=== PATIENT | female | born 2005 | race Caucasian/White ===

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

== ENCOUNTER 2023-01-19 17:34 | Emergency (ER) | payer OTHER, SELFPAY ==
[2023-01-19 17:35] VITALS: BP 118/78; PULSE 90; RESP 18; TEMP 36.4; O2SAT 97; BMI 21.7
== END 2023-01-19 19:33 | disposition left against medical advice (07) ==
LOC: ED 19:38
PROVIDERS: Emergency Provider Emergency Medicine; Visit Provider Emergency Medicine
DX: Z53.21 Procedure and treatment not carried out due to patient leaving prior to being seen by health care provider (principal)
CPT/HCPCS: 87880

== ENCOUNTER 2025-01-20 16:40 | Emergency (ER) | payer OTHER, SELFPAY ==
[2025-01-20 16:41] VITALS: BP 136/99; PULSE 81; RESP 16; TEMP 36.8; O2SAT 100; BMI 20.8
--- NOTE | 2025-01-20 17:37 | ED.RN ---
Name called to room pt, no answer, not in triage area or bathroom
--- OUTSIDE RECORDS SUMMARY | 2025-01-20 17:45 | XMS RPT_ITS | CCD ---
Author Organization [facility] Informat ion Partnership [facility] Care Team Providers Care Car Deliverer Name Role Phone Kat Santso MD Primary Care Provider [phone] Kat Santos MD Primary Care Provider Kat Santos MD Primary Care Provider Kat Santos MD Primary Care Provider [phone] [facility] Unavailable [facility] Primary Care Provider Unav ailable Marco Antonio Dunbar Attending Unavailable Ana Lusia, Kat Primary Care Unavailable Wilfred Lozada Attending Unavailable Ana Luisa, Kat Primary Care Unavailable ANA LUISA, KAT Primary Care Unavailable ANA LUISA, KAT Attending Unavailable ANA LUISA, KAT Primary Care Unavailable ANA LUISA, KAT Referring Unavailable ANA LUISA, KAT Primary Care Unavailable ANA LUISA, KAT Attending Unavailable ANA LUISA, KAT Primary Care Unavailable REFERRED, SELF Referring Unavailable ANA LUISA, KAT Attending Unavailable ANA LUISA, KAT Referring Unavailable ANA LUISA, KAT Primary Care Unavailable NAYAN MON Attending Unavailable ANA LUISA, KAT Primary Care Unavailable ANA LUISA, KAT Primary Care Unavailable ANA LUISA, KAT Primary Care Unavailable ANA LUISA, KAT Primary Care Unavailable PARAJULI, MAGALYS Attending Unavailable PARAJULI, MAGALYS Referring Unavailable ANA LUISA, KAT Primary Care Unavailable ANA LUISA, KAT Primary Care Unavailable REFERRED, SELF Referring Unavailable ANA LUISA, KAT Attending Unavailable ANA LUISA, KAT Primary Care Unavailable PARAJULI, MAGALYS Attending Unavailable REFERRED, SELF Referring Unavailable ANA LUISA, KAT Primary Care Unavailable PARAJULI, MAGALYS Attending Unavailable ANA LUISA, KAT Primary Care Unavailable ANA LUISA, KAT Primary Care Unavailable ANA LUISA, KAT Primary Care Unavailable ANA LUISA, KAT Primary Care Unavailable ANA LUISA, KAT Primary Care Unavailable ANA LUISA, KAT Primary Care Unavailable ANA LUISA, KAT Primary Care Unavailable REFERRED, SELF Referring Unavailable ANA LUISA, KAT Attending Unavailable [facility] Primary Care Unavailable JACQUELYN TREVINO Attending Unavailable DASHA, KERI Attending Unavailable [facility] Primary Care Unavailable DASHAKERI Attending Unavailable [facility] Primary Care Unavailable Chuck BORING MILL OPERATOR.Herminio PEREZ Primary Care Provider [phone] HERMINIO WOODS Attending Unavailable ANA LUISA, KAT A Primary Care UnavailSaulo Mckenzie MD Primary Care Provider Judy BORING MILL OPERATOR.RIG SUPERINTENDENT, Radha Unavailable Jessy BORING MILL OPERATOR.RIG SUPERINTENDENT, Radha Unavailable SAULO CAMARILLO Referring Unavailable ERIKA DIAZ Attending Unavailable SAVEZara, SAULO Primary Care Unavailable SAVEL, SAULO Attending Unavailable SAVEL, SAULO Primary Care Unavailable SAVEL, SAULO Primary Care Unavailable SAVEL, SAULO Referring Unavailable SAVEL, SAULO Attending Unavailable SAVEL, SAULO Primary Care Unavailable SAVEL, SAULO Attending Unavailable SAVEL, SAULO Primary Care Unavailable SAVEL, SAULO Primary Care Unavailable SAVEL, SAULO Attending Unavailable RABIA, SAULO Primary Care Unavailable Allergies Allergy Classification Reported Allergen(s) Allergy Type Date of Onset Reaction(s) Facility (4 sources) Lactose; Translations: [LACTOSE] Drug Allergy 11-06-2020 Diarrhea [facility] (4 sources) Eggs Or Egg-Derived Products; Translations: [EGGS OR EGG-DERIVED PRODUCTS] Propensity to adverse reactions 11-06-2020 Diarrhea [facility] Medications Current Medications Medication Drug Class(es) Dates Sig (Normalized) Sig (Original) amoxicillin 875 mg / clavulanate 125 mg oral tablet (1 source) Penicillin-class Antibacterial Start: 4 End: 4 take 1 tablet by mouth every twelve hours amoxicillin-clavulana te potassium (AUGMENTIN) 875-125 mg per tablet Indications: Neck mass Take 1 tablet by mouth every 12 hours for 10 days. 20 tablet 0 08/15/2023 08/25/2023 Active bifidobacterium infantis 4 mg oral capsule (1 source) Probiotic Produc t (ALIGN) 4 MG 1 Capsule by Feeding route daily 0 Active cetirizine hydrochloride 10 mg oral tablet (18 sources) Histamine-1 Receptor Antagonist take 1 tablet by mouth once daily cetirizine (ZYRTEC) 10 mg tablet Take 10 mg by mouth once daily. Active 24 hr dexmethylphenidate hydrochloride 10 mg extended release oral capsule (20 sources) Central Nervous System Stimulant Start: 3 End: 3 take 1 capsule by mouth once daily in the morning dexmethylphenidate HCl (FOCALIN XR) 10 MG ER capsule Take 1 Capsule (10 mg) by mouth every morning for 30 days 30 Capsule 0 10/19/2022 11/18/2022 Active Start: 08-17-2022 dexmethylpheni date XR (Focalin XR) 10 MG 24 hr capsule Start: 06-17-2021 take 1 capsule by mo [facility] once daily in the morning dexmethylphenidate HCl (FOCALIN XR) 10 MG ER capsule Take 1 Capsule (10 mg) by mouth every morning 90 Capsule 0 06/17/2021 Active End: 11-22-2023 dexmethylphenidate HCl (FOCA IRINA) 5 mg tablet Take 20 mg by mouth once daily. 11/22/2023 Discontinued take 1 tablet by aly twice daily dexmethylphenidate HCl (FOCALIN) 5 mg tablet Take 5 mg by mouth twice daily. 0 Active Comment on above: Take 5 mg by mouth t wice daily. diphenhydrAMINE hydrochloride 25 mg oral tablet (1 source) Histamine-1 Receptor Antagonist diphenhydrAMINE (BENADRYL) 25 MG TABS tablet Take by mouth every 6 hours as needed for Itching 0 Active drospirenone 3 mg / ethinyl estradiol 0.03 mg oral tablet (8 sources) Progestin, Estrogen Start: 05-24-2022 drospirenone-ethinyl estradiol (ERNIE) 3-0.03 MG per tablet TAKE 1 TABLET DAILY 84 Tablet 0 05/24/2022 Active Start: 06-22-2021 ERNIE 3-0.03 M G per tablet TAKE 1 TABLET DAILY 84 Tablet 3 06/22/2021 Active Start: 07-21-2020 End: 11-22-2023 take 1 tablet by mouth once Drospirenone-Ethinyl Estra diol 3- 0.03 mg per tablet Take 1 tablet by mouth. 07/21/2020 11/22/2023 Discontinued Start: 07-21-2020 take 1 tablet by mouth once Dr ospirenone-Ethinyl Estradiol 3- 0.03 mg per tablet Take 1 tablet by mouth. 0 07/21/2020 Active Comment on above: Take 1 tablet by aly th. escitalopram 20 mg oral tablet (16 sources) Serotonin Reuptake Inhibitor Start: take 1 tablet by mouth once daily escitalopram oxalate (LEXAPRO) 20 mg tablet Indications: ADITYA (generalized anxiety disorder) Take 1 tablet by mouth once daily. 90 tablet 1 11/26/2024 Active Start: 11-22-2023 End: 11-26-2024 take 1 tablet by mouth once daily escitalopram oxalate (LEXAPRO) 10 mg tablet Indications: ADITYA (generalized anxiety disorder) Take 1 tablet by mouth once daily. 90 tablet 3 06/07/2024 11/26/2024 Discontinued Ethinyl Estradiol / Levonorgestrel (1 source) Progestin, Estrogen, Progestin-containing Intrauterine Device Start: 07-01-2022 take 1 tablet by mouth once daily, then take 0.15 tablet by mouth once levonorgestrel-ethinyl estradiol (SEASONALE) 0.15-0.03 MG per tablet Take 1 Tablet by mouth daily 91 Tablet 1 07/01/2022 Active famotidine 10 mg oral tablet (1 source) Histamine-2 Receptor Antagonist famotidine (PEPCID) 10 MG tablet Take by mouth 0 Active hydrOXYzine pamoate 25 mg oral capsule (1 source) Antihistamine Start: 06-17-2021 take 2 capsules by mouth at bedtime as needed for anxiety hydrOXYzine (VISTARIL) 25 MG capsule Take 2 Capsules (50 mg) by mouth at bedtime as needed (anxiety) 120 Capsule 5 06/17/2021 Active lisdexamfetamine dimesylate 30 mg oral capsule (20 sources) Central Nervous System Stimulant Start: 08-28-2024 End: 12-06-2024 take 1 capsule by mouth once daily lisdexamfetamine (VYVANSE) 30 mg capsule Indications: ADHD (attention deficit hyperactivity disorder), combined type Take 1 capsule by mouth once daily for 30 days. Patient should start on November 06, 2024. 30 capsule 11/06/2024 12/06/2024 Active Start: 02-20-2024 End: 09-05-2024 take 1 capsule by mouth once daily lisdexamfetamine (VYVANSE) 40 mg capsule Indications: ADHD (attention deficit hyperactivity disorder), combined type Take 1 capsule by mouth once daily for 30 days. Patient should start on August 06, 2024. 30 capsule 08/06/2024 08/28/2024 Discontinued Start: 11-22-2023 End: 02-20-2024 lisdexamfetamine (VYVANSE) 3 0 mg capsule Indications: ADHD (attention deficit hyperactivity disorder), combined type Take 1 capsule by mouth once daily for 30 days. Patient should start on January 21, 2024. 30 capsule 01/21/2024 02/20/2024 Discontinued Start: 06-21-2023 End: 11-22-2023 lisdexamfetamine (VYVANSE) 2 0 mg capsule Take 20 mg by mouth. 06/21/2023 11/22/2023 Discontinued melatonin 10 mg sublingual t ablet (2 sources) Melatonin 10 MG TBCR Take by mouth 0 Active Melatonin [address] under the tongue 0 Active Completed/Discontinued Medications Medication Drug Class(es) Dates Sig (Normalized) Sig (Original) [id number] 0.3 ml EPINEPHrine 1 mg/ml auto-injector (6 sources) alpha-Adrenergic Agonist, beta-Adrenergic Agonist, Catecholamine Start: 08-17-2021 End: 11-22-2023 EPINEPHrine (EPIPEN) 0.3 mg/0.3 mL auto-injector Inject 0.3 mg intramuscularly. 08/17/2021 11/22/2023 Discontinued Start: 08-17-2021 EPINEPHrine (E PIPEN 2-FABIAN) 0.3 MG injection Inject 1 Auto-Injector (0.3 mg) into the muscle as needed for Anaphylaxis May repeat if needed in 15 min. Seek immediate medical attention. 2 Each 1 08/17/2021 Active ibuprofen 200 mg oral tablet (8 sources) Nonsteroidal Anti-inflammatory Drug End: 11-22-2023 take 1 tablet by mouth every six hours as needed ibuprofen (MOTRIN) 200 mg tablet Take 200 mg by mouth every 6 hours as needed. 11/22/2023 Discontinued IBUPROFEN PO Narinder e by mouth as needed 0 Active IBUPROFEN PO Narinder e by mouth 0 Active Comment on above: Take 200 mg by mouth every 6 hours as needed. levonorgestrel 0.881818 mg/hr intrauterine system (20 sources) Progestin, Progestin-containing Intrauterine Device Start: 10-06-2022 End: 10-06-2022 Levonorgestrel (Kyleena) 19.5 MG IUD 1 each Start: 10-06-2022 End: 10-06-2022 Levonorgestrel (Kyleena) 19. 5 MG IUD 1 each Start: 10-06-2022 End: 10-06-2022 Levonorgestrel (Kyleena) 19. 5 MG IUD 1 each Start: 10-06-2022 End: 10-06-2022 Levonorgestrel (Kyleena) 19. 5 MG IUD 1 each Start: 10-06-2022 End: 10-06-2022 Levonorgestrel (Kyleena) 19. 5 MG intrauterine device Indications: Encounter for IUD insertion 1 each by IntraUTERine route Once for 1 dose. 1 each 0 10/06/2022 10/06/2022 Discontinued (Therapy completed) Start: 09-28-2022 levonorgestrel (KYLEENA) 17.5 mcg/24 hrs (5 yrs) 19.5 mg IUD 09/28/2022 Active Start: 09-28-2022 Kyleena 19.5 M G intrauterine device minocycline 100 mg oral tablet (4 sources) Tetracycline-class Drug End: 09-07-2024 take 1 tablet by mouth once daily Minocycline HCl 100 mg tablet Take 100 mg by mouth once daily. 2 months for acne. Prescribed by Dermatology. 09/07/2024 Discontinued (Course of therapy completed) sertraline 50 mg oral tablet (6 sources) Serotonin Reuptake Inhibitor Start: 08-28-2020 End: 11-22-2023 sertraline (ZOLOFT) 50 mg tablet Take 75 mg by mouth. 08/28/2020 11/22/2023 Discontinued Comment on above: Take 75 mg by mouth. sodium fluoride 0.011 mg/mg toothpaste (4 sources) Start: 05-28-2023 End: 11-22-2023 Sodium Fluoride 1.1 % 05/28/2023 11/22/2023 Discontinued (Course of therapy completed) Problems Active Problems Problem Classification Problem Date Documented Da te Episodic/Chronic Abdominal pain (4 sources) Pain in pelvis; Translations: [Pelvic and perineal pain] Onset: 12-18-2024 02-24-2023 Episodic Acute and chronic tonsillitis (3 sources) Amygdalolith; Translations: [Other chronic diseases of tonsils and adenoids] Onset: 02-29-2024 11-22-2023 Chronic Administrative/social admission (1 source) First encounter by subject; Translations: [Persons encountering health services in other specified circumstances] 11-22-2023 Episodic Anxiety disorders (20 sources) Posttraumatic stress disorder; Translations: [Post-traumatic stress disorder, unspecified] Onset: 11-10-2020 11-10-2020 Chronic Attention-deficit, conduct, and disruptive behavior disorders (17 sources) Attention deficit hyperactivity disorder, combined type; Translations: [Attention-deficit hyperactivity disorder, combined type] Onset: 11-22-2023 11-22-2023 Chronic Attention-deficit, conduct, and disruptive behavior disorders (1 source) Attention-deficit hyperactivity disorder, combined type; Translations: [ADHD (attention deficit hyperactivity disorder), combined type] Onset: 11-22-2023 Chronic Coagulation and hemorrhagic disorders (1 source) Easy bruising; Translations: [Spontaneous ecchymoses] 02-20-2024 Episodic Contraceptive and procreative management (1 source) Intrauterine contraceptive device in situ; Translations: [Presence of (intrauterine) contraceptive device] 02-24-2023 Episodic Esophageal disorders (1 source) Gastro-esophageal reflux disease without esophagitis; Translations: [GERD without esophagitis] Onset: 12-18-2024 Chronic Gastrointestinal hemorrhage (1 source) Melena; Translations: [Tarry stools] Onset: 12-18-2024 Episodic Malaise and fatigue (2 sources) Fatigue; Translations: [Other fatigue] Onset: 08-15-2023 08-15-2023 Episodic Menstrual disorders (1 source) Menorrhagia; Translations: [Excessive and frequent menstruation with regular cycle] 07-02-2022 Chronic Miscellaneous mental health disorders (13 sources) Chronic insomnia; Translations: [Psychophysiologic insomnia] Onset: 11-22-2023 11-22-2023 Chronic Other gastrointestinal disorders (1 source) Other specified symptoms and signs involving the digestive system and abdomen; Translations: [Alternating constipation and diarrhea] Onset: 12-18-2024 Episodic Other gastrointestinal disorders (1 source) Abdominal distension (gaseous); Translations: [Abdominal bloating] Onset: 12-18-2024 Episodic Other injuries and conditions due to external causes (2 sources) Closed injury of head; Translations: [Unspecified injury of head, initial encounter] 05-04-2022 Episodic Other skin disorders (2 sources) Mass of neck; Translations: [Localized swelling, mass and lump, neck] 08-15-2023 Episodic Other skin disorders (1 source) Localized swelling, mass and lump, neck; Translations: [Neck mass] Onset: 08-15-2023 Episodic Other upper respiratory infections (1 source) Sore throat symptom; Translations: [Acute pharyngitis, unspecified] 02-29-2024 Episodic Residual codes; unclassified (2 sources) Obstructive sleep apnea syndrome; Translations: [Obstructive sleep apnea (adult) (pediatric)] Chronic Residual codes; unclassified (1 source) Frequent night waking; Translations: [Insomnia, unspecified] Episodic Residual codes; unclassified (1 source) Procedure and treatment not carried out due to patient leaving prior to being seen by health care provider; Translations: [Procedure and treatment not carried out due to patient leaving prior to being seen by health care provider] Onset: 01-25-2023 Episodic Screening and history of mental health and substance abuse codes (3 sources) Personal history of other mental and behavioral disorders; Translations: [History of attention deficit hyperactivity disorder (ADHD)] 05-04-2022 Episodic Unclassified (2 sources) other Onset: 02-24-2023 Unclassified (1 source) Immunization counseling; Translations: [Immunization counseling] Onset: 12-18-2024 Past or Other Problems Problem Classification Problem Date Documented Date Episodic/Chronic Attention-deficit, conduct, and disruptive behavior disorders (3 sources) Oppositional defiant disorder; Translations: [Oppositional defiant disorder] Onset: 04-10-2015 Resolved: 06-13-2022 04-10-2015 Chronic Attention-deficit, conduct, and disruptive behavior disorders (3 sources) Attention deficit hyperactivity disorder, predominantly inattentive type; Translations: [Attention-deficit hyperactivity disorder, predominantly inattentive type] Onset: 06-23-2020 Resolved: 06-13-2022 11-10-2020 Chronic Conditions associated with dizziness or vertigo (3 sources) Dysfunction of vestibular system; Translations: [Labyrinthine dysfunction, unspecified ear] Onset: 12-24-2015 12-24-2015 Episodic E Codes: Adverse effects of medical drugs (3 sources) Sympathomimetic adverse reaction; Translations: [Adverse effect of unspecified drugs primarily affecting the autonomic nervous system, initial encounter] Onset: 11-06-2020 Resolved: 11-06-2020 11-06-2020 Episodic Immunizations and screening for infectious disease (6 sources) Patient encounter status; Translations: [Encounter for screening for infections with a predominantly sexual mode of transmission] Onset: 09-16-2022 09-16-2022 Episodic Intracranial injury (3 sources) Concussion injury of body structure; Translations: [Concussion with loss of consciousness of unspecified duration, initial encounter] Onset: 12-24-2015 12-24-2015 Episodic Lymphadenitis (4 sources) Cervical lymphadenopathy; Translations: [Localized enlarged lymph nodes] Onset: 02-29-2024 09-03-2022 Episodic Mood disorders (6 sources) Depressive disorder; Translations: [Major depressive disorder, single episode, unspecified] Onset: 11-06-2020 Resolved: 06-13-2022 11-10-2020 Chronic Other aftercare (1 source) Other terminal gauger supervisor (current) drug therapy; Translations: [On angiotensin receptor blockers (ARB)] Onset: 09-20-2024 Episodic Other injuries and conditions due to external causes (1 source) Unspecified injury of head, initial encounter; Translations: [Unspecified injury of head, initial encounter] Onset: 05-12-2022 Episodic Other screening for suspected conditions (not mental disorders or infectious disease) (3 sources) Prolonged QT interval; Translations: [Abnormal electrocardiogram [ECG] [EKG]] Onset: 11-06-2020 Resolved: 11-06-2020 11-06-2020 Episodic Other upper respiratory disease (3 sources) Vocal cord dysfunction; Translations: [Other diseases of vocal cords] Onset: 03-22-2017 03-22-2017 Episodic Syncope (3 sources) Vasovagal syncope; Translations: [Syncope and collapse] Onset: 01-31-2019 01-31-2019 Episodic Results Test Name Value Interpretation Reference Range Facil ity CBC W Auto Differential pane l (Bld)on 12-19-2024 Basophils (Bld) [#/Vol] 0.03 10*3/uL Normal <0.11 [facility] Comment on above: Order Comment: Speci men Type: BLOOD SPECIMENOrdering Facility: [facility] Address: [address] [place] [address] Performed By: #### 5 7021-8 ####[facility] LABCLIA [id number] [place] [address] [place] Basophils/100 WBC (Bld) 0.8 % Normal [facility] Comment on above: Order Comment: Speci men Type: BLOOD SPECIMENOrdering Facility: [facility] Address: [address] [place] [address] Performed By: #### 5 7021-8 ####[facility] LABCLIA [id number] [place] [id number] [place] Differential cell count method Nom (Bld) Auto Normal [facility] Comment on above: Order Comment: Speci men Type: BLOOD SPECIMENOrdering Facility: [facility] Address: [address] [place] [address] Performed By: #### 5 7021-8 ####[facility] LABCLIA [id number] [place] [address] [place] Eosinophils (Bld) [#/Vol] 0.05 10*3/uL Normal <0.46 [facility] Comment on above: Order Comment: Speci men Type: BLOOD SPECIMENOrdering Facility: [facility] Address: [address] [place] [address] Performed By: #### 5 7021-8 ####[facility] LABCLIA [id number] [place] [id number] [place] Eosinophils/100 WBC (Bld) 1.3 % Normal [facility] Comment on above: Order Comment: Speci men Type: BLOOD SPECIMENOrdering Facility: [facility] Address: [address] [place], [place] [id number] Performed By: #### 5 7021-8 ####[facility] LABCLIA [id number] [place] [address] [place] Erythrocyte distribution width (RBC) [Ratio] 12.9 % Normal 11.5-15.0 [facility] Comment on above: Order Comment: Speci men Type: BLOOD SPECIMENOrdering Facility: [facility] Address: [address] [place] [address] Performed By: #### 5 7021-8 ####[facility] LABIA [id number] [place] [id number] [place] Hematocrit (Bld) [Volume fraction] 43.1 % Normal 36.0-46.0 [facility] Comment on above: Order Comment: Speci men Type: BLOOD SPECIMENOrdering Facility: [facility] Address: [address] [place] [address] Performed By: #### 5 7021-8 ####[facility] LABIA [id number] [place] [address] [place] Hemoglobin (Bld) [Mass/Vol] 13.4 g/dL Normal 11.5-15.5 [facility] Comment on above: Order Comment: Speci men Type: BLOOD SPECIMENOrdering Facility: [facility] Address: [address] [place] [address] Performed By: #### 5 7021-8 ####[facility] LABIA [id number] [place] [id number] [place] Immature granulocytes (Bld) [#/Vol] 10*3/uL Normal <0.10 [facility] Comment on above: Order Comment: Speci men Type: BLOOD SPECIMENOrdering Facility: [facility] Address: [address] [place] [address] Performed By: #### 5 7021-8 ####[facility] LABIA [id number] [place] [id number] [place] Immature granulocytes/100 WBC (Bld) 0.3 % Normal [facility] Comment on above: Order Comment: Speci men Type: BLOOD SPECIMENOrdering Facility: [facility] Address: [address] [place] [address] Performed By: #### 5 7021-8 ####[facility] LABCLIA [id number] [place] [address] [place] Lymphocytes (Bld) [#/Vol] 1.55 10*3/uL Normal 1.00-4.00 [facility] Comment on above: Order Comment: Speci men Type: BLOOD SPECIMENOrdering Facility: [facility] Address: [address] [place] [address] Performed By: #### 5 7021-8 ####[facility] LABIA [id number] [address] [place] Lymphocytes/100 WBC (Bld) 41.7 % Normal [facility] Comment on above: Order Comment: Speci men Type: BLOOD SPECIMENOrdering Facility: [facility] Address: [address] [place] [address] Performed By: #### 5 7021-8 ####[facility] LABIA [id number] [place] [id number] [place] MCH (RBC) [Entitic mass] 26.7 pg Normal 26.0-34.0 [facility] Comment on above: Order Comment: Speci men Type: BLOOD SPECIMENOrdering Facility: [facility] Address: [address] [place] [address] Performed By: #### 5 7021-8 ####[facility] LABCLIA [id number] [place] [id number] [place] MCHC (RBC) [Mass/Vol] 31.1 g/dL Normal 30.5-36.0 [facility] Comment on above: Order Comment: Speci men Type: BLOOD SPECIMENOrdering Facility: [facility] Address: [address] [place] [address] Performed By: #### 5 7021-8 ####[facility] LABCLIA [id number] [place] [address] [place] MCV (RBC) [Entitic vol] 86.0 fL Normal 80.0-100.0 [facility] Comment on above: Order Comment: Speci men Type: BLOOD SPECIMENOrdering Facility: [facility] Address: [address] [place] [address] Performed By: #### 5 7021-8 ####[facility] LABCLIA [id number] [place] [address] [place] Monocytes (Bld) [#/Vol] 0.20 10*3/uL Normal <0.87 [facility] Comment on above: Order Comment: Speci men Type: BLOOD SPECIMENOrdering Facility: [facility] Address: [address] [place] [address] Performed By: #### 5 7021-8 ####[facility] LABIA [id number] [place] [address] [place] Monocytes/100 WBC (Bld) 5.4 % Normal [facility] Comment on above: Order Comment: Speci men Type: BLOOD SPECIMENOrdering Facility: [facility] Address: [address] [place] [address] Performed By: #### 5 7021-8 ####[facility] LABIA [id number] [place] [address] [place] Neutrophils (Bld) [#/Vol] 1.88 10*3/uL Normal 1.45-7.50 [facility] [facility] Comment on above: Order Comment: Speci men Type: BLOOD SPECIMENOrdering Facility: [facility] Address: [address] [place] [address] Performed By: #### 5 7021-8 ####[facility] LABCLIA [id number] [place] [address] [place] Neutrophils/100 WBC (Bld) 50.5 % Normal [facility] Comment on above: Order Comment: Speci men Type: BLOOD SPECIMENOrdering Facility: [facility] Address: [address] [place] [address] Performed By: #### 5 7021-8 ####[facility] LABCLIA [id number] [place] [address] [place] Nucleated RBC (Bld) [#/Vol] 10*3/uL Normal <0.01 [facility] Comment on above: Order Comment: Speci men Type: BLOOD SPECIMENOrdering Facility: [facility] Address: [address] [place] [address] Performed By: #### 5 7021-8 ####[facility] LABIA [id number] [place] [address] [place] Nucleated RBC/100 WBC (Bld) [Ratio] 0.0 /100 WBC Normal [facility] Comment on above: Order Comment: Speci men Type: BLOOD SPECIMENOrdering Facility: [facility] Address: [address] [place] [address] Performed By: #### 5 7021-8 ####[facility] LABIA [id number] [place] [address] [place] Platelet mean volume (Bld) [Entitic vol] 9.8 fL Normal 9.0-12.7 [facility] Comment on above: Order Comment: Speci men Type: BLOOD SPECIMENOrdering Facility: [facility] Address: [address] [place] [address] Performed By: #### 5 7021-8 ####[facility] LABCLIA [id number] [place] [address] [place] Platelets (Bld) [#/Vol] 290 10*3/uL Normal 150-400 [facility] Comment on above: Order Comment: Speci men Type: BLOOD SPECIMENOrdering Facility: [facility] Address: [address] [place] [address] Performed By: #### 5 7021-8 ####[facility] LABCLIA [id number] [place] [address] [place] RBC (Bld) [#/Vol] 5.01 10*6/uL Normal 3.90-5.20 [facility] Comment on above: Order Comment: Speci men Type: BLOOD SPECIMENOrdering Facility: [facility] Address: [address] [place] [address] Performed By: #### 5 7021-8 ####[facility] LABCLIA [id number] [place] [id number] [facility] WBC (Bld) [#/Vol] 3.72 10*3/uL Normal 3.70-11.00 [facility] Comment on above: Order Comment: Speci men Type: BLOOD SPECIMENOrdering Facility: [facility] Address: [address] [place] [address] Performed By: #### 5 7021-8 ####[facility] LABIA [id number] [place] [id number] [facility] Comprehensive metabolic 2000 panelon 12-19-2024 Albumin [Mass/Vol] 4.6 g/dL Normal 3.9-4.9 [facility] Comment on above: Order Comment: Speci men Type: BLOOD SPECIMENOrdering Facility: [facility] Address: [address] [place] [address] Performed By: #### 3 040-3, 58111-3, TSHRF ####[facility] LABCLIA [id number] [place] [id number] [place] ALP [Catalytic activity/Vol] 49 U/L Normal 34-123 [facility] Comment on above: Order Comment: Speci men Type: BLOOD SPECIMENOrdering Facility: [facility] Address: [address] [place] [address] Performed By: #### 3 040-3, 98137-2, TSHRF ####[facility] LABCLIA [id number] [place] [address] [facility] ALT [Catalytic activity/Vol] 9 U/L Normal 7-38 [facility] Comment on above: Order Comment: Speci men Type: BLOOD SPECIMENOrdering Facility: [facility] Address: [address] [place] [address] Performed By: #### 3 040-3, , TSHRF ####[facility] LABCLIA [id number] [place] [address] [place] Anion gap [Moles/Vol] 12 mmol/L Normal 8-15 [facility] Comment on above: Order Comment: Speci men Type: BLOOD SPECIMENOrdering Facility: [facility] Address: [address] [place] [address] Performed By: #### 3 040-3, , TSHRF ####[facility] LABCLIA [id number] [place] [address] [place] AST [Catalytic activity/Vol] 20 U/L Normal 13-35 [facility] Comment on above: Order Comment: Speci men Type: BLOOD SPECIMENOrdering Facility: [facility] Address: [address] [place] [address] Performed By: #### 3 040-3, , TSHRF ####[facility] LABCLIA [id number] [place] [address] [place] Bilirubin [Mass/Vol] 0.6 mg/dL Normal 0.2-1.3 [facility] Comment on above: Order Comment: Speci men Type: BLOOD SPECIMENOrdering Facility: [facility] Address: [address] [place] [address] Performed By: #### 3 040-3, 80067-1, TSHRF ####[facility] LABCLIA [id number] [place] [address] [place] Calcium [Mass/Vol] 9.3 mg/dL Normal 8.5-10.2 [facility] Comment on above: Order Comment: Speci men Type: BLOOD SPECIMENOrdering Facility: [facility] Address: [address] [place], [place] [address] Performed By: #### 3 040-3, 30858-8, TSHRF ####[facility] LABCLIA [id number] [place] [address] [place] Chloride [Moles/Vol] 104 mmol/L Normal 98-107 [facility] Comment on above: Order Comment: Speci men Type: BLOOD SPECIMENOrdering Facility: [facility] Address: [address] [place] [address] Performed By: #### 3 040-3, , TSHRF ####[facility] LABCLIA [id number] [place] [address] [place] CO2 [Moles/Vol] 24 mmol/L Normal 22-30 [facility] Comment on above: Order Comment: Speci men Type: BLOOD SPECIMENOrdering Facility: [facility] Address: [address] [place] [address] Performed By: #### 3 040-3, , TSHRF ####[facility] LABCLIA [id number] [place] [address] [place] Creatinine [Mass/Vol] 0.60 mg/dL Normal 0.58-0.96 [facility] Comment on above: Order Comment: Speci men Type: BLOOD SPECIMENOrdering Facility: [facility] Address: [address] [place] [address] Performed By: #### 3 040-3, , TSHRF ####[facility] LABCLIA [id number] [place] [address] [place] eGFRcr SerPlBld CKD-EPI 2020 131 mL/min/1.73m??? Normal >=60 [facility] Comment on above: Order Comment: Speci men Type: BLOOD SPECIMENOrdering Facility: [facility] Address: [address] [place] [address] Result Comment: Tyesha mated Glomerular Filtration Rate (eGFR) is calculated using the 2020 CKD-EPI creatinine equation. This equation utilizes serum creatinine, sex, and age as parameters. The creatinine assay has traceable calibration to isotope dilution-mass spectrometry. Refer to KDIGO guidelines for clinical interpretation. In patients with unstable renal function, e.g. those with acute kidney injury, the eGFR may not accurately reflect actual GFR. Performed By: #### 3 040-3, 47185-8, TSHRF ####[facility] LABCLIA [id number] [place] [address] [place] Glucose [Mass/Vol] 87 mg/dL Normal 74-99 [facility] Comment on above: Order Comment: Speci men Type: BLOOD SPECIMENOrdering Facility: [facility] Address: [address] [place], [place] [address] Result Comment: The [place] Diabetes Association (ADA) provides guidance for cutoff values for fasting glucose and random glucose. The ADA defines fasting as no caloric intake for at least 8 hours. Fasting plasma glucose results between 100 to 125 mg/dL indicate increased risk for diabetes (prediabetes). Fasting plasma glucose results greater than or equal to 126 mg/dL meet the criteria for diagnosis of diabetes. In the absence of unequivocal hyperglycemia, results should be confirmed by repeat testing. In a patient with classic symptoms of hyperglycemia or hyperglycemic crisis, random plasma glucose results greater than or equal to 200 mg/dL meet the criteria for diagnosis of diabetes. Reference: Standards of Medical Care in Diabetes 2016, [place] Diabetes Association. Diabetes Care. 2016.39(Suppl 1). Performed By: #### 3 040-3, 56631-9, TSHRF ####[facility] LABCLIA [id number] [place] [address] [place] Potassium [Moles/Vol] 3.9 mmol/L Normal 3.7-5.1 [facility] Comment on above: Order Comment: Speci men Type: BLOOD SPECIMENOrdering Facility: [facility] Address: [address] [place] [address] Performed By: #### 3 040-3, 45587-0, TSHRF ####[facility] LABCLIA [id number] [place] [address] [place] Protein [Mass/Vol] 7.5 g/dL Normal 6.3-8.0 [facility] Comment on above: Order Comment: Speci men Type: BLOOD SPECIMENOrdering Facility: [facility] Address: [address] [place] [address] Performed By: #### 3 040-3, 95850-8, TSHRF ####[facility] LABCLIA [id number] [place] [address] [place] Sodium [Moles/Vol] 140 mmol/L Normal 136-144 [facility] Comment on above: Order Comment: Speci men Type: BLOOD SPECIMENOrdering Facility: [facility] Address: [address] [place] [address] Performed By: #### 3 040-3, 23906-4, TSHRF ####[facility] LABCLIA [id number] [place] [id number] [place] Urea nitrogen [Mass/Vol] 10 mg/dL Normal 7-21 [facility] Comment on above: Order Comment: Speci men Type: BLOOD SPECIMENOrdering Facility: [facility] Address: [address] [place] [address] Performed By: #### 3 040-3, 61956-0, TSHRF ####[facility] LABCLIA [id number] [place] [id number] [place] ESR Westergren method (Bld) [Velocity]on 12-19-2024 ESR (Bld) [Velocity] 8 mm/h Normal 0-20 [facility] Comment on above: Order Comment: Speci men Type: BLOOD SPECIMENOrdering Facility: [facility] Address: [address] [place] [address] Performed By: #### 4 537-7 ####[facility] LABCLIA [id number] [place] [address] [place] H. pylori IgG IA Qlon 2024 H. PYLORI IGG, QUAL Negative Normal Negative [facility] Comment on above: Order Comment: Speci men Type: BLOOD SPECIMENOrdering Facility: [facility] Address: [address] [place] [address] Result Comment: Elsa ot exclude H. pylori infection if the specimen collected 3-4 weeks after onset of symptoms. Performed By: #### 1 7859-0 ####[facility] LABCLIA [id number] [place] [address] [place] HCV Ab Ser Qlon 12-19-2024 HCV Ab Ql (S) Negative Normal Negative [facility] Comment on above: Order Comment: Speci men Type: BLOOD SPECIMENOrdering Facility: [facility] Address: [address] [place] [address] Result Comment: The result suggests no evidence of infection with Hepatitis C virus. Should recent infection be suspected, repeat testing may be considered 4-6 weeks after this draw. Performed By: #### 1 6128-1 ####[facility] LABCLIA [id number] [place] [address] [place] HIV 1+2 Ab IA Qlon HIV 1 and 2 Ab IA.rapid Nom (S/P/Bld) Normal [facility] Comment on above: Order Comment: Speci men Type: BLOOD SPECIMENOrdering Facility: [facility] Address: [address] [place] [address] Result Comment: Test not indicated. Performed By: #### 3 1201-7 ####[facility] LABCLIA [id number] [place] [address] [place] HIV 1+2 Ab+HIV1 p24 Ag IA Ql Non-Reactive Normal Nonreactive [facility] Comment on above: Order Comment: Speci men Type: BLOOD SPECIMENOrdering Facility: [facility] Address: [address] [place] [address] Performed By: #### 3 1201-7 ####[facility] LABCLIA [id number] [place] [address] [place] HIV immunoassay testing algorithm interpretation (S/P/Bld) [Interp] Normal [facility] Comment on above: Order Comment: Speci men Type: BLOOD SPECIMENOrdering Facility: [facility] Address: [address] [place] [address] Result Comment: No e vidence of HIV-1 or HIV-2 infection. Should recent infection be suspected, repeat testing may be considered 2-3 weeks after this draw. [place] Rev. Code 3701.243(E): This information has been disclosed to you from confidential records protected from disclosure by state law. You shall make no further disclosure of this information without the specific, written, and informed release of the individual to whom it pertains or as otherwise permitted by state law. A general authorization for the release of medical or other information is not sufficient for the purpose of the release of HIV test results or diagnoses. Performed By: #### 3 1201-7 ####[facility] LABCLIA [id number] [place] [address] [place] Iron and Iron binding capaci ty panelon 12-19-2024 Iron [Mass/Vol] 116 ug/dL Normal 41-186 [facility] Comment on above: Order Comment: Speci men Type: BLOOD SPECIMENOrdering Facility: [facility] Address: [address] [place] [address] Performed By: #### 5 0190-8, 85810-9 ####[facility] LABIA [id number] [place] [address] [place] Iron binding capacity [Mass/Vol] 343 ug/dL Normal 232-386 [facility] Comment on above: Order Comment: Speci men Type: BLOOD SPECIMENOrdering Facility: [facility] Address: [address] [place] [address] Performed By: #### 5 0190-8, 00977-6 ####[facility] LABCLIA [id number] [place] [id number] [place] Iron/TIBC [Molar ratio] 33.8 % Normal 15.0-57.0 [facility] Comment on above: Order Comment: Speci men Type: BLOOD SPECIMENOrdering Facility: [facility] Address: [address] [place], [place] [address] Performed By: #### 5 0190-8, 00640-7 ####[facility] LABCLIA [id number] [address] [address] [place] Lipase SerPl-cCncon 12-20-19 25 Lipase [Catalytic activity/Vol] 27 U/L Normal 16-61 [facility] Comment on above: Order Comment: Speci men Type: BLOOD SPECIMENOrdering Facility: [facility] Address: [address] [place] [address] Performed By: #### 3 040-3, 36287-9, [facility] ####[facility] LABCLIA [id number] [place] [address] [place] Lipid 1996 panelon 5 Cholesterol [Mass/Vol] 164 mg/dL Normal <200 [facility] Comment on above: Order Comment: Speci men Type: BLOOD SPECIMENOrdering Facility: [facility] Address: [address] [place], [place] [address] Result Comment: <200 mg/dL, Desirable 200-239 mg/dL, Borderline high >239 mg/dL, High Performed By: #### 5 0190-8, 14931-6 ####[facility] LABCLIA [id number] [address] [address] [place] Cholesterol in HDL [Mass/Vol] 74 mg/dL Normal >39 [facility] Comment on above: Order Comment: Speci men Type: BLOOD SPECIMENOrdering Facility: [facility] Address: [address] [place], [place] [address] Result Comment: 40-5 9 mg/dL, Acceptable >59 mg/dL, High: Negative risk factor for coronary heart disease <40 mg/dL, Low: Positive risk factor for coronary heart disease Performed By: #### 5 0190-8, 50260-3 ####[facility] LABCLIA [id number] [address] [address] [place] Cholesterol in LDL [Mass/Vol] 81 mg/dL Normal <100 [facility] Comment on above: Order Comment: Raeann rucker Type: BLOOD SPECIMENOrdering Facility: [facility] Address: [address] [place] [address] Result Comment: <100 mg/dL, Optimal 100-129 mg/dL, Near optimal/above optimal 130-159 mg/dL, Borderline high 160-189 mg/dL, High >189 mg/dL, Very high Secondary prevention optimal LDL Cholesterol levels are recommended to be <70 mg/dL LDL cholesterol is calculated using the Rodríguez-NIH equation. Performed By: #### 5 0190-8, 75024-8 ####[facility] LABIA [id number] [address] STATES [facility] Cholesterol in LDL/Cholesterol in HDL [Mass ratio] 1.09 {ratio} Normal <2.54 [facility] Comment on above: Order Comment: Raeann rucker Type: BLOOD SPECIMENOrdering Facility: [facility] Address: [address] [place] [address] Result Comment: Refe chiquita: 1. National Cholesterol Education Program ATP III Guideline At-A-Glance Quick Desk Reference: National Heart, Lung, and Blood [place]. National Institutes of Health. 2001: NIH Publication No. 01-3305. 2. An International Atherosclerosis Society position paper: global recommendations for the management of dyslipidemia: executive summary, Atherosclerosis. 2014: 232(2):410-413. Cut Points from the Lipid Research [facility]'s Prevalence Study for ages 20 to 24 years can be located in the following reference: Expert Panel on Integrated Guidelines for Cardiovascular Health and Risk Reduction in Children and Adolescents: National Heart, Lung and Blood [place]. Pediatrics. 2011:128(Suppl 5):F212-762. Performed By: #### 5 0190-8, 12344-5 ####[facility] [id number] [address] [place] Cholesterol in VLDL [Mass/Vol] 6 mg/dL Normal <30 [facility] Comment on above: Order Comment: Raeann rucker Type: BLOOD SPECIMENOrdering Facility: [facility] Address: [address] [place] [address] Performed By: #### 5 0190-8, 05440-7 ####[facility] LABCLIA [id number] [place] [id number] [place] Cholesterol non HDL [Mass/Vol] 90 mg/dL Normal <130 [facility] Comment on above: Order Comment: Speci men Type: BLOOD SPECIMENOrdering Facility: [facility] Address: [address] [place] [address] Result Comment: <130 mg/dL, Optimal 130-159 mg/dL, Near optimal/above optimal 160-189 mg/dL, Borderline high 190-219 mg/dL, High >219 mg/dL, Very high Secondary prevention optimal non HDL Cholesterol levels are recommended to be <100 mg/dL Performed By: #### 5 0190-8, 69921-8 ####[facility] LABCLIA [id number] [place] [address] [place] Cholesterol.total/Ch olesterol in HDL [Mass ratio] 2.22 {ratio} Normal <5.10 [facility] Comment on above: Order Comment: Speci men Type: BLOOD SPECIMENOrdering Facility: [facility] Address: [address] [place] [address] Performed By: #### 5 0190-8, 08525-3 ####[facility] LABCLIA [id number] [place] [id number] [place] FASTING TIME 12 hrs Normal [facility] Comment on above: Order Comment: Speci men Type: BLOOD SPECIMENOrdering Facility: [facility] Address: [address] [place], [place] [address] Performed By: #### 5 0190-8, 95480-6 ####[facility] LABCLIA [id number] [place] [id number] [place] Triglyceride [Mass/Vol] 38 mg/dL Normal <150 [facility] Comment on above: Order Comment: Speci men Type: BLOOD SPECIMENOrdering Facility: [facility] Address: [address] [place] [address] Result Comment: <150 mg/dL, Normal 150-199 mg/dL, Borderline high 200-499 mg/dL, High >499 mg/dL, Very high Performed By: #### 5 0190-8, 40602-1 ####[facility] LABCLIA [id number] [place] [address] [place] TSH W/REFLEX FT4on TSH Qn 1.450 m[IU]/L Normal 0.270-4.200 [facility] Comment on above: Order Comment: Speci men Type: BLOOD SPECIMENOrdering Facility: [facility] Address: [address] [place] [address] Result Comment: If t he patient is , TSH reference range varies by gestational period: First Trimester (weeks 9-12): 0.180-2.990 mIU/L Second Trimester: 0.110-3.980 mIU/L Third Trimester: 0.480-4.710 mIU/L Simeon Zuñiga et al. A Practical Approach for the Verifications and Determination of Site- and Trimester-Specific Reference Intervals for Thyroid Function tests in . Thyroid, 2019:29:3:412-420. Juan José Resendiz, et al. 2017 Guidelines of the [place] Thyroid Association for the Diagnosis and Management of Thyroid Disease during and the . Thyroid, 2017:27:3:315-389. Performed By: #### 3 040-3, 72928-2, TSHRF ####[facility] LABCLIA [id number] [place] [address] [place] tTG IgA Qn (S)on 12-19-2024 TRANSGLUTAMINASE IGA ABS INTERPRETATION Negative Normal Negative [facility] Comment on above: Order Comment: Speci men Type: BLOOD SPECIMENOrdering Facility: [facility] Address: [address] [place] [address] Result Comment: The following results were obtained with [employer]ANTA Lite R h-tTG IgA FABIOLA.???R h-tTG IgA values obtained with different manufacturers' assay methods may not be used interchangeably. The magnitude of the reported IgA levels cannot be correlated to an endpoint???concentration. This is used as an aid in diagnosis of celiac disease. Clinical correlation is required. Performed By: #### 3 1017-7 ####[facility] LABCLIA [id number] [place] [id number] [place] tTG IgA Ser-aCncon 5 tTG IgA Qn (S) <2 Normal <4 [facility] Comment on above: Order Comment: Speci men Type: BLOOD SPECIMENOrdering Facility: [facility] Address: [address] [place] [address] Performed By: #### 3 1017-7 ####[facility] LABCLIA [id number] [address] OF [facility] CNOVon 12-18-2024 CNOV Office Visit (FAMPHN ) BETTY QUINTANILLA ([id number]) 1 F Date Time Provider Department 12/18/24 4:00 PM SAULO CAMARILLO During your visit today, we recorded the following information about you: Temperature Pulse Blood pressure Weight 97.3 degrees 76/minute 110/74 53 kg Height 1.549 m Saulo Camarillo MD 12/18/2024 4:57 PM Signed Betty is a 19-year-old female, with a history of anxiety and ADHD, presenting for a check-up and follow-up on recent Lexapro dosage increase. She also reports ongoing digestive issues. Betty reports that her Lexapro dosage was increased approximately one month ago, and she feels it is helping. She is also taking Vyvanse, which she reports is working well. She denies any current issues with sleep and is not taking any medication for sleep. She reports chronic digestive issues, including heartburn, bloating, gas pains, and alternating constipation and diarrhea. She has tried omeprazole, Pepcid AC, and a probiotic without relief. She describes the pain as an intense pressure affecting both the upper and lower abdomen, with consistent upper abdominal pain upon waking and lower abdominal pain developing throughout the day. The pain intensifies with bloating and gas, and she experiences cramping pains. She also reports difficulty eating due to a feeling of fullness and has noticed black, thick, and tarry stools recently, particularly about a week ago. She denies taking an iron supplement. Betty reports that the bloating and pain have been severe enough to cause difficulty breathing, fainting episodes, and challenges with walking to class and carrying her book bag. She notes that the symptoms have become more intense in the past few weeks, with severe episodes requiring her to lie down with a heating pad. She denies any correlation with diet or lifestyle, stating that the symptoms occur consistently regardless of these factors. She has not seen a GI specialist due to time constraints with her college schedule but is open to a virtual visit. She has not tried dicyclomine. She is currently on fall break from college and reports that her symptoms are significantly affecting her daily life. She expresses concern about the severity of her symptoms and is seeking further evaluation and treatment. HISTORY REVIEWED PAST MEDICAL HISTORY Diagnosis Date ADHD (attention deficit hyperactivity disorder) Asthma (HCC) Exercised induced Generalized anxiety disorder PTSD (post-traumatic stress disorder) Vasovagal syncope PAST SURGICAL HISTORY Procedure Laterality Date REPAIR OF NASAL SEPTUM 2019 FAMILY HISTORY Problem Relation Age of Onset Arthritis Mother Anxiety disorder Mother Asthma Mother Arthritis Father Asthma Father Alzheimer's Disease Maternal Grandmother Hypertension Maternal Grandfather Melanoma Maternal Grandfather Lung Cancer Paternal Grandmother Obesity Paternal Grandmother Obesity Paternal Grandfather Social History Social History Narrative Not on file Allergies: ALLERGIES No Known Allergies Medications: cetirizine (ZYRTEC) 10 mg tablet Take 10 mg by mouth once daily. levonorgestrel (KYLEENA) 17.5 mcg/24 hrs (5 yrs) 19.5 mg IUD lisdexamfetamine (VYVANSE) 30 mg capsule Take 1 capsule by mouth once daily for 30 days. [START ON 01/17/2025] lisdexamfetamine (VYVANSE) 30 mg capsule Take 1 capsule by mouth once daily for 30 days. Patient should start on January 17, 2025. [START ON 02/16/2025] lisdexamfetamine (VYVANSE) 30 mg capsule Take 1 capsule by mouth once daily for 30 days. Patient should start on February 16, 2025. escitalopram oxalate (LEXAPRO) 20 mg tablet Take 1 tablet by mouth once daily. pantoprazole DR (PROTONIX) 40 mg tablet Take 1 tablet by mouth two times a day. dicyclomine (BENTYL) 10 mg capsule Take 1-2 capsules by mouth three times a day as needed. sucralfate (CARAFATE) 100 mg/mL suspension Take 10 mL by mouth four times daily. Problem List: ACTIVE PROBLEM LIST Epigastric Pain - 12/18/2024 Tarry Stools - 12/18/2024 Gerd Without Esophagitis - 12/18/2024 Abdominal Cramping - 12/18/2024 Abdominal Bloating - 12/18/2024 Alternating Constipation and Diarrhea - 12/18/2024 Adhd (Attention Deficit Hyperactivity Disorder), Combined Type - 11/22/2023 Aditya (Generalized Anxiety Disorder) - 09/04/2022 Posttraumatic Stress Disorder - 11/10/2020 Review of Systems Constitutional: Negative for chills and fever. HENT: Negative for congestion and sore throat. Eyes: Negative for pain and redness. Respiratory: Negative for cough and shortness of breath. Cardiovascular: Negative for chest pain and palpitations. Gastrointestinal: Positive for abdominal distention, abdominal pain, blood in stool, constipation and diarrhea. Negative for nausea and vomiting. Genitourinary: Negative for dysuria and hematuria. Musculoskelet (more content not included)... Normal [facility] ALT SerPl-cCncon 09-20-2024 ALT [Catalytic activity/Vol] 11 U/L Normal 7-38 [facility] Comment on above: Order Comment: Speci men Type: BLOOD SPECIMENOrdering Facility: [facility] Address: [address] [place] [address] Performed By: #### 1 742-6, 1920-8 ####[facility] LABCLIA [id number] [place] [address] [place] AST SerPl-cCncon 07-10-2025 AST [Catalytic activity/Vol] 21 U/L Normal 13-35 [facility] Comment on above: Order Comment: Speci men Type: BLOOD SPECIMENOrdering Facility: [facility] Address: [address] [place] [address] Performed By: #### 1 742-6, 1920-8 ####[facility] LABCLIA [id number] [place], [place] [id number] [place] [address] [place] Trigl SerPl-mCncon Triglyceride [Mass/Vol] 30 mg/dL Normal <150 [facility] Comment on above: Order Comment: Speci men Type: BLOOD SPECIMENOrdering Facility: [facility] Address: [address] [place] [address] Result Comment: <150 mg/dL, Normal 150-199 mg/dL, Borderline high 200-499 mg/dL, High >499 mg/dL, Very high Reference: 1. National Cholesterol Education Program ATP III Guideline At-A-Glance Quick Desk Reference: National Heart, Lung, and Blood [place]. National Institutes of Health. 2001: NIH Publication No. 01-3305. Cut Points from the [facility]'s Prevalence Study for ages 20 to 24 years can be located in the following reference: Expert Panel on Integrated Guidelines for Cardiovascular Health and Risk Reduction in Children and Adolescents: National Heart, Lung and Blood [place]. Pediatrics. 2011:128(Suppl 5):I264-064. Performed By: #### 2 571-8 ####[facility] LABCLIA [id number] [place] [id number] [place] [facility] Triglyceride [Mass/Vol]on FASTING TIME 1 hrs Normal [facility] Comment on above: Order Comment: Speci men Type: BLOOD SPECIMENOrdering Facility: [facility] Address: [address] [place] [address] Performed By: #### 2 571-8 ####[facility] LABCLIA [id number] [address] [address] [place] CNOVon 09-07-2024 CNOV Office Visit (FAMPHN ) BETTY QUINTANILLA ([id number]) 1 F Date Time Provider Department 09/07/24 1:40 PM SAULO CAMARILLO During your visit today, we recorded the following information about you: Temperature Pulse Blood pressure Weight 97.7 degrees 76/minute 102/58 52.4 kg Height 1.549 m Saulo Camarillo MD 09/07/2024 1:42 PM Signed Betty Quintanilla is a 19-year-old female presenting for a Vyvanse refill. Betty is currently taking Vyvanse 30 mg, which she reports is working well for her. She notes that the medication has affected her appetite and sleep. She obtains her medication from [facility] in [place] and drives there once a week. Betty is also taking Lexapro and inquires about refills. She reports feeling "pretty good" on the medication. Betty has been sexually active and believes she may have had a Pap smear, but is unsure. She is currently seeing a water resources project manager at [facility] and has not scheduled any upcoming appointments. HISTORY REVIEWED PAST MEDICAL HISTORY Diagnosis Date ADHD (attention deficit hyperactivity disorder) Asthma (HCC) Exercised induced Generalized anxiety disorder PTSD (post-traumatic stress disorder) Vasovagal syncope PAST SURGICAL HISTORY Procedure Laterality Date REPAIR OF NASAL SEPTUM 2018 FAMILY HISTORY Problem Relation Age of Onset Arthritis Mother Anxiety disorder Mother Asthma Mother Arthritis Father Asthma Father Alzheimer's Disease Maternal Grandmother Hypertension Maternal Grandfather Melanoma Maternal Grandfather Lung Cancer Paternal Grandmother Obesity Paternal Grandmother Obesity Paternal Grandfather Social History Social History Narrative Not on file Allergies: ALLERGIES No Known Allergies Medications: escitalopram oxalate (LEXAPRO) 10 mg tablet Take 1 tablet by mouth once daily. cetirizine (ZYRTEC) 10 mg tablet Take 10 mg by mouth once daily. levonorgestrel (KYLEENA) 17.5 mcg/24 hrs (5 yrs) 19.5 mg IUD lisdexamfetamine (VYVANSE) 30 mg capsule Take 1 capsule by mouth once daily for 30 days. [START ON 10/07/2024] lisdexamfetamine (VYVANSE) 30 mg capsule Take 1 capsule by mouth once daily for 30 days. Patient should start on October 07, 2024. [START ON 11/06/2024] lisdexamfetamine (VYVANSE) 30 mg capsule Take 1 capsule by mouth once daily for 30 days. Patient should start on November 06, 2024. Problem List: ACTIVE PROBLEM LIST Adhd (Attention Deficit Hyperactivity Disorder), Combined Type - 11/22/2023 Chronic Insomnia - 11/22/2023 Aditya (Generalized Anxiety Disorder) - 09/04/2022 Posttraumatic Stress Disorder - 11/10/2020 Review of Systems Constitutional: Positive for appetite change. Negative for chills and fever. Respiratory: Negative for cough and shortness of breath. Cardiovascular: Negative for chest pain and palpitations. Psychiatric/Behavioral : Positive for decreased concentration. Physical Exam Vitals and nursing note reviewed. Constitutional: General: She is not in acute distress. Appearance: She is well-developed. She is not diaphoretic. HENT: Head: Normocephalic and atraumatic. Eyes: General: Right eye: No discharge. Left eye: No discharge. Conjunctiva/sclera: Conjunctivae normal. Cardiovascular: Rate and Rhythm: Normal rate and regular rhythm. Heart sounds: Normal heart sounds. No murmur heard. No friction rub. No gallop. Pulmonary: Effort: Pulmonary effort is normal. No respiratory distress. Breath sounds: Normal breath sounds. No wheezing, rhonchi or rales. Skin: General: Skin is warm and dry. Neurological: Mental Status: She is alert and oriented to person, place, and time. Mental status is at baseline. BP 102/58 Pulse 76 Temp 36.5 ?C (97.7 ?F) Ht 154.9 cm (5' 1") Wt 52.4 kg (115 lb 8.3 oz) LMP 02/07/2024 (Within Days) BMI 21.83 kg/m? 1. ADHD (attention deficit hyperactivity disorder), combined type (F90.2) Condition is well-managed on Vyvanse 30 mg, though patient experiences decreased appetite and mild sleep disturbances. - Refilled Vyvanse 30 mg prescription and sent to [facility] in [place]. - Advised patient to monitor for any significant changes in side effects. 2. Healthcare maintenance (Z00.00) Patient is 19 years old and sexually active; due for initial Pap smear. - Discussed importance of cervical cancer screening and recommended scheduling a Pap smear with her water resources project manager at [facility]. - Scheduled follow-up for routine physical examination in the first week of December. 3. Generalized anxiety disorder (F41.1) Condition is stable on Lexapro; patient reports feeling well. - Confirmed Lexapro prescription has refills available through next May. 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 Patient/authorized (more content not included)... Normal [facility] CNOVon 06-07-2024 CNOV Office Visit (FAMPHN ) BETTY QUINTANILLA ([id number]) 1 F Date Time Provider Department 06/07/24 5:00 PM SAULO CAMARILLO During your visit today, we recorded the following information about you: Temperature Pulse Blood pressure Weight 97.5 degrees 70/minute 110/70 52.5 kg Height 1.549 m Saulo Camarillo MD 06/07/2024 5:12 PM Signed The patient is a 18-year-old female who presents for follow-up on ADHD and anxiety. Currently on Vyvanse 40 mg and lexapro. Doing well on this combo. Had a week of constant epigastric pain recently. Has since resolved. Tums and pepcid didn't seem to help. No diarrhea, constipation, nausea, vomiting. Anxiety This is a chronic problem. The current episode started more than 1 year ago. The problem is unchanged. Pertinent negatives include no fever, nausea or vomiting. The treatment provided moderate relief. Abdominal Pain This is a new problem. The current episode started more than 1 week ago. The problem has been resolved. The pain is located in the epigastric region. The quality of the pain is sharp. The pain is moderate. Pertinent negatives include fever, belching, diarrhea, flatus, hematochezia, melena, nausea, vomiting and constipation. Nothing aggravates the symptoms. Nothing relieves the symptoms. HISTORY REVIEWED PAST MEDICAL HISTORY Diagnosis Date ADHD (attention deficit hyperactivity disorder) Asthma Exercised induced Generalized anxiety disorder PTSD (post-traumatic stress disorder) Vasovagal syncope PAST SURGICAL HISTORY Procedure Laterality Date REPAIR OF NASAL SEPTUM 2018 FAMILY HISTORY Problem Relation Age of Onset Arthritis Mother Anxiety disorder Mother Asthma Mother Arthritis Father Asthma Father Alzheimer's Disease Maternal Grandmother Hypertension Maternal Grandfather Melanoma Maternal Grandfather Lung Cancer Paternal Grandmother Obesity Paternal Grandmother Obesity Paternal Grandfather Social History Social History Narrative Not on file Allergies: ALLERGIES No Known Allergies Medications: Minocycline HCl 100 mg tablet Take 100 mg by mouth once daily. 2 months for acne. Prescribed by Dermatology. cetirizine (ZYRTEC) 10 mg tablet Take 10 mg by mouth once daily. levonorgestrel (KYLEENA) 17.5 mcg/24 hrs (5 yrs) 19.5 mg IUD escitalopram oxalate (LEXAPRO) 10 mg tablet Take 1 tablet by mouth once daily. lisdexamfetamine (VYVANSE) 40 mg capsule Take 1 capsule by mouth once daily for 30 days. [START ON 07/07/2024] lisdexamfetamine (VYVANSE) 40 mg capsule Take 1 capsule by mouth once daily for 30 days. Patient should start on July 07, 2024. [START ON 08/06/2024] lisdexamfetamine (VYVANSE) 40 mg capsule Take 1 capsule by mouth once daily for 30 days. Patient should start on August 06, 2024. Problem List: ACTIVE PROBLEM LIST Adhd (Attention Deficit Hyperactivity Disorder), Combined Type - 11/22/2023 Chronic Insomnia - 11/22/2023 Aditya (Generalized Anxiety Disorder) - 09/04/2022 Posttraumatic Stress Disorder - 11/10/2020 Review of Systems Constitutional: Negative for chills and fever. Respiratory: Negative for cough and shortness of breath. Cardiovascular: Negative for chest pain and palpitations. Gastrointestinal: Positive for abdominal pain. Negative for abdominal distention, blood in stool, constipation, diarrhea, flatus, hematochezia, melena, nausea and vomiting. Psychiatric/Behavioral : Positive for decreased concentration. The patient is nervous/anxious. Physical Exam Vitals and nursing note reviewed. Constitutional: General: She is not in acute distress. Appearance: She is well-developed. She is not diaphoretic. HENT: Head: Normocephalic and atraumatic. Eyes: General: Right eye: No discharge. Left eye: No discharge. Conjunctiva/sclera: Conjunctivae normal. Cardiovascular: Rate and Rhythm: Normal rate and regular rhythm. Heart sounds: Normal heart sounds. No murmur heard. No friction rub. No gallop. Pulmonary: Effort: Pulmonary effort is normal. No respiratory distress. Breath sounds: Normal breath sounds. No wheezing, rhonchi or rales. Abdominal: General: Abdomen is flat. Palpations: Abdomen is soft. Tenderness: There is no abdominal tenderness. Skin: General: Skin is warm and dry. Neurological: Mental Status: She is alert and oriented to person, place, and time. Mental status is at baseline. BP 110/70 Pulse 70 Temp 36.4 ?C (97.5 ?F) Ht 154.9 cm (5' 1") Wt 52.5 kg (115 lb 11.9 oz) LMP 02/07/2024 (Within Days) SpO2 99% BMI 21.87 kg/m? ASSESSMENT/PLAN: 1. ADHD (attention deficit hyperactivity disorder), combined type - ICD9: 314.01, ICD10: F90.2 (primary diagnosis) Stable, continue vyvanse - LISDEXAMFETAMINE 40 MG CAPSULE - LISDEXAMFETAMINE 40 MG CAPSULE - LISDEXAMFETAMINE 40 MG CAPSULE 2. ADITYA (generalized anxiety disorder) - ICD9: 300.02, ICD (more content not included)... Normal [facility] CNOVon 02-29-2024 CNOV Office Visit (OTOLTW ) BETTY QUINTANILLA ([id number]) 1 F Date Time Provider Department 02/29/24 10:10 AM ERIKA DIAZ During your visit today, we recorded the following information about you: Erika Diaz APRN.CNP 02/29/2024 10:48 AM Signed IMPRESSION: - Tonsil stone - Frequent sore throat - enlarged lymph node. PLAN: Discussed findings, diagnosis and management options with patient. - Betty Quintanilla is presenting today for evaluation of recurrent sore throats. Started around 2 years ago. She also reports getting frequent tonsil stones in that timeframe. Has had antibiotics about 3 times for her sore throat. On exam today, bilateral tonsils are 1+ without any erythema or exudate. Discussed supportive care for tonsil stones. Reviewed that she does not currently meet [place] criteria for tonsillectomy. She expressed that the tonsil stones are very bothersome and would still like to get her tonsils out. -She is also reports an enlarged lymph node that she has had for many years. Had an ultrasound earlier this year that was normal. On exam today there is a prominent right anterior cervical lymph node, we will repeat ultrasound, follow-up via [employer] with results FOLLOW UP: Return as needed. Call sooner if problems develop. Erika Diaz APRN.RIG SUPERINTENDENT ____ Referring Provider: I was consulted by Dr. Camarillo for frequent sore throat. Response to consult is via shared electronic medical record for my opinion. Reason for Consult: Betty Quintanilla is a 18 year old female who presents to [facility] Otolaryngology Department. Patient presents with: New Patient HPI: Betty Quintanilla is a 18 year old female who presents with frequent sore throat. Reports getting a sore throat frequently. Had antibiotics over the summer, at least 3 times in the last year. Describes having a swollen lymph node for a while. +frequent tonsil stones. Today she feels well. Last sore throat was in December. College student. EAT 10: 02/29/2024 Eating Asessment Tool Score EAT Score 10 PAST MEDICAL HISTORY PAST MEDICAL HISTORY Diagnosis Date ADHD (attention deficit hyperactivity disorder) Asthma Exercised induced Generalized anxiety disorder PTSD (post-traumatic stress disorder) Vasovagal syncope PAST SURGICAL HISTORY PAST SURGICAL HISTORY Procedure Laterality Date REPAIR OF NASAL SEPTUM 2018 SOCIAL HISTORY Tobacco Use: Never Alcohol Use: No FAMILY HISTORY FAMILY HISTORY Problem Relation Age of Onset Arthritis Mother Anxiety disorder Mother Asthma Mother Arthritis Father Asthma Father Alzheimer's Disease Maternal Grandmother Hypertension Maternal Grandfather Melanoma Maternal Grandfather Lung Cancer Paternal Grandmother Obesity Paternal Grandmother Obesity Paternal Grandfather MEDICATIONS escitalopram oxalate (LEXAPRO) 10 mg tablet Take 1 tablet by mouth once daily. lisdexamfetamine (VYVANSE) 40 mg capsule Take 1 capsule by mouth once daily for 30 days. [START ON 03/21/2024] lisdexamfetamine (VYVANSE) 40 mg capsule Take 1 capsule by mouth once daily for 30 days. Patient should start on March 21, 2024. [START ON 04/20/2024] lisdexamfetamine (VYVANSE) 40 mg capsule Take 1 capsule by mouth once daily for 30 days. Patient should start on April 20, 2024. cetirizine (ZYRTEC) 10 mg tablet Take 10 mg by mouth once daily. levonorgestrel (KYLEENA) 17.5 mcg/24 hrs (5 yrs) 19.5 mg IUD ALLERGIES Patient has no known allergies. REVIEW OF SYSTEMS: Review of systems template on 02/29/2024 was completed in entirety on day of appointment and negative except where noted below: Constitutional: Negative for fever, appetite change, weight loss, weight gain Neurological: Negative for headaches, no history of stroke or seizure ENT: See HPI Cardiovascular: Negative for chest pain, dyspnea on exertion Respiratory: Is not experiencing shortness of breath. No history of asthma, COPD or recent pneumonia Gastrointestinal: Negative for nausea, vomiting Endo: No history of diabetes or thyroid disorders Heme/Lymph: No history of bleeding disorder Allergy: Negative for seasonal allergies, nasal congestion PHYSICAL EXAM Physical exam template on 02/29/2024 was completed in entirety on day of appointment and negative except where noted below: Vital Signs: LMP 02/07/2024 (Within Days) General: Well-developed, well-nourishes. No distress Respiratory Effort: Equal inspiration and expiration without stridor and is breathing comfortably on room air. Cardiovascular: No peripheral edema. Neuro: Awake, alert and oriented Ears: External ear is intact. Nose: No scar or anatomic deformity. Septum is intact. Mucosa is pink without any purulence or polyps. Oral Cavity: Normal lips. The dentition is fair. The muco (more content not included)... Normal [facility] CNOVon 02-20-2024 CNOV Office Visit (FAMPHN ) BETTY QUINTANILLA ([id number]) 1 F Date Time Provider Department 02/20/24 10:40 AM SAULO CAMARILLO During your visit today, we recorded the following information about you: Temperature Pulse Blood pressure Weight 97.1 degrees 68/minute 100/70 53.2 kg Height Last Period 1.549 m 02/07/24 Saulo Camarillo MD 02/20/2024 10:56 AM Signed The patient is a 18-year-old female who presents for follow-up on anxiety and ADHD. Last visit she was started on Lexapro and her Vyvanse dose was increased. She was referred to psychiatry for further management. Anxiety is much improved. She notes life-long easy bruising. States other family member have it but no bleeding d/o dx. She would like to start a b12/folate supplement. Anxiety This is a chronic problem. The current episode started more than 1 year ago. The problem has been waxing and waning since onset. Pertinent negatives include no fever. The treatment provided significant relief. HISTORY REVIEWED PAST MEDICAL HISTORY Diagnosis Date ADHD (attention deficit hyperactivity disorder) Asthma Exercised induced Generalized anxiety disorder PTSD (post-traumatic stress disorder) Vasovagal syncope PAST SURGICAL HISTORY Procedure Laterality Date REPAIR OF NASAL SEPTUM 2018 FAMILY HISTORY Problem Relation Age of Onset Arthritis Mother Anxiety disorder Mother Asthma Mother Arthritis Father Asthma Father Alzheimer's Disease Maternal Grandmother Hypertension Maternal Grandfather Melanoma Maternal Grandfather Lung Cancer Paternal Grandmother Obesity Paternal Grandmother Obesity Paternal Grandfather Social History Social History Narrative Not on file Allergies: ALLERGIES No Known Allergies Medications: cetirizine (ZYRTEC) 10 mg tablet Take 10 mg by mouth once daily. levonorgestrel (KYLEENA) 17.5 mcg/24 hrs (5 yrs) 19.5 mg IUD escitalopram oxalate (LEXAPRO) 10 mg tablet Take 1 tablet by mouth once daily. lisdexamfetamine (VYVANSE) 40 mg capsule Take 1 capsule by mouth once daily for 30 days. [START ON 03/21/2024] lisdexamfetamine (VYVANSE) 40 mg capsule Take 1 capsule by mouth once daily for 30 days. Patient should start on March 21, 2024. [START ON 04/20/2024] lisdexamfetamine (VYVANSE) 40 mg capsule Take 1 capsule by mouth once daily for 30 days. Patient should start on April 20, 2024. Problem List: ACTIVE PROBLEM LIST Adhd (Attention Deficit Hyperactivity Disorder), Combined Type - 11/22/2023 Chronic Insomnia - 11/22/2023 Aditya (Generalized Anxiety Disorder) - 09/04/2022 Posttraumatic Stress Disorder - 11/10/2020 Review of Systems Constitutional: Negative for chills and fever. Respiratory: Negative for cough and shortness of breath. Cardiovascular: Negative for chest pain and palpitations. Psychiatric/Behavioral : Positive for decreased concentration and sleep disturbance. The patient is nervous/anxious. Physical Exam Vitals and nursing note reviewed. Constitutional: General: She is not in acute distress. Appearance: She is well-developed. She is not diaphoretic. HENT: Head: Normocephalic and atraumatic. Eyes: General: Right eye: No discharge. Left eye: No discharge. Conjunctiva/sclera: Conjunctivae normal. Cardiovascular: Rate and Rhythm: Normal rate and regular rhythm. Heart sounds: Normal heart sounds. No murmur heard. No friction rub. No gallop. Pulmonary: Effort: Pulmonary effort is normal. No respiratory distress. Breath sounds: Normal breath sounds. No wheezing, rhonchi or rales. Skin: General: Skin is warm and dry. Neurological: Mental Status: She is alert and oriented to person, place, and time. Mental status is at baseline. BP 100/70 Pulse 68 Temp 36.2 ?C (97.1 ?F) Ht 154.9 cm (5' 1") Wt 53.2 kg (117 lb 4.6 oz) LMP 02/07/2024 (Within Days) BMI 22.16 kg/m? ASSESSMENT/PLAN: 1. ADHD (attention deficit hyperactivity disorder), combined type - ICD9: 314.01, ICD10: F90.2 (primary diagnosis) Increase vyvanse - LISDEXAMFETAMINE 40 MG CAPSULE - LISDEXAMFETAMINE 40 MG CAPSULE - LISDEXAMFETAMINE 40 MG CAPSULE 2. ADITYA (generalized anxiety disorder) - ICD9: 300.02, ICD10: F41.1 Much improved Continue lexapro - ESCITALOPRAM 10 MG TABLET 3. Easy bruising - ICD9: 782.7, ICD10: R23.3 mild Declines further workup/referral at this time She plans to try a b12/folate supplement Saulo Camarillo MD Allergies As of Date: 02/20/2024 (No Known Allergies) Date Reviewed: 02/20/2024 Reviewed by: Saulo Camarillo MD - Fully Assessed Reason for Visit: ADD/ADHD [790] Cmt: Wants higher dose on vyvanse Primary Visit Diagnosis:ADHD (attention deficit hyperactivity disorder), combined type [F90.2] Other Visit Diagnoses:ADITYA (generalized anxiety disorder) [F41.1] Easy bruising [R23.3] Order(s):escitalopram oxalate (LEXAPRO) 10 mg tabletTake 1 tablet by mo (more content not included)... Normal [facility] 01-05-2024 [facility] Telephone (EFRAINWS) BETTY QUINTANILLA ([id number]) 1 F Date Time Provider Department 01/05/24 RUBI AUGUSTE During your visit today, we recorded the following information about you: Rubi Auguste PA-C 01/05/2024 7:38 AM Signed Send to [facility] Labs are all normal. Thanks, CORNELIO Walker Amanda, RN 01/05/2024 8:36 AM Signed [facility] called and is notified of providers results. She voices understanding and will let Pt know. Aleta Sousa RN Allergies As of Date: 01/05/2024 (No Known Allergies) Date Reviewed: 11/22/2023 Reviewed by: Saulo Camarillo MD - Fully Assessed Reason for Visit: Results [95] Prescriptions as of 01/05/2024 - escitalopram oxalate (LEXAPRO) 10 mg tablet Take 1 tablet by mouth once daily. - lisdexamfetamine (VYVANSE) 30 mg capsule Take 1 capsule by mouth once daily for 30 days. - lisdexamfetamine (VYVANSE) 30 mg capsule Take 1 capsule by mouth once daily for 30 days. Patient should start on December 22, 2023. - lisdexamfetamine (VYVANSE) 30 mg capsule Take 1 capsule by mouth once daily for 30 days. Patient should start on January 21, 2024. - cetirizine (ZYRTEC) 10 mg tablet Take 10 mg by mouth once daily. - levonorgestrel (KYLEENA) 17.5 mcg/24 hrs (5 yrs) 19.5 mg IUD Problem List As Of Date 01/05/2024 Noted Resolved ADITYA (generalized anxiety disorder) [F41.1] 09/04/2022 Posttraumatic stress disorder [F43.10] 11/10/2020 ADHD (attention deficit hyperactivity disorder)*11/22/2023 Chronic insomnia [F51.04] 11/22/2023 Encounter Status:Closed by ALETA SOUSA on 01/05/24 Normal [facility] CBC W Auto Differential pane l (Bld)on 01-04-2024 Basophils (Bld) [#/Vol] 0.04 10*3/uL Normal <0.11 [facility] Comment on above: Order Comment: Speci men Type: BLOOD SPECIMEN Ordering Facility: [facility] Address: ATTN: [place] [address] Performed By: #### 5 7021-8 #### [facility] CLIA [id number] [address] [place] [address] [place] Basophils/100 WBC (Bld) 1.0 % Normal [facility] Comment on above: Order Comment: Speci men Type: BLOOD SPECIMEN Ordering Facility: [facility] Address: ATTN: [place] [address] Performed By: #### 5 7021-8 #### [facility] CLIA [id number] [address] [place] [address] [place] Differential cell count method Nom (Bld) Auto Normal [facility] Comment on above: Order Comment: Speci men Type: BLOOD SPECIMEN Ordering Facility: [facility] Address: ATTN: [place] [address] Performed By: #### 5 7021-8 #### [facility] CLIA [id number] [address] [place] [address] [place] Eosinophils (Bld) [#/Vol] 0.04 10*3/uL Normal <0.46 [facility] Comment on above: Order Comment: Speci men Type: BLOOD SPECIMEN Ordering Facility: [facility] Address: ATTN: [address] [address] Performed By: #### 5 7021-8 #### [facility] CLIA [id number] [address] [place] [address] [place] Eosinophils/100 WBC (Bld) 1.0 % Normal [facility] Comment on above: Order Comment: Speci men Type: BLOOD SPECIMEN Ordering Facility: [facility] Address: ATTN: [address] [address] Performed By: #### 5 7021-8 #### [facility] CLIA [id number] [address] [place] [address] [place] Erythrocyte distribution width (RBC) [Ratio] 12.6 % Normal 11.5-15.0 [facility] Comment on above: Order Comment: Speci men Type: BLOOD SPECIMEN Ordering Facility: [facility] Address: ATTN: [place] [address] Performed By: #### 5 7021-8 #### [facility] CLIA [id number] [address] [place] [address] [place] Hematocrit (Bld) [Volume fraction] 44.2 % Normal 36.0-46.0 [facility] Comment on above: Order Comment: Speci men Type: BLOOD SPECIMEN Ordering Facility: [facility] Address: ATTN: [place] [address] Performed By: #### 5 7021-8 #### [facility] CLIA [id number] [address] [place] [address] [place] Hemoglobin (Bld) [Mass/Vol] 14.2 g/dL Normal 11.5-15.5 [facility] Comment on above: Order Comment: Speci men Type: BLOOD SPECIMEN Ordering Facility: [facility] Address: ATTN: CARLYNery [place] [address] Performed By: #### 5 7021-8 #### [facility] CLIA [id number] [address] [place] [address] [place] Immature granulocytes (Bld) [#/Vol] 10*3/uL Normal <0.10 [facility] Comment on above: Order Comment: Speci men Type: BLOOD SPECIMEN Ordering Facility: [facility] Address: ATTN: [address] [place] [address] Performed By: #### 5 7021-8 #### [facility] CLIA [id number] [address] [place] [address] [place] Immature granulocytes/100 WBC (Bld) 0.2 % Normal [facility] Comment on above: Order Comment: Speci men Type: BLOOD SPECIMEN Ordering Facility: [facility] Address: ATTN: [place] [address] Performed By: #### 5 7021-8 #### [facility] CLIA [id number] [address] [place] [address] [place] Lymphocytes (Bld) [#/Vol] 1.13 10*3/uL Normal 1.00-4.00 [facility] Comment on above: Order Comment: Speci men Type: BLOOD SPECIMEN Ordering Facility: [facility] Address: ATTN: [place] [address] Performed By: #### 5 7021-8 #### [facility] CLIA [id number] [address] [place] [address] [place] Lymphocytes/100 WBC (Bld) 27.0 % Normal [facility] Comment on above: Order Comment: Speci men Type: BLOOD SPECIMEN Ordering Facility: [facility] Address: ATTN: [place] [address] Performed By: #### 5 7021-8 #### [facility] CLIA [id number] [address] [place] [address] [place] MCH (RBC) [Entitic mass] 27.4 pg Normal 26.0-34.0 [facility] Comment on above: Order Comment: Speci men Type: BLOOD SPECIMEN Ordering Facility: [facility] Address: ATTN: [place] [address] Performed By: #### 5 7021-8 #### [facility] CLIA [id number] [address] [place] [address] [place] MCHC (RBC) [Mass/Vol] 32.1 g/dL Normal 30.5-36.0 [facility] Comment on above: Order Comment: Speci men Type: BLOOD SPECIMEN Ordering Facility: [facility] Address: ATTN: [place] [address] Performed By: #### 5 7021-8 #### [facility] CLIA [id number] [address] [place] [address] [place] MCV (RBC) [Entitic vol] 85.3 fL Normal 80.0-100.0 [facility] Comment on above: Order Comment: Speci men Type: BLOOD SPECIMEN Ordering Facility: [facility] Address: ATTN: [place] [address] Performed By: #### 5 7021-8 #### [facility] CLIA [id number] [address] [place] [address] [place] Monocytes (Bld) [#/Vol] 0.25 10*3/uL Normal <0.87 [facility] Comment on above: Order Comment: Speci men Type: BLOOD SPECIMEN Ordering Facility: [facility] Address: ATTN: [place] [address] Performed By: #### 5 7021-8 #### [facility] CLIA [id number] [address] [place] [address] [place] Monocytes/100 WBC (Bld) 6.0 % Normal [facility] Comment on above: Order Comment: Speci men Type: BLOOD SPECIMEN Ordering Facility: [facility] Address: ATTN: [place] [address] Performed By: #### 5 7021-8 #### [facility] CLIA [id number] [address] [place] [address] [place] Neutrophils (Bld) [#/Vol] 2.72 10*3/uL Normal 1.45-7.50 [facility] Comment on above: Order Comment: Speci men Type: BLOOD SPECIMEN Ordering Facility: [facility] Address: ATTN: [place] [address] Performed By: #### 5 7021-8 #### [facility] CLIA [id number] [address] [place] [address] [place] Neutrophils/100 WBC (Bld) 64.8 % Normal [facility] Comment on above: Order Comment: Speci men Type: BLOOD SPECIMEN Ordering Facility: [facility] Address: ATTN: [place] [address] Performed By: #### 5 7021-8 #### [facility] CLIA [id number] [address] [place] [address] [place] Nucleated RBC (Bld) [#/Vol] 10*3/uL Normal <0.01 [facility] Comment on above: Order Comment: Speci men Type: BLOOD SPECIMEN Ordering Facility: [facility] Address: ATTN: [place] [address] Performed By: #### 5 7021-8 #### [facility] CLIA [id number] [address] [place] [address] [place] Nucleated RBC/100 WBC (Bld) [Ratio] 0.0 /100 WBC Normal [facility] Comment on above: Order Comment: Speci men Type: BLOOD SPECIMEN Ordering Facility: [facility] Address: ATTN: [place] [address] Performed By: #### 5 7021-8 #### [facility] CLIA [id number] [address] [place] [address] [place] Platelet mean volume (Bld) [Entitic vol] 11.1 fL Normal 9.0-12.7 [facility] Comment on above: Order Comment: Speci men Type: BLOOD SPECIMEN Ordering Facility: [facility] Address: ATTN: [place] [address] Performed By: #### 5 7021-8 #### [facility] CLIA [id number] [address] [place] [address] [place] Platelets (Bld) [#/Vol] 280 10*3/uL Normal 150-400 [facility] Comment on above: Order Comment: Speci men Type: BLOOD SPECIMEN Ordering Facility: [facility] Address: ATTN: [place] [address] Performed By: #### 5 7021-8 #### [facility] CLIA [id number] [address] [address] [place] RBC (Bld) [#/Vol] 5.18 10*6/uL Normal 3.90-5.20 [facility] Comment on above: Order Comment: Speci men Type: BLOOD SPECIMEN Ordering Facility: [facility] Address: ATTN: [place] [address] Performed By: #### 5 7021-8 #### [facility] CLIA [id number] [address] [address] [place] WBC (Bld) [#/Vol] 4.19 10*3/uL Normal 3.70-11.00 [facility] Comment on above: Order Comment: Speci men Type: BLOOD SPECIMEN Ordering Facility: [facility] Address: ATTN: [place] [address] Performed By: #### 5 7021-8 #### [facility] CLIA [id number] [address] [place] [address] [place] Comprehensive metabolic 2000 panelon 01-04-2024 Albumin [Mass/Vol] 4.9 g/dL Normal 3.9-4.9 [facility] Comment on above: Order Comment: Speci men Type: BLOOD SPECIMENOrdering Facility: [facility] Address: ATTN: [place] [address] Performed By: #### 3 016-3, 13888-8, 21534-2 ####[facility] [id number] [address] [address] [place] ALP [Catalytic activity/Vol] 65 U/L Normal 34-123 [facility] Comment on above: Order Comment: Speci men Type: BLOOD SPECIMENOrdering Facility: [facility] Address: ATTN: [place] [address] Performed By: #### 3 016-3, 15333-0, ####[facility] [id number] [address] [address] [place] ALT [Catalytic activity/Vol] 11 U/L Normal 7-38 [facility] Comment on above: Order Comment: Speci men Type: BLOOD SPECIMENOrdering Facility: [facility] Address: ATTN: [place] [address] Performed By: #### 3 016-3, 89485-5, ####[facility] [id number] [address] [address] [place] Anion gap [Moles/Vol] 12 mmol/L Normal 8-15 [facility] Comment on above: Order Comment: Speci men Type: BLOOD SPECIMENOrdering Facility: [facility] Address: ATTN: [place] [address] Performed By: #### 3 016-3, , ####[facility] [id number] [address] [address] [place] AST [Catalytic activity/Vol] 18 U/L Normal 13-35 [facility] Comment on above: Order Comment: Speci men Type: BLOOD SPECIMENOrdering Facility: [facility] Address: ATTN: [place] [address] Performed By: #### 3 016-3, 23367-3, ####[facility] [id number] [address] [address] [place] Bilirubin [Mass/Vol] 0.5 mg/dL Normal 0.2-1.3 [facility] Comment on above: Order Comment: Speci men Type: BLOOD SPECIMENOrdering Facility: [facility] Address: ATTN: [place] [address] Performed By: #### 3 016-3, 09549-1, ####[facility] [id number] [address] [address] [place] Calcium [Mass/Vol] 9.7 mg/dL Normal 8.5-10.2 [facility] Comment on above: Order Comment: Speci men Type: BLOOD SPECIMENOrdering Facility: [facility] Address: ATTN: [place] [address] Performed By: #### 3 016-3, 06776-8, ####[facility] [id number] [address] [address] [place] Chloride [Moles/Vol] 104 mmol/L Normal 98-107 [facility] Comment on above: Order Comment: Speci men Type: BLOOD SPECIMENOrdering Facility: [facility] Address: ATTN: [place] [address] Performed By: #### 3 016-3, 20613-0, ####[facility] [id number] [place] [address] [place] CO2 [Moles/Vol] 25 mmol/L Normal 22-30 [facility] Comment on above: Order Comment: Speci men Type: BLOOD SPECIMENOrdering Facility: [facility] Address: ATTN: [place] [address] Performed By: #### 3 016-3, 05560-0, ####[facility] [id number] [place] [address] [place] Creatinine [Mass/Vol] 0.64 mg/dL Normal 0.58-0.96 [facility] Comment on above: Order Comment: Speci men Type: BLOOD SPECIMENOrdering Facility: [facility] Address: ATTN: [place] [address] Performed By: #### 3 016-3, 59272-9, ####[facility] [id number] [address] [address] [place] Creatinine and Glomerular filtration rate.predicted panel (S/P/Bld) 130 mL/min/1.73m??? Normal >=60 [facility] Comment on above: Order Comment: Raeann rucker Type: BLOOD SPECIMENOrdering Facility: [facility] Address: ATTN: [place] [address] Result Comment: Tyesha mated Glomerular Filtration Rate (eGFR) is calculated using the 2020 CKD-EPI creatinine equation. This equation utilizes serum creatinine, sex, and age as parameters. The creatinine assay has traceable calibration to isotope dilution-mass spectrometry. Refer to KDIGO guidelines for clinical interpretation. In patients with unstable renal function, e.g. those with acute kidney injury, the eGFR may not accurately reflect actual GFR. Performed By: #### 3 016-3, 89010-4, ####[facility] [id number] [address] [address] [place] Glucose [Mass/Vol] 93 mg/dL Normal 74-99 [facility] Comment on above: Order Comment: Raeann rucker Type: BLOOD SPECIMENOrdering Facility: [facility] Address: ATTN: [place] [address] Result Comment: The [place] Diabetes Association (ADA) provides guidance for cutoff values for fasting glucose and random glucose. The ADA defines fasting as no caloric intake for at least 8 hours. Fasting plasma glucose results between 100 to 125 mg/dL indicate increased risk for diabetes (prediabetes). Fasting plasma glucose results greater than or equal to 126 mg/dL meet the criteria for diagnosis of diabetes. In the absence of unequivocal hyperglycemia, results should be confirmed by repeat testing. In a patient with classic symptoms of hyperglycemia or hyperglycemic crisis, random plasma glucose results greater than or equal to 200 mg/dL meet the criteria for diagnosis of diabetes. Reference: Standards of Medical Care in Diabetes 2016, [place] [employer]. Diabetes Care. 2016.39(Suppl 1). Performed By: #### 3 016-3, 58939-7, ####[facility] [id number] [address] [address] [place] Potassium [Moles/Vol] 4.6 mmol/L Normal 3.7-5.1 [facility] Comment on above: Order Comment: Speci men Type: BLOOD SPECIMENOrdering Facility: [facility] Address: ATTN: [place] [address] Performed By: #### 3 016-3, 67953-8, ####[facility] [id number] [address] [address] [place] Protein [Mass/Vol] 7.3 g/dL Normal 6.3-8.0 [facility] Comment on above: Order Comment: Speci men Type: BLOOD SPECIMENOrdering Facility: [facility] Address: ATTN: [address] [place] [address] Performed By: #### 3 016-3, 04404-9, ####[facility] [id number] [place] [address] [place] Sodium [Moles/Vol] 141 mmol/L Normal 136-144 [facility] Comment on above: Order Comment: Speci men Type: BLOOD SPECIMENOrdering Facility: [facility] Address: ATTN: [place] [address] Performed By: #### 3 016-3, , ####[facility] [id number] [place] [address] [place] Urea nitrogen [Mass/Vol] 13 mg/dL Normal 7-21 [facility] Comment on above: Order Comment: Speci men Type: BLOOD SPECIMENOrdering Facility: [facility] Address: ATTN: [place] [address] Performed By: #### 3 016-3, 82201-5, ####[facility] [id number] [address] [address] [place] Magnesium SerPl-mCncon 01-03 Magnesium [Mass/Vol] 2.2 mg/dL Normal 1.7-2.3 [facility] Comment on above: Order Comment: Raeann rucker Type: BLOOD SPECIMENOrdering Facility: [facility] Address: ATTN: [place] [address] Performed By: #### 3 016-3, 50523-7, ####[facility] [id number] [place] [address] [place] TSH SerPl-aCncon 01-04-2024 TSH Qn 2.420 m[IU]/L Normal 0.510-4.300 [facility] Comment on above: Order Comment: Raeann rucker Type: BLOOD SPECIMENOrdering Facility: [facility] Address: ATTN: [place] [address] Result Comment: If t he patient is , TSH reference range varies by gestational period: First Trimester (weeks 9-12): 0.180-2.990 mIU/L Second Trimester: 0.110-3.980 mIU/L Third Trimester: 0.480-4.710 mIU/L Simeon Zuñiga et al. A Practical Approach for the Verifications and Determination of Site- and Trimester-Specific Reference Intervals for Thyroid Function tests in . Thyroid, 2019:29:3:412-420. Juan José Resendiz, et al. 2017 Guidelines of the [place] Thyroid Association for the Diagnosis and Management of Thyroid Disease during and the . Thyroid, 2017:27:3:315-389. Performed By: #### 3 016-3, 42375-2, ####[facility] [id number] [place] [address] [place] CNOVon 08-15-2023 CNOV Office Visit (EDC) BETTY [id number]) 1 F Date Time Provider Department 08/15/23 11:00 AM HERMINIO WOODS [facility] During your visit today, we recorded the following information about you: Temperature Pulse Blood pressure Weight 97.3 degrees 81/minute 116/79 56.1 kg Herminio Woods, GUM[facility]O.CHRIS 08/15/2023 11:47 AM Signed This note was created using [email or web address]. Subjective Betty Quintanilla is a 18 year old female. Patient is here today complaining of right-sided neck mass that she has had before in the past she also complaining of right armpit pain that started a few days ago. She states that the mass has been an ongoing thing for about a year it goes away mostly with antibiotics than the last time it reoccurred it did not go away at all with antibiotics. The mass is movable she states it feels rubbery when she pushes on it. Patient denies any significant pain or fevers or chills. She has been complaining of a lot of fatigue. At this point in time patient states that she is from [place] provider [place] but cannot get in until November. In the meantime we will do another round of antibiotics do another ultrasound to make sure it still a lymph node and get her into see an ENT specialist at this time. Vitals are stable no other concerns. She does state that she was checked for mono in March the results are not in epic however she states they were negative. She did have her thyroid checked which was normal as well recently. Review of Systems Constitutional: Negative. HENT: Neck mass Respiratory: Negative. Cardiovascular: Negative. Gastrointestinal: Negative. Musculoskeletal: Right-sided neck mass Neurological: Negative. Objective BP 116/79 (BP Site: Left Arm, BP Position: Sitting, BP Cuff Size: Regular Adult) Pulse 81 Temp 36.3 ?C (97.3 ?F) (Temporal) Wt 56.1 kg (123 lb 9.6 oz) LMP 10/12/2021 (Approximate) SpO2 98% Physical Exam Vitals and nursing note reviewed. Constitutional: Appearance: Normal appearance. HENT: Head: Normocephalic. Right Ear: Tympanic membrane, ear canal and external ear normal. Left Ear: Tympanic membrane, ear canal and external ear normal. Nose: Nose normal. Mouth/Throat: Mouth: Mucous membranes are moist. Pharynx: Oropharynx is clear. Eyes: Conjunctiva/sclera: Conjunctivae normal. Neck: Comments: Right-sided neck mass movable most likely lymph node Cardiovascular: Rate and Rhythm: Normal rate. Pulses: Normal pulses. Pulmonary: Effort: Pulmonary effort is normal. Musculoskeletal: Cervical back: Normal range of motion. Skin: General: Skin is warm and dry. Neurological: Mental Status: She is alert. Psychiatric: Mood and Affect: Mood normal. Behavior: Behavior normal. Judgment: Judgment normal. Assessment and Plan 1. Neck mass - ICD9: 784.2, ICD10: R22.1 (primary diagnosis) Obtain ultrasound call with results start on Augmentin consult ENT. - US HEAD/NECK SOFT TISSUE OTHER - AMOXICILLIN 875 MG-POTASSIUM CLAVULANATE 125 MG TABLET - CONSULT TO ENT 2. Fatigue, unspecified type - ICD9: 780.79, ICD10: R53.83 Most like related to lymphadenitis that will hopefully be proven by ultrasound. Follow-up with a new PCP in November where she lives. Herminio Woods APRN.[facility] Allergies As of Date: 08/15/2023 (No Known Allergies) Date Reviewed: 08/15/2023 Reviewed by: Herminio Woods APRN.[facility] - Fully Assessed Reason for Visit: Mass [64] Cmt: Patient is complaining of a lump on right side of neck X 1 year. States there is no pain but it feels "rubbery" when she pushes on it. Primary Visit Diagnosis:Neck mass [R22.1] Other Visit Diagnosis:Fatigue, unspecified type [R53.83] Order(s):US HEAD/NECK SOFT TISSUE OTHER [[id number]] Order #: [id number] FUTURE amoxicillin-clavulanat e potassium (AUGMENTIN) 875-125 mg per tabletTake 1 tablet by mouth every 12 hours for 10 days.Disp: 20 tabletRfl: 0 CONSULT TO ENT [9008] Order #: [id number]: 1 FUTURE Prescriptions as of 08/15/2023 - lisdexamfetamine (VYVANSE) 20 mg capsule Take 20 mg by mouth. - Sodium Fluoride 1.1 % - cetirizine (ZYRTEC) 10 mg tablet Take 10 mg by mouth once daily. - amoxicillin-clavulanat e potassium (AUGMENTIN) 875-125 mg per tablet Take 1 tablet by mouth every 12 hours for 10 days. - levonorgestrel (KYLEENA) 17.5 mcg/24 hrs (5 yrs) 19.5 mg IUD - EPINEPHrine (EPIPEN) 0.3 mg/0.3 mL auto-injector Inject 0.3 mg intramuscularly. - sertraline (ZOLOFT) 50 mg tablet Take 75 mg by mouth. - Drospirenone-Ethinyl Estradiol 3-0.03 mg per tablet Take 1 tablet by mouth. - dexmethylphenidate HCl (FOCALIN) 5 mg tablet Take 20 mg by mouth once daily. - ibuprofen (MOTRIN) 200 mg tablet Take 200 mg by mouth every 6 hours as needed. Problem List As Of Date: 08/15/2023 (None) Prescriptions ordered this encounter Disp (more content not included)... Normal [facility] Office Visiton 02-24-2023 Follow-up visit [id number] Ny Quintanilla 2005 F Date Provider Department Center 02/24/2023 [id number] LOU [facility] PA [facility] OB Offi No family history on file Level of Service:86428 IN OFFICE/OUTPATIENT ESTABLISHED [facility] 10-19 MIN Reason for Visit and Comments: other [Other] - Pt can't feel her IUD strings Normal [facility] Progress Noteon 02-24-2023 Progress Note Betty Quintanilla 02/24/2025 17 y.o. Chief Complaint Patient presents with other Pt can't feel her IUD strings No LMP recorded. Primary CarePhysician: [facility] HPI: Betty Quintanilla is a 17 y.o. female here today for IUD check up. Reports concern for lost IUD strings. Last month had some more cramping but denies severe pelvic pain. Review of Systems: Review of Systems Constitutional: Negative for fever. Gastrointestinal: Negative for abdominal pain. Genitourinary: Negative for pelvic pain, vaginal bleeding and vaginal discharge. Physical Exam: BP 120/77 Pulse 109 Wt 120 lb (54.4 kg) BMI 21.95 kg/m? Physical Exam Constitutional: General: She is not in acute distress. Appearance: Normal appearance. She is not ill-appearing, toxic-appearing or diaphoretic. HENT: Head: Normocephalic and atraumatic. Nose: Nose normal. Eyes: Extraocular Movements: Extraocular movements intact. Conjunctiva/sclera: Conjunctivae normal. Pupils: Pupils are equal, round, and reactive to light. Pulmonary: Effort: Pulmonary effort is normal. No respiratory distress. Chest: Breasts: Bong Score is 5. Abdominal: Palpations: Abdomen is soft. Genitourinary: General: Normal vulva. Bong stage (genital): 5. Labia: Right: No rash, tenderness, lesion or injury. Left: No rash, tenderness, lesion or injury. Urethra: No prolapse, urethral swelling or urethral lesion. Vagina: Normal. Cervix: No cervical motion tenderness. Comments: + IUD strings which were long and around posterior aspect of cervix. Strings trimmed Musculoskeletal: Right lower leg: No edema. Left lower leg: No edema. Lymphadenopathy: Cervical: No cervical adenopathy. Upper Body: Right upper body: No supraclavicular or axillary adenopathy. Left upper body: No supraclavicular or axillary adenopathy. Skin: General: Skin is warm and dry. Coloration: Skin is not jaundiced. Neurological: General: No focal deficit present. Mental Status: She is alert and oriented to person, place, and time. Psychiatric: Mood and Affect: Mood normal. Behavior: Behavior normal. Thought Content: Thought content normal. Judgment: Judgment normal. ASSESSMENT: Diagnosis Plan 1. Pelvic pain 2. IUD (intrauterine device) in place PLAN: - Strings visualized, patient reassured. Counseled on pain monitoring, if worsens plan for pelvic US Normal [facility] Progress Note A wood molder was offered to be present during her exam. The patient: declined Normal [facility] Progress Noteon 02-21-2023 [facility] Authentication Interface Message Text Patient ID: Betty Quintanilla is a 17 y.o. female. Her chief complaint(s) include: ADHD Follow-up Assessment 1. ADHD (attention deficit hyperactivity disorder), combined type 2. Need for vaccination Plan Betty was seen today for adhd follow-up. Diagnoses and associated orders for this visit: ADHD (attention deficit hyperactivity disorder), combined type Need for vaccination - COVID-19 Pfizer 12 years+ Follow up in 6 months. Improved weight gain. Message when out of medication refills. Will send 3- 1 month supplies at that time. Subjective HPI Comments: Still struggle with food at school. Horrible food choices. Vegetarian now instead of vegan. Appetite better/ Grades good. She is unaccompanied. ADHD Follow-up Current ADHD medication(s) include Focalin XR. Focalin XR Dosage: 20 mg Dosing Schedule: Medication Use: daily. Compliance with medication: takes medication daily. The patient is in sophomore year of college. Her school performance includes: doing well. Primary Care Review of Systems Objective Vital Signs 02/21/23 1016 BP: 100/62 Temp: 36.9 C (98.4 F) TempSrc: Temporal Weight: 55 kg Height: 158 cm Body mass index is 22.03 kg/m . Physical Exam Constitutional: She appears well. She is active. No distress. HENT: Head: Atraumatic. Ears: Right Ear: Tympanic membrane normal. Left Ear: Tympanic membrane normal. Mouth/Throat: Mucous membranes are moist. Cardiovascular: Normal rate and regular rhythm. Heart murmur not heard. Pulmonary/Chest: Breath sounds normal. There is normal air entry. Neurological: She is alert. Normal [facility] Strep A (Throat Rapid KISHAN)on 01-21-2023 S. pyogenes Ag IA Ql (Unsp spec) A Disk (Conf. Cult) Negative for Strep Group A Rapid Strep A Screen NEGATIVE Normal [facility] Comment on above: Performed By: #### M [id number] #### [facility] [address] [place], [address] Progress Noteon 01-11-2023 [facility] Authentication Interface Message Text Patient ID: Betty Quintanilla is a 17 y.o. female. Her chief complaint(s) include: ADHD Follow-up Assessment 1. ADHD (attention deficit hyperactivity disorder), combined type Plan Betty was seen today for adhd follow-up. Diagnoses and associated orders for this visit: ADHD (attention deficit hyperactivity disorder), combined type - dexmethylphenidate HCl (FOCALIN XR) 20 MG ER capsule; Take 1 Capsule (20 mg) by mouth every morning for 30 days - dexmethylphenidate HCl (FOCALIN XR) 20 MG ER capsule; Take 1 Capsule (20 mg) by mouth every morning for 30 days - dexmethylphenidate HCl (FOCALIN XR) 20 MG ER capsule; Take 1 Capsule (20 mg) by mouth every morning for 30 days Follow up in February for med check. Subjective HPI Comments: This is a telemedicine video visit requested by the patient/guardian that was performed with the patient's location at home and the provider's location at office. Feels like the medication has been getting less effective. Denies increased anxiety or depression. Struggling reading, focusing. Appetite is good. Sleep is much better. Tried double dosing yesterday. She felt better. No side effects. She is unaccompanied. ADHD Follow-up The information was obtained from the patient. Current ADHD medication(s) include Focalin XR. Focalin XR Dosage: 10 mg Dosing Schedule: AM Medication Use: daily. Compliance with medication: takes medication daily. Side effects have not included decreased appetite and difficulty falling asleep. The patient is in sophomore year of college. Her school performance includes: doing well (having a hard time completing assignments.). Primary Care Review of Systems Objective There were no vitals filed for this visit. There is no height or weight on file to calculate BMI. Physical Exam Constitutional: She appears well. She is active. Neurological: She is alert. Psychiatric: Attention and Perception: Attention normal. Her speech is normal. Cognition are normal. Normal [facility] HCG ( test) Ql (U)o n 10-06-2022 Beta HCG ( test) Ql (U) 910628 [employer] Interpretation and review of laboratory results Normal [facility] NEGATIVE QC Pass [facility] POSITIVE QC Pass [employer] Preg Test, Ur Negative Negative [employer] [facility] [employer] Progress Noteon 10-06-2022 Progress Note IUD Insertion: The patient is requesting that a Kyleena IUD be inserted for control. The patient was counseled on the procedure. Risks, benefits and alternatives were reviewed. She is aware that she may have irregular bleeding for up to 6 months after insertion. The side effect profile of the specific IUD was reviewed. A consent was reviewed and obtained. Urine hcg: negative The patient was counseled on the need for string checks after her menses. She is to notify the office if she can not locate the IUD string at anytime. She is aware that she will need a speculum exam and possibly an ultrasound to confirm the proper orientation of the IUD. Procedure: The patient was positioned comfortably on the exam table. A sterile speculum was placed without incident.The site was then cleansed with betadine and the uterus was sounded to 7 cm. The Kyleena IUD was opened and loaded into the delivery system. The wand was inserted to just past the internal portion and the button was retracted to the first line. The wand was held in place for 10 seconds and then the button was retracted to its final position while the IUD was moved to the fundus. The string was trimmed in standard fashion to 3cm. Post procedure restrictions were reviewed and given to the patient. She was instructed to use barrier protection for sexually transmitted disease prevention as well as string checks/timing. The patient tolerated the procedure without difficulty. She was instructed to abstain for one day. She is to notify the office or go to the nearest Emergency Department if she experiences Abdominal Pain, Temperatures more than 101 F, Odiferous Vaginal Discharge, Dizziness or Shortness of breath. Assessment: IUD Insertion Plan: Return to office in 4 weeks for string check. Normal [facility] Progress Note A wood molder was offered to be present during her exam. The patient: declined [facility] 36on 10-04-2022 36 [place], Do you have her device? [facility] 36on 09-30-2022 36 Message released to patient as written. 09/30/22 Pt called back needing the correct number to [email or web address] gave pt phone # pt will be calling to confirm shipment to office pls advise Patient's further questions if applicable: Were all questions from office addressed or relayed to the patient from encounter: Yes [facility] 36 Patient called [facility] speciality for IUD and they advised there was nothing there for her. I checked chart and patient needs to call [facility] to activate the IUD and then it will be delivered. Advised Patient of the [facility] number. Normal [facility] 36 Per patient, I ribeiro d [facility] to schedule delivery. Micky stated they still need to talk to patient to confirm order. [facility] set up 'pro-active' Delivery, which will be activated once patient has called them to confirmed order. I called patient and gave her the phone number for the Specialty Pharmacy which she agreed to call. [facility] Progress Noteon 09-23-2022 [facility] Authentication Interface Message Text Patient ID: Betty Quintanilla is a 17 y.o. female. Her chief complaint(s) include: Follow Up Visit (Lump on right side of neck.) Assessment 1. Follow-up examination 2. Submandibular lymphadenopathy Plan Betty was seen today for follow up visit. Diagnoses and associated orders for this visit: Follow-up examination Submandibular lymphadenopathy Lymph node seems to be have shrunk a little, consistency is a little softer than before and is not tender anymore. No red flags No further evaluation indicated at this time. Will continue to monitor. Discussed reasons to call back and what would warrant re-evaluation Return if symptoms worsen or fail to improve. Subjective HPI Comments: Here for follow up of lymph node swelling Ultrasound on 09/03(~ 3 week ago) showed a lymph node that measures 2.2 cm L x 0.9 cm AP x 1.6 cm T in size Was started on a 10 day course of Augmentin on 09/06 Betty thinks that the lymph node might have shrunk a little The lymph node is not tender anymore No fever, night sweats, fatigue, loss of appetite, rash Very mild runny nose in the last couple of days May be somewhat raspy voice No cough Always had a sore back( thinks related to sleep) Pets: 2 cats( 1 and 6 year old ) Younger one when he was very little would scratch her 1 dog Fish She is unaccompanied. Primary Care Review of Systems Objective Vital Signs 09/23/22 1128 Temp: 36.6 C (97.9 F) TempSrc: Temporal Weight: 52 kg There is no height or weight on file to calculate BMI. Physical Exam Nursing note reviewed. Constitutional: She appears well. She is active. No distress. HENT: Head: Atraumatic. Ears: Right Ear: Tympanic membrane normal. Left Ear: Tympanic membrane normal. Mouth/Throat: Mucous membranes are moist. Cardiovascular: Normal rate and regular rhythm. Heart murmur not heard. Pulmonary/Chest: Breath sounds normal. There is normal air entry. Lymphadenopathy: Right submandibular (~1.5X0.[address]( softer than before), mobile, non tender) adenopathy present. Neurological: She is alert. Vitals reviewed: Temperature 36.6 C (97.9 F), temperature source Temporal, weight 52 kg. Normal [facility] 36on 09-16-2022 36 For [place] office, fax ed completed Kyleena IUD Prior Auth form with Demographics/Insurance card to [facility] . . MUST be on period for insertion. Pt will need a sameday Urine Test in-office. Normal [facility] Office Visiton 09-16-2022 Follow-up visit [id number] Ny Quintanilla shahnaz Manzano 2005 F Date Provider Department Center 09/16/2022 [id number] LOU [facility] PA [facility] OB Offi No family history on file Level of Service:98571 IN INITIAL PREVENTIVE MEDICINE NEW PT AGE 18-39YRS Reason for Visit and Comments: New Patient [542] - Establish care and STI testing Normal [facility] Progress Noteon 09-16-2022 Progress Note A wood molder was offered to be present during her exam. The patient: declined Normal [facility] Progress Note Betty Quintanilla 09/16/2024 17 y.o. Chief Complaint Patient presents with New Patient Establish care and STI testing Primary Care Physician: [facility] HPI: Betty Quintanilla is a 17 y.o. female here today for annual exam. Previously did OCPs but started to have side effects. Interested in IUD. Denies pelvic pain. Going to [employer] [facility] Patient's last menstrual period was 08/17/2022. Past Medical History: Diagnosis Date ADHD meds Past Surgical History: Procedure Laterality Date FACIAL SURGERY (HISTORICAL) fractured bones in face and nose from gymnastics No family history on file. OB History Para Term AB Living 0 0 0 0 0 0 SAB IAB Ectopic Multiple Live Births 0 0 0 0 0 MEDICATIONS: Current Outpatient Medications Medication Sig Dispense Refill dexmethylphenidate XR (Focalin XR) 10 MG 24 hr capsule No current facility-administered medications for this visit. ALLERGIES: Allergies as of 09/16/2022 (No Known Allergies) REVIEW OF SYSTEMS Review of Systems Constitutional: Negative for chills and fever. Respiratory: Negative for shortness of breath. Cardiovascular: Negative for chest pain. Gastrointestinal: Negative for blood in stool, constipation, diarrhea, nausea and vomiting. Genitourinary: Negative for difficulty urinating, frequency, menstrual problem, pelvic pain, urgency and vaginal discharge. PHYSICAL EXAMINATION: BP 120/80 Pulse 82 Ht 5' 2" (1.575 m) Wt 116 lb (52.6 kg) LMP 08/17/2022 BMI 21.22 kg/m? Physical Exam Constitutional: General: She is not in acute distress. Appearance: Normal appearance. She is not ill-appearing, toxic-appearing or diaphoretic. HENT: Head: Normocephalic and atraumatic. Nose: Nose normal. Eyes: Extraocular Movements: Extraocular movements intact. Conjunctiva/sclera: Conjunctivae normal. Pupils: Pupils are equal, round, and reactive to light. Neck: Thyroid: No thyroid mass, thyromegaly or thyroid tenderness. Pulmonary: Effort: Pulmonary effort is normal. No respiratory distress. Chest: Breasts: Breasts are symmetrical. Right: Normal. No mass, nipple discharge or skin change. Left: Normal. No mass, nipple discharge or skin change. Abdominal: General: Abdomen is flat. There is no distension. Palpations: Abdomen is soft. There is no mass. Tenderness: There is no abdominal tenderness. There is no guarding or rebound. Genitourinary: General: Normal vulva. Bong stage (genital): 5. Labia: Right: No rash, tenderness, lesion or injury. Left: No rash, tenderness, lesion or injury. Urethra: No prolapse, urethral swelling or urethral lesion. Vagina: Normal. Cervix: Normal. Uterus: Normal. Adnexa: Right adnexa normal and left adnexa normal. Musculoskeletal: Cervical back: Normal range of motion and neck supple. Right lower leg: No edema. Left lower leg: No edema. Lymphadenopathy: Cervical: No cervical adenopathy. Upper Body: Right upper body: No supraclavicular or axillary adenopathy. Left upper body: No supraclavicular or axillary adenopathy. Skin: General: Skin is warm and dry. Coloration: Skin is not jaundiced. Neurological: General: No focal deficit present. Mental Status: She is alert and oriented to person, place, and time. Psychiatric: Mood and Affect: Mood normal. Behavior: Behavior normal. Thought Content: Thought content normal. Judgment: Judgment normal. ASSESSMENT: Diagnosis Plan 1. Encounter for gynecological examination without abnormal finding 2. Screening for STDs (sexually transmitted diseases) Chlamydia/Gonorrhea Trichomonas vaginalis RNA, Qualitative, TMA, Female PLAN: - Counseled on breast awareness. Perform monthly self breast exam - Counseled to exercise at least 30min three times per week. Take a daily multivitamin or 1000 Units of Vit D. - control and barrier recommendations discussed. Reviewed contraception options and efficacy, side effects, bleeding profile. She would like to proceed with Kyleena IUD, will sign forms - Gardasil counseling completed for all patients 9-45 yo. - Routine health maintenance per patients PCP. Follow up in about 1 year (around 09/17/2023) for Annual. Orders Placed This Encounter Procedures Chlamydia/Gonorrhea Trichomonas vaginalis RNA, Qualitative, TMA, Female Normal [facility] US HEAD NECK SOFT TISSUEon 0 09-03-2022 US HEAD NECK SOFT TISSUE CLINICAL HISTORY: right anterior LN ~ 1.5 cm, firm, slightly mobile, mildly tender for 2 months, getting bigger TECHNIQUE: Sonographic evaluation of the right submandibular area at the site of the tender lymph node was performed. COMPARISON: None. FINDINGS: Normal-appearing lymph node is demonstrated that measures 2.2 cm L x 0.9 cm AP x 1.6 cm T in size. The lymph node has a normal ultrasound appearance and fatty hlum. No abnormal vascularity is present. No surrounding edema or soft tissue swelling is present to suggest lymphadenitis. IMPRESSION: Area of soft tissue swelling represents a normal appearing lymph node by ultrasound examination. This report has been created using voice recognition software Signed by: Dr. John Ochoa at 09/03/2022 14:34 Normal [facility] US Head and neck soft tissue on 09-03-2022 IMPRESSION: Area of soft tissue swelling represents a normal appearing lymph node by ultrasound examination. This report has been created using voice recognition software [facility] CLINICAL HISTORY: right anterior LN ~ 1.5 cm, firm, slightly mobile, mildly tender for 2 months, getting bigger TECHNIQUE: Sonographic evaluation of the right submandibular area at the site of the tender lymph node was performed. COMPARISON: None. FINDINGS: Normal-appearing lymph node is demonstrated that measures 2.2 cm L x 0.9 cm AP x 1.6 cm T in size. The lymph node has a normal ultrasound appearance and fatty hilum. No abnormal vascularity is present. No surrounding edema or soft tissue swelling is present to suggest lymphadenitis. [facility] John Weaver MD - 09/03/2022 CLINICAL HISTORY: right anterior LN ~ 1.5 cm, firm, slightly mobile, mildly tender for 2 months, getting bigger TECHNIQUE: Sonographic evaluation of the right submandibular area at the site of the tender lymph node was performed. COMPARISON: None. FINDINGS: Normal-appearing lymph node is demonstrated that measures 2.2 cm L x 0.9 cm AP x 1.6 cm T in size. The lymph node has a normal ultrasound appearance and fatty hilum. No abnormal vascularity is present. No surrounding edema or soft tissue swelling is present to suggest lymphadenitis. IMPRESSION: Area of soft tissue swelling represents a normal appearing lymph node by ultrasound examination. This report has been created using voice recognition software [facility] Radiology Study observation (narrative) [facility] US Head and neck soft tissue Ordered By: John Ochoa on 09-03-2022 [facility] Work Phone: Progress Noteon 08-19-2022 [facility] Authentication Interface Message Text Patient ID: Betty Quintanilla is a 17 y.o. female. Her chief complaint(s) include: 17 YEAR WELL CHILD Assessment 1. Routine general medical examination at a health care facility 2. ADHD (attention deficit hyperactivity disorder), combined type 3. Lymphadenopathy of right cervical region Plan Betty was seen today for 17 year well child. Diagnoses and associated orders for this visit: Routine general medical examination at a health care facility - Hearing Screening - PHQ9 Assessment With Score - Health Risk Assessment - JOSUE ADHD (attention deficit hyperactivity disorder), combined type - dexmethylphenidate HCl (FOCALIN XR) 10 MG ER capsule; Take 1 Capsule (10 mg) by mouth every morning for 30 days - dexmethylphenidate HCl (FOCALIN XR) 10 MG ER capsule; Take 1 Capsule (10 mg) by mouth every morning for 30 days - dexmethylphenidate HCl (FOCALIN XR) 10 MG ER capsule; Take 1 Capsule (10 mg) by mouth every morning for 30 days Lymphadenopathy of right cervical region - US Head Neck Soft Tissue; Future Focalin sent for 3 months Passed hearing screen Return in about 3 months (around 11/19/2022) for adhd follow up. Subjective HPI Comments: Lump on the right side of the neck for about 2 months now, getting a little bigger. No pain but slightly tender when pressed. Has been pretty healthy and not had any URI symptoms, sore throat in the last couple of months. Just came back from trip to [place]( boyfriend from [place]) for 3.5 weeks Had been on control, but stopped it this week because of upcoming apt with [employer] [place] like cramps and flow is actually worse Wants to discuss other options with [employer] Has reading glasses Followed by psychology for PTSD She is unaccompanied. No computer language coder was used. 17 YEAR WELL CHILD Home: Betty eats meals with family, has an adult to turn to for help and is permitted and able to make independent decisions. Education: Betty is doing well. (Finished freshman year in [employer] in [employer]). Eating: Betty eats regular meals including fruits and vegetables, eats breakfast and has a calcium source. Activities & Sports: Betty has friends and has drivers license. Drugs: Betty does not use tobacco, does not use drugs, does not use alcohol and does not vape. Safety: Betty has a violence free home. Sex: The patient has a sexual partner. (With a boy for 9 months). The patient is interested in males. The patient has 1 current sexual partners. The patient's gender identity is cisgender. Typically, the patient uses condoms as current contraceptive method. The patient has not had an STD. The patient's partner has had an STD: no. STD screening offered and declined. (wants to get it done at [facility]). Suicidality: Betty has ways to cope with stress and displays self-confidence. Betty has no problems with sleep, has no depression and has no anxiety. PHQ-9 Score: 2 Menstruation (Spotting started today) Menstruation: regular periods Output Urine and Stool Pattern: Urine and Stool Pattern: no Normal stool pattern, constipation (on an average, may be once a month or so. when she eats dairy- usually has issues), normal urine pattern. Stool Consistency: soft Sleep Sleeping Difficulty: difficulty falling asleep (saw sleep medicine and has a regimen , still has issues once a while) Hours of sleep at a time: 8 Teen Anticipatory Guidance The following anticipatory guidance was reviewed during the visit: Nutrition: limit junk food/fast food and soft drinks. Social: avoid or limit screen time. Health: age appropriate dental care, learn to manage time and activities, learn about self and strengths and recognize and deal with stress. Screenings Previous Vaccine Reactions: No. Hearing Vision Concerns: Patient wears glasses or contact lenses. The caregiver has no concerns about the patient's hearing. Patient is being seen by mud grinder or optical scientist. Primary Care Review of Systems Objective Vital Signs 08/19/22 1304 BP: 108/70 Pulse: 88 Temp: 37.3 C (99.1 F) TempSrc: Temporal Weight: 53.1 kg Height: 157.5 cm Body mass index is 21.41 kg/m . Physical Exam Nursing note reviewed. Constitutional: She appears well. She is active. No distress. HENT: Head: Atraumatic. Ears: Right Ear: Tympanic membrane and external ear normal. Left Ear: Tympanic membrane and external ear normal. Nose: Nose normal. Mouth/Throat: Mucous membranes are moist. Dentition is normal. Oropharynx is clear. Eyes: EOM are normal. Pupils are equal, round, and reactive to light. Neck: Neck supple. Thyroid normal. Right cerrvical LN 1.5 cm in longest diameter, slightly tender mobile Cardiovascular: Normal rate, regular rhythm, S1 normal and S2 normal. Pulses are palpable. Heart murmur not heard. Pulmonary/Chest: Breath sounds normal. No respiratory distress. Exhibits no deformity. Abdominal: Soft. (more content not included)... Normal [facility] Complete Blood Count without Differential (Hemogram)on 07-02-2022 Erythrocyte distribution width (RBC) [Ratio] 13.9 % 0.0 - 14.4 % [facility] Hematocrit (Bld) [Volume fraction] 38.5 % 37.0 - 46.0 % [facility] Hemoglobin (Bld) [Mass/Vol] 12.2 g/dL 12.0 - 15.0 g/dl [facility] Interpretation and review of laboratory results Abnormal [facility] MCH (RBC) [Entitic mass] 25.1 pg 25.0 - 35.0 pg [facility] MCHC 31.7 % 31.0 - 37.0 % [facility] MCV (RBC) [Entitic vol] 79.1 fL 78.0 - 96.0 fl [facility] Nucleated RBC/100 WBC (Bld) [Ratio] 0 % -1.0 - 0.0 % [facility] Platelet mean volume (Bld) [Entitic vol] 10.0 fL [facility] Comment on above: MPV is platelet range and age dependent Platelets (Bld) [#/Vol] 278 10*3/uL [facility] RBC (Bld) [#/Vol] 4.87 10*6/uL High [facility] WBC (Bld) [#/Vol] 7.5 10*3/uL [facility] Release to patient->Automatic [facility] Hemogramon 07-02-2022 Erythrocyte distribution width (RBC) [Ratio] 13.9 % Normal 0.0-14.4 [facility] Comment on above: Order Comment: Relea se to patient->Automatic 25313&Blood Performed By: #### H EGRM #### [place] [address] Hematocrit (Bld) [Volume fraction] 38.5 % Normal 37.0-46.0 [facility] Comment on above: Order Comment: Relea se to patient->Automatic 89817&Blood Performed By: #### H EGRM #### [place] [address] Hemoglobin (Bld) [Mass/Vol] 12.2 g/dL Normal 12.0-15.0 [facility] Comment on above: Order Comment: Relea se to patient->Automatic 35528&Blood Performed By: #### H EGRM #### [place] [address] MCH (RBC) [Entitic mass] 25.1 pg Normal 25.0-35.0 [facility] Comment on above: Order Comment: Relea se to patient->Automatic 70677&Blood Performed By: #### H EGRM #### [address] [address] MCHC 31.7 % Normal 31.0-37.0 [facility] Comment on above: Order Comment: Relea se to patient->Automatic 15176&Blood Performed By: #### H EGRM #### [address] [address] MCV (RBC) [Entitic vol] 79.1 fL Normal 78.0-96.0 [facility] Comment on above: Order Comment: Relea se to patient->Automatic 96249&Blood Performed By: #### H EGRM #### [address] [address] Nucleated RBC/100 WBC (Bld) [Ratio] 0.0 % Normal -1.0-0.0 [facility] Comment on above: Order Comment: Relea se to patient->Automatic 84459&Blood Performed By: #### H EGRM #### [address] [address] Platelet mean volume (Bld) [Entitic vol] 10.0 fL Normal [facility] Comment on above: Order Comment: Relea se to patient->Automatic 61360&Blood Result Comment: MPV is platelet range and age dependent Performed By: #### H EGRM #### [address] [address] Platelets (Bld) [#/Vol] 278 10*3/uL Normal 150-450 [facility] Comment on above: Order Comment: Relea se to patient->Automatic 16633&Blood Performed By: #### H EGRM #### [address] [id number] RBC 4.87 10E12/L High 4.10-4.80 [facility] Comment on above: Order Comment: Relea se to patient->Automatic 05253&Blood Performed By: #### H EGRM #### [facility] [address] [place], [place] [id number] WBC (Bld) [#/Vol] 7.5 10*3/uL Normal 4.5-13.0 [facility] Comment on above: Order Comment: Relea se to patient->Automatic 47476&Blood Performed By: #### H EGRM #### [facility] [address] [place], [place] [id number] Progress Noteon 07-01-2022 [facility] Authentication Interface Message Text Patient ID: Betty Quintanilla is a 16 y.o. female. Her chief complaint(s) include: Contraception Assessment 1. Menorrhagia with regular cycle Plan Betty was seen today for contraception. Diagnoses and associated orders for this visit: Menorrhagia with regular cycle - Complete Blood Count without Differential (Hemogram); Future - levonorgestrel-ethinyl estradiol (SEASONALE) 0.15-0.03 MG per tablet; Take 1 Tablet by mouth daily Follow up as needed and as scheduled for anxiety and well care. Patient will be home tomorrow and get blood work. Start seasonale after placebo week of current cycle. Subjective HPI Comments: This is a telemedicine video visit requested by the patient/guardian that was performed with the patient's location at home and the provider's location at office. Acne, cramps, and heavier bleeding for last 4 months. On ernie for 3 years. Had been helping pretty well until this last few months. No change in meds or weight. Periods are regular. 5-6 day periods. Sexually active. Condoms 100% Has appointment with obgyn this summer. She is unaccompanied. Contraception The patient is here today regarding a new prescription. Primary Care Review of Systems Objective There were no vitals filed for this visit. There is no height or weight on file to calculate BMI. Physical Exam Constitutional: She appears well. She is active. No exam secondary to this being a virtual visit. Neurological: She is alert. Normal [facility] Brain/Head without Contrasto n 05-04-2022 Brain/Head without Contrast [facility] [address] [place] [address] Brain/Head without Contrast MR#: [id number] Acct: [id number] Name: BETTY QUINTANILLA Rep #: [id number] : 2005 F 16 From: Ten Huntley MD PCP: Dr. Kat Santos MD Status: REG ER Study: Brain/Head without Contrast Date of Exam: 04/15 04/05 Exam# [id number] Ordering Dr: Marco Antonio Dunbar DO STUDY: CT BRAIN WITHOUT CONTRAST REASON FOR EXAM: Female, 16 years old. Pain RADIATION DOSAGE (If Supplied By Facility): CTDIvol = ( 44.99 ) mGy, DLP = ( 745.49 ) mGycm TECHNIQUE: Transaxial CT imaging of the brain was performed without administration of intravenous contrast material. Individualized dose optimization techniques were used for this CT. COMPARISON: No relevant priors. FINDINGS: Normal soft tissue structures. Normal calvarium. Normal size ventricles and extra-axial spaces for the patient''s age. Normal white matter tracts of the cerebral hemispheres. Normal basal ganglia and thalami. Normal brainstem. Normal cerebellum. There is no intracranial hemorrhage. There are no findings of an acute ischemic infarction. Normal visualized paranasal sinuses. CT/Brain/Head without Contrast IMPRESSION: Normal unenhanced CT scan of the brain. Electronically Signed: Ten Huntley MD at 20:46 EST , CC: Dr. Marco Antonio Dunbar DO; Dr. Kat Santos MD Library Acquisitions Technician: Signed Normal [facility] Emergency Department Summary on 05-04-2022 Emergency Department Summary [facility] Medical Records Department [address] [place] [address] Emergency Department Summary 05/04/22 MR#: [id number] Acct: [id number] Name: BETTY QUINTANILLA Rep #: [id number] : 2005 16 From: Marco Antonio Dunbar DO PCP: Dr. Kat Santos MD Status:DEP ER Location: ED HPI History of Present Illness Chief Complaint: Head Injury Informant: patient Onset/Context/Timing Onset: Days (2) Mechanism/Context: Blunt Injury Quality of Pain: Dull Location: Right frontal/temporal area Worsened by: Light Relieved by: Dark room Associated Symptoms Associated Symptoms: Negative for Parasthesias, Weakness, Loss of function, Inability to ambulate, Loss of consciousness or Amnesia Narrative Narrative: Patient presents with head injury that occurred 2 days ago. Patient states she was under her bed and thought she was completely out from underneath of her bed and stood up. Patient hit the right side of her head on the bed frame. Patient denies any loss of consciousness. Patient states she has been having headaches since the injury. Patient states her pain is worse with light and better in the dark room. Patient denies any paresthesias or weakness. Patient denies any other injuries. [facility] Medical History ADHD Medical History no medical history Allergy/AdvReac Type Severity Reaction Status Date / Time No Known Allergies Allergy Verified 05/04/22 19:39 Surgical History no surgical history no surgical history Social History Smoking Status: Never smoker ROS ROS ED Constitutional Constitutional ED: Denies chills or fever(s) Eyes Eyes: Denies blurry vision or change in vision ENT ENT ED: Denies rhinorrhea or sore throat Cardiovascular Cardiovascular: Denies chest pain or palpitations Respiratory/Chest Respiratory/Chest: Denies cough or dyspnea Gastrointestinal Gastrointestinal: Reports nausea; Denies vomiting Genitourinary Genitourinary ED: Denies dysuria or hematuria Musculoskeletal Musculoskeletal: Denies back pain or neck pain Integumentary Denies abscess or rash Neurologic Neurologic: Reports headache(s); Denies weakness Allergic/Immunologic Allergic/Immunologic ED: Denies mouth swelling or urticaria EXAM Physical Exam Const Vital Signs: 05/04/22 19:37 05/04/22 19:58 Temperature 97.6 F L Temperature Source Temporal Pulse Rate 84 Respiratory Rate 15 Respiratory Effort Normal Non-Labored Respiratory Depth Normal Respiratory Pattern Normal Blood Pressure 119/73 Blood Pressure Mean 88 Pulse Ox 99 Oxygen Delivery Method Room Air Room Air Positive well nourished and well developed General Appearance ED: well developed and NAD HEENT HEENT Narrative: There is mild tenderness and mild edema and ecchymosis over the right frontal/temporal area. There is no bony crepitance or step-off. Eyes PERRL and EOMs intact bilaterally Neck full ROM Resp normal respiratory effort and clear to auscultation bilaterally Cardio regular rhythm Rate: regular rate Extremity normal to inspection and full ROM Neuro oriented x3, CN's II-XII intact bilaterally, moves all extremities, no focal motor deficits and no sensory deficits noted Sarita Coma Scale: document GCS findings Spontaneous Obeys Commands Oriented 15 Sensorium / Orientation: alert Motor Exam: strength 5/5 throughout Psych mental status grossly normal and thought process normal MDM MDM MDM Narrative Medical decision making narrative: Differential diagnosis includes intracranial bleeding, concussion, closed head injury. CT scan of the brain will be obtained to assess for intracranial bleeding. Radiography Diagnostic Testing: Clinical Impression(s) from Imaging Studies Brain CT 05/04/22 20:28 IMPRESSION: Normal unenhanced CT scan of the brain. Electronically Signed: Ten Huntley MD at 20:46 EST Reading Location ID and State: [facility] / [place] , Service support , CT scan of the brain was obtained. There is no acute intracranial abnormality. This was interpreted by the radiologist and was also independently reviewed by myself. Treatment and Re-Evaluation Narrative: Patient was given IV fluids, Reglan, and Benadryl. Patient was feeling better on reevaluation. Patient was instructed to drink plenty of fluids. Patient was given head injury instructions. Patient was instructed to rest in a dark quiet room. Patient was instructed to follow-up with her primary care physician in 5 to 7 days. Patient understood and was agreeable with the plan. All questions were answered. Discharge Plan Triage Chief Complaint: Head Injury (more content not included)... Normal [facility] Progress Noteon 03-22-2022 [facility] Authentication Interface Message Text This is a telemedicine video visit requested by the patient/guardian that was performed with the patient's location at home and the provider's location at office. Subjective: Betty Quintanilla is a 16 y.o. female referred by Kat Santos MD. PER SLEEP RN: "Betty is accompanied by self. She lives with bio-parents Reginald and brother Jcarlos (24) and other brother out of the home. Currently at college ([employer]) in the dorms and has a roommate. RN noted summary of reason for visit: Betty has insomnia, ADHD, and anxiety. Last office visit discussed tools for sleep hygiene, stimulus control, sleep restrictions, and entraining her circadian clock. Family/patient noted reason for visit: Follow up from plan last office visit. Sleep is getting better and plan is working. Plan can be difficult at times with a roommate at [employer]. Changes implemented since last visit: No significant changes. Notes from last visit 12/21/21 Dr. Nayan Mon Assessment: Betty Quintanilla has psychophysiologic insomnia. This is likely due to excessive time awake in bed and bad sleep habits that can perpetuate insomnia. She would benefit from CBT-I. We discussed sleep and the role of circadian cycle and sleep homeostasis. I have given her the following recommendations to improve her sleep. 1. Sleep hygiene. -She must have one sleep environment. -She has been told to avoid watching TV, reading, using the computer or other activities in the bedroom. These should be done in a different room and the bedroom should be reserved for sleep only. -In addition, she has been educated to avoid caffeine after noon and exercise as able. 2. Stimulus control. In order to create the strongest connection between the bed and sleep- the bed should be reserved only for sleep. All other activities should be outside of the bed. -she should only sleep in your bed and not try to sleep in other areas (other rooms, the couch etc). -Avoid engaging in interesting activities during desired sleep hours and only engage in boring activities (such as reading boring article or book). Also avoid electronics during desired sleep time. -Go to bed only when sleepy not just tired. -Get out of bed if she is unable to sleep after 20 minutes or when she starts to feel frustrated or restless. Go to another room and read or do something boring to reset for 5-10 minutes. -Keep repeating this routine until it is time to wake up for the day. -Keep the same wake up time all 7 days of the week- including the weekend. Get out of bed at this time regardless of the amount of time she slept. 3. Sleep restriction- -Get into bed no earlier than 1-130 AM and get out of bed no later than 7 AM. -Avoids naps or resting during the day. -Once you are able to fall asleep in a half hour or less for 3 days in a row, you can move your bedtime earlier by a half hour. For instance, going to bed at 1230 am, then midnight. I wouldn't go earlier than around 11 pm. 4. Entrain the circadian sleep clock: -Sleep environment should be dark with no light exposure. -She should expose herself to light upon awakening and throughout the day. Betty Quintanilla will follow up with me in 3 months. ." The history is provided by the patient. Sleep Problems She is here for a follow-up appointment. Overall doing much better at this follow up appointment for insomnia. She is going to bed in 40 minutes and staying asleep most of the night. She will occasionally wake up in the middle of the night but able to go right back to sleep. She goes to bed at 1 am when she has to get up by 7 am and goes to bed at midnight when she needs to get up at 6 am. No daytime naps. She feels tired in the morning, but able to get up okay. Her biggest concern is her roommate coming in at 4 am and waking her up by turning on the lights and making a lot of noise. This roommate is moving out in a few weeks. She struggles to go back to sleep at this time. Racing thoughts have largely ended around bedtime. She does do a little bit of work in her bed during the day. She does have a brief bedtime routine. Past Medical/Family/Social History: Betty's allergies, prior to encounter medications, history, family history, medical history, surgical history, social history, and problem list were reviewed and updated as appropriate. Review of Systems: Constitution: Negative for generalized weakness, malaise/fatigue, night sweats and obesity. Eyes: Negative for blurred vision and dark circles. Respiratory: Negative for apnea, asthma, snoring, cough, shortness of breath, wheezing, stridor, sleep disturbances due to breathing, chest pain and dyspnea on exertion. Skin: Negative for nail changes, flushing and pressure sores. HENT: Negative for nasal congestion, hoarse voice, frequent sneezing and postnasal drip. Card (more content not included)... Normal [facility] Progress Noteon 03-04-2022 [facility] Authentication Interface Message Text Betty Quintanilla is a 16 y.o. female patient. PHQ9 Assessment With Score Performed by: Kat Santos MD Authorized by: Kat Santos MD PHQ-9 See PHQ9 Flowsheet Feeling down, depressed, irritable or hopeless: Not at all Little interest or pleasure in doing things: Not at all Trouble falling or staying sleep, or sleeping too much: More than half the days Poor appetite, weight loss, or overeating: Several days Feeling tired or having little energy: Several days Feeling bad about yourself - or feeling that you are a failure, or have let yourself or your family down: Not at all Trouble concentrating on things, like school work, reading or watching TV: Several days Moving or speaking so slowly that other people could have noticed. Or the opposite - being so fidgety or restless that you were moving around a lot more than usual: Not at all Thoughts that you would be better off , or of hurting yourself in some way: Not at all In the past year have you felt depressed or sad most days, even if you felt OK sometimes?: No If you are experiencing any of the problems on this form, how difficult have these problems made it for you to do your work, take care of things at home or get along with other people?: Not difficult at all Has there been a time in the past month when you have had serious thoughts about ending your life?: No Have you ever, in your whole life, tried to kill yourself or made a suicide attempt?: Yes How long ago did you try to kill yourself or make a suicide attempt?: Over a year ago PHQ-9 Total Score: 5 Electronically signed by: Quintin Chavez ID: Betty Quintanilla is a 16 y.o. female. Her chief complaint(s) include: ADHD Assessment 1. ADHD (attention deficit hyperactivity disorder), combined type 2. Need for vaccination 3. Weight loss 4. Anxiety Plan Betty was seen today for adhd. Diagnoses and associated orders for this visit: ADHD (attention deficit hyperactivity disorder), combined type - dexmethylphenidate HCl (FOCALIN XR) 10 MG ER capsule; Take 1 Capsule (10 mg) by mouth every morning for 30 days - dexmethylphenidate HCl (FOCALIN XR) 10 MG ER capsule; Take 1 Capsule (10 mg) by mouth every morning for 30 days - dexmethylphenidate HCl (FOCALIN XR) 10 MG ER capsule; Take 1 Capsule (10 mg) by mouth every morning for 30 days Need for vaccination - Meningococcal B (BEXSERO) - COVID-19 MRNA VACCINE T-VIPS BIVALENT BOOSTER 30MCG/0.3ML IM SUSP 12+ YEARS Weight loss Anxiety - PHQ9 Assessment With Score Gave notes for room and board exemptions. Subjective HPI Comments: Roommate situation is poor. Loves classes and teachers. 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 Mental health is pretty good. Still in counseling. Can't sleep because of roommate. Was working with [employer] sleep plan. She is accompanied by her mother. Independent history obtained from mother. ADHD Follow-up The information was obtained from the parent(s). Current ADHD medication(s) include Focalin XR. Focalin XR Dosage: 10 mg Dosing Schedule: AM Medication Use: daily. Compliance with medication: takes medication daily. The patient is in freshman year of college. Her school performance includes: doing well. Primary Care Review of Systems Objective Vital Signs 03/04/22 1001 BP: 116/78 Pulse: 84 Temp: 36.3 C (97.3 F) TempSrc: Temporal Weight: 52.3 kg Height: 158.5 cm Body mass index is 20.82 kg/m . Physical Exam Constitutional: She appears well. She is active. No distress. HENT: Head: Atraumatic. Ears: Right Ear: Tympanic membrane normal. Left Ear: Tympanic membrane normal. Mouth/Throat: Mucous membranes are moist. Eyes: Conjunctivae are normal. Neck: Thyroid normal. Cardiovascular: Normal rate and regular rhythm. Heart murmur not heard. Pulmonary/Chest: Breath sounds normal. There is normal air entry. Lymphadenopathy: No right anterior cervical adenopathy present. No left anterior cervical adenopathy present. Neurological: She is alert. Normal [facility] ED NOTEon 11-09-2021 ED NOTE HNO ID: [id number] Author: Sara Ron RN Service: Emergency Medicine Author Type: Registered Nurse Type: ED Notes Filed: 11/09/2021 8:27 PM Note Text: Patient informed: the name of medication, why we are giving it, possible side effects, what they may expect to feel, and was offered a chance to ask questions, prior to the administration of rabies vaccine and immune globulin Normal [facility] ED NOTE HNO ID: [id number] Author: Sara Ron RN Service: Emergency Medicine Author Type: Registered Nurse Type: ED Notes Filed: 11/09/2021 7:59 PM Note Text: Pt to ED with c/o "I go to the [facility], and our dorm building has bats, and I think I got bit by one on Tuesday when I was sleeping, I found the elise on my left lower leg this morning. I went to [facility] and they said they didn't any rabies vaccine, so I went to [facility] in [place] and the wait was 6-7 hours so we didn't want to wait so we were told to come here" pt indicates bite is to left lower leg on lateral side, no redness or swelling noted. Denies any pain. Normal [facility] ED PROV NOTEon 11-09-2021 ED PROV NOTE HNO ID: [id number] Author: Viktoriya Orourke DO Service: Emergency Medicine Author Type: Physician Type: ED Provider Notes Filed: 11/09/2021 11:38 PM Note Text: ED Provider Note Patient Name: Betty Quintanilla : 2005 SERVICE DATE: 11/09/21 History Patient presents with: Animal Bite Betty Quintanilla is a 16 year old female who presents with Animal Bite. - Symptoms began Tuesday night. - Severity: mild - Timing: once - Animal Bite is exacerbated by nothing. - Animal Bite is not exacerbated by anything. - Symptoms are associated with red elise on left leg. - Symptoms are not associated with abdominal pain, chest pain, chills, diarrhea, fever, nausea, rash, shortness of breath, URI symptoms, vomiting, pain at reported bite site, swelling, drainage, numbness, weakness. Patient presents stating that she was bit by a bat on her left leg on Tuesday night.. She states she woke up Tuesday with a red elise on her left leg. She states that there are bats in her dorm and other people have reportedly been bit as well. She states she did not see or feel anything bite her. She states that she was instructed to get the rabies vaccination series. Patient states she would like to proceed with rabies vaccination series. Patient states her Tdap is up-to-date. She denies any pain or swelling at the the reported bite site. No fever or chills. No numbness or weakness. No nausea, vomiting or diarrhea. No chest pain or shortness of breath PAST MEDICAL HISTORY Diagnosis Date Asthma Exercised induced History reviewed. No pertinent surgical history. No family history on file. Social History Tobacco Use Smoking status: Never Smokeless tobacco: Never Vaping Use Vaping Use: Never used Substance and Sexual Activity Alcohol use: No Drug use: No Sexual activity: Never ALLERGIES No Known Allergies Review of Systems Constitutional: Negative for chills and fever. HENT: Negative for trouble swallowing. Eyes: Negative for visual disturbance. Respiratory: Negative for shortness of breath. Cardiovascular: Negative for chest pain and leg swelling. Gastrointestinal: Negative for abdominal pain, diarrhea, nausea and vomiting. Genitourinary: Negative for flank pain. Musculoskeletal: Negative for arthralgias, joint swelling and myalgias. Skin: Positive for wound (Reports bat bite on left leg). Neurological: Negative for weakness, numbness and headaches. Psychiatric/Behavioral : Negative for agitation and confusion. Physical Exam Vitals [11/09/211947] BP Pulse Temp Temp src Resp SpO2 Weight Height 132/85 (!) 98 36.9 ?C (98.4 ?F) Temporal 16 100 % 53.1 kg (117 lb) 1.549 m (5' 1") Physical Exam Vitals and nursing note reviewed. Constitutional: General: She is not in acute distress. Appearance: She is not ill-appearing, toxic-appearing or diaphoretic. HENT: Head: Normocephalic and atraumatic. Mouth/Throat: Mouth: Mucous membranes are moist. Pharynx: Oropharynx is clear. Eyes: Conjunctiva/sclera: Conjunctivae normal. Cardiovascular: Rate and Rhythm: Normal rate and regular rhythm. Pulses: Normal pulses. Pulmonary: Effort: Pulmonary effort is normal. Breath sounds: Normal breath sounds. Abdominal: General: Abdomen is flat. Bowel sounds are normal. There is no distension. Tenderness: There is no abdominal tenderness. Musculoskeletal: Right lower leg: No edema. Left lower leg: No edema. Skin: General: Skin is warm and dry. Capillary Refill: Capillary refill takes less than 2 seconds. Comments: Small faint, red area on left lower leg laterally that is marked with a [place] around it that patient reports is a bite from a bat. Skin intact. No swelling, tenderness. Neurological: General: No focal deficit present. Mental Status: She is alert and oriented to person, place, and time. Psychiatric: Mood and Affect: Mood normal. Behavior: Behavior normal. Diagnostic Testing ED Labs Ordered and Reviewed - No data to display Procedures ED Course / Clinical Impression Clinical Impressions as of 11/09/21 2337 Reported Bat bite wound MDM / Disposition / Plan Patient presents requesting rabies vaccination for reported bat bite to her left leg that she reports occurred Tuesday night. She states she woke up Tuesday morning with a red elise on her left leg. She states that other people in the dorm have reported bat bites, as well. Patient reports her Tdap is up-to-date. Patient states she has never received rabies vaccination in the past. We discussed rabies vaccination and immune globulin. Patient is agreeable to proceed with both. Patient tolerated rabies vaccine and Immune globulin administration. At this time, patient is well-appearing, nontoxic, afebrile. She denies symptoms at this time. She is comfortable going home. She was instructed she needs to finish the vaccination series and was given paperwork to ch[facility] (more content not included)... Normal [facility] TSHon 06-29-2021 TSH Qn 1.910 m[IU]/L [facility] Vital Signs Date Time Vital Sign Value Performing Clinician Facility 09-07-2024 13:30-0400 Body height 154.9 cm Saulo Camarillo MD Work Phone: [facility] 09-07-2024 13:30-0400 Body mass index (BMI) [Ratio] 21.83 kg/m2 Saulo Camarillo MD Work Phone: [facility] 09-07-2024 13:30-0400 Body temperature 97.7 [degF] Saulo Camarillo MD Work Phone: [facility] 09-07-2024 13:30-0400 Body weight 52.4 kg Saluo Camarillo MD Work Phone: [facility] 09-07-2024 13:30-0400 Diastolic blood pressure 58 mm[Hg] Saulo Camarillo MD Work Phone: [facility] 09-07-2024 13:30-0400 Heart rate 76 /min Saulo Camarillo MD Work Phone: [facility] 09-07-2024 13:30-0400 Systolic blood pressure 102 mm[Hg] Saulo Camarillo MD Work Phone: [facility] 06-07-2024 16:48-0400 Body height 154.9 cm Saulo Camarillo MD Work Phone: [facility] 06-07-2024 16:48-0400 Body mass index (BMI) [Ratio] 21.87 kg/m2 Saulo Camarillo MD Work Phone: [facility] 06-07-2024 16:48-0400 Body temperature 97.5 [degF] Saulo Camarillo MD Work Phone: [facility] 06-07-2024 16:48-0400 Body weight 52.5 kg Saulo Camarillo MD Work Phone: [facility] 06-07-2024 16:48-0400 Diastolic blood pressure 70 mm[Hg] Saulo Camarillo MD Work Phone: [facility] 06-07-2024 16:48-0400 Heart rate 70 /min Saulo Camarillo MD Work Phone: [facility] 06-07-2024 16:48-0400 SaO2% (BldA) [Mass fraction] 99 % Saulo Camarillo MD Work Phone: [facility] 06-07-2024 16:48-0400 Systolic blood pressure 110 mm[Hg] Saulo Camarillo MD Work Phone: [facility] 02-20-2024 10:30-0500 Body height 154.9 cm Saulo Camarillo MD Work Phone: [facility] 02-20-2024 10:30-0500 Body mass index (BMI) [Ratio] 22.16 kg/m2 Saulo Camarillo MD Work Phone: [facility] 02-20-2024 10:30-0500 Body temperature 97.11 [degF] Saulo Camarillo MD Work Phone: [facility] 02-20-2024 10:30-0500 Body weight 53.2 kg Saulo Camarillo MD Work Phone: [facility] 02-20-2024 10:30-0500 Diastolic blood pressure 70 mm[Hg] Saulo Camarillo MD Work Phone: [facility] 02-20-2024 10:30-0500 Heart rate 68 /min aSulo Camarillo MD Work Phone: [facility] 02-20-2024 10:30-0500 Systolic blood pressure 100 mm[Hg] Saulo Camarillo MD Work Phone: [facility] 11-22-2023 08:49-0400 Body height 154.9 cm Saulo Camarillo MD Work Phone: [facility] 11-22-2023 08:49-0400 Body mass index (BMI) [Ratio] 23.33 kg/m2 Saulo Camarillo MD Work Phone: [facility] 11-22-2023 08:49-0400 Body temperature 98.1 [degF] Saulo Camarillo MD Work Phone: [facility] 11-22-2023 08:49-0400 Body weight 56 kg Saulo Camarillo MD Work Phone: [facility] 11-22-2023 08:49-0400 Diastolic blood pressure 78 mm[Hg] Saulo Camarillo MD Work Phone: [facility] 11-22-2023 08:49-0400 Heart rate 64 /min Saulo Camarillo MD Work Phone: [facility] 11-22-2023 08:49-0400 Systolic blood pressure 122 mm[Hg] Saulo Camarillo MD Work Phone: [facility] 08-15-2023 11:12-0400 Body temperature 97.3 [degF] Herminio Tripoli [employer] OPER[employer] SUPERINTENDENT Work Phone: [facility] 08-15-2023 11:12-0400 Body weight 56.06 kg Herminio Chuck [employer] OPERATOR[employer] SUPERINTENDENT Work Phone: [facility] 08-15-2023 11:12-0400 Diastolic blood pressure 79 mm[Hg] Herminio Chuck [employer]ING M[employer] OPERATOR[employer]RIG SUPERINTENDENT Work Phone: [facility] 08-15-2023 11:12-0400 Heart rate 81 /min Hreminio Chuck [employer] OPERATOR[employer] SUPERINTENDENT Work Phone: [facility] 08-15-2023 11:12-0400 SaO2% (BldA) [Mass fraction] 98 % Herminio Chuck [employer]ING M[employer] OPERATOR[employer]RIG SUPERINTENDENT Work Phone: [facility] 08-15-2023 11:12-0400 Systolic blood pressure 116 mm[Hg] Herminio Tripoli [employer]ING M[employer] OPERATOR.RIG SUPERINTENDENT Work Phone: [facility] 02-24-2023 11:42-0500 Body mass index (BMI) [Ratio] 21.95 kg/m2 Keri Lou MD Work Phone: [facility] [employer] 02-24-2023 11:42-0500 Body weight 54.43 kg Keri Lou MD Work Phone: [facility] 02-24-2023 11:42-0500 Diastolic blood pressure 77 mm[Hg] Keri Lou MD Work Phone: [facility] [employer] 02-24-2023 11:42-0500 Heart rate 109 /min Keri Lou MD Work Phone: [facility] 02-24-2023 11:42-0500 Systolic blood pressure 120 mm[Hg] Keri Lou MD Work Phone: [facility] 01-19-2023 17:35-0500 Body height 157.48 cm [facility] 01-19-2023 17:35-0500 Body mass index (BMI) [Percentile] Per age and sex 50.7 % [facility] 01-19-2023 17:35-0500 Body mass index (BMI) [Ratio] 21.7 kg/m2 [facility] 01-19-2023 17:35-0500 Body temperature 97.6 [degF] [facility] 01-19-2023 17:35-0500 Body weight 53.97 kg [facility] 01-19-2023 17:35-0500 Diastolic blood pressure 78 mm[Hg] [facility] 01-19-2023 17:35-0500 Heart rate 90 /min [facility] 01-19-2023 17:35-0500 Respiratory rate 18 /min [facility] 01-19-2023 17:35-0500 SaO2% (BldA) [Mass fraction] 97 % [facility] 01-19-2023 17:35-0500 Systolic blood pressure 118 mm[Hg] [facility] 10-06-2022 16:43-0400 Diastolic blood pressure 79 mm[Hg] Jacquelyn Trevino MD Work Phone: [facility] 10-06-2022 16:43-0400 Heart rate 84 /min Jacquelyn Trevino MD Work Phone: [facility] 10-06-2022 16:43-0400 Systolic blood pressure 128 mm[Hg] Jacquelyn Trevino MD Work Phone: [facility] 09-16-2022 12:08-0400 Body height 157.5 cm Keri Lou MD Work Phone: [facility] 09-16-2022 12:08-0400 Body mass index (BMI) [Ratio] 21.22 kg/m2 Keri Lou MD Work Phone: [facility] 09-16-2022 12:08-0400 Body weight 52.62 kg Keri Lou MD Work Phone: [facility] 09-16-2022 12:08-0400 Diastolic blood pressure 80 mm[Hg] Keri Lou MD Work Phone: [facility] 09-16-2022 12:08-0400 Heart rate 82 /min Keri Lou MD Work Phone: [facility] 09-16-2022 12:08-0400 Systolic blood pressure 120 mm[Hg] Keri Lou MD Work Phone: [facility] 05-04-2022 19:37-0500 Body height 154.94 cm [facility] 05-04-2022 19:37-0500 Body mass index (BMI) [Percentile] Per age and sex 64.5 % [facility] 05-04-2022 19:37-0500 Body mass index (BMI) [Ratio] 22.8 kg/m2 [facility] 05-04-2022 19:37-0500 Body temperature 97.6 [degF] [facility] 05-04-2022 19:37-0500 Body weight 54.7 kg [facility] 05-04-2022 19:37-0500 Diastolic blood pressure 73 mm[Hg] [facility] 05-04-2022 19:37-0500 Heart rate 84 /min [facility] 05-04-2022 19:37-0500 Respiratory rate 15 /min [facility] 05-04-2022 19:37-0500 SaO2% (BldA) [Mass fraction] 99 % [facility] 05-04-2022 19:37-0500 Systolic blood pressure 119 mm[Hg] [facility] 11-24-2021 21:02-0400 Body height 154.94 cm [facility] Work Phone: 11-24-2021 21:02-0400 Body mass index (BMI) [Percentile] Per age and sex 54 % [facility] Work Phone: 11-24-2021 21:02-0400 Body mass index (BMI) [Ratio] 21.7 kg/m2 [facility] Work Phone: 11-24-2021 21:02-0400 Body temperature 97.4 [degF] [facility] Work Phone: 11-24-2021 21:02-0400 Body weight 52.16 kg [facility] Work Phone: 11-24-2021 21:02-0400 Diastolic blood pressure 96 mm[Hg] [facility] Work Phone: 11-24-2021 21:02-0400 Heart rate 101 /min [facility] Work Phone: 11-24-2021 21:02-0400 Respiratory rate 16 /min [facility] Work Phone: 11-24-2021 21:02-0400 SaO2% (BldA) [Mass fraction] 100 % [facility] Work Phone: 11-24-2021 21:02-0400 Systolic blood pressure 134 mm[Hg] [facility] Work Phone: 11-17-2021 20:35-0400 Body height 154.94 cm [facility] Work Phone: 11-17-2021 20:35-0400 Body mass index (BMI) [Percentile] Per age and sex 54.1 % [facility] Work Phone: 11-17-2021 20:35-0400 Body mass index (BMI) [Ratio] 21.7 kg/m2 [facility] Work Phone: 11-17-2021 20:35-0400 Body temperature 97.9 [degF] [facility] Work Phone: 11-17-2021 20:35-0400 Body weight 52.16 kg [facility] Work Phone: 11-17-2021 20:35-0400 Diastolic blood pressure 78 mm[Hg] [facility] Work Phone: 11-17-2021 20:35-0400 Heart rate 90 /min [facility] Work Phone: 11-17-2021 20:35-0400 Respiratory rate 16 /min [facility] Work Phone: 11-17-2021 20:35-0400 SaO2% (BldA) [Mass fraction] 98 % [facility] Work Phone: 11-17-2021 20:35-0400 Systolic blood pressure 114 mm[Hg] [facility] Work Phone: 11-13-2021 10:27-0400 Body height 154.94 cm [facility] Work Phone: 11-13-2021 10:27-0400 Body mass index (BMI) [Percentile] Per age and sex 54.1 % [facility] Work Phone: 11-13-2021 10:27-0400 Body mass index (BMI) [Ratio] 21.7 kg/m2 [facility] Work Phone: 11-13-2021 10:27-0400 Body temperature 97.3 [degF] [facility] Work Phone: 11-13-2021 10:27-0400 Body weight 52.16 kg [facility] Work Phone: 11-13-2021 10:27-0400 Heart rate 76 /min [facility] Work Phone: 11-13-2021 10:27-0400 Respiratory rate 16 /min [facility] Work Phone: 11-13-2021 10:27-0400 SaO2% (BldA) [Mass fraction] 99 % [facility] Work Phone: 08-29-2022 15:10-0400 Body height 154.94 cm [facility] Work Phone: 11-09-2021 15:10-0400 Body mass index (BMI) [Percentile] Per age and sex 56.5 % [facility] Work Phone: 11-09-2021 15:10-0400 Body mass index (BMI) [Ratio] 21.9 kg/m2 [facility] Work Phone: 11-09-2021 15:10-0400 Body temperature 98.9 [degF] [facility] Work Phone: 11-09-2021 15:10-0400 Body weight 52.61 kg [facility] Work Phone: 11-09-2021 15:10-0400 Diastolic blood pressure 90 mm[Hg] [facility] Work Phone: 11-09-2021 15:10-0400 Heart rate 89 /min [facility] Work Phone: 11-09-2021 15:10-0400 Respiratory rate 14 /min [facility] Work Phone: 11-09-2021 15:10-0400 SaO2% (BldA) [Mass fraction] 98 % [facility] Work Phone: 11-09-2021 15:10-0400 Systolic blood pressure 144 mm[Hg] [facility] Work Phone: Encounters Encounter Date Encounter Type Care Provider Facility Start: 12-19-2024 End: 12-19-2024 ambulatory SAULO CAMARILLO Facility:[facility] Start: 12-18-2024 End: 12-18-2024 ambulatory SAULO CAMARILLO Facility:[facility] Start: 12-18-2024 Physical examination SAULO Prieto [facility] Start: 11-24-2024 End: 11-26-2024 ambulatory Saulo Camarillo MD Work Phone: Family Medicine Comment on above: Lexapro Start: 09-20-2024 End: 09-20-2024 ambulatory SAULO CAMARILLO Facility:[facility] Start: 09-07-2024 End: 09-07-2024 Office outpatient visit 25 minutes Saulo Camarillo MD Work Phone: Family Medicine Comment on above: ADHD (attention defi cit hyperactivity disorder), combined type (Primary Dx); Healthcare maintenance; Generalized anxiety disorder Start: 09-07-2024 End: 09-07-2024 Patient encounter status Saulo Camarillo MD Work Phone: [facility] Start: 09-07-2024 End: 09-07-2024 ambulatory SAULO CAMARILLO Facility:[facility] Start: 09-07-2024 Encounter for genera l adult medical examination without abnormal findings SAULO CAMARILLO [facility] Start: 08-28-2024 End: 08-28-2024 ambulatory Saulo Camarillo MD Work Phone: Family Medicine Comment on above: Vyvanse Start: 07-03-2024 End: 07-03-2024 ambulatory Saulo Camarillo MD Work Phone: Family Medicine Comment on above: Stomach issues Start: 06-07-2024 End: 06-07-2024 ambulatory SAULO CAMARILLO Facility:[facility] Start: 06-07-2024 End: 06-07-2024 Office outpatient visit 25 minutes Saulo Camarillo MD Work Phone: Family Medicine Comment on above: ADHD (attention defi cit hyperactivity disorder), combined type (Primary Dx); ADITYA (generalized anxiety disorder); Epigastric pain Start: 05-13-2024 End: 05-14-2024 ambulatory Saulo Camarillo MD Work Phone: Family Medicine Comment on above: Vyvanse prescription Start: 02-29-2024 End: 02-29-2024 ambulatory SAULO CAMARILLO Facility:[facility] Start: 02-29-2024 End: 02-29-2024 Patient encounter procedure Erika Diaz APRN.CNP Work Phone: Otolaryngology Comment on above: Tonsil stone (Primar y Dx); Enlarged lymph node; Sore throat Start: 02-20-2024 End: 02-20-2024 ambulatory SAULO CAMARILLO Facility:[facility] Start: 02-20-2024 End: 02-20-2024 Office outpatient visit 25 minutes Sauol Camarillo MD Work Phone: [facility] Comment on above: ADHD (attention defi cit hyperactivity disorder), combined type (Primary Dx); ADITYA (generalized anxiety disorder); Easy bruising Start: 02-16-2024 End: 02-17-2024 Refill Saulo Camarillo MD Work Phone: [facility] Comment on above: Refill Request Start: 01-05-2024 End: 01-05-2024 Telephone encounter Rubi Auguste PA-C Work Phone: [facility] Comment on above: Results Start: 12-24-2023 End: 12-27-2023 ambulatory Saulo Camarillo MD Work Phone: [facility] Start: 12-24-2023 End: 12-27-2023 Patient encounter procedure Saulo Camarillo MD Work Phone: [facility] Comment on above: ENT referral Start: 11-22-2023 End: 11-22-2023 Patient encounter procedure Saulo Camarillo MD Work Phone: [facility] Comment on above: Routine physical exa mination (Primary Dx); ADITYA (generalized anxiety disorder); ADHD (attention deficit hyperactivity disorder), combined type; Chronic insomnia; Cervical adenopathy; Tonsil stone; Screening for depression; Encounter to establish care Start: 11-22-2023 End: 11-22-2023 Physical examination Saulo Camarillo MD Work Phone: [facility] Work Phone: Start: 09-07-2023 ambulatory Herminio Woods [employer] SUPERINTENDENT Work Phone: Internal Med/Front Office Medical Assistant [place] Comment on above: Neck ultrasound Start: 08-31-2023 End: 08-31-2023 Subsequent hospital visit by physician [facility] Comment on above: Neck mass [R22.1] Start: 08-15-2023 End: 08-15-2023 ambulatory HERMINIO WOODS Facility:[id number] Start: 08-15-2023 End: 06-03-2024 Periodic preventive med est patient 18-39 yrs Herminio Woods [employer] OPERATOR.R[employer] SUPERINTENDENT Work Phone: Internal Med/Front Office Medical Assistant [place] Comment on above: Neck mass (Primary D x); Fatigue, unspecified type Start: 02-24-2023 End: 02-24-2023 ambulatory KERI LOU [facility] Start: 02-24-2023 End: 02-24-2023 Office outpatient visit 10 minutes Keri Lou MD Work Phone: [facility] Comment on above: Pelvic pain (Primary Dx); IUD (intrauterine device) in place Start: 02-21-2023 End: 02-21-2023 ambulatory [facility] Start: 01-19-2023 End: 01-19-2023 Emergency department patient visit Wilfred Lozada Facility:[facility] Start: 01-19-2023 End: 01-19-2023 Emergency department patient visit [facility] Work Phone: Start: 01-11-2023 End: 01-11-2023 ambulatory [facility] Start: 12-28-2022 End: 12-28-2022 ambulatory [facility] Start: 12-14-2022 [facility] Start: 11-30-2022 ambulatory [facility] Start: 10-06-2022 End: 10-06-2022 ambulatory [facility] Start: 10-06-2022 End: 10-06-2022 Encounter for preprocedural laboratory examination JACQUELYN TREVINO [facility] Start: 10-06-2022 End: 10-06-2022 Patient encounter procedure Jacquelyn Trevino MD Work Phone: [facility] Comment on above: Encounter for IUD in sertion (Primary Dx); Pre-procedure lab exam Start: 10-06-2022 End: 10-06-2022 Patient encounter status Jacquelyn Trevino MD Work Phone: [facility] Start: 10-04-2022 ambulatory [facility] Start: 09-23-2022 End: 09-23-2022 ambulatory [facility] Start: 09-21-2022 [facility] Start: 09-16-2022 End: 09-16-2022 ambulatory [facility] Start: 09-16-2022 End: 09-16-2022 Encounter for gynecological examination (general) (routine) without abnormal findings [facility] Start: 09-16-2022 Telephone encounter Keri nazario MD Work Phone: [facility] Comment on above: Contraception (For [facility] office, faxed completed Kyleena IUD Prior Auth form with Demographics/Insurance card to [facility] . . MUST be on period for insertion. Pt will need a sameday Urine Test in-office. ) Contraception (09/30 Pt called back needing the correct number to [facility] gave pt phone # pt will be calling to confirm shipment to office pls advise /For [facility] office, faxed completed Kyleena IUD Prior Auth form with Demographics/Insurance card to [facility] . . MUST be on period for insertion. Pt will need a sameday Urine Test in-office. ) Start: 09-16-2022 End: 09-16-2022 Initial preventive medicine new pt age 18-39yrs Keri Lou MD Work Phone: [facility] Comment on above: Encounter for gyneco logical examination without abnormal finding (Primary Dx); Screening for STDs (sexually transmitted diseases) Start: 09-16-2022 End: 09-16-2022 Patient encounter status Keri Lou MD Work Phone: [facility] Work Phone: Start: 09-03-2022 End: 09-04-2022 ambulatory [facility] Start: 09-03-2022 End: 09-03-2022 Subsequent hospital visit by physician Magalys Hoskins MD Work Phone: [facility] Comment on above: Lymphadenopathy of r ight cervical region Start: 09-01-2022 ambulatory [facility] Start: 08-19-2022 End: 08-19-2022 ambulatory [facility] Start: 07-13-2022 ambulatory [facility] Start: 07-06-2022 ambulatory [facility] Start: 07-02-2022 End: 07-03-2022 ambulatory [facility] Start: 07-02-2022 End: 07-02-2022 Subsequent hospital visit by physician Kat Santos MD Work Phone: [facility] Comment on above: Menorrhagia with reg ular cycle Start: 07-01-2022 End: 07-01-2022 ambulatory [facility] Start: 06-15-2022 ambulatory [facility] Start: 06-08-2022 [facility] Start: 06-01-2022 End: 06-01-2022 [facility] Start: 05-04-2022 End: 05-05-2022 Emergency department patient visit Marco Antonio Dunbar Facility:[facility] Start: 05-04-2022 End: 05-04-2022 Emergency department patient visit [facility] Start: 03-22-2022 End: 03-22-2022 ambulatory [facility] Start: 03-04-2022 End: 03-04-2022 ambulatory [facility] Start: 11-24-2021 End: 11-24-2021 ambulatory [facility] Work Phone: Start: 11-24-2021 End: 11-24-2021 Patient encounter procedure [facility] Start: 11-17-2021 End: 11-17-2021 ambulatory [facility] Work Phone: Start: 11-17-2021 End: 11-17-2021 Departed Referred [facility] Start: 11-13-2021 End: 11-13-2021 ambulatory [facility] Work Phone: Start: 11-13-2021 End: 11-13-2021 Patient encounter procedure [facility] Start: 11-09-2021 End: 11-09-2021 Emergency department patient visit [facility] Start: 10-22-2021 End: 10-22-2021 Patient encounter procedure [facility] Comment on above: Obstructive sleep ap leesa syndrome Start: 10-14-2021 Transcribe Orders [facility] Work Phone: Neurology Comment on above: Obstructive sleep ap leesa syndrome (Primary Dx) Start: 06-29-2021 End: 06-29-2021 Subsequent hospital visit by physician Rebecca Camejo BORING MILL OPERATOR-RIG SUPERINTENDENT Work Phone: [facility] Comment on above: Frequent nocturnal a wakening Procedures Date Procedure Procedure Detail Performing Clinician Start: 11-22-2023 Adult depression scr eening assessment Saulo Camarillo MD Work Phone: Start: 10-06-2022 Urine test visual color cmprsn arbens Jacquelyn Trevino MD Work Phone: Start: 09-03-2022 Us soft tissue head & neck real time imge docm Magalys Hoskins MD Work Phone: Start: 07-02-2022 Blood count complete automated Kat Santos MD Work Phone: Start: 05-04-2022 CT of head without contrast Start: 06-29-2021 Assay of thyroid stimulating hormone tsh Rebecca Camejo BORING MILL OPERATOR-RIG SUPERINTENDENT Work Phone: Start: 03-23-2019 Adult depression scr eening assessment Sleep Main Work Phone: Plan of Treatment Date Care Activity Detail Author Start: 2063 RSV Immunization age d 60 or older (1 - 1-dose 60+ series) RSV Immunization aged 60 or older (1 - 1-dose 60+ series) [facility] Start: 07-15-2053 Zoster Vaccines (1 o f 2) Zoster Vaccines (1 of 2) [facility] Start: 08-31-2030 DTaP/Tdap/Td Vaccine s (8 - Td or Tdap) DTaP/Tdap/Td Vaccines (8 - Td or Tdap) [facility] Start: 08-31-2030 Urine microalbumin profile DTaP,Tdap,Td Vaccine (8 - Td or Tdap) [facility] Start: 03-12-2025 Tetanus Diphtheria a nd Pertussis Vaccines (7 - Td or Tdap) Tetanus Diphtheria and Pertussis Vaccines (7 - Td or Tdap) [facility] Start: 02-19-2025 Covid-19 Vaccine ( season) Covid-19 Vaccine ( season) [facility] Comment on above: Postponed from 11/12 (Declined at this time) Start: 12-18-2024 End: 12-18-2024 Patient encounter procedure 12/18/2024 4:00 PM EDT Office Visit Family Medicine [address] [place] [id number] Saulo Camarillo MD [address] [place] [address] [phone] physical Family Medicine Comment on above: physical Start: 11-21-2024 Depression Screening Depression Scre ening [facility] Start: 11-21-2024 GC (Gonorrhea) Screening (18-24) GC (Gonorrhea) Screening (18-24) [facility] Comment on above: Postponed from 07/15 (Declined at this time) Start: 11-21-2024 HIV screening HIV Screening [facility] Comment on above: Postponed from 07/15 (Declined at this time) Start: 11-21-2024 Screening for Chlamydia trachomatis Chlamydia Screening (18-24) [facility] Comment on above: Postponed from 07/15 (Declined at this time) Start: 11-12-2024 Influenza vaccination [facility] Start: 09-10-2024 Influenza vaccination Influenza Vacc ine (#1) [facility] Comment on above: Postponed from 11/12 (Declined at this time) Start: 09-07-2024 End: 09-07-2024 Patient encounter procedure 09/07/2024 1:40 PM EDT Office Visit Family Medicine [address] [place] [address] [phone] Saulo Camarillo MD [address] [place] [address] [phone] Return in about 3 months (around 09/07/2024) for adhd. Family Medicine Comment on above: Return in about 3 mo nths (around 09/07/2024) for adhd. Start: 08-14-2024 Hepatitis C [facility] Comment on above: Postponed from 07/15 (Declined at this time) Start: 07-15-2024 Screening for malignant neoplasm of cervix Cervical Cancer Screening [facility] Start: 06-07-2024 End: 06-07-2024 Patient encounter procedure 06/07/2024 5:00 PM EDT Office Visit [address] [phone] Saulo Camarillo MD [address] [place] [address] [phone] med refill Family Medicine Comment on above: med refill Start: 02-29-2024 End: 02-29-2024 Patient encounter procedure 02/29/2024 10:10 AM EST Office Visit Otolaryngology [address] [place] [address] Erika Diaz, GUMARO.RIG SUPERINTENDENT [address] [place] [address] Cervical adenopathy [R59.0] Otolaryngology Comment on above: Cervical adenopathy [R59.0] Start: 02-20-2024 End: 02-20-2024 Patient encounter procedure 02/20/2024 10:40 AM EST Office Visit Family Medicine [address] [place] [address] [place] [address] Saulo Camarillo MD [address] [place] [address] [phone] Follow Up; Medications Family Medicine Comment on above: Follow Up; Medicatio ns Start: 11-22-2023 End: 11-22-2023 Patient encounter procedure 11/22/2023 9:00 AM EDT Office Visit Family Medicine [address] [place] [address] [phone] Saulo Camarillo MD [address] [place] [phone] est care Family Medicine Comment on above: est care Start: 11-13-2023 Covid-19 Vaccine ( season) Covid-19 Vaccine () [facility] Start: 10-20-2023 End: 10-20-2023 Patient encounter procedure 10/20/2023 2:45 PM EDT Office Visit Otolaryngology [address] [place] [address] [place] [address] [place] [address] Neck mass [R22.1] Otolaryngology Comment on above: Neck mass [R22.1] Start: 09-29-2023 End: 09-29-2023 Patient encounter procedure 09/29/2023 12:00 PM EDT Office Visit [facility] Obstetrics & Gynecology [address] [place] [address] [address] [place] [phone] Keri Lou MD [address] [facility] [address] [place], [place] [phone] [facility] Start: 08-20-2023 Well Visit Well Visit [facility] Start: 03-14-2023 Behavioral Health Screening Behavioral Health Screening [facility] Start: 01-19-2023 Streptococcus pyogen es antigen assay Group A Streptococcus Rapid Screen [facility] Start: 12-02-2022 CGFS PCL-5 CGFS PCL-5 [facility] Start: 11-12-2022 COVID-19 Vaccine ( season) COVID-19 Vaccine ( season) [facility] Start: 11-12-2022 Influenza vaccination Influenza Vacc ine (#1) [facility] Start: 09-21-2022 End: 09-21-2022 ambulatory 09/21/2022 2:00 PM EDT Telehealth [facility] [address] [facility] [place] [address] Aleta Washington, [facility] [address] [place] [phone] [facility] Start: 08-17-2022 Well Visit Well Visit [facility] Start: 11-12-2021 Influenza vaccination INFLUENZA (#1) [facility] Start: 08-17-2021 End: 08-17-2021 Patient encounter procedure 08/17/2021 Office Visit Pediatrics Kat Santos MD [address] [place] [id number] [facility] Start: 07-15-2021 CHLAMYDIA SCREENING (18-24) CHLAMYDIA SCREENING (18-24) [facility] Start: 07-15-2021 GC (GONORRHEA) SCREENING (18-24) GC (GONORRHEA) SCREENING (18-24) [facility] Start: 07-15-2021 Hearing Screening Hearing Screening [facility] Start: 07-15-2021 HEPATITIS C SCREENING HEPATITIS C [facility] Start: 07-15-2021 Hepatitis C screening Hepatitis C [facility] Start: 07-15-2021 HIV SCREENING HIV SCREENING [facility] Start: 07-15-2021 HIV screening HIV Screening [facility] Start: 07-15-2021 Screening for Chlamydia trachomatis Chlamydia Screening (18-24) [facility] Start: 04-16-2021 Well Visit Well Visit [facility] Start: 01-05-2021 COVID-19 VACCINE (3 - Booster for Pfizer series) COVID-19 VACCINE (3 - Booster for Pfizer series) [facility] Start: 09-28-2020 Urine microalbumin profile DTAP,TDAP,TD (2 - Tdap) [facility] Start: 03-23-2020 Adult depression screening assessment DEPRESSION SCREENING [facility] Start: 2019 MenB (1 of 2 - MenB 2-Dose Series) MenB (1 of 2 - MenB 2-Dose Series) [facility] Start: 2019 MENINGOCOCCAL CONJUGATE (1 - 2-dose series) MENINGOCOCCAL CONJUGATE (1 - 2-dose series) [facility] Start: 07-15-2017 PEDS TO ADULT TRANSITION ANNUAL ASSESSMENT PEDS TO ADULT TRANSITION ANNUAL ASSESSMENT [facility] Start: 2015 Depression Screening Depression Scre [facility] Start: 2015 PEDS TO ADULT TRANSITION INITIAL DISCUSSION PEDS TO ADULT TRANSITION INITIAL DISCUSSION [facility] Start: 07-15-2014 HPV VACCINE (1 - 2-dose series) HPV VACCINE (1 - 2-dose series) [facility] Start: 07-15-2013 MENINGOCOCCAL B: Consider based on risk (1 of 2 - Risk Bexsero 2-dose series) MENINGOCOCCAL B: Consider based on risk (1 of 2 - Risk Bexsero 2-dose series) [facility] Start: 03-17-2004 Application of denta l fluoride varnish Fluoride Varnish [facility] Start: 2003 FS Client Outcomes Intake CGFS Client Outcomes Intake [facility] Start: 2003 CGFS Initial ITP CGFS Initial ITP [facility] Start: 2003 CGFS Initial MHA CGFS Initial MHA [facility] Start: 2003 CGFS Initial PTP CGFS Initial PTP [facility] Start: 2003 HEPATITIS B (1 of 3 - 3-dose series) HEPATITIS B (1 of 3 - 3-dose series) [facility] Start: 2003 HIV screening HIV Screening [facility] jamari Neisseria gonorrhoea e DNA [Presence] in Cervical mucus by MARICARMEN with probe detection Chlamydia/Gonorrhea Microbiology Routine Screening for STDs (sexually transmitted diseases) Ordered: 09/16/2022 [facility] Work Phone: Comment on above: Ordered: 09/16/2022 Patient Education ED Head Injury (Adult) [facility] Work Phone: Patient referral [facility] Work Phone: End: 10-14-2022 Polysomnogram POLYSOMNOGRAM (PSG) Procedures Routine Obstructive sleep apnea syndrome 1 Occurrences starting 10/14/2021 until 10/14/2022 [facility] Comment on above: 1 Occurrences starti ng 10/14/2021 until 10/14/2022 TRICOMONAS VAGINALIS RNA, QUALITATIVE TMA, FEMALE Trichomonas vaginalis RNA, Qualitative, TMA, Female Lab Routine Screening for STDs (sexually transmitted diseases) Ordered: 09/16/2022 [facility] Comment on above: Ordered: 09/16/2022 End: 09-13-2024 US Head and neck soft tissue US HEAD/NECK SOFT TISSUE OTHER Radiology Routine Neck mass 1 Occurrences starting 08/15/2023 until 09/13/2024 [facility] Work Phone: Comment on above: 1 Occurrences starti ng 08/15/2023 until 09/13/2024 US Head and neck sof t tissue US HEAD/NECK SOFT TISSUE OTHER Radiology Routine Neck mass 08/31/2023 3:11 PM EDT [facility] Work Phone: End: 03-30-2025 US Head and neck soft tissue US HEAD/NECK SOFT TISSUE OTHER Radiology Routine Enlarged lymph node 1 Occurrences starting 02/29/2024 until 03/30/2025 [facility] Work Phone: Comment on above: 1 Occurrences starti ng 02/29/2024 until 03/30/2025 [facility] Immunizations Immunization Date Immunization Notes Care Provider Tiburcio reyes 01-06-2023 influenza, injectabl e, quadrivalent, contains preservative Herminio Woods APRN.CNP Work Phone: [facility] 01-06-2023 influenza virus vacc ine, unspecified formulation Saulo Camarillo MD Work Phone: [facility] 03-04-2022 meningococcal B vacc ine, recombinant, OMV, adjuvanted Kat Santos MD Work Phone: [facility] 03-04-2022 PFIZER BIONTECH COVID-19, MRNA, BIVALENT BOOSTER, 12Y+, 30MCG/0.3ML DOSE Kat Santos MD Work Phone: [facility] 12-21-2021 influenza, injectabl e, quadrivalent, preservative free Kat Santos MD Work Phone: [facility] 12-21-2021 influenza virus vacc ine, unspecified formulation Keri Lou MD Work Phone: [facility] 11-24-2021 rabies vaccine, for intramuscular injection [facility] 11-17-2021 rabies vaccine, for intramuscular injection [facility] 11-13-2021 rabies vaccine, for intramuscular injection [facility] 11-09-2021 Human Rabies vaccine from human diploid cell culture Kat Santos MD Work Phone: [facility] 11-09-2021 rabies immune globulin Lalita Santos MD Work Phone: [facility] 08-17-2021 meningococcal B vacc ine, recombinant, OMV, adjuvanted Kat Santos MD Work Phone: [facility] 12-17-2020 influenza, live, intranasal, quadrivalent Rebecca Bashir BORING MILL OPERATOR-RIG SUPERINTENDENT Work Phone: [facility] 08-31-2020 tetanus and diphther ia toxoids, adsorbed, preservative free, for adult use (5 Lf of tetanus toxoid and 2 Lf of diphtheria toxoid) Rebecca Camejo APRN-RIG SUPERINTENDENT Work Phone: [facility] Work Phone: 08-05-2020 PFIZER (purple cap) COVID-19, mRNA, LNP-S, 30mcg/0.3mL dose Rebecca Camejo BORING MILL OPERATOR-RIG SUPERINTENDENT Work Phone: [facility] 07-14-2020 PFIZER (purple cap) COVID-19, mRNA, LNP-S, 30mcg/0.3mL dose Rebecca Bashir BORING MILL OPERATOR-RIG SUPERINTENDENT Work Phone: [facility] 04-16-2020 meningococcal polysaccharide (groups A, C, Y and W-135) diphtheria toxoid conjugate vaccine (MCV4P) Rebecca Bashir BORING MILL OPERATOR-RIG SUPERINTENDENT Work Phone: [facility] 01-01-2020 influenza, injectabl e, quadrivalent, preservative free Rebecca Bashir BORING MILL OPERATOR-RIG SUPERINTENDENT Work Phone: [facility] 04-16-2019 influenza, injectabl e, quadrivalent, preservative free Rebecca Bashir BORING MILL OPERATOR-RIG SUPERINTENDENT Work Phone: [facility] 04-13-2018 influenza, injectabl e, quadrivalent, preservative free Rebecca Bashir BORING MILL OPERATOR-RIG SUPERINTENDENT Work Phone: [facility] 02-10-2017 influenza, injectabl e, quadrivalent, preservative free Rebecca Bashir BORING MILL OPERATOR-RIG SUPERINTENDENT Work Phone: [facility] 03-16-2016 Human Papillomavirus 9-valent vaccine Rebecca Bashir BORING MILL OPERATOR-RIG SUPERINTENDENT Work Phone: [facility] 03-16-2016 influenza, injectabl e, quadrivalent, preservative free Rebecca Bashir BORING MILL OPERATOR-RIG SUPERINTENDENT Work Phone: [facility] 05-20-2015 Human Papillomavirus 9-valent vaccine Rebecca Bashir BORING MILL OPERATOR-RIG SUPERINTENDENT Work Phone: [facility] 03-12-2015 Human Papillomavirus 9-valent vaccine Rebecca Bashir BORING MILL OPERATOR-RIG SUPERINTENDENT Work Phone: [facility] 03-12-2015 influenza, live, intranasal, quadrivalent Rebecca Bashir BORING MILL OPERATOR-RIG SUPERINTENDENT Work Phone: [facility] 03-12-2015 meningococcal polysaccharide (groups A, C, Y and W-135) diphtheria toxoid conjugate vaccine (MCV4P) [facility] Work Phone: [facility] 03-12-2015 tetanus toxoid, redu sagar diphtheria toxoid, and acellular pertussis vaccine, adsorbed Rebecca [facility] Work Phone: [facility] 11-28-2013 influenza, live, intranasal, quadrivalent [facility] Work Phone: [facility] 01-03-2013 influenza virus vacc ine, whole virus [facility] Work Phone: [facility] 11-04-2011 influenza virus vacc ine, whole virus [facility] Work Phone: [facility] 12-17-2010 influenza virus vacc ine, whole virus [facility] Work Phone: [facility] 11-27-2009 influenza virus vacc ine, whole virus [facility] Work Phone: [facility] 07-18-2008 diphtheria, tetanus toxoids and acellular pertussis vaccine Rebecca Bashir BORING MILL OPERATOR-[facility] Work Phone: [facility] 07-18-2008 diphtheria, tetanus toxoids and acellular pertussis vaccine, unspecified formulation [facility] Work Phone: [facility] 07-18-2008 measles, mumps and rubella virus vaccine Rebecca Bashir BORING MILL OPERATOR-[facility] Work Phone: [facility] 07-18-2008 poliovirus vaccine, inactivated [facility] Work Phone: [facility] 12-20-2007 influenza virus vacc ine, whole virus Rebecca [facility] BORING MILL OPERATOR-RIG SUPERINTENDENT Work Phone: [facility] 07-28-2007 varicella virus vaccine Rebecca Bashir BORING MILL OPERATOR-[facility] Work Phone: [facility] 09-01-2006 hepatitis A vaccine, pediatric/adolescent dosage, 2 dose schedule Rebecca Bashir BORING MILL OPERATOR-RIG SUPERINTENDENT Work Phone: [facility] 01-21-2006 Influenza Vaccine 0. 25 mL 6-35 mo Trivalent Rebecca Bashir BORING MILL OPERATOR-RIG SUPERINTENDENT Work Phone: [facility] 01-21-2006 influenza virus vacc ine, whole virus Rebecca Bashir BORING MILL OPERATOR-RIG SUPERINTENDENT Work Phone: [facility] 07-21-2005 hepatitis A vaccine, pediatric/adolescent dosage, 2 dose schedule Rebecca Bashir BORING MILL OPERATOR-RIG SUPERINTENDENT Work Phone: [facility] 07-21-2005 varicella virus vaccine Rebecca Bashir BORING MILL OPERATOR-RIG SUPERINTENDENT Work Phone: [facility] 03-02-2005 Influenza Vaccine 0. 25 mL 6-35 mo Trivalent Rebecca Bashir BORING MILL OPERATOR-RIG SUPERINTENDENT Work Phone: [facility] 03-02-2005 influenza virus vacc ine, whole virus Rebecca Bashir BORING MILL OPERATOR-RIG SUPERINTENDENT Work Phone: [facility] 01-27-2005 Influenza Vaccine 0. 25 mL 6-35 mo Trivalent Rebecca Bashir BORING MILL OPERATOR-RIG SUPERINTENDENT Work Phone: [facility] 01-27-2005 influenza virus vacc ine, whole virus Rebecca Bashir BORING MILL OPERATOR-RIG SUPERINTENDENT Work Phone: [facility] 11-10-2004 diphtheria, tetanus toxoids and acellular pertussis vaccine Rebecca Bashir BORING MILL OPERATOR-RIG SUPERINTENDENT Work Phone: [facility] 11-10-2004 diphtheria, tetanus toxoids and acellular pertussis vaccine, unspecified formulation Rebecca Bashir BORING MILL OPERATOR-[facility] Work Phone: [facility] 11-10-2004 pneumococcal conjuga te vaccine, 7 valent Rebecca Bashir BORING MILL OPERATOR-[facility] Work Phone: [facility] 11-10-2004 poliovirus vaccine, inactivated Rebecca Bashir BORING MILL OPERATOR-[facility] Work Phone: [facility] 07-21-2004 hepatitis B vaccine, pediatric or pediatric/adolescent dosage Rebecca [facility] Work Phone: [facility] 07-21-2004 measles, mumps and rubella virus vaccine Rebecca [facility] Work Phone: [facility] 01-21-2004 diphtheria, tetanus toxoids and acellular pertussis vaccine Rebecca [facility] Work Phone: [facility] 01-21-2004 diphtheria, tetanus toxoids and acellular pertussis vaccine, unspecified formulation [facility] Work Phone: [facility] 01-21-2004 pneumococcal conjuga te vaccine, 7 valent [facility] Work Phone: [facility] 2003 diphtheria, tetanus toxoids and acellular pertussis vaccine Rebecca [facility] Work Phone: [facility] 2003 diphtheria, tetanus toxoids and acellular pertussis vaccine, unspecified formulation [facility] Work Phone: [facility] 2003 haemophilus influenz ae type b vaccine, PRP-T conjugate [facility] Work Phone: [facility] 2003 hepatitis B vaccine, pediatric or pediatric/adolescent dosage Rebecca [facility] Work Phone: [facility] 2003 pneumococcal conjuga te vaccine, 7 valent [facility] Work Phone: [facility] 2003 poliovirus vaccine, inactivated [facility] Work Phone: [facility] 2003 diphtheria, tetanus toxoids and acellular pertussis vaccine Rebecca [facility] Work Phone: [facility] 2003 diphtheria, tetanus toxoids and acellular pertussis vaccine, unspecified formulation Rebecca Bashir BORING MILL OPERATOR-[facility] Work Phone: [facility] 2003 haemophilus influenz ae type b vaccine, PRP-T conjugate Rebecca Bashir BORING MILL OPERATOR-[facility] Work Phone: [facility] 2003 hepatitis B vaccine, pediatric or pediatric/adolescent dosage Rebecca Bashir BORING MILL OPERATOR-[facility] Work Phone: [facility] 2003 pneumococcal conjuga te vaccine, 7 valent Rebecca Bashir BORING MILL OPERATOR-[facility] Work Phone: [facility] [facility] 2003 poliovirus vaccine, inactivated [facility] Work Phone: [facility] 2003 haemophilus influenz ae type b vaccine, PRP-T conjugate [facility] Work Phone: [facility] Payers Date Payer Category Payer Self-pay 2018 Private Health Insurance MMO SU[employer] PPO [id number] 2018 Unknown MMO MMO SUPER[employer] PLUS [id number] 2018-Present [phone] [address] [place] [address] [facility] [id number] 2018 Unknown [id number] 2016 Unknown [id number]. [id number] 2003 Unknown [id number] 2.16.840.1.662515.3.579.2 47 2003 Unknown [id number] 2.16.840.1.880992.3.579.2 2003 Unknown [id number] 2.16.840.1.031250.3.579.2 2003 Unknown [id number] 2.16.840.1.001588.3.579.2 2003 Unknown [id number] 2.16.840.1.132325.3.579.2 2003 Unknown [id number] 2.16.840.1.004276.3.579.2 2003 Unknown [id number] 2.16.840.1.866066.3.579.2 2003 Unknown [id number] 2.16.840.1.331318.3.579.2 2003 Unknown [id number] 2.16.840.1.898096.3.579.2 2003 Unknown [id number] 2.16.840.1.531083.3.579.2 2003 Unknown [id number] 2.16.840.1.517090.3.579.2 2003 Unknown [id number] 2.16.840.1.626185.3.579.2 2003 Unknown [id number] 2.16.840.1.247843.3.579.2. 479 2003 Unknown [id number] 2.16.840.1.844237.3.579.2. 479 2003 Unknown [id number] 2.16.840.1.312459.3.579.2. 479 2003 Unknown [id number] 2.16.840.1.621142.3.579.2. 479 2003 Unknown [id number] 2.16.840.1.314388.3.579.2. 479 2003 Unknown [id number] 2.16.840.1.553651.3.579.2. 479 2003 Unknown [id number] 2.16.840.1.503969.3.579.2. 479 Unknown [id number] 2.16.840.1.845132.3.579.2. 462 Unknown [id number] 2.16.840.1.238781.3.579.2. 462 Social History Date Type Detail Facility Start: 02-10-2017 End: 11-22-2023 Tobacco smoking status NHIS Never smoked tobacco [facility] Start: 02-10-2017 End: 11-22-2023 Tobacco use and exposure Smokeless tobacco non-user [facility] Start: 06-29-2021 End: 08-19-2022 Alcohol intake Not Asked [facility] Start: 06-29-2021 End: 08-15-2023 Alcohol intake [facility] Start: 2003 Sex Assigned At Not on file A [facility] Start: 06-19-2021 End: 09-16-2022 Exposure to SARS-CoV-2 (event) Not sure [facility] Start: 08-31-2020 End: 09-07-2024 Alcohol intake Current non-drinker of alcohol (finding) [facility] Start: 2003 Sex Assigned At Female [facility] Start: 05-04-2022 Tobacco smoking stat us NMIS Unknown if ever smoked [facility] Start: 06-13-2022 End: 08-15-2023 Tobacco use panel [facility] Start: 05-19-2015 Adolescent depressio n screening assessment 5 [facility] Start: 09-16-2022 Alcohol intake Lifetime non-d jaden (finding) [employer] Start: 05-31-2022 Gender identity Identifies as female gender (finding) [facility] [employer] Has the [employer], [employer], or [employer] threatened to shut off services in your home in past 12Mo No [facility] Do you belong to any clubs or organizations such as mormonism groups, unions, fraternal or athletic groups, or school groups? Yes [facility] How often to you hav e a drink containing alcohol? Monthly or less [facility] How many standard dr inks containing alcohol do you have on a typical day? 1 or 2 [facility] How often do you hav e 6 or more drinks on 1 occasion? Never [facility] How hard is it for y ou to pay for the very basics like food, housing, medical care, and heating Not very hard [facility] Do you feel stress - tense, restless, nervous, or anxious, or unable to sleep at night because your mind is troubled all the time - these days [OSQ] Very much [facility] The food that (I/we) bought just didn't last, and (I/we) didn't have money to get more. Never true [facility] NEGATED: Highlighted row [facility] NEGATED: Highlighted rowStart: NINF History of tobacco use Passive smoker [facility] Goals Date Patient Goal Desired Activity /State Personal health goal Comment on above: Formatting of this n ote might be different from the original. Objectives: Trauma Coping Skills Objectives: - Client will use mindfulness and grounding techniques 3 times per week. Interventions: Trauma Coping Skills Interventions: - Clinician will work with client on sharing these triggers with support network - Clinician will provide education on physical and emotional safety Services: - Counseling - CPST Frequency of Services: - Weekly Duration: - 6 Months Formatting of this n ote might be different from the original. Objectives: Trauma Discussion Objectives: - Client will identify feelings related to traumatic experience - Client will elevate overall level of functioning as evidenced by decreased/improved score on trauma screener (YCPC, CPSS-V, PCL-5) Interventions: Trauma Discussion Interventions: - Clinician will utilize experiential techniques to process emotions - Clinician will administer trauma screener every 3 months or as needed Services: - Counseling - CPST Frequency of Services: - Weekly Duration: - 6 Months Personal health goal Comment on above: Formatting of this n ote might be different from the original. Objectives: -Reduce the amount conflict between client and family to three times a week rather than every day. Interventions: - Clinician will provide safe space for client to share thoughts and feelings related to life changes - Clinician will provide coping skills and practice coping skills in session with client Services: - Counseling Frequency of Services: - Bi-Weekly Duration: - 6 Months Clinical Notes 10-23-2021 to 12-18-2024 Telephone Encounter - Sheryl Jara OCCA - 11/26/2024 9:49 AM EDTTelephone Encounter - Sheryl Jara OCCA - 11/26/2024 9:49 AM EDTSSaulo jett MD - 09/07/2024 1:40 PM EDT Note Date & Type Note Facility 12-18-2024 Note HNO ID: [id number] Author: SAULO CAMARILLO MD Service: ? Author Type: Physician Type: Progress Notes Filed: 12/18/2024 16:57 Note Text: Betty is a 19-year-old female, with a history of anxiety and ADHD, presenting for a check-up and follow-up on recent Lexapro dosage increase. She also reports ongoing digestive issues. Btety reports that her Lexapro dosage was increased approximately one month ago, and she feels it is helping. She is also taking Vyvanse, which she reports is working well. She denies any current issues with sleep and is not taking any medication for sleep. She reports chronic digestive issues, including heartburn, bloating, gas pains, and alternating constipation and diarrhea. She has tried omeprazole, Pepcid AC, and a probiotic without relief. She describes the pain as an intense pressure affecting both the upper and lower abdomen, with consistent upper abdominal pain upon waking and lower abdominal pain developing throughout the day. The pain intensifies with bloating and gas, and she experiences cramping pains. She also reports difficulty eating due to a feeling of fullness and has noticed black, thick, and tarry stools recently, particularly about a week ago. She denies taking an iron supplement. Betty reports that the bloating and pain have been severe enough to cause difficulty breathing, fainting episodes, and challenges with walking to class and carrying her book bag. She notes that the symptoms have become more intense in the past few weeks, with severe episodes requiring her to lie down with a heating pad. She denies any correlation with diet or lifestyle, stating that the symptoms occur consistently regardless of these factors. She has not seen a GI specialist due to time constraints with her college schedule but is open to a virtual visit. She has not tried dicyclomine. She is currently on fall break from college and reports that her symptoms are significantly affecting her daily life. She expresses concern about the severity of her symptoms and is seeking further evaluation and treatment. HISTORY REVIEWED PAST MEDICAL HISTORY Diagnosis Date ADHD (attention deficit hyperactivity disorder) Asthma (HCC) Exercised induced Generalized anxiety disorder PTSD (post-traumatic stress disorder) Vasovagal syncope PAST SURGICAL HISTORY Procedure Laterality Date REPAIR OF NASAL SEPTUM 2019 FAMILY HISTORY Problem Relation Age of Onset Arthritis Mother Anxiety disorder Mother Asthma Mother Arthritis Father Asthma Father Alzheimer's Disease Maternal Grandmother Hypertension Maternal Grandfather Melanoma Maternal Grandfather Lung Cancer Paternal Grandmother Obesity Paternal Grandmother Obesity Paternal Grandfather Social History Social History Narrative Not on file Allergies: ALLERGIES No Known Allergies Medications: cetirizine (ZYRTEC) 10 mg tablet Take 10 mg by mouth once daily. levonorgestrel (KYLEENA) 17.5 mcg/24 hrs (5 yrs) 19.5 mg IUD lisdexamfetamine (VYVANSE) 30 mg capsule Take 1 capsule by mouth once daily for 30 days. [START ON 01/17/2025] lisdexamfetamine (VYVANSE) 30 mg capsule Take 1 capsule by mouth once daily for 30 days. Patient should start on January 17, 2025. [START ON 02/16/2025] lisdexamfetamine (VYVANSE) 30 mg capsule Take 1 capsule by mouth once daily for 30 days. Patient should start on February 16, 2025. escitalopram oxalate (LEXAPRO) 20 mg tablet Take 1 tablet by mouth once daily. pantoprazole DR (PROTONIX) 40 mg tablet Take 1 tablet by mouth two times a day. dicyclomine (BENTYL) 10 mg capsule Take 1-2 capsules by mouth three times a day as needed. sucralfate (CARAFATE) 100 mg/mL suspension Take 10 mL by mouth four times daily. Problem List: ACTIVE PROBLEM LIST Epigastric Pain - 12/18/2024 Tarry Stools - 12/18/2024 Gerd Without Esophagitis - 12/18/2024 Abdominal Cramping - 12/18/2024 Abdominal Bloating - 12/18/2024 Alternating Constipation and Diarrhea - 12/18/2024 Adhd (Attention Deficit Hyperactivity Disorder), Combined Type - 11/22/2023 Aditya (Generalized Anxiety Disorder) - 09/04/2022 Posttraumatic Stress Disorder - 11/10/2020 Review of Systems Constitutional: Negative for chills and fever. HENT: Negative for congestion and sore throat. Eyes: Negative for pain and redness. Respiratory: Negative for cough and shortness of breath. Cardiovascular: Negative for chest pain and palpitations. Gastrointestinal: Positive for abdominal distention, abdominal pain, blood in stool, constipation and diarrhea. Negative for nausea and vomiting. Genitourinary: Negative for dysuria and hematuria. Musculoskeletal: Negative for back pain and myalgias. Skin: Negative for color change and rash. Neurological: Positive for syncope. Negative for dizziness and weakness. Psychiatric/Behavioral: Negative for dysphoric mood. The patient is nervous/anxious. Physical Exam Vitals and nursing no (more content not included)... [facility] 11-26-2024 Telephone encounter Note forwarded to . [facility] 11-26-2024 Miscellaneous Notes forwarded to . documented in this encounter [facility] 09-07-2024 History of Presen t illness Narrative Betty Quintanilla is a 19-year-old female presenting for a Vyvanse refill. Betty is currently taking Vyvanse 30 mg, which she reports is working well for her. She notes that the medication has affected her appetite and sleep. She obtains her medication from [facility] in [place] and drives there once a week. Betty is also taking Lexapro and inquires about refills. She reports feeling "pretty good" on the medication. Betty has been sexually active and believes she may have had a Pap smear, but is unsure. She is currently seeing a water resources project manager at [facility] and has not scheduled any upcoming appointments. HISTORY REVIEWED PAST MEDICAL HISTORY Diagnosis Date ADHD (attention deficit hyperactivity disorder) Asthma (HCC) Exercised induced Generalized anxiety disorder PTSD (post-traumatic stress disorder) Vasovagal syncope PAST SURGICAL HISTORY Procedure Laterality Date REPAIR OF NASAL SEPTUM 2018 FAMILY HISTORY Problem Relation Age of Onset Arthritis Mother Anxiety disorder Mother Asthma Mother Arthritis Father Asthma Father Alzheimer's Disease Maternal Grandmother Hypertension Maternal Grandfather Melanoma Maternal Grandfather Lung Cancer Paternal Grandmother Obesity Paternal Grandmother Obesity Paternal Grandfather Social History Social History Narrative Not on file Allergies: ALLERGIES No Known Allergies Medications: escitalopram oxalate (LEXAPRO) 10 mg tablet Take 1 tablet by mouth once daily. cetirizine (ZYRTEC) 10 mg tablet Take 10 mg by mouth once daily. levonorgestrel (KYLEENA) 17.5 mcg/24 hrs (5 yrs) 19.5 mg IUD lisdexamfetamine (VYVANSE) 30 mg capsule Take 1 capsule by mouth once daily for 30 days. [START ON 10/07/2024] lisdexamfetamine (VYVANSE) 30 mg capsule Take 1 capsule by mouth once daily for 30 days. Patient should start on October 07, 2024. [START ON 11/06/2024] lisdexamfetamine (VYVANSE) 30 mg capsule Take 1 capsule by mouth once daily for 30 days. Patient should start on November 06, 2024. Problem List: ACTIVE PROBLEM LIST Adhd (Attention Deficit Hyperactivity Disorder), Combined Type - 11/22/2023 Chronic Insomnia - 11/22/2023 Aditya (Generalized Anxiety Disorder) - 09/04/2022 Posttraumatic Stress Disorder - 11/10/2020 Review of Systems Constitutional: Positive for appetite change. Negative for chills and fever. Respiratory: Negative for cough and shortness of breath. Cardiovascular: Negative for chest pain and palpitations. Psychiatric/Behavioral: Positive for decreased concentration. Physical Exam Vitals and nursing note reviewed. Constitutional: General: She is not in acute distress. Appearance: She is well-developed. She is not diaphoretic. HENT: Head: Normocephalic and atraumatic. Eyes: General: Right eye: No discharge. Left eye: No discharge. Conjunctiva/sclera: Conjunctivae normal. Cardiovascular: Rate and Rhythm: Normal rate and regular rhythm. Heart sounds: Normal heart sounds. No murmur heard. No friction rub. No gallop. Pulmonary: Effort: Pulmonary effort is normal. No respiratory distress. Breath sounds: Normal breath sounds. No wheezing, rhonchi or rales. Skin: General: Skin is warm and dry. Neurological: Mental Status: She is alert and oriented to person, place, and time. Mental status is at baseline. BP 102/58 Pulse 76 Temp 36.5 C (97.7 F) Ht 154.9 cm (5' 1") Wt 52.4 kg (115 lb 8.3 oz) LMP 02/07/2024 (Within Days) BMI 21.83 kg/m 1. ADHD (attention deficit hyperactivity disorder), combined type (F90.2) Condition is well-managed on Vyvanse 30 mg, though patient experiences decreased appetite and mild sleep disturbances. - Refilled Vyvanse 30 mg prescription and sent to [facility] in [place]. - Advised patient to monitor for any significant changes in side effects. 2. Healthcare maintenance (Z00.00) Patient is 19 years old and sexually active; due for initial Pap smear. - Discussed importance of cervical cancer screening and recommended scheduling a Pap smear with her water resources project manager at [facility]. - Scheduled follow-up for routine physical examination in the first week of December. 3. Generalized anxiety disorder (F41.1) Condition is stable on Lexapro; patient reports feeling well. - Confirmed Lexapro prescription has refills available through next May. 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 Patient/authorized territory sales representative agreed to proceed documented in this encounter [facility] 09-07-2024 Note HNO ID: [id number] Author: SAULO CAMARILLO MD Service: ? Author Type: Physician Type: Progress Notes Filed: 09/07/2024 13:42 Note Text: Betty Quintanilla is a 19-year-old female presenting for a Vyvanse refill. Betty is currently taking Vyvanse 30 mg, which she reports is working well for her. She notes that the medication has affected her appetite and sleep. She obtains her medication from [facility] in [place] and drives there once a week. Betty is also taking Lexapro and inquires about refills. She reports feeling "pretty good" on the medication. Betty has been sexually active and believes she may have had a Pap smear, but is unsure. She is currently seeing a water resources project manager at [facility] and has not scheduled any upcoming appointments. HISTORY REVIEWED PAST MEDICAL HISTORY Diagnosis Date ADHD (attention deficit hyperactivity disorder) Asthma (HCC) Exercised induced Generalized anxiety disorder PTSD (post-traumatic stress disorder) Vasovagal syncope PAST SURGICAL HISTORY Procedure Laterality Date REPAIR OF NASAL SEPTUM 2019 FAMILY HISTORY Problem Relation Age of Onset Arthritis Mother Anxiety disorder Mother Asthma Mother Arthritis Father Asthma Father Alzheimer's Disease Maternal Grandmother Hypertension Maternal Grandfather Melanoma Maternal Grandfather Lung Cancer Paternal Grandmother Obesity Paternal Grandmother Obesity Paternal Grandfather Social History Social History Narrative Not on file Allergies: ALLERGIES No Known Allergies Medications: escitalopram oxalate (LEXAPRO) 10 mg tablet Take 1 tablet by mouth once daily. cetirizine (ZYRTEC) 10 mg tablet Take 10 mg by mouth once daily. levonorgestrel (KYLEENA) 17.5 mcg/24 hrs (5 yrs) 19.5 mg IUD lisdexamfetamine (VYVANSE) 30 mg capsule Take 1 capsule by mouth once daily for 30 days. [START ON 10/07/2024] lisdexamfetamine (VYVANSE) 30 mg capsule Take 1 capsule by mouth once daily for 30 days. Patient should start on October 07, 2024. [START ON 11/06/2024] lisdexamfetamine (VYVANSE) 30 mg capsule Take 1 capsule by mouth once daily for 30 days. Patient should start on November 06, 2024. Problem List: ACTIVE PROBLEM LIST Adhd (Attention Deficit Hyperactivity Disorder), Combined Type - 11/22/2023 Chronic Insomnia - 11/22/2023 Aditya (Generalized Anxiety Disorder) - 09/04/2022 Posttraumatic Stress Disorder - 11/10/2020 Review of Systems Constitutional: Positive for appetite change. Negative for chills and fever. Respiratory: Negative for cough and shortness of breath. Cardiovascular: Negative for chest pain and palpitations. Psychiatric/Behavioral: Positive for decreased concentration. Physical Exam Vitals and nursing note reviewed. Constitutional: General: She is not in acute distress. Appearance: She is well-developed. She is not diaphoretic. HENT: Head: Normocephalic and atraumatic. Eyes: General: Right eye: No discharge. Left eye: No discharge. Conjunctiva/sclera: Conjunctivae normal. Cardiovascular: Rate and Rhythm: Normal rate and regular rhythm. Heart sounds: Normal heart sounds. No murmur heard. No friction rub. No gallop. Pulmonary: Effort: Pulmonary effort is normal. No respiratory distress. Breath sounds: Normal breath sounds. No wheezing, rhonchi or rales. Skin: General: Skin is warm and dry. Neurological: Mental Status: She is alert and oriented to person, place, and time. Mental status is at baseline. BP 102/58 Pulse 76 Temp 36.5 ?C (97.7 ?F) Ht 154.9 cm (5' 1") Wt 52.4 kg (115 lb 8.3 oz) LMP 02/07/2024 (Within Days) BMI 21.83 kg/m? 1. ADHD (attention deficit hyperactivity disorder), combined type (F90.2) Condition is well-managed on Vyvanse 30 mg, though patient experiences decreased appetite and mild sleep disturbances. - Refilled Vyvanse 30 mg prescription and sent to [facility] in [place]. - Advised patient to monitor for any significant changes in side effects. 2. Healthcare maintenance (Z00.00) Patient is 19 years old and sexually active; due for initial Pap smear. - Discussed importance of cervical cancer screening and recommended scheduling a Pap smear with her water resources project manager at [facility]. - Scheduled follow-up for routine physical examination in the first week of December. 3. Generalized anxiety disorder (F41.1) Condition is stable on Lexapro; patient reports feeling well. - Confirmed Lexapro prescription has refills available through next May. 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 Patient/authorized territory sales representative agreed to proceed [facility] 07-03-2024 Telephone encounter Note Yes, appointment [facility] Work Phone: 07-03-2024 Miscellaneous Notes Yes, appointment Appointment? documented in this encounter [facility] 07-03-2024 Telephone encounter Note Appointment? [facility] 06-07-2024 History of Presen t illness Narrative The patient is a 18-year-old female who presents for follow-up on ADHD and anxiety. Currently on Vyvanse 40 mg and lexapro. Doing well on this combo. Had a week of constant epigastric pain recently. Has since resolved. Tums and pepcid didn't seem to help. No diarrhea, constipation, nausea, vomiting. Anxiety This is a chronic problem. The current episode started more than 1 year ago. The problem is unchanged. Pertinent negatives include no fever, nausea or vomiting. The treatment provided moderate relief. Abdominal Pain This is a new problem. The current episode started more than 1 week ago. The problem has been resolved. The pain is located in the epigastric region. The quality of the pain is sharp. The pain is moderate. Pertinent negatives include fever, belching, diarrhea, flatus, hematochezia, melena, nausea, vomiting and constipation. Nothing aggravates the symptoms. Nothing relieves the symptoms. HISTORY REVIEWED PAST MEDICAL HISTORY Diagnosis Date ADHD (attention deficit hyperactivity disorder) Asthma Exercised induced Generalized anxiety disorder PTSD (post-traumatic stress disorder) Vasovagal syncope PAST SURGICAL HISTORY Procedure Laterality Date REPAIR OF NASAL SEPTUM 2019 FAMILY HISTORY Problem Relation Age of Onset Arthritis Mother Anxiety disorder Mother Asthma Mother Arthritis Father Asthma Father Alzheimer's Disease Maternal Grandmother Hypertension Maternal Grandfather Melanoma Maternal Grandfather Lung Cancer Paternal Grandmother Obesity Paternal Grandmother Obesity Paternal Grandfather Social History Social History Narrative Not on file Allergies: ALLERGIES No Known Allergies Medications: Minocycline HCl 100 mg tablet Take 100 mg by mouth once daily. 2 months for acne. Prescribed by Dermatology. cetirizine (ZYRTEC) 10 mg tablet Take 10 mg by mouth once daily. levonorgestrel (KYLEENA) 17.5 mcg/24 hrs (5 yrs) 19.5 mg IUD escitalopram oxalate (LEXAPRO) 10 mg tablet Take 1 tablet by mouth once daily. lisdexamfetamine (VYVANSE) 40 mg capsule Take 1 capsule by mouth once daily for 30 days. [START ON 07/07/2024] lisdexamfetamine (VYVANSE) 40 mg capsule Take 1 capsule by mouth once daily for 30 days. Patient should start on July 07, 2024. [START ON 08/06/2024] lisdexamfetamine (VYVANSE) 40 mg capsule Take 1 capsule by mouth once daily for 30 days. Patient should start on August 06, 2024. Problem List: ACTIVE PROBLEM LIST Adhd (Attention Deficit Hyperactivity Disorder), Combined Type - 11/22/2023 Chronic Insomnia - 11/22/2023 Aditya (Generalized Anxiety Disorder) - 09/04/2022 Posttraumatic Stress Disorder - 11/10/2020 Review of Systems Constitutional: Negative for chills and fever. Respiratory: Negative for cough and shortness of breath. Cardiovascular: Negative for chest pain and palpitations. Gastrointestinal: Positive for abdominal pain. Negative for abdominal distention, blood in stool, constipation, diarrhea, flatus, hematochezia, melena, nausea and vomiting. Psychiatric/Behavioral: Positive for decreased concentration. The patient is nervous/anxious. Physical Exam Vitals and nursing note reviewed. Constitutional: General: She is not in acute distress. Appearance: She is well-developed. She is not diaphoretic. HENT: Head: Normocephalic and atraumatic. Eyes: General: Right eye: No discharge. Left eye: No discharge. Conjunctiva/sclera: Conjunctivae normal. Cardiovascular: Rate and Rhythm: Normal rate and regular rhythm. Heart sounds: Normal heart sounds. No murmur heard. No friction rub. No gallop. Pulmonary: Effort: Pulmonary effort is normal. No respiratory distress. Breath sounds: Normal breath sounds. No wheezing, rhonchi or rales. Abdominal: General: Abdomen is flat. Palpations: Abdomen is soft. Tenderness: There is no abdominal tenderness. Skin: General: Skin is warm and dry. Neurological: Mental Status: She is alert and oriented to person, place, and time. Mental status is at baseline. BP 110/70 Pulse 70 Temp 36.4 C (97.5 F) Ht 154.9 cm (5' 1") Wt 52.5 kg (115 lb 11.9 oz) LMP 02/07/2024 (Within Days) SpO2 99% BMI 21.87 kg/m ASSESSMENT/PLAN: 1. ADHD (attention deficit hyperactivity disorder), combined type - ICD9: 314.01, ICD10: F90.2 (primary diagnosis) Stable, continue vyvanse - LISDEXAMFETAMINE 40 MG CAPSULE - LISDEXAMFETAMINE 40 MG CAPSULE - LISDEXAMFETAMINE 40 MG CAPSULE 2. ADITYA (generalized anxiety disorder) - ICD9: 300.02, ICD10: F41.1 Stable, continue lexapro - ESCITALOPRAM 10 MG TABLET 3. Epigastric pain - ICD9: 789.06, ICD10: R10.13 Etiology unclear Differential Diagnosis includes GERD, PUD, and Gastritis Currently resolved She will let me know if pain recurs- discussed trying omeprazole Saulo Camarillo MD documented in this encounter [facility] 06-07-2024 Note HNO ID: [id number] Author: SAULO CAMARILLO MD Service: ? Author Type: Physician Type: Progress Notes Filed: 06/07/2024 17:12 Note Text: The patient is a 18-year-old female who presents for follow-up on ADHD and anxiety. Currently on Vyvanse 40 mg and lexapro. Doing well on this combo. Had a week of constant epigastric pain recently. Has since resolved. Tums and pepcid didn't seem to help. No diarrhea, constipation, nausea, vomiting. Anxiety This is a chronic problem. The current episode started more than 1 year ago. The problem is unchanged. Pertinent negatives include no fever, nausea or vomiting. The treatment provided moderate relief. Abdominal Pain This is a new problem. The current episode started more than 1 week ago. The problem has been resolved. The pain is located in the epigastric region. The quality of the pain is sharp. The pain is moderate. Pertinent negatives include fever, belching, diarrhea, flatus, hematochezia, melena, nausea, vomiting and constipation. Nothing aggravates the symptoms. Nothing relieves the symptoms. HISTORY REVIEWED PAST MEDICAL HISTORY Diagnosis Date ADHD (attention deficit hyperactivity disorder) Asthma Exercised induced Generalized anxiety disorder PTSD (post-traumatic stress disorder) Vasovagal syncope PAST SURGICAL HISTORY Procedure Laterality Date REPAIR OF NASAL SEPTUM 2019 FAMILY HISTORY Problem Relation Age of Onset Arthritis Mother Anxiety disorder Mother Asthma Mother Arthritis Father Asthma Father Alzheimer's Disease Maternal Grandmother Hypertension Maternal Grandfather Melanoma Maternal Grandfather Lung Cancer Paternal Grandmother Obesity Paternal Grandmother Obesity Paternal Grandfather Social History Social History Narrative Not on file Allergies: ALLERGIES No Known Allergies Medications: Minocycline HCl 100 mg tablet Take 100 mg by mouth once daily. 2 months for acne. Prescribed by Dermatology. cetirizine (ZYRTEC) 10 mg tablet Take 10 mg by mouth once daily. levonorgestrel (KYLEENA) 17.5 mcg/24 hrs (5 yrs) 19.5 mg IUD escitalopram oxalate (LEXAPRO) 10 mg tablet Take 1 tablet by mouth once daily. lisdexamfetamine (VYVANSE) 40 mg capsule Take 1 capsule by mouth once daily for 30 days. [START ON 07/07/2024] lisdexamfetamine (VYVANSE) 40 mg capsule Take 1 capsule by mouth once daily for 30 days. Patient should start on July 07, 2024. [START ON 08/06/2024] lisdexamfetamine (VYVANSE) 40 mg capsule Take 1 capsule by mouth once daily for 30 days. Patient should start on August 06, 2024. Problem List: ACTIVE PROBLEM LIST Adhd (Attention Deficit Hyperactivity Disorder), Combined Type - 11/22/2023 Chronic Insomnia - 11/22/2023 Aditya (Generalized Anxiety Disorder) - 09/04/2022 Posttraumatic Stress Disorder - 11/10/2020 Review of Systems Constitutional: Negative for chills and fever. Respiratory: Negative for cough and shortness of breath. Cardiovascular: Negative for chest pain and palpitations. Gastrointestinal: Positive for abdominal pain. Negative for abdominal distention, blood in stool, constipation, diarrhea, flatus, hematochezia, melena, nausea and vomiting. Psychiatric/Behavioral: Positive for decreased concentration. The patient is nervous/anxious. Physical Exam Vitals and nursing note reviewed. Constitutional: General: She is not in acute distress. Appearance: She is well-developed. She is not diaphoretic. HENT: Head: Normocephalic and atraumatic. Eyes: General: Right eye: No discharge. Left eye: No discharge. Conjunctiva/sclera: Conjunctivae normal. Cardiovascular: Rate and Rhythm: Normal rate and regular rhythm. Heart sounds: Normal heart sounds. No murmur heard. No friction rub. No gallop. Pulmonary: Effort: Pulmonary effort is normal. No respiratory distress. Breath sounds: Normal breath sounds. No wheezing, rhonchi or rales. Abdominal: General: Abdomen is flat. Palpations: Abdomen is soft. Tenderness: There is no abdominal tenderness. Skin: General: Skin is warm and dry. Neurological: Mental Status: She is alert and oriented to person, place, and time. Mental status is at baseline. BP 110/70 Pulse 70 Temp 36.4 ?C (97.5 ?F) Ht 154.9 cm (5' 1") Wt 52.5 kg (115 lb 11.9 oz) LMP 02/07/2024 (Within Days) SpO2 99% BMI 21.87 kg/m? ASSESSMENT/PLAN: 1. ADHD (attention deficit hyperactivity disorder), combined type - ICD9: 314.01, ICD10: F90.2 (primary diagnosis) Stable, continue vyvanse - LISDEXAMFETAMINE 40 MG CAPSULE - LISDEXAMFETAMINE 40 MG CAPSULE - LISDEXAMFETAMINE 40 MG CAPSULE 2. ADITYA (generalized anxiety disorder) - ICD9: 300.02, ICD10: F41.1 Stable, continue lexapro - ESCITALOPRAM 10 MG TABLET 3. Epigastric pain - ICD9: 789.06, ICD10: R10.13 Etiology unclear Differential Diagnosis includes GERD, PUD, and Gastritis Currently resolved She will let me know if pain recurs- discussed trying omeprazole Mo (more content not included)... [facility] 05-14-2024 Telephone encounter Note Patient calling in, she is at school until spring, I did schedule her for 06/07. 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 Thanks Augusto conrado [facility] 05-14-2024 Miscellaneous Notes Patient calling in, she is at school until spring, I did schedule her for 06/07. 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 Thanks Augusto camp will give one month refill this time but will need appt for any future refills as this is a controlled substance. I typically don't do virtual appointments but can do a facetime if she is at school currently. Will need to discuss plan for future appointments. Her prescription is already ok for generic so she'll need to d/w the pharmacist. documented in this encounter [facility] 05-14-2024 Telephone encounter Note will give one month refill this time but will need appt for any future refills as this is a controlled substance. I typically don't do virtual appointments but can do a facetime if she is at school currently. Will need to discuss plan for future appointments. Her prescription is already ok for generic so she'll need to d/w the pharmacist. [facility] 02-29-2024 Erika Marks APRN.RIG SUPERINTENDENT - 02/29/2024 10:37 AM EST General ENT- Dr. Vasquez, Dr. Georges, Dr. Oconnell, Dr. Freeman, Dr. Bragg documented in this encounter [facility] 02-29-2024 Note HNO ID: [id number] Author: ERIKA DIAZ APRN.CHRIS Service: ? Author Type: Nurse Practitioner Type: Progress Notes Filed: 02/29/2024 10:48 Note Text: IMPRESSION: - Tonsil stone - Frequent sore throat - enlarged lymph node. PLAN: Discussed findings, diagnosis and management options with patient. - Betty Quintanilla is presenting today for evaluation of recurrent sore throats. Started around 2 years ago. She also reports getting frequent tonsil stones in that timeframe. Has had antibiotics about 3 times for her sore throat. On exam today, bilateral tonsils are 1+ without any erythema or exudate. Discussed supportive care for tonsil stones. Reviewed that she does not currently meet [place] criteria for tonsillectomy. She expressed that the tonsil stones are very bothersome and would still like to get her tonsils out. -She is also reports an enlarged lymph node that she has had for many years. Had an ultrasound earlier this year that was normal. On exam today there is a prominent right anterior cervical lymph node, we will repeat ultrasound, follow-up via [employer] with results FOLLOW UP: Return as needed. Call sooner if problems develop. Erika Diaz APRN.RIG SUPERINTENDENT Referring Provider: I was consulted by Dr. Camarillo for frequent sore throat. Response to consult is via shared electronic medical record for my opinion. Reason for Consult: Betty Quintanilla is a 18 year old female who presents to [facility] Otolaryngology Department. Patient presents with: New Patient HPI: Betty Quintanilla is a 18 year old female who presents with frequent sore throat. Reports getting a sore throat frequently. Had antibiotics over the summer, at least 3 times in the last year. Describes having a swollen lymph node for a while. +frequent tonsil stones. Today she feels well. Last sore throat was in December. College student. EAT 10: 02/29/2024 Eating Asessment Tool Score EAT Score 10 PAST MEDICAL HISTORY PAST MEDICAL HISTORY Diagnosis Date ADHD (attention deficit hyperactivity disorder) Asthma Exercised induced Generalized anxiety disorder PTSD (post-traumatic stress disorder) Vasovagal syncope PAST SURGICAL HISTORY PAST SURGICAL HISTORY Procedure Laterality Date REPAIR OF NASAL SEPTUM 2019 SOCIAL HISTORY Tobacco Use: Never Alcohol Use: No FAMILY HISTORY FAMILY HISTORY Problem Relation Age of Onset Arthritis Mother Anxiety disorder Mother Asthma Mother Arthritis Father Asthma Father Alzheimer's Disease Maternal Grandmother Hypertension Maternal Grandfather Melanoma Maternal Grandfather Lung Cancer Paternal Grandmother Obesity Paternal Grandmother Obesity Paternal Grandfather MEDICATIONS escitalopram oxalate (LEXAPRO) 10 mg tablet Take 1 tablet by mouth once daily. lisdexamfetamine (VYVANSE) 40 mg capsule Take 1 capsule by mouth once daily for 30 days. [START ON 03/21/2024] lisdexamfetamine (VYVANSE) 40 mg capsule Take 1 capsule by mouth once daily for 30 days. Patient should start on March 21, 2024. [START ON 04/20/2024] lisdexamfetamine (VYVANSE) 40 mg capsule Take 1 capsule by mouth once daily for 30 days. Patient should start on April 20, 2024. cetirizine (ZYRTEC) 10 mg tablet Take 10 mg by mouth once daily. levonorgestrel (KYLEENA) 17.5 mcg/24 hrs (5 yrs) 19.5 mg IUD ALLERGIES Patient has no known allergies. REVIEW OF SYSTEMS: Review of systems template on 02/29/2024 was completed in entirety on day of appointment and negative except where noted below: Constitutional: Negative for fever, appetite change, weight loss, weight gain Neurological: Negative for headaches, no history of stroke or seizure ENT: See HPI Cardiovascular: Negative for chest pain, dyspnea on exertion Respiratory: Is not experiencing shortness of breath. No history of asthma, COPD or recent pneumonia Gastrointestinal: Negative for nausea, vomiting Endo: No history of diabetes or thyroid disorders Heme/Lymph: No history of bleeding disorder Allergy: Negative for seasonal allergies, nasal congestion PHYSICAL EXAM Physical exam template on 02/29/2024 was completed in entirety on day of appointment and negative except where noted below: Vital Signs: LMP 02/07/2024 (Within Days) General: Well-developed, well-nourishes. No distress Respiratory Effort: Equal inspiration and expiration without stridor and is breathing comfortably on room air. Cardiovascular: No peripheral edema. Neuro: Awake, alert and oriented Ears: External ear is intact. Nose: No scar or anatomic deformity. Septum is intact. Mucosa is pink without any purulence or polyps. Oral Cavity: Normal lips. The dentition is fair. The mucosal surfaces are moist with no lesions or abnormalities, tonsillar fossa symmetric. The oropharynx and pharynx is unremarkable and without lesions. BL tonsils are 1+ without any ksenia (more content not included)... [facility] 02-29-2024 History of Presen t illness Narrative Images from the original note were not included. IMPRESSION: - Tonsil stone - Frequent sore throat - enlarged lymph node. PLAN: Discussed findings, diagnosis and management options with patient. - Betty Quintanilla is presenting today for evaluation of recurrent sore throats. Started around 2 years ago. She also reports getting frequent tonsil stones in that timeframe. Has had antibiotics about 3 times for her sore throat. On exam today, bilateral tonsils are 1+ without any erythema or exudate. Discussed supportive care for tonsil stones. Reviewed that she does not currently meet [place] criteria for tonsillectomy. She expressed that the tonsil stones are very bothersome and would still like to get her tonsils out. -She is also reports an enlarged lymph node that she has had for many years. Had an ultrasound earlier this year that was normal. On exam today there is a prominent right anterior cervical lymph node, we will repeat ultrasound, follow-up via [employer] with results FOLLOW UP: Return as needed. Call sooner if problems develop. Erika Diaz APRN.RIG SUPERINTENDENT Referring Provider: I was consulted by Dr. Camarillo for frequent sore throat. Response to consult is via shared electronic medical record for my opinion. Reason for Consult: Betty Quintanilla is a 18 year old female who presents to [facility] Otolaryngology Department. Patient presents with: New Patient HPI: Betty Quintanilla is a 18 year old female who presents with frequent sore throat. Reports getting a sore throat frequently. Had antibiotics over the summer, at least 3 times in the last year. Describes having a swollen lymph node for a while. +frequent tonsil stones. Today she feels well. Last sore throat was in December. College student. EAT 10: 02/29/2024 Eating Asessment Tool Score EAT Score 10 PAST MEDICAL HISTORY PAST MEDICAL HISTORY Diagnosis Date ADHD (attention deficit hyperactivity disorder) Asthma Exercised induced Generalized anxiety disorder PTSD (post-traumatic stress disorder) Vasovagal syncope PAST SURGICAL HISTORY PAST SURGICAL HISTORY Procedure Laterality Date REPAIR OF NASAL SEPTUM 2019 SOCIAL HISTORY Tobacco Use: Never Alcohol Use: No FAMILY HISTORY FAMILY HISTORY Problem Relation Age of Onset Arthritis Mother Anxiety disorder Mother Asthma Mother Arthritis Father Asthma Father Alzheimer's Disease Maternal Grandmother Hypertension Maternal Grandfather Melanoma Maternal Grandfather Lung Cancer Paternal Grandmother Obesity Paternal Grandmother Obesity Paternal Grandfather MEDICATIONS escitalopram oxalate (LEXAPRO) 10 mg tablet Take 1 tablet by mouth once daily. lisdexamfetamine (VYVANSE) 40 mg capsule Take 1 capsule by mouth once daily for 30 days. [START ON 03/21/2024] lisdexamfetamine (VYVANSE) 40 mg capsule Take 1 capsule by mouth once daily for 30 days. Patient should start on March 21, 2024. [START ON 04/20/2024] lisdexamfetamine (VYVANSE) 40 mg capsule Take 1 capsule by mouth once daily for 30 days. Patient should start on April 20, 2024. cetirizine (ZYRTEC) 10 mg tablet Take 10 mg by mouth once daily. levonorgestrel (KYLEENA) 17.5 mcg/24 hrs (5 yrs) 19.5 mg IUD ALLERGIES Patient has no known allergies. REVIEW OF SYSTEMS: Review of systems template on 02/29/2024 was completed in entirety on day of appointment and negative except where noted below: Constitutional: Negative for fever, appetite change, weight loss, weight gain Neurological: Negative for headaches, no history of stroke or seizure ENT: See HPI Cardiovascular: Negative for chest pain, dyspnea on exertion Respiratory: Is not experiencing shortness of breath. No history of asthma, COPD or recent pneumonia Gastrointestinal: Negative for nausea, vomiting Endo: No history of diabetes or thyroid disorders Heme/Lymph: No history of bleeding disorder Allergy: Negative for seasonal allergies, nasal congestion PHYSICAL EXAM Physical exam template on 02/29/2024 was completed in entirety on day of appointment and negative except where noted below: Vital Signs: LMP 02/07/2024 (Within Days) General: Well-developed, well-nourishes. No distress Respiratory Effort: Equal inspiration and expiration without stridor and is breathing comfortably on room air. Cardiovascular: No peripheral edema. Neuro: Awake, alert and oriented Ears: External ear is intact. Nose: No scar or anatomic deformity. Septum is intact. Mucosa is pink without any purulence or polyps. Oral Cavity: Normal lips. The dentition is fair. The mucosal surfaces are moist with no lesions or abnormalities, tonsillar fossa symmetric. The oropharynx and pharynx is unremarkable and without lesions. BL tonsils are 1+ without any erythremia or exudate. Neck:The neck is atraumatic and without scars. Trachea is midline. Prominent right cervical lymph node. No skin lesions and no neck masses appreciated. Voice:Perceptual voice evaluation demonstrates normal speaking voice. DATA: Previous notes reviewed US NECK 08/31/23 IMPRESSION: Small cervical lymph nodes; not pathologically enlarged by size criteria and appears morphologically normal. If the area of concern changes/enlarges, then further assessment is warranted. Erika Diaz APRN.CNP Medical Decision Making: Problems: Moderate: New problem with uncertain prognosis Data: Unique test(s) ordered: 1 Risk: Low: Low risk from testing/treatment Medical Decision Making Level: 3 - Low This note was partially generated using [employer] voice recognition system. Please note that occasional cd mixer helper errors may be made. documented in this encounter [facility] 02-20-2024 History of Presen t illness Narrative The patient is a 18-year-old female who presents for follow-up on anxiety and ADHD. Last visit she was started on Lexapro and her Vyvanse dose was increased. She was referred to psychiatry for further management. Anxiety is much improved. She notes life-long easy bruising. States other family member have it but no bleeding d/o dx. She would like to start a b12/folate supplement. Anxiety This is a chronic problem. The current episode started more than 1 year ago. The problem has been waxing and waning since onset. Pertinent negatives include no fever. The treatment provided significant relief. HISTORY REVIEWED PAST MEDICAL HISTORY Diagnosis Date ADHD (attention deficit hyperactivity disorder) Asthma Exercised induced Generalized anxiety disorder PTSD (post-traumatic stress disorder) Vasovagal syncope PAST SURGICAL HISTORY Procedure Laterality Date REPAIR OF NASAL SEPTUM 2018 FAMILY HISTORY Problem Relation Age of Onset Arthritis Mother Anxiety disorder Mother Asthma Mother Arthritis Father Asthma Father Alzheimer's Disease Maternal Grandmother Hypertension Maternal Grandfather Melanoma Maternal Grandfather Lung Cancer Paternal Grandmother Obesity Paternal Grandmother Obesity Paternal Grandfather Social History Social History Narrative Not on file Allergies: ALLERGIES No Known Allergies Medications: cetirizine (ZYRTEC) 10 mg tablet Take 10 mg by mouth once daily. levonorgestrel (KYLEENA) 17.5 mcg/24 hrs (5 yrs) 19.5 mg IUD escitalopram oxalate (LEXAPRO) 10 mg tablet Take 1 tablet by mouth once daily. lisdexamfetamine (VYVANSE) 40 mg capsule Take 1 capsule by mouth once daily for 30 days. [START ON 03/21/2024] lisdexamfetamine (VYVANSE) 40 mg capsule Take 1 capsule by mouth once daily for 30 days. Patient should start on March 21, 2024. [START ON 04/20/2024] lisdexamfetamine (VYVANSE) 40 mg capsule Take 1 capsule by mouth once daily for 30 days. Patient should start on April 20, 2024. Problem List: ACTIVE PROBLEM LIST Adhd (Attention Deficit Hyperactivity Disorder), Combined Type - 11/22/2023 Chronic Insomnia - 11/22/2023 Aditya (Generalized Anxiety Disorder) - 09/04/2022 Posttraumatic Stress Disorder - 11/10/2020 Review of Systems Constitutional: Negative for chills and fever. Respiratory: Negative for cough and shortness of breath. Cardiovascular: Negative for chest pain and palpitations. Psychiatric/Behavioral: Positive for decreased concentration and sleep disturbance. The patient is nervous/anxious. Physical Exam Vitals and nursing note reviewed. Constitutional: General: She is not in acute distress. Appearance: She is well-developed. She is not diaphoretic. HENT: Head: Normocephalic and atraumatic. Eyes: General: Right eye: No discharge. Left eye: No discharge. Conjunctiva/sclera: Conjunctivae normal. Cardiovascular: Rate and Rhythm: Normal rate and regular rhythm. Heart sounds: Normal heart sounds. No murmur heard. No friction rub. No gallop. Pulmonary: Effort: Pulmonary effort is normal. No respiratory distress. Breath sounds: Normal breath sounds. No wheezing, rhonchi or rales. Skin: General: Skin is warm and dry. Neurological: Mental Status: She is alert and oriented to person, place, and time. Mental status is at baseline. BP 100/70 Pulse 68 Temp 36.2 C (97.1 F) Ht 154.9 cm (5' 1") Wt 53.2 kg (117 lb 4.6 oz) LMP 02/07/2024 (Within Days) BMI 22.16 kg/m ASSESSMENT/PLAN: 1. ADHD (attention deficit hyperactivity disorder), combined type - ICD9: 314.01, ICD10: F90.2 (primary diagnosis) Increase vyvanse - LISDEXAMFETAMINE 40 MG CAPSULE - LISDEXAMFETAMINE 40 MG CAPSULE - LISDEXAMFETAMINE 40 MG CAPSULE 2. ADITYA (generalized anxiety disorder) - ICD9: 300.02, ICD10: F41.1 Much improved Continue lexapro - ESCITALOPRAM 10 MG TABLET 3. Easy bruising - ICD9: 782.7, ICD10: R23.3 mild Declines further workup/referral at this time She plans to try a b12/folate supplement Saulo Camarillo MD documented in this encounter [facility] 02-20-2024 Note HNO ID: [id number] Author: SAULO CAMARILLO MD Service: ? Author Type: Physician Type: Progress Notes Filed: 02/20/2024 10:56 Note Text: The patient is a 18-year-old female who presents for follow-up on anxiety and ADHD. Last visit she was started on Lexapro and her Vyvanse dose was increased. She was referred to psychiatry for further management. Anxiety is much improved. She notes life-long easy bruising. States other family member have it but no bleeding d/o dx. She would like to start a b12/folate supplement. Anxiety This is a chronic problem. The current episode started more than 1 year ago. The problem has been waxing and waning since onset. Pertinent negatives include no fever. The treatment provided significant relief. HISTORY REVIEWED PAST MEDICAL HISTORY Diagnosis Date ADHD (attention deficit hyperactivity disorder) Asthma Exercised induced Generalized anxiety disorder PTSD (post-traumatic stress disorder) Vasovagal syncope PAST SURGICAL HISTORY Procedure Laterality Date REPAIR OF NASAL SEPTUM 2019 FAMILY HISTORY Problem Relation Age of Onset Arthritis Mother Anxiety disorder Mother Asthma Mother Arthritis Father Asthma Father Alzheimer's Disease Maternal Grandmother Hypertension Maternal Grandfather Melanoma Maternal Grandfather Lung Cancer Paternal Grandmother Obesity Paternal Grandmother Obesity Paternal Grandfather Social History Social History Narrative Not on file Allergies: ALLERGIES No Known Allergies Medications: cetirizine (ZYRTEC) 10 mg tablet Take 10 mg by mouth once daily. levonorgestrel (KYLEENA) 17.5 mcg/24 hrs (5 yrs) 19.5 mg IUD escitalopram oxalate (LEXAPRO) 10 mg tablet Take 1 tablet by mouth once daily. lisdexamfetamine (VYVANSE) 40 mg capsule Take 1 capsule by mouth once daily for 30 days. [START ON 03/21/2024] lisdexamfetamine (VYVANSE) 40 mg capsule Take 1 capsule by mouth once daily for 30 days. Patient should start on March 21, 2024. [START ON 04/20/2024] lisdexamfetamine (VYVANSE) 40 mg capsule Take 1 capsule by mouth once daily for 30 days. Patient should start on April 20, 2024. Problem List: ACTIVE PROBLEM LIST Adhd (Attention Deficit Hyperactivity Disorder), Combined Type - 11/22/2023 Chronic Insomnia - 11/22/2023 Aditya (Generalized Anxiety Disorder) - 09/04/2022 Posttraumatic Stress Disorder - 11/10/2020 Review of Systems Constitutional: Negative for chills and fever. Respiratory: Negative for cough and shortness of breath. Cardiovascular: Negative for chest pain and palpitations. Psychiatric/Behavioral: Positive for decreased concentration and sleep disturbance. The patient is nervous/anxious. Physical Exam Vitals and nursing note reviewed. Constitutional: General: She is not in acute distress. Appearance: She is well-developed. She is not diaphoretic. HENT: Head: Normocephalic and atraumatic. Eyes: General: Right eye: No discharge. Left eye: No discharge. Conjunctiva/sclera: Conjunctivae normal. Cardiovascular: Rate and Rhythm: Normal rate and regular rhythm. Heart sounds: Normal heart sounds. No murmur heard. No friction rub. No gallop. Pulmonary: Effort: Pulmonary effort is normal. No respiratory distress. Breath sounds: Normal breath sounds. No wheezing, rhonchi or rales. Skin: General: Skin is warm and dry. Neurological: Mental Status: She is alert and oriented to person, place, and time. Mental status is at baseline. BP 100/70 Pulse 68 Temp 36.2 ?C (97.1 ?F) Ht 154.9 cm (5' 1") Wt 53.2 kg (117 lb 4.6 oz) LMP 02/07/2024 (Within Days) BMI 22.16 kg/m? ASSESSMENT/PLAN: 1. ADHD (attention deficit hyperactivity disorder), combined type - ICD9: 314.01, ICD10: F90.2 (primary diagnosis) Increase vyvanse - LISDEXAMFETAMINE 40 MG CAPSULE - LISDEXAMFETAMINE 40 MG CAPSULE - LISDEXAMFETAMINE 40 MG CAPSULE 2. ADITYA (generalized anxiety disorder) - ICD9: 300.02, ICD10: F41.1 Much improved Continue lexapro - ESCITALOPRAM 10 MG TABLET 3. Easy bruising - ICD9: 782.7, ICD10: R23.3 mild Declines further workup/referral at this time She plans to try a b12/folate supplement Saulo Camarillo MD [facility] 02-17-2024 Telephone encounter Note Has appt next week Requested Prescriptions Pending Prescriptions Disp Refills escitalopram oxalate (LEXAPRO) 10 mg tablet 90 tablet 0 Sig: Take 1 tablet by mouth once daily. [facility] 02-17-2024 Miscellaneous Notes Has appt next week Requested Prescriptions Pending Prescriptions Disp Refills escitalopram oxalate (LEXAPRO) 10 mg tablet 90 tablet 0 Sig: Take 1 tablet by mouth once daily. documented in this encounter [facility] 01-05-2024 Telephone encounter Note [facility] called and is notified of providers results. She voices understanding and will let Pt know. Aleta Sousa RN [facility] 01-05-2024 Miscellaneous Notes [facility] called and is notified of providers results. She voices understanding and will let Pt know. Aleta Sousa RN Send to [facility] Labs are all normal. Rubi Gibbons PA-C documented in this encounter [facility] 01-05-2024 Telephone encounter Note Send to [facility] Labs are all normal. Rubi Gibbons PA-C [facility] Work Phone: 12-27-2023 Telephone encounter Note Spoke with patient and scheduled her for 02/28 in [place] when she will be home from [facility]. [facility] 12-27-2023 Miscellaneous Notes Spoke with patient and scheduled her for 02/28 in [place] when she will be home from [facility]. Called patient and lvm to call us back documented in this encounter [facility] 12-26-2023 Telephone encounter Note Called patient and lvm to call us back [facility] 11-22-2023 Instructions Saulo Camarillo MD - 11/22/2023 9:18 AM EDT [place] [facility] - Insurance (Tonya, Giancarlo, Emery) ADHD [facility] [phone] Accepts commercial, Medicare, and Medicaid insurance TESTING AND PRESCRIBING [facility] - Psychology and Psychiatry [phone] Accepts Medicaid, Medicare, and commercial insurance TESTING AND PRESCRIBING [facility] [phone] TESTING ONLY [facility] [phone] Accepts Medicaid and Medicare only TESTING AND PRESCRIBING [place] [facility] - Insurance ADHD [facility] [address] [place] [address] [facility] [address] [place] [address] [place] [address] [address] [facility] [phone] [facility] [address] [place] [address] documented in this encounter [facility] 11-22-2023 History of Presen t illness Narrative The patient is a 18-year-old female who presents for routine physical and to establish care. Due for routine labs, STI screening. History of anxiety, PTSD, ADHD. History of suicide attempt a few years ago. Has a counselor. Does not currently follow with psychiatry. On vyvanse 20mg. Hasn't been helping with focus, does make her more anxious. Goes to college in [place]. Anxiety Pertinent negatives include no weakness. This is a chronic problem. The current episode started more than 1 year ago. The problem has been waxing and waning since onset. Pertinent negatives include no fever, nausea or vomiting. HISTORY REVIEWED PAST MEDICAL HISTORY No date: ADHD (attention deficit hyperactivity disorder) No date: Asthma Comment: Exercised induced No date: Generalized anxiety disorder No date: PTSD (post-traumatic stress disorder) No date: Vasovagal syncope PAST SURGICAL HISTORY 2019: REPAIR OF NASAL SEPTUM FAMILY HISTORY Problem Relation Age of Onset Arthritis Mother Anxiety disorder Mother Asthma Mother Arthritis Father Asthma Father Alzheimer's Disease Maternal Grandmother Hypertension Maternal Grandfather Melanoma Maternal Grandfather Lung Cancer Paternal Grandmother Obesity Paternal Grandmother Obesity Paternal Grandfather Social History Social History Narrative Not on file Allergies: ALLERGIES No Known Allergies Medications: lisdexamfetamine (VYVANSE) 20 mg capsule Take 20 mg by mouth. cetirizine (ZYRTEC) 10 mg tablet Take 10 mg by mouth once daily. levonorgestrel (KYLEENA) 17.5 mcg/24 hrs (5 yrs) 19.5 mg IUD Sodium Fluoride 1.1 % Problem List: ACTIVE PROBLEM LIST Adhd (Attention Deficit Hyperactivity Disorder), Combined Type - 11/22/2023 Aditya (Generalized Anxiety Disorder) - 09/04/2022 Posttraumatic Stress Disorder - 11/10/2020 Review of Systems Constitutional: Negative for chills and fever. HENT: Negative for congestion and sore throat. Eyes: Negative for pain and redness. Respiratory: Negative for cough and shortness of breath. Cardiovascular: Negative for chest pain and palpitations. Gastrointestinal: Negative for abdominal pain, blood in stool, constipation, diarrhea, nausea and vomiting. Genitourinary: Negative for dysuria and hematuria. Musculoskeletal: Negative for back pain and myalgias. Skin: Negative for color change and rash. Neurological: Negative for dizziness and weakness. Psychiatric/Behavioral: Positive for decreased concentration. Negative for dysphoric mood. The patient is nervous/anxious. Physical Exam Vitals and nursing note reviewed. Constitutional: General: She is not in acute distress. Appearance: She is not diaphoretic. HENT: Head: Normocephalic and atraumatic. Right Ear: Tympanic membrane, ear canal and external ear normal. Left Ear: Tympanic membrane, ear canal and external ear normal. Nose: Nose normal. No rhinorrhea. Mouth/Throat: Mouth: Mucous membranes are moist. Pharynx: Oropharynx is clear. Eyes: General: Right eye: No discharge. Left eye: No discharge. Conjunctiva/sclera: Conjunctivae normal. Pupils: Pupils are equal, round, and reactive to light. Neck: Thyroid: No thyroid mass or thyromegaly. Trachea: No tracheal deviation. Cardiovascular: Rate and Rhythm: Normal rate and regular rhythm. Heart sounds: Normal heart sounds. No murmur heard. No friction rub. No gallop. Pulmonary: Effort: Pulmonary effort is normal. No respiratory distress. Breath sounds: Normal breath sounds. No wheezing, rhonchi or rales. Abdominal: General: There is no distension. Palpations: Abdomen is soft. Tenderness: There is no abdominal tenderness. Musculoskeletal: General: No swelling or signs of injury. Cervical back: Neck supple. Lymphadenopathy: Cervical: No cervical adenopathy. Skin: General: Skin is warm and dry. Neurological: Mental Status: She is alert and oriented to person, place, and time. Mental status is at baseline. Psychiatric: Mood and Affect: Mood is anxious. Behavior: Behavior normal. Thought Content: Thought content does not include homicidal or suicidal ideation. BP 122/78 Pulse 64 Temp 36.7 C (98.1 F) Ht 154.9 cm (5' 1") Wt 56 kg (123 lb 7.3 oz) LMP 10/12/2021 (Approximate) BMI 23.33 kg/m ASSESSMENT/PLAN: 1. Routine physical examination - ICD9: V70.0, ICD10: Z00.00 (primary diagnosis) - Counseled on healthy diet and regular exercise - Follow up for annual exam in one year - declines labs today 2. ADITYA (generalized anxiety disorder) - ICD9: 300.02, ICD10: F41.1 Try lexapro May consider buspar if lexapro ineffective Establish with psychiatry - ESCITALOPRAM 10 MG TABLET - CONSULT TO PSYCHIATRY 3. ADHD (attention deficit hyperactivity disorder), combined type - ICD9: 314.01, ICD10: F90.2 Try 30mg - CONSULT TO PSYCHIATRY - LISDEXAMFETAMINE 30 MG CAPSULE - LISDEXAMFETAMINE 30 MG CAPSULE - LISDEXAMFETAMINE 30 MG CAPSULE 4. Chronic insomnia - ICD9: 780.52, ICD10: F51.04 Has failed multiple medications - CONSULT TO PSYCHIATRY 5. Cervical adenopathy - ICD9: 785.6, ICD10: R59.[address] benign appearing Patient would like ENT opinion - CONSULT TO ENT 6. Tonsil stone - ICD9: 474.8, ICD10: J35.8 With throat pain As above - CONSULT TO ENT 7. Screening for depression - ICD9: V79.0, ICD10: Z13.31 - DEPRESSION SCREENING 8. Encounter to establish care - ICD9: V65.8, ICD10: Z76.89 Saulo Camarillo MD documented in this encounter [facility] 08-15-2023 Note HNO ID: [id number] Author: HERMINIO WOOSD APRN.RIG SUPERINTENDENT Service: ? Author Type: Nurse Practitioner Type: Progress Notes Filed: 08/15/2023 11:47 Note Text: This note was created using MOAECter. Subjective Betty Quintanilla is a 18 year old female. Patient is here today complaining of right-sided neck mass that she has had before in the past she also complaining of right armpit pain that started a few days ago. She states that the mass has been an ongoing thing for about a year it goes away mostly with antibiotics than the last time it reoccurred it did not go away at all with antibiotics. The mass is movable she states it feels rubbery when she pushes on it. Patient denies any significant pain or fevers or chills. She has been complaining of a lot of fatigue. At this point in time patient states that she is from [place] is working on getting a provider [place] where she [place] but cannot get in until November. In the meantime we will do another round of antibiotics do another ultrasound to make sure it still a lymph node and get her into see an ENT specialist at this time. Vitals are stable no other concerns. She does state that she was checked for mono in March the results are not in epic however she states they were negative. She did have her thyroid checked which was normal as well recently. Review of Systems Constitutional: Negative. HENT: Neck mass Respiratory: Negative. Cardiovascular: Negative. Gastrointestinal: Negative. Musculoskeletal: Right-sided neck mass Neurological: Negative. Objective BP 116/79 (BP Site: Left Arm, BP Position: Sitting, BP Cuff Size: Regular Adult) Pulse 81 Temp 36.3 ?C (97.3 ?F) (Temporal) Wt 56.1 kg (123 lb 9.6 oz) LMP 10/12/2021 (Approximate) SpO2 98% Physical Exam Vitals and nursing note reviewed. Constitutional: Appearance: Normal appearance. HENT: Head: Normocephalic. Right Ear: Tympanic membrane, ear canal and external ear normal. Left Ear: Tympanic membrane, ear canal and external ear normal. Nose: Nose normal. Mouth/Throat: Mouth: Mucous membranes are moist. Pharynx: Oropharynx is clear. Eyes: Conjunctiva/sclera: Conjunctivae normal. Neck: Comments: Right-sided neck mass movable most likely lymph node Cardiovascular: Rate and Rhythm: Normal rate. Pulses: Normal pulses. Pulmonary: Effort: Pulmonary effort is normal. Musculoskeletal: Cervical back: Normal range of motion. Skin: General: Skin is warm and dry. Neurological: Mental Status: She is alert. Psychiatric: Mood and Affect: Mood normal. Behavior: Behavior normal. Judgment: Judgment normal. Assessment and Plan 1. Neck mass - ICD9: 784.2, ICD10: R22.1 (primary diagnosis) Obtain ultrasound call with results start on Augmentin consult ENT. - US HEAD/NECK SOFT TISSUE OTHER - AMOXICILLIN 875 MG-POTASSIUM CLAVULANATE 125 MG TABLET - CONSULT TO ENT 2. Fatigue, unspecified type - ICD9: 780.79, ICD10: R53.83 Most like related to lymphadenitis that will hopefully be proven by ultrasound. Follow-up with a new PCP in November where she lives. Herminio Woods APRN.[facility] 08-15-2023 History of Presen t illness Narrative Images from the original note were not included. This note was created using [email or web address]. Subjective Betty Quintanilla is a 18 year old female. Patient is here today complaining of right-sided neck mass that she has had before in the past she also complaining of right armpit pain that started a few days ago. She states that the mass has been an ongoing thing for about a year it goes away mostly with antibiotics than the last time it reoccurred it did not go away at all with antibiotics. The mass is movable she states it feels rubbery when she pushes on it. Patient denies any significant pain or fevers or chills. She has been complaining of a lot of fatigue. At this point in time patient states that she is from [place] get in until November. In the meantime we will do another round of antibiotics do another ultrasound to make sure it still a lymph node and get her into see an ENT specialist at this time. Vitals are stable no other concerns. She does state that she was checked for mono in March the results are not in epic however she states they were negative. She did have her thyroid checked which was normal as well recently. Review of Systems Constitutional: Negative. HENT: Neck mass Respiratory: Negative. Cardiovascular: Negative. Gastrointestinal: Negative. Musculoskeletal: Right-sided neck mass Neurological: Negative. Objective BP 116/79 (BP Site: Left Arm, BP Position: Sitting, BP Cuff Size: Regular Adult) Pulse 81 Temp 36.3 C (97.3 F) (Temporal) Wt 56.1 kg (123 lb 9.6 oz) LMP 10/12/2021 (Approximate) SpO2 98% Physical Exam Vitals and nursing note reviewed. Constitutional: Appearance: Normal appearance. HENT: Head: Normocephalic. Right Ear: Tympanic membrane, ear canal and external ear normal. Left Ear: Tympanic membrane, ear canal and external ear normal. Nose: Nose normal. Mouth/Throat: Mouth: Mucous membranes are moist. Pharynx: Oropharynx is clear. Eyes: Conjunctiva/sclera: Conjunctivae normal. Neck: Comments: Right-sided neck mass movable most likely lymph node Cardiovascular: Rate and Rhythm: Normal rate. Pulses: Normal pulses. Pulmonary: Effort: Pulmonary effort is normal. Musculoskeletal: Cervical back: Normal range of motion. Skin: General: Skin is warm and dry. Neurological: Mental Status: She is alert. Psychiatric: Mood and Affect: Mood normal. Behavior: Behavior normal. Judgment: Judgment normal. Assessment and Plan 1. Neck mass - ICD9: 784.2, ICD10: R22.1 (primary diagnosis) Obtain ultrasound call with results start on Augmentin consult ENT. - US HEAD/NECK SOFT TISSUE OTHER - AMOXICILLIN 875 MG-POTASSIUM CLAVULANATE 125 MG TABLET - CONSULT TO ENT 2. Fatigue, unspecified type - ICD9: 780.79, ICD10: R53.83 Most like related to lymphadenitis that will hopefully be proven by ultrasound. Follow-up with a new PCP in November where she lives. Herminio Woods APRN.CHRIS documented in this encounter [facility] 02-24-2023 History of Presen t illness Narrative A wood molder was offered to be present during her exam. The patient: declined Images from the original note were not included. Betty Quintanilla 02/24/2025 17 y.o. Chief Complaint Patient presents with other Pt can't feel her IUD strings No LMP recorded. Primary CarePhysician: [facility] HPI: Betty Quintanilla is a 17 y.o. female here today for IUD check up. Reports concern for lost IUD strings. Last month had some more cramping but denies severe pelvic pain. Review of Systems: Review of Systems Constitutional: Negative for fever. Gastrointestinal: Negative for abdominal pain. Genitourinary: Negative for pelvic pain, vaginal bleeding and vaginal discharge. Physical Exam: BP 120/77 Pulse 109 Wt 120 lb (54.4 kg) BMI 21.95 kg/m Physical Exam Constitutional: General: She is not in acute distress. Appearance: Normal appearance. She is not ill-appearing, toxic-appearing or diaphoretic. HENT: Head: Normocephalic and atraumatic. Nose: Nose normal. Eyes: Extraocular Movements: Extraocular movements intact. Conjunctiva/sclera: Conjunctivae normal. Pupils: Pupils are equal, round, and reactive to light. Pulmonary: Effort: Pulmonary effort is normal. No respiratory distress. Chest: Breasts: Bong Score is 5. Abdominal: Palpations: Abdomen is soft. Genitourinary: General: Normal vulva. Bong stage (genital): 5. Labia: Right: No rash, tenderness, lesion or injury. Left: No rash, tenderness, lesion or injury. Urethra: No prolapse, urethral swelling or urethral lesion. Vagina: Normal. Cervix: No cervical motion tenderness. Comments: + IUD strings which were long and around posterior aspect of cervix. Strings trimmed Musculoskeletal: Right lower leg: No edema. Left lower leg: No edema. Lymphadenopathy: Cervical: No cervical adenopathy. Upper Body: Right upper body: No supraclavicular or axillary adenopathy. Left upper body: No supraclavicular or axillary adenopathy. Skin: General: Skin is warm and dry. Coloration: Skin is not jaundiced. Neurological: General: No focal deficit present. Mental Status: She is alert and oriented to person, place, and time. Psychiatric: Mood and Affect: Mood normal. Behavior: Behavior normal. Thought Content: Thought content normal. Judgment: Judgment normal. ASSESSMENT: Diagnosis Plan 1. Pelvic pain 2. IUD (intrauterine device) in place PLAN: - Strings visualized, patient reassured. Counseled on pain monitoring, if worsens plan for pelvic US documented in this encounter [facility] 10-06-2022 History of Presen t illness Narrative A wood molder was offered to be present during her exam. The patient: declined IUD Insertion: The patient is requesting that a Kyleena IUD be inserted for control. The patient was counseled on the procedure. Risks, benefits and alternatives were reviewed. She is aware that she may have irregular bleeding for up to 6 months after insertion. The side effect profile of the specific IUD was reviewed. A consent was reviewed and obtained. Urine hcg: negative The patient was counseled on the need for string checks after her menses. She is to notify the office if she can not locate the IUD string at anytime. She is aware that she will need a speculum exam and possibly an ultrasound to confirm the proper orientation of the IUD. Procedure: The patient was positioned comfortably on the exam table. A sterile speculum was placed without incident.The site was then cleansed with betadine and the uterus was sounded to 7 cm. The Kyleena IUD was opened and loaded into the delivery system. The wand was inserted to just past the internal portion and the button was retracted to the first line. The wand was held in place for 10 seconds and then the button was retracted to its final position while the IUD was moved to the fundus. The string was trimmed in standard fashion to 3cm. Post procedure restrictions were reviewed and given to the patient. She was instructed to use barrier protection for sexually transmitted disease prevention as well as string checks/timing. The patient tolerated the procedure without difficulty. She was instructed to abstain for one day. She is to notify the office or go to the nearest Emergency Department if she experiences Abdominal Pain, Temperatures more than 101 F, Odiferous Vaginal Discharge, Dizziness or Shortness of breath. Assessment: IUD Insertion Plan: Return to office in 4 weeks for string check. documented in this encounter [facility] 09-30-2022 Telephone encounter Note Message released to patient as written. 09/30/22 Pt called back needing the correct number to [email or web address] gave pt phone # pt will be calling to confirm shipment to office pls advise Patient's further questions if applicable: Were all questions from office addressed or relayed to the patient from encounter: Yes [facility] 09-30-2022 Miscellaneous Notes Message released to patient as written. 09/30/22 Pt called back needing the correct number to [email or web address] gave pt phone # pt will be calling to confirm shipment to office pls advise Patient's further questions if applicable: Were all questions from office addressed or relayed to the patient from encounter: Yes Patient called [facility] speciality for IUD and they advised there was nothing there for her. I checked chart and patient needs to call [facility] to activate the IUD and then it will be delivered. Advised Patient of the [facility] number. Per patient, I called [facility] to schedule delivery. [facility] stated they still need to talk to patient to confirm order. [facility] set up 'pro-active' Delivery, which will be activated once patient has called them to confirmed order. I called patient and gave her the phone number for the Specialty Pharmacy which she agreed to call. For [place] office, faxed completed Kyleena IUD Prior Auth form with Demographics/Insurance card to [facility] . . MUST be on period for insertion. Pt will need a sameday Urine Test in-office. documented in this encounter [facility] 09-30-2022 Telephone encounter Note Patient called [facility] speciality for IUD and they advised there was nothing there for her. I checked chart and patient needs to call [facility] to activate the IUD and then it will be delivered. Advised Patient of the [facility] number. [facility] 09-30-2022 Telephone encounter Note Per patient, I called [facility] to schedule delivery. [facility] stated they still need to talk to patient to confirm order. [facility] set up 'pro-active' Delivery, which will be activated once patient has called them to confirmed order. I called patient and gave her the phone number for the Specialty Pharmacy which she agreed to call. [facility] 09-16-2022 Telephone encounter Note For [place] office, faxed completed Kyleena IUD Prior Auth form with Demographics/Insurance card to [facility] . . MUST be on period for insertion. Pt will need a sameday Urine Test in-office. [facility] 09-16-2022 Miscellaneous Notes For [place] office, faxed completed Kyleena IUD Prior Auth form with Demographics/Insurance card to [facility] . . MUST be on period for insertion. Pt will need a sameday Urine Test in-office. documented in this encounter [facility] 09-16-2022 History of Presen t illness Narrative A wood molder was offered to be present during her exam. The patient: declined Images from the original note were not included. Betty Quintanilla 09/16/2024 17 y.o. Chief Complaint Patient presents with New Patient Establish care and STI testing Primary Care Physician: [facility] HPI: Betty Quintanilla is a 17 y.o. female here today for annual exam. Previously did OCPs but started to have side effects. Interested in IUD. Denies pelvic pain. Going to [employer], studying [employer] Patient's last menstrual period was 08/17/2022. Past Medical History: Diagnosis Date ADHD meds Past Surgical History: Procedure Laterality Date FACIAL SURGERY (HISTORICAL) fractured bones in face and nose from gymnastics No family history on file. OB History Para Term AB Living 0 0 0 0 0 0 SAB IAB Ectopic Multiple Live Births 0 0 0 0 0 MEDICATIONS: Current Outpatient Medications Medication Sig Dispense Refill dexmethylphenidate XR (Focalin XR) 10 MG 24 hr capsule No current facility-administered medications for this visit. ALLERGIES: Allergies as of 09/16/2022 (No Known Allergies) REVIEW OF SYSTEMS Review of Systems Constitutional: Negative for chills and fever. Respiratory: Negative for shortness of breath. Cardiovascular: Negative for chest pain. Gastrointestinal: Negative for blood in stool, constipation, diarrhea, nausea and vomiting. Genitourinary: Negative for difficulty urinating, frequency, menstrual problem, pelvic pain, urgency and vaginal discharge. PHYSICAL EXAMINATION: BP 120/80 Pulse 82 Ht 5' 2" (1.575 m) Wt 116 lb (52.6 kg) LMP 08/17/2022 BMI 21.22 kg/m Physical Exam Constitutional: General: She is not in acute distress. Appearance: Normal appearance. She is not ill-appearing, toxic-appearing or diaphoretic. HENT: Head: Normocephalic and atraumatic. Nose: Nose normal. Eyes: Extraocular Movements: Extraocular movements intact. Conjunctiva/sclera: Conjunctivae normal. Pupils: Pupils are equal, round, and reactive to light. Neck: Thyroid: No thyroid mass, thyromegaly or thyroid tenderness. Pulmonary: Effort: Pulmonary effort is normal. No respiratory distress. Chest: Breasts: Breasts are symmetrical. Right: Normal. No mass, nipple discharge or skin change. Left: Normal. No mass, nipple discharge or skin change. Abdominal: General: Abdomen is flat. There is no distension. Palpations: Abdomen is soft. There is no mass. Tenderness: There is no abdominal tenderness. There is no guarding or rebound. Genitourinary: General: Normal vulva. Bong stage (genital): 5. Labia: Right: No rash, tenderness, lesion or injury. Left: No rash, tenderness, lesion or injury. Urethra: No prolapse, urethral swelling or urethral lesion. Vagina: Normal. Cervix: Normal. Uterus: Normal. Adnexa: Right adnexa normal and left adnexa normal. Musculoskeletal: Cervical back: Normal range of motion and neck supple. Right lower leg: No edema. Left lower leg: No edema. Lymphadenopathy: Cervical: No cervical adenopathy. Upper Body: Right upper body: No supraclavicular or axillary adenopathy. Left upper body: No supraclavicular or axillary adenopathy. Skin: General: Skin is warm and dry. Coloration: Skin is not jaundiced. Neurological: General: No focal deficit present. Mental Status: She is alert and oriented to person, place, and time. Psychiatric: Mood and Affect: Mood normal. Behavior: Behavior normal. Thought Content: Thought content normal. Judgment: Judgment normal. ASSESSMENT: Diagnosis Plan 1. Encounter for gynecological examination without abnormal finding 2. Screening for STDs (sexually transmitted diseases) Chlamydia/Gonorrhea Trichomonas vaginalis RNA, Qualitative, TMA, Female PLAN: - Counseled on breast awareness. Perform monthly self breast exam - Counseled to exercise at least 30min three times per week. Take a daily multivitamin or 1000 Units of Vit D. - control and barrier recommendations discussed. Reviewed contraception options and efficacy, side effects, bleeding profile. She would like to proceed with Kyleena IUD, will sign forms - Gardasil counseling completed for all patients 9-45 yo. - Routine health maintenance per patients PCP. Follow up in about 1 year (around 09/17/2023) for Annual. Orders Placed This Encounter Procedures Chlamydia/Gonorrhea Trichomonas vaginalis RNA, Qualitative, TMA, Female documented in this encounter [facility] 10-23-2021 History of Presen t illness Narrative Sleep Study Check-In Documentation Date: October 23, 2021 Name: Betty Quintanilla Patient was accompanied by Self. Location: [place] Latex allergy: No Tape allergy: No Current medications were reviewed with the patient:Yes Sleep aid taken by patient for the sleep study: [place] of sleep aid: Not Applicable Procedure was explained to the patient and all questions were answered. PAP treatment discussed and shown to patient: No Knowledge Program (KP): KP was not completed in [facility] by patient and accepted Study type: Polysomnogram Adverse Event: No (If yes create a new abstract) SERS Event: No Comments: Patient was advised to follow up with their ordering provider regarding test results. Delicia Perez documented in this encounter [facility] Evaluation note Diagnosis Frequent nocturnal awakening Other sleep disturbances [facility] Diagnosis Obstructive sleep apnea syndrome- Primary Obstructive sleep apnea (adult) (pediatric) documented in this encounter [facility] note* Diagnosis Obstructive sleep apnea syndrome Obstructive sleep apnea (adult) (pediatric) documented in this encounter [facility] noteNo assessment information availableW[facility] Work Phone: Evaluation note* Diagnosis Menorrhagia with regular cycle Excessive or frequent menstruation documented in this encounter [facility] note* Diagnosis Lymphadenopathy of right cervical region Enlargement of lymph nodes documented in this encounter [facility] note* Diagnosis Encounter for gynecological examination without abnormal finding- Primary Screening for STDs (sexually transmitted diseases) Screening examination for venereal disease documented in this encounter [facility] note* Diagnosis Encounter for IUD insertion- Primary Insertion of intrauterine contraceptive device Pre-procedure lab exam Pre-procedural laboratory examination documented in this encounter [facility] note* Diagnosis Pelvic pain- Primary IUD (intrauterine device) in place Presence of intrauterine contraceptive device documented in this encounter [facility] note* Diagnosis Neck mass- Primary Swelling, mass, or lump in head and neck Fatigue, unspecified type documented in this encounter [facility] note* Diagnosis Neck mass Swelling, mass, or lump in head and neck documented in this encounter [facility] note* Diagnosis Routine physical examination- Primary Routine general medical examination at a health care facility ADITYA (generalized anxiety disorder) Generalized anxiety disorder ADHD (attention deficit hyperactivity disorder), combined type Attention deficit disorder with hyperactivity Chronic insomnia Insomnia, unspecified Cervical adenopathy Enlargement of lymph nodes Tonsil stone Other chronic disease of tonsils and adenoids Screening for depression Encounter to establish care Other reasons for seeking consultation [facility] Diagnosis ADITYA (generalized anxiety disorder) Generalized anxiety disorder documented in this encounter [facility] note* Diagnosis ADHD (attention deficit hyperactivity disorder), combined type- Primary Attention deficit disorder with hyperactivity ADITYA (generalized anxiety disorder) Generalized anxiety disorder Easy bruising Other symptoms involving skin and integumentary tissues documented in this encounter [facility] note* Diagnosis Tonsil stone- Primary Other chronic disease of tonsils and adenoids Enlarged lymph node Enlargement of lymph nodes Sore throat Acute pharyngitis documented in this encounter [facility] note* Diagnosis ADHD (attention deficit hyperactivity disorder), combined type- Primary Attention deficit disorder with hyperactivity ADITYA (generalized anxiety disorder) Generalized anxiety disorder Epigastric pain Abdominal pain, epigastric documented in this encounter [facility] note* Diagnosis ADHD (attention deficit hyperactivity disorder), combined type- Primary Attention deficit disorder with hyperactivity documented in this encounter [facility] note* Diagnosis ADHD (attention deficit hyperactivity disorder), combined type- Primary Attention deficit disorder with hyperactivity Healthcare maintenance Routine general medical examination at a health care facility Generalized anxiety disorder documented in this encounter [facility] note* Diagnosis ADITYA (generalized anxiety disorder)- Primary Generalized anxiety disorder documented in this encounter [facility] for referral (narrative)* Diagnostic Procedure Only (Routine) - New Request Specialty Diagnoses / Procedures Referred By Narayan mitchell Referred To Contact [facility] Diagnoses Enlarged lymph node Procedures US HEAD/NECK SOFT TISSUE OTHER US SOFT TISSUE HEAD & NECK REAL TIME IMGE Erika Montiel APRN.RIG SUPERINTENDENT [address] [place] [address] [place] [address] Referral ID Status Reason Start Date Expiration Date Visits Requested Visits Authorized [id number] New Request Auto-Generat ed Referral 03/30/2025 1 1 [facility] for visit Narrative* Diagnostic Procedure Only (Routine) - Closed Specialty Diagnoses / Procedures Referred By Narayan mitchell Referred To Contact [facility] Diagnoses Neck mass Procedures US HEAD/NECK SOFT TISSUE OTHER US SOFT TISSUE HEAD & NECK REAL TIME IMGE Herminio Gomez APRN.RIG SUPERINTENDENT [address] [place] [address] [place] [address] Referral ID Status Reason Start Date Expiration Date V isits Requested Visits Authorized [id number] Closed Auto-Generate d Referral 08/15/2023 09/13/2024 1 1 [facility] Advance Directives No Advanced Directives Records FoundDocuments on File Type Date 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 Power of Plumbing Contractor Advance Directive Response Recorded Date/ Time Living Will No May 04 023 7:57pm Power of Plumbing Contractor No May 04, 2022 7:57pm Summary Purpose Family History No Family History Records FoundNo Family History Records FoundNo Family History Records FoundNo Family History Records FoundNo Family History Records FoundNo Family History Records Found Chief Complaint and Reason for Visit Chief Complaint BITE meds only Chief Complaint BITE meds only MEDS ONLY Chief Complaint BITE Chief Complaint BITE meds only MEDS ONLY MEDS ONLY Chief Complaint head injury Chief Complaint cold s/s Reason for Referral Specialty Diagnoses / Procedures Referred By Contac t Referred To Contact Diagnoses Encounter for IUD insertion Jacquelyn Trevino MD [address] [address] Referral ID Status Reason Start Date Expiration Date V isits Requested Visits Authorized [id number] Pending Review 10/06/2022 04/04/2023 1 1 Specialty Diagnoses / Procedures Referred By Contac t Referred To Contact Ent - Otolaryngology Diagnoses Neck mass Procedures CONSULT TO ENT OFFICE/OUTPATIENT [facility] 60 MINUTES Herminio Woods, BORING MILL OPERATOR.RIG SUPERINTENDENT [address] [place] [address] Referral ID Status Reason Start Date Expiration Date Visits Requested Visits Authorized [id number] Authorized PCP Requested Referral 08/15/2023 08/14/2024 1 1 Specialty Diagnoses / Procedures Referred By Contac t Referred To Contact [facility] Diagnoses Neck mass Procedures US HEAD/NECK SOFT TISSUE OTHER US SOFT TISSUE HEAD & NECK REAL TIME IMGE DOCM Herminio Woods, BORING MILL OPERATOR.RIG SUPERINTENDENT [address] [place] [address] [place] [address] Referral ID Status Reason Start Date Expiration Date Visits Requested Visits Authorized [id number] Pending Review Auto-Generat ed Referral 08/15/2023 09/13/2024 1 1 Specialty Diagnoses / Procedures Referred By Contac t Referred To Contact Ent - Otolaryngology Diagnoses Cervical adenopathy Tonsil stone Procedures CONSULT TO ENT OFFICE/OUTPATIENT [facility] MDM 60 MINUTES Saulo Camarillo MD [address] [place] [address] Referral ID Status Reason Start Date Expiration Date Visits Requested Visits Authorized [id number] Authorized PCP Requested Referral 11/22/2023 11/21/2024 1 1 Specialty Diagnoses / Procedures Referred By Contac t Referred To Contact Diagnoses ADITYA (generalized anxiety disorder) ADHD (attention deficit hyperactivity disorder), combined type Chronic insomnia Procedures CONSULT TO PSYCHIATRY OFFICE/OUTPATIENT [facility] MDM 60 MINUTES Saulo Camarillo MD [address] [place] [address] Referral ID Status Reason Start Date Expiration Date Visits Requested Visits Authorized [id number] Pending Review PCP Requested Referral 11/22/2023 11/21/2024 1 1 Additional Source Comments Care Teams (unrecognized sec tion and content) Car Deliverer Relationship Specialty Start Date End Date Kat Santos MD PCP - General Pediatrics 11/28/13 Car Deliverer Relationship Specialty Start Date End Date Kat Santos MD [address] [id number] PCP - General Pediatrics 12/20/15 Car Deliverer Relationship Specialty Start Date End Date Kat Santos MD [address] [phone] PCP - General Pediatrics 12/20/15 Team Status: Active Member Role Status Dates Dr. Kat Santos MD Primary Care Provider Acti ve Team Status: Inactive Member Role Status Dates Dr. Kat Santos MD Primary Care Provider Acti ve Dr. Marco Antonio Dunbar DO Emergency Provider Active Car Deliverer Relationship Specialty Start Date End Date Kat Santos MD PCP - General Pediatrics 11/28/13 Aleta Washington, [facility] [address] [facility] [address] Social work 02/18/22 Car Deliverer Relationship Specialty Start Date End Date Kat Santos MD PCP - General Pediatrics 11/28/13 Felix Aleta J, [facility] [address] [place] [address] Social work 02/18/22 Car Deliverer Relationship Specialty Start Date End Date [facility] [address] [place] [address] PCP - General 09/16/22 Car Deliverer Relationship Specialty Start Date End Date [facility] [address] [place] [address] PCP - General 09/16/22 Car Deliverer Relationship Specialty Start Date End Date [facility] [address] [place] [address] PCP - General 09/16/22 Car Deliverer Relationship Specialty Start Date End Date [facility] [address] [place] [address] PCP - General 09/16/22 Team Status: Inactive Member Role Status Dates Dr. Kat Santos MD Primary Care Provider Acti ve Dr. Wilfred Lozada , DO Emergency Provider Active Car Deliverer Relationship Specialty Start Date End Date [facility], [facility] [address] [place] [address] PCP - General 09/16/22 Car Deliverer Relationship Specialty Start Date End Date Herminio Woods, BORING MILL OPERATOR.RIG SUPERINTENDENT [address] [place] [address] PCP - General Pediatrics 08/15/23 Car Deliverer Relationship Specialty Start Date End Date Herminio Woods, BORING MILL OPERATOR.RIG SUPERINTENDENT [address] [place] [address] PCP - General Pediatrics 08/15/23 Car Deliverer Relationship Specialty Start Date End Date Herminio Woods, BORING MILL OPERATOR.RIG SUPERINTENDENT [address] [place] [address] PCP - General Pediatrics 08/15/23 Car Deliverer Relationship Specialty Start Date End Date Saulo Camarillo MD [address] [place] [id number] PCP - General Family Medicine 11/22/23 Car Deliverer Relationship Specialty Start Date End Date Saulo Camarillo MD [address] [place] [address] PCP - General Family Medicine 11/22/23 Car Deliverer Relationship Specialty Start Date End Date Saulo Camarillo MD [address] [place] [phone] PCP - General Family Medicine 11/22/23 Car Deliverer Relationship Specialty Start Date End Date Saulo Camarillo MD [address] [place] [address] PCP - General Family Medicine 11/22/23 Car Deliverer Relationship Specialty Start Date End Date Saulo Camarillo MD [address] [place] [id number] PCP - General Family Medicine 11/22/23 Car Deliverer Relationship Specialty Start Date End Date Saulo Camarillo MD [address] [place] [id number] PCP - General Family Medicine 11/22/23 Car Deliverer Relationship Specialty Start Date End Date Saulo Camarillo MD [address] [place] [address] PCP - General Family Medicine 11/22/23 Radha Kim, BORING MILL OPERATOR.RIG SUPERINTENDENT [address] [place] [phone] Rail Specialist Family Medicine 04/19/24 Car Deliverer Relationship Specialty Start Date End Date Saulo Camarillo MD [address] [place] [address] PCP - General Family Medicine 11/22/23 Radha Kim, BORING MILL OPERATOR.RIG SUPERINTENDENT [address] [place] [phone] Rail Specialist Family Medicine 04/19/24 Car Deliverer Relationship Specialty Start Date End Date Saulo Camarillo MD [address] [place] [address] PCP - General Family Medicine 11/22/23 Radha Kim, BORING MILL OPERATOR.RIG SUPERINTENDENT [address] [place] [address] Rail Specialist Family Medicine 04/19/24 Car Deliverer Relationship Specialty Start Date End Date Saulo Camarillo MD [address] [place] [address] PCP - General Family Medicine 11/22/23 Radha Jiménez, BORING MILL OPERATOR.RIG SUPERINTENDENT [address] [place] [address] Rail Specialist Family Medicine 04/19/24 Car Deliverer Relationship Specialty Start Date End Date Saulo Camarillo MD [address] [place] [address] PCP - General Family Medicine 11/22/23 Radha Jiménez, BORING MILL OPERATOR.RIG SUPERINTENDENT [address] [place] [phone] Rail Specialist Family Medicine 04/19/24 Car Deliverer Relationship Specialty Start Date End Date Saulo Camarillo MD [address] [place] [phone] PCP - General Family Medicine 11/22/23 Radha Jiménez, GUMARO.RIG SUPERINTENDENT [address] [place] [address] Rail Specialist Family Medicine 04/19/24 Source Comments (unrecognize d section and content) In the event this informatio n is protected by the Federal Confidentiality of Alcohol and Drug Abuse Patient Records regulations: The Federal rules restrict any use of the information to criminally investigate or prosecute any alcohol or drug abuse patient.[facility] the event this information is protected by the Federal Confidentiality of Alcohol and Drug Abuse Patient Records regulations: The Federal rules restrict any use of the information to criminally investigate or prosecute any alcohol or drug abuse patient.[facility] the event this information is protected by the Federal Confidentiality of Alcohol and Drug Abuse Patient Records regulations: The Federal rules restrict any use of the information to criminally investigate or prosecute any alcohol or drug abuse patient.[facility] the event this information is protected by the Federal Confidentiality of Alcohol and Drug Abuse Patient Records regulations: The Federal rules restrict any use of the information to criminally investigate or prosecute any alcohol or drug abuse patient.[facility] the event this information is protected by the Federal Confidentiality of Alcohol and Drug Abuse Patient Records regulations: The Federal rules restrict any use of the information to criminally investigate or prosecute any alcohol or drug abuse patient.[facility] the event this information is protected by the Federal Confidentiality of Alcohol and Drug Abuse Patient Records regulations: The Federal rules restrict any use of the information to criminally investigate or prosecute any alcohol or drug abuse patient.[facility] the event this information is protected by the Federal Confidentiality of Alcohol and Drug Abuse Patient Records regulations: The Federal rules restrict any use of the information to criminally investigate or prosecute any alcohol or drug abuse patient.[facility] the event this information is protected by the Federal Confidentiality of Alcohol and Drug Abuse Patient Records regulations: The Federal rules restrict any use of the information to criminally investigate or prosecute any alcohol or drug abuse patient.[facility] the event this information is protected by the Federal Confidentiality of Alcohol and Drug Abuse Patient Records regulations: The Federal rules restrict any use of the information to criminally investigate or prosecute any alcohol or drug abuse patient.[facility] the event this information is protected by the Federal Confidentiality of Alcohol and Drug Abuse Patient Records regulations: The Federal rules restrict any use of the information to criminally investigate or prosecute any alcohol or drug abuse patient.[facility] the event this information is protected by the Federal Confidentiality of Alcohol and Drug Abuse Patient Records regulations: The Federal rules restrict any use of the information to criminally investigate or prosecute any alcohol or drug abuse patient.[facility] the event this information is protected by the Federal Confidentiality of Alcohol and Drug Abuse Patient Records regulations: The Federal rules restrict any use of the information to criminally investigate or prosecute any alcohol or drug abuse patient.[facility] the event this information is protected by the Federal Confidentiality of Alcohol and Drug Abuse Patient Records regulations: The Federal rules restrict any use of the information to criminally investigate or prosecute any alcohol or drug abuse patient.[facility] the event this information is protected by the Federal Confidentiality of Alcohol and Drug Abuse Patient Records regulations: The Federal rules restrict any use of the information to criminally investigate or prosecute any alcohol or drug abuse patient.[facility] the event this information is protected by the Federal Confidentiality of Alcohol and Drug Abuse Patient Records regulations: The Federal rules restrict any use of the information to criminally investigate or prosecute any alcohol or drug abuse patient.[facility] the event this information is protected by the Federal Confidentiality of Alcohol and Drug Abuse Patient Records regulations: The Federal rules restrict any use of the information to criminally investigate or prosecute any alcohol or drug abuse patient.[facility] the event this information is protected by the Federal Confidentiality of Alcohol and Drug Abuse Patient Records regulations: The Federal rules restrict any use of the information to criminally investigate or prosecute any alcohol or drug abuse patient.[facility] INFORMATION SOURCE (unrecogn ized section and content) DATE CREATED AUTHOR 11/10/2021 [facility] DATE CREATED AUTHOR AUTHOR'S ORGANIZ ATION 01/26/2023 [facility] DATE CREATED AUTHOR AUTHOR'S ORGANIZ ATION 02/22/2023 [facility] DATE CREATED AUTHOR AUTHOR'S ORGANIZ ATION 02/27/2023 [facility] DATE CREATED AUTHOR AUTHOR'S ORGANIZ ATION 08/16/2023 [facility] DATE CREATED AUTHOR AUTHOR'S ORGANIZ ATION 12/24/2024 [facility] Goals (unrecognized section and content) Goals may be documented in a n alternate sectionGoals may be documented in an alternate sectionGoals may be documented in an alternate sectionGoals may be documented in an alternate sectionGoals may be documented in an alternate sectionGoals may be documented in an alternate section Reason for Visit (unrecogniz ed section and content) Reason Comments New Patient Establish care and S TI testing Reason Onset Date Comments Contraception 09/16/2022 For [place] [facility], faxed completed Kyleena IUD Prior Auth form with Demographics/Insurance card to [facility] . . MUST be on period for insertion. Pt will need a sameday Urine Test in-office. Reason Onset Date Comments Contraception 09/16/2022 09/30/22 Pt call ed back needing the correct number to [facility] gave pt phone # pt will be calling to confirm shipment to office pls advise /For [place] [facility], faxed completed Kyleena IUD Prior Auth form with Demographics/Insurance card to [facility] . . MUST be on period for insertion. Pt will need a sameday Urine Test in-office. Reason Comments Procedure Kyleena Insertion Specialty Diagnoses / Procedures Referred By Narayan mitchell Referred To Contact Diagnoses Encounter for IUD insertion Jacquelyn Trevino MD [address] [address] Referral ID Status Reason Start Date Expiration Date V isits Requested Visits Authorized [id number] Pending Review 10/06/2022 04/04/2023 1 1 Reason Comments other Pt can't feel her IU D strings Reason Comments [place] Patient is complaini ng of a lump on right side of neck X 1 year. States there is no pain but it feels "rubbery" when she pushes on it. Reason Comments Establish Care Physical ADD/ADHD Wants to discuss oth er options than vyvanse Reason Comments Results Reason Onset Date Comments Refill Request 02/16/2024 Reason Comments ADD/ADHD Wants higher dose on vyvanse Reason Comments New Patient Specialty Diagnoses / Procedures Referred By Narayan mitchell Referred To Contact Ent - Otolaryngology Diagnoses Cervical adenopathy Tonsil stone Procedures CONSULT TO ENT OFFICE/OUTPATIENT NEW HIGH [facility] 60 MINUTES Saulo Camarillo MD [address] [place] [address] Referral ID Status Reason Start Date Expiration Date V isits Requested Visits Authorized [id number] Closed PCP Requested Referral 11/22/2023 11/21/2024 1 1 Reason Comments Refill Request Reason Comments ADD/ADHD FOR RECORDS PERTAINING TO PATIENTS WHO ARE OR HAVE BEEN ENROLLED IN A CHEMICAL DEPENDENCY/SUBSTANCEABUSE PROGRAM, SOME INFORMATION MAY BE OMITTED. This clinical summary was aggregated from multiple sources. Caution should be exercised in using it in the provision of clinical care. This summary normalizes information from multiple sources, and as a consequence, information in this document may materially change the coding, format and clinical context of patient data. In addition, data may be omitted in some cases. CLINICAL DECISIONS SHOULD BE BASED ON THE PRIMARY CLINICAL RECORDS. [facility] [employer] provides no warranty or guarantee of the accuracy or completeness of information in this document.
== END 2025-01-20 17:36 | disposition left against medical advice (07) ==
LOC: ED 17:42
DX: Z53.21 Procedure and treatment not carried out due to patient leaving prior to being seen by health care provider (principal)

== ENCOUNTER 2025-01-20 21:54 | Emergency (ER) | payer OTHER, SELFPAY ==
[2025-01-20 21:54] VITALS: BP 124/76; PULSE 62; RESP 14; TEMP 35.7; O2SAT 98; BMI 20.8
[2025-01-20 22:37] LABS: Hematocrit 43.2 % (37-47); Hemoglobin 14.2 g/dL (12.0-15.0); Immature Granulocytes Count 0.010 X10^3/uL (0.0-0.0); Mean Corp Hgb Conc 32.9 g/dL (32-36); Mean Corpuscular Volume 83.2 fL (81-99); Mean Platelet Vol. 10.1 fl (6.2-12.0); NRBC Flagged by Analyzer 0 % (0-5); Platelet Count 321 K/mm3 (150-450); RBC Distribution Width CV 12.4 % (11.6-14.6); RBC Distribution Width SD 37.8 fl (35.1-43.9); Red Blood Count 5.19 M/mm3 (4.2-5.4); White Blood Count 5.2 K/mm3 (4.4-11.0)
--- OUTSIDE RECORDS SUMMARY | 2025-01-20 22:40 | XMS RPT_ITS | CCD ---
Author Organization [facility] Informat ion Partnership [facility] Care Team Providers Care Ict Account Manager Name Role Phone Kat Santos MD Primary Care Provider [phone] Kat Santos MD Primary Care Provider Kat Santos MD Primary Care Provider Kat Santos MD Primary Care Provider [phone] [facility] SAleta Unavailable [facility] Primary Care Provider Unav ailable Marco Antonio Dunbar Attending Unavailable Ana Luisa, Kat Primary Care Unavailable Wilfred Lozada Attending Unavailable Ana Ulisa, Kat Primary Care Unavailable ANA LUISA, KAT Primary Care Unavailable ANA LUISA, KAT Attending Unavailable ANA LUISA, KAT Primary Care Unavailable ANA LUISA, KAT Referring Unavailable ANA LUISA, KAT Primary Care Unavailable ANA LUISA, KAT Attending Unavailable ANA LUISA, KAT Primary Care Unavailable REFERRED, SELF Referring Unavailable ANA LUISA, KAT Attending Unavailable ANA LUISA, KTA Referring Unavailable ANA LUISA, KAT Primary Care [...] Unavailable [facility] Primary Care Unavailable Chuck METER INSTALLER.Herminio PEREZ Primary Care Provider [phone] HERMINIO WOODS Attending Unavailable ANA LUISA, KAT A Primary Care UnavailSaulo Mckenzie MD Primary Care Provider Judy METER INSTALLER.HOLISTIC SPECIALIST, Radha Unavailable Jessy METER INSTALLER.HOLISTIC SPECIALIST, Radha Unavailable SAULO CAMARILLO Referring Unavailable ERIKA [...] Lactose; Translations: [LACTOSE] Drug Allergy 11-06-2020 Diarrhea [facility] (4 sources) Eggs Or Egg-Derived Products; Translations: [EGGS OR EGG-DERIVED PRODUCTS] Propensity to adverse reactions 11-06-2020 Diarrhea [facility] Medications Current Medications Medication Drug Class(es) Dates [...] Start: 06-17-2021 take 1 capsule by mo [facility] once daily in the morning dexmethylphenidate HCl [...] Drug Class(es) Dates Sig (Normalized) Sig (Original) [id number] 0.3 ml EPINEPHrine 1 mg/ml auto-injector (6 [...] mouth every 6 hours as needed. levonorgestrel 0.037438 mg/hr intrauterine system (20 sources) Progestin, Progestin-containing [...] 11-10-2020 Chronic Other aftercare (1 source) Other regional psychiatric director (current) drug therapy; Translations: [On angiotensin receptor [...] Basophils (Bld) [#/Vol] 0.03 10*3/uL Normal <0.11 [facility] Comment on above: Order Comment: Speci men Type: BLOOD SPECIMENOrdering Facility: [facility] Address: [address] [place] [address] Performed By: #### 5 7021-8 ####[facility] LABCLIA [id number] [place] [address] [place] Basophils/100 WBC (Bld) 0.8 % Normal [facility] Comment on above: Order Comment: Speci men Type: BLOOD SPECIMENOrdering Facility: [facility] Address: [address] [place] [address] Performed By: #### 5 7021-8 ####[facility] LABCLIA [id number] [place] [id number] [place] Differential cell count method Nom (Bld) Auto Normal [facility] Comment on above: Order Comment: Speci men Type: BLOOD SPECIMENOrdering Facility: [facility] Address: [address] [place] [address] Performed By: #### 5 7021-8 ####[facility] LABCLIA [id number] [place] [address] [place] Eosinophils (Bld) [#/Vol] 0.05 10*3/uL Normal <0.46 [facility] Comment on above: Order Comment: Speci men Type: BLOOD SPECIMENOrdering Facility: [facility] Address: [address] [place] [address] Performed By: #### 5 7021-8 ####[facility] LABCLIA [id number] [place] [id number] [place] Eosinophils/100 WBC (Bld) 1.3 % Normal [facility] Comment on above: Order Comment: Speci men Type: BLOOD SPECIMENOrdering Facility: [facility] Address: [address] [place], [place] [address] Performed By: #### 5 7021-8 ####[facility] LABCLIA [id number] [place] [address] [place] Erythrocyte distribution width (RBC) [Ratio] 12.9 % Normal 11.5-15.0 [facility] Comment on above: Order Comment: Speci men Type: BLOOD SPECIMENOrdering Facility: [facility] Address: [address] [place] [address] Performed By: #### 5 7021-8 ####[facility] LABIA [id number] [place] [id number] [place] Hematocrit (Bld) [Volume fraction] 43.1 % Normal 36.0-46.0 [facility] Comment on above: Order Comment: Speci men Type: BLOOD SPECIMENOrdering Facility: [facility] Address: [address] [place] [address] Performed By: #### 5 7021-8 ####[facility] LABIA [id number] [place] [address] [place] Hemoglobin (Bld) [Mass/Vol] 13.4 g/dL Normal 11.5-15.5 [facility] Comment on above: Order Comment: Speci men Type: BLOOD SPECIMENOrdering Facility: [facility] Address: [address] [place] [address] Performed By: #### 5 7021-8 ####[facility] LABIA [id number] [place] [id number] [place] Immature granulocytes (Bld) [#/Vol] 10*3/uL Normal <0.10 [facility] Comment on above: Order Comment: Speci men Type: BLOOD SPECIMENOrdering Facility: [facility] Address: [address] [place] [address] Performed By: #### 5 7021-8 ####[facility] LABIA [id number] [place] [id number] [place] Immature granulocytes/100 WBC (Bld) 0.3 % Normal [facility] Comment on above: Order Comment: Speci men Type: BLOOD SPECIMENOrdering Facility: [facility] Address: [address] [place] [address] Performed By: #### 5 7021-8 ####[facility] LABCLIA [id number] [place] [address] [place] Lymphocytes (Bld) [#/Vol] 1.55 10*3/uL Normal 1.00-4.00 [facility] Comment on above: Order Comment: Speci men Type: BLOOD SPECIMENOrdering Facility: [facility] Address: [address] [place] [address] Performed By: #### 5 7021-8 ####[facility] LABIA [id number] [address] [place] Lymphocytes/100 WBC (Bld) 41.7 % Normal [facility] Comment on above: Order Comment: Speci men Type: BLOOD SPECIMENOrdering Facility: [facility] Address: [address] [place] [address] Performed By: #### 5 7021-8 ####[facility] LABIA [id number] [place] [id number] [place] MCH (RBC) [Entitic mass] 26.7 pg Normal 26.0-34.0 [facility] Comment on above: Order Comment: Speci men Type: BLOOD SPECIMENOrdering Facility: [facility] Address: [address] [place] [address] Performed By: #### 5 7021-8 ####[facility] LABCLIA [id number] [place] [id number] [place] MCHC (RBC) [Mass/Vol] 31.1 g/dL Normal 30.5-36.0 [facility] Comment on above: Order Comment: Speci men Type: BLOOD SPECIMENOrdering Facility: [facility] Address: [address] [place] [address] Performed By: #### 5 7021-8 ####[facility] LABCLIA [id number] [place] [address] [place] MCV (RBC) [Entitic vol] 86.0 fL Normal 80.0-100.0 [facility] Comment on above: Order Comment: Speci men Type: BLOOD SPECIMENOrdering Facility: [facility] Address: [address] [place] [address] Performed By: #### 5 7021-8 ####[facility] LABCLIA [id number] [place] [address] [place] Monocytes (Bld) [#/Vol] 0.20 10*3/uL Normal <0.87 [facility] Comment on above: Order Comment: Speci men Type: BLOOD SPECIMENOrdering Facility: [facility] Address: [address] [place] [address] Performed By: #### 5 7021-8 ####[facility] LABIA [id number] [place] [address] [place] Monocytes/100 WBC (Bld) 5.4 % Normal [facility] Comment on above: Order Comment: Speci men Type: BLOOD SPECIMENOrdering Facility: [facility] Address: [address] [place] [address] Performed By: #### 5 7021-8 ####[facility] LABIA [id number] [place] [address] [place] Neutrophils (Bld) [#/Vol] 1.88 10*3/uL Normal 1.45-7.50 [facility] Comment on above: Order Comment: Speci men Type: BLOOD SPECIMENOrdering Facility: [facility] Address: [address] [place] [address] Performed By: #### 5 7021-8 ####[facility] LABCLIA [id number] [place] [address] [place] Neutrophils/100 WBC (Bld) 50.5 % Normal [facility] Comment on above: Order Comment: Speci men Type: BLOOD SPECIMENOrdering Facility: [facility] Address: [address] [place] [address] Performed By: #### 5 7021-8 ####[facility] LABCLIA [id number] [place] [address] [place] Nucleated RBC (Bld) [#/Vol] 10*3/uL Normal <0.01 [facility] Comment on above: Order Comment: Speci men Type: BLOOD SPECIMENOrdering Facility: [facility] Address: [address] [place] [address] Performed By: #### 5 7021-8 ####[facility] LABIA [id number] [place] [address] [place] Nucleated RBC/100 WBC (Bld) [Ratio] 0.0 /100 WBC Normal [facility] Comment on above: Order Comment: Speci men Type: BLOOD SPECIMENOrdering Facility: [facility] Address: [address] [place] [address] Performed By: #### 5 7021-8 ####[facility] LABIA [id number] [place] [address] [place] Platelet mean volume (Bld) [Entitic vol] 9.8 fL Normal 9.0-12.7 [facility] Comment on above: Order Comment: Speci men Type: BLOOD SPECIMENOrdering Facility: [facility] Address: [address] [place] [address] Performed By: #### 5 7021-8 ####[facility] LABCLIA [id number] [place] [address] [place] Platelets (Bld) [#/Vol] 290 10*3/uL Normal 150-400 [facility] Comment on above: Order Comment: Speci men Type: BLOOD SPECIMENOrdering Facility: [facility] Address: [address] [place] [address] Performed By: #### 5 7021-8 ####[facility] LABCLIA [id number] [place] [address] [place] RBC (Bld) [#/Vol] 5.01 10*6/uL Normal 3.90-5.20 [facility] Comment on above: Order Comment: Speci men Type: BLOOD SPECIMENOrdering Facility: [facility] Address: [address] [place] [address] Performed By: #### 5 7021-8 ####[facility] LABCLIA [id number] [place] [id number] [facility] WBC (Bld) [#/Vol] 3.72 10*3/uL Normal 3.70-11.00 [facility] Comment on above: Order Comment: Speci men Type: BLOOD SPECIMENOrdering Facility: [facility] Address: [address] [place] [address] Performed By: #### 5 7021-8 ####[facility] LABIA [id number] [place] [id number] [facility] Comprehensive metabolic 2000 panelon 12-19-2024 Albumin [Mass/Vol] 4.6 g/dL Normal 3.9-4.9 [facility] Comment on above: Order Comment: Speci men Type: BLOOD SPECIMENOrdering Facility: [facility] Address: [address] [place] [address] Performed By: #### 3 040-3, 13992-7, TSHRF ####[facility] LABCLIA [id number] [place] [id number] [place] ALP [Catalytic activity/Vol] 49 U/L Normal 34-123 [facility] Comment on above: Order Comment: Speci men Type: BLOOD SPECIMENOrdering Facility: [facility] Address: [address] [place] [address] Performed By: #### 3 040-3, 76961-9, TSHRF ####[facility] LABCLIA [id number] [place] [address] [facility] ALT [Catalytic activity/Vol] 9 U/L Normal 7-38 [facility] Comment on above: Order Comment: Speci men Type: BLOOD SPECIMENOrdering Facility: [facility] Address: [address] [place] [address] Performed By: #### 3 040-3, , TSHRF ####[facility] LABCLIA [id number] [place] [address] [place] Anion gap [Moles/Vol] 12 mmol/L Normal 8-15 [facility] Comment on above: Order Comment: Speci men Type: BLOOD SPECIMENOrdering Facility: [facility] Address: [address] [place] [address] Performed By: #### 3 040-3, , TSHRF ####[facility] LABCLIA [id number] [place] [address] [place] AST [Catalytic activity/Vol] 20 U/L Normal 13-35 [facility] Comment on above: Order Comment: Speci men Type: BLOOD SPECIMENOrdering Facility: [facility] Address: [address] [place] [address] Performed By: #### 3 040-3, , TSHRF ####[facility] LABCLIA [id number] [place] [address] [place] Bilirubin [Mass/Vol] 0.6 mg/dL Normal 0.2-1.3 [facility] Comment on above: Order Comment: Speci men Type: BLOOD SPECIMENOrdering Facility: [facility] Address: [address] [place] [address] Performed By: #### 3 040-3, 56102-6, TSHRF ####[facility] LABCLIA [id number] [place] [address] [place] Calcium [Mass/Vol] 9.3 mg/dL Normal 8.5-10.2 [facility] Comment on above: Order Comment: Speci men Type: BLOOD SPECIMENOrdering Facility: [facility] Address: [address] [place], [place] [address] Performed By: #### 3 040-3, 47229-1, TSHRF ####[facility] LABCLIA [id number] [place] [address] [place] Chloride [Moles/Vol] 104 mmol/L Normal 98-107 [facility] Comment on above: Order Comment: Speci men Type: BLOOD SPECIMENOrdering Facility: [facility] Address: [address] [place] [address] Performed By: #### 3 040-3, , TSHRF ####[facility] LABCLIA [id number] [place] [address] [place] CO2 [Moles/Vol] 24 mmol/L Normal 22-30 [facility] Comment on above: Order Comment: Speci men Type: BLOOD SPECIMENOrdering Facility: [facility] Address: [address] [place] [address] Performed By: #### 3 040-3, , TSHRF ####[facility] LABCLIA [id number] [place] [address] [place] Creatinine [Mass/Vol] 0.60 mg/dL Normal 0.58-0.96 [facility] Comment on above: Order Comment: Speci men Type: BLOOD SPECIMENOrdering Facility: [facility] Address: [address] [place] [address] Performed By: #### 3 040-3, , TSHRF ####[facility] LABCLIA [id number] [place] [address] [place] eGFRcr SerPlBld CKD-EPI 2020 131 mL/min/1.73m??? Normal >=60 [facility] Comment on above: Order Comment: Speci men Type: BLOOD SPECIMENOrdering Facility: [facility] Address: [address] [place] [address] Result Comment: Tyesha mated Glomerular Filtration Rate [...] actual GFR. Performed By: #### 3 040-3, 26194-9, TSHRF ####[facility] LABCLIA [id number] [place] [address] [place] Glucose [Mass/Vol] 87 mg/dL Normal 74-99 [facility] Comment on above: Order Comment: Speci men Type: BLOOD SPECIMENOrdering Facility: [facility] Address: [address] [place], [place] [address] Result Comment: The [place] [employer] (ADA) provides guidance for cutoff [...] Standards of Medical Care in Diabetes 2016, [employer]. Diabetes Care. 2016.39(Suppl 1). Performed By: #### 3 040-3, 91104-9, TSHRF ####[facility] LABCLIA [id number] [place] [address] [place] Potassium [Moles/Vol] 3.9 mmol/L Normal 3.7-5.1 [facility] Comment on above: Order Comment: Speci men Type: BLOOD SPECIMENOrdering Facility: [facility] Address: [address] [place] [address] Performed By: #### 3 040-3, 43615-0, TSHRF ####[facility] LABCLIA [id number] [place] [address] [place] Protein [Mass/Vol] 7.5 g/dL Normal 6.3-8.0 [facility] Comment on above: Order Comment: Speci men Type: BLOOD SPECIMENOrdering Facility: [facility] Address: [address] [place] [address] Performed By: #### 3 040-3, 06558-9, TSHRF ####[facility] LABCLIA [id number] [place] [address] [place] Sodium [Moles/Vol] 140 mmol/L Normal 136-144 [facility] Comment on above: Order Comment: Speci men Type: BLOOD SPECIMENOrdering Facility: [facility] Address: [address] [place] [address] Performed By: #### 3 040-3, 25483-1, TSHRF ####[facility] LABCLIA [id number] [place] [address] [place] Urea nitrogen [Mass/Vol] 10 mg/dL Normal 7-21 [facility] Comment on above: Order Comment: Speci men Type: BLOOD SPECIMENOrdering Facility: [facility] Address: [address] [place] [address] Performed By: #### 3 040-3, 06916-5, TSHRF ####[facility] LABCLIA [id number] [place] [address] [place] ESR Westergren method (Bld) [Velocity]on 12-19-2024 ESR (Bld) [Velocity] 8 mm/h Normal 0-20 [facility] Comment on above: Order Comment: Speci men Type: BLOOD SPECIMENOrdering Facility: [facility] Address: [address] [place] [address] Performed By: #### 4 537-7 ####[facility] LABCLIA [id number] [place] [address] [place] H. pylori IgG IA Qlon 2024 H. PYLORI IGG, QUAL Negative Normal Negative [facility] Comment on above: Order Comment: Speci men Type: BLOOD SPECIMENOrdering Facility: [facility] Address: [address] [place] [address] Result Comment: Elsa ot exclude H. pylori infection if the specimen collected 3-4 weeks after onset of symptoms. Performed By: #### 1 7859-0 ####[facility] LABCLIA [id number] [place] [address] [place] HCV Ab Ser Qlon 12-19-2024 HCV Ab Ql (S) Negative Normal Negative [facility] Comment on above: Order Comment: Speci men Type: BLOOD SPECIMENOrdering Facility: [facility] Address: [address] [place] [address] Result Comment: The result suggests no evidence of infection with Hepatitis C virus. Should recent infection be suspected, repeat testing may be considered 4-6 weeks after this draw. Performed By: #### 1 6128-1 ####[facility] LABCLIA [id number] [place] [address] [place] HIV 1+2 Ab IA Qlon HIV 1 and 2 Ab IA.rapid Nom (S/P/Bld) Normal [facility] Comment on above: Order Comment: Speci men Type: BLOOD SPECIMENOrdering Facility: [facility] Address: [address] [place] [address] Result Comment: Test not indicated. Performed By: #### 3 1201-7 ####[facility] LABCLIA [id number] [place] [address] [place] HIV 1+2 Ab+HIV1 p24 Ag IA Ql Non-Reactive Normal Nonreactive [facility] Comment on above: Order Comment: Speci men Type: BLOOD SPECIMENOrdering Facility: [facility] Address: [address] [place] [address] Performed By: #### 3 1201-7 ####[facility] LABCLIA [id number] [place] [address] [place] HIV immunoassay testing algorithm interpretation (S/P/Bld) [Interp] Normal [facility] Comment on above: Order Comment: Speci men Type: BLOOD SPECIMENOrdering Facility: [facility] Address: [address] [place] [address] Result Comment: No e vidence of HIV-1 or HIV-2 infection. Should recent infection be suspected, repeat testing may be considered 2-3 weeks after this draw. [place] Rev. Code 3701.243(E): This information has been [...] or diagnoses. Performed By: #### 3 1201-7 ####[facility] LABCLIA [id number] [place] [address] [place] Iron and Iron binding capaci ty panelon 12-19-2024 Iron [Mass/Vol] 116 ug/dL Normal 41-186 [facility] Comment on above: Order Comment: Speci men Type: BLOOD SPECIMENOrdering Facility: [facility] Address: [address] [place] [address] Performed By: #### 5 0190-8, 05597-3 ####[facility] LABIA [id number] [place] [address] [place] Iron binding capacity [Mass/Vol] 343 ug/dL Normal 232-386 [facility] Comment on above: Order Comment: Speci men Type: BLOOD SPECIMENOrdering Facility: [facility] Address: [address] [place] [address] Performed By: #### 5 0190-8, 88198-8 ####[facility] LABCLIA [id number] [place] [id number] [place] Iron/TIBC [Molar ratio] 33.8 % Normal 15.0-57.0 [facility] Comment on above: Order Comment: Speci men Type: BLOOD SPECIMENOrdering Facility: [facility] Address: [address] [place], [place] [address] Performed By: #### 5 0190-8, 62846-5 ####[facility] LABCLIA [id number] [address] [address] [place] Lipase SerPl-cCncon 12-20-19 25 Lipase [Catalytic activity/Vol] 27 U/L Normal 16-61 [facility] Comment on above: Order Comment: Speci men Type: BLOOD SPECIMENOrdering Facility: [facility] Address: [address] [place] [address] Performed By: #### 3 040-3, 26122-9, [facility] ####[facility] LABCLIA [id number] [place] [address] [place] Lipid 1996 panelon 5 Cholesterol [Mass/Vol] 164 mg/dL Normal <200 [facility] Comment on above: Order Comment: Speci men Type: BLOOD SPECIMENOrdering Facility: [facility] Address: [address] [place], [place] [address] Result Comment: <200 mg/dL, Desirable 200-239 mg/dL, Borderline high >239 mg/dL, High Performed By: #### 5 0190-8, 13851-6 ####[facility] LABCLIA [id number] [address] [address] [place] Cholesterol in HDL [Mass/Vol] 74 mg/dL Normal >39 [facility] Comment on above: Order Comment: Speci men Type: BLOOD SPECIMENOrdering Facility: [facility] Address: [address] [place], [place] [address] Result Comment: 40-5 9 mg/dL, Acceptable >59 mg/dL, High: Negative risk factor for coronary heart disease <40 mg/dL, Low: Positive risk factor for coronary heart disease Performed By: #### 5 0190-8, 50920-8 ####[facility] LABCLIA [id number] [address] [address] [place] Cholesterol in LDL [Mass/Vol] 81 mg/dL Normal <100 [facility] Comment on above: Order Comment: Raeann rucker Type: BLOOD SPECIMENOrdering Facility: [facility] Address: [address] [place] [address] Result Comment: <100 mg/dL, Optimal 100-129 mg/dL, Near optimal/above optimal 130-159 mg/dL, Borderline high 160-189 mg/dL, High >189 mg/dL, Very high Secondary prevention optimal LDL Cholesterol levels are recommended to be <70 mg/dL LDL cholesterol is calculated using the Rodríguez-NIH equation. Performed By: #### 5 0190-8, 98243-8 ####[facility] LABIA [id number] [address] [facility] Cholesterol in LDL/Cholesterol in HDL [Mass ratio] 1.09 {ratio} Normal <2.54 [facility] Comment on above: Order Comment: Raeann rucker Type: BLOOD SPECIMENOrdering Facility: [facility] Address: [address] [place] [address] Result Comment: Refe chiquita: 1. National Cholesterol Education Program ATP III Guideline At-A-Glance Quick Desk Reference: National Heart, Lung, and Blood [place]. National Institutes of Health. 2001: NIH Publication [...] and Adolescents: National Heart, Lung and Blood [place]. Pediatrics. 2011:128(Suppl 5):F904-658. Performed By: #### 5 0190-8, 74509-7 ####[facility] [id number] [address] [place] Cholesterol in VLDL [Mass/Vol] 6 mg/dL Normal <30 [facility] Comment on above: Order Comment: Raeann rucker Type: BLOOD SPECIMENOrdering Facility: [facility] Address: [address] [place] [address] Performed By: #### 5 0190-8, 00511-6 ####[facility] [id number] [place] [id number] [place] Cholesterol non HDL [Mass/Vol] 90 mg/dL Normal <130 [facility] Comment on above: Order Comment: Speci men Type: BLOOD SPECIMENOrdering Facility: [facility] Address: [address] [place] [address] Result Comment: <130 mg/dL, Optimal 130-159 mg/dL, Near optimal/above optimal 160-189 mg/dL, Borderline high 190-219 mg/dL, High >219 mg/dL, Very high Secondary prevention optimal non HDL Cholesterol levels are recommended to be <100 mg/dL Performed By: #### 5 0190-8, 17865-7 ####[facility] [id number] [place] [address] [place] Cholesterol.total/Ch olesterol in HDL [Mass ratio] 2.22 {ratio} Normal <5.10 [facility] Comment on above: Order Comment: Speci men Type: BLOOD SPECIMENOrdering Facility: [facility] Address: [address] [place] [address] Performed By: #### 5 0190-8, 40148-3 ####[facility] [id number] [place] [id number] [place] FASTING TIME 12 hrs Normal [facility] Comment on above: Order Comment: Speci men Type: BLOOD SPECIMENOrdering Facility: [facility] Address: [address] [place], [place] [address] Performed By: #### 5 0190-8, 33842-2 ####[facility] [id number] [place] [id number] [place] Triglyceride [Mass/Vol] 38 mg/dL Normal <150 [facility] Comment on above: Order Comment: Speci men Type: BLOOD SPECIMENOrdering Facility: [facility] Address: [address] [place] [address] Result Comment: <150 mg/dL, Normal 150-199 mg/dL, Borderline high 200-499 mg/dL, High >499 mg/dL, Very high Performed By: #### 5 0190-8, 74238-3 ####[facility] [id number] [place] [address] [place] TSH W/REFLEX FT4on TSH Qn 1.450 m[IU]/L Normal 0.270-4.200 [facility] Comment on above: Order Comment: Speci men Type: BLOOD SPECIMENOrdering Facility: [facility] Address: [address] [place] [address] Result Comment: If t he patient is [...] Resendiz, et al. 2017 Guidelines of the [place] Thy[employer] Association for the Diagnosis and Management of Thyroid Disease during and the . Thyroid, 2017:27:3:315-389. Performed By: #### 3 040-3, 12273-2, TSHRF ####[facility]IA [id number] [place] [address] [place] tTG IgA Qn (S)on 12-19-2024 TRANSGLUTAMINASE IGA ABS INTERPRETATION Negative Normal Negative [facility] Comment on above: Order Comment: Speci men Type: BLOOD SPECIMENOrdering Facility: [facility] Address: [address] [place] [address] Result Comment: The following results were obtained with [employer]i QUANTA Lite R h-tTG IgA FABIOLA.???R h-tTG IgA values obtained with different manufacturers' assay methods may not be used interchangeably. The magnitude of the reported IgA levels cannot be correlated to an endpoint???concentration. This is used as an aid in diagnosis of celiac disease. Clinical correlation is required. Performed By: #### 3 1017-7 ####[facility] [id number] [place] [id number] [place] tTG IgA Ser-aCncon 5 tTG IgA Qn (S) <2 Normal <4 [facility] Comment on above: Order Comment: Speci men Type: BLOOD SPECIMENOrdering Facility: [facility] Address: [address] [place] [address] Performed By: #### 3 1017-7 ####[facility] [id number] [address] [facility] CNOVon 12-18-2024 CNOV Office Visit (FAMPHN ) BETTY QUINTANILLA ([id number]) 1 F Date Time Provider Department 12/18/24 [...] hematuria. Musculoskelet (more content not included)... Normal [facility] ALT SerPl-cCncon 09-20-2024 ALT [Catalytic activity/Vol] 11 U/L Normal 7-38 [facility] Comment on above: Order Comment: Speci men Type: BLOOD SPECIMENOrdering Facility: [facility] Address: [address] [place] [address] Performed By: #### 1 742-6, 1920-8 ####[facility]CLIA [id number] [place] [address] [place] AST SerPl-cCncon 07-10-2025 AST [Catalytic activity/Vol] 21 U/L Normal 13-35 [facility] Comment on above: Order Comment: Speci men Type: BLOOD SPECIMENOrdering Facility: [facility] Address: [address] [place] [address] Performed By: #### 1 742-6, 1920-8 ####[facility]IA [id number] [place], [place] [id number] [place] [address] [place] Trigl SerPl-mCncon Triglyceride [Mass/Vol] 30 mg/dL Normal <150 [facility] Comment on above: Order Comment: Speci men Type: BLOOD SPECIMENOrdering Facility: [facility] Address: [address] [place] [address] Result Comment: <150 mg/dL, Normal 150-199 mg/dL, Borderline high 200-499 mg/dL, High >499 mg/dL, Very high Reference: 1. National Cholesterol Education Program ATP III Guideline At-A-Glance Quick Desk Reference: National Heart, Lung, and Blood [place]. National Institutes of Health. 2001: NIH Publication No. 01-3305. Cut Points from the Lip[facility]'s Prevalence Study for ages 20 to 24 years can be located in the following reference: Expert Panel on Integrated Guidelines for Cardiovascular Health and Risk Reduction in Children and Adolescents: National Heart, Lung and Blood [place]. Pediatrics. 2011:128(Suppl 5):W749-380. Performed By: #### 2 571-8 ####[facility] [id number] [place] [id number] [place] [facility] Triglyceride [Mass/Vol]on FASTING TIME 1 hrs Normal [facility] Comment on above: Order Comment: Speci men Type: BLOOD SPECIMENOrdering Facility: [facility] Address: [address] [place] [address] Performed By: #### 2 571-8 ####[facility] [id number] [address] [address] [place] CNOVon 09-07-2024 CNOV Office Visit (FAMPHN ) BETTY QUINTANILLA ([id number]) 1 F Date Time Provider Department 09/07/24 [...] and sleep. She obtains her medication from [facility] in [place] and drives there once a week. Betty is also taking Lexapro and inquires about refills. She reports feeling "pretty good" on the medication. Betty has been sexually active and believes she may have had a Pap smear, but is unsure. 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 [...] 30 mg prescription and sent to [facility] in [place]. - Advised patient to monitor for any significant changes in side effects. 2. Healthcare maintenance (Z00.00) Patient is 19 years old and sexually active; due for initial Pap smear. - Discussed importance of cervical cancer screening and recommended scheduling a Pap smear with her [employer] at [facility]. - Scheduled follow-up for routine physical examination in the first week of December. 3. Generalized anxiety disorder (F41.1) Condition is stable on Lexapro; patient reports feeling well. - Confirmed Lexapro prescription has refills available through next May. Saulo Camarillo MD Recording using Straight Up English software for draft documentation of the visit was discussed with the patient/authorized circulation sales representative; all questions welcomed and answered. Patient/authorized (more content not included)... Normal [facility] CNOVon 06-07-2024 CNOV Office Visit (FAMPHN ) BETTY QUINTANILLA ([id number]) 1 F Date Time Provider Department 06/07/24 [...] 300.02, ICD (more content not included)... Normal [facility] CNOVon 02-29-2024 CNOV Office Visit (OTOLTW ) BETTY QUINTANILLA ([id number]) 1 F Date Time Provider Department 02/29/24 [...] Reviewed that she does not currently meet [place] criteria for tonsillectomy. She expressed that the tonsil stones are very bothersome and would still like to get her tonsils out. -She is also reports an enlarged lymph node that she has had for many years. Had an ultrasound earlier this year that was normal. On exam today there is a prominent right anterior cervical lymph node, we will repeat ultrasound, follow-up via [facility] with results FOLLOW UP: Return as needed. Call sooner if problems develop. Erika Diaz APRN.HOLISTIC SPECIALIST ____ Referring Provider: I was consulted by Dr. Camarillo for frequent sore throat. Response to consult is via shared electronic medical record for my opinion. Reason for Consult: Betty Quintanilla is a 18 year old female who presents to [facility] Otolaryngology Department. Patient presents with: New [...] The muco (more content not included)... Normal [facility] CNOVon 02-20-2024 CNOV Office Visit (FAMPHN ) BETTY QUINTANILLA ([id number]) 1 F Date Time Provider Department 02/20/24 [...] by mo (more content not included)... Normal [facility] 01-05-2024 [facility] Telephone (EFRAINWS) BETTY QUINTANILLA ([id number]) 1 F Date Time Provider Department 01/05/24 RUBI AUGUSTE During your visit today, we recorded the following information about you: Rubi Auguste PA-C 01/05/2024 7:38 AM Signed Send to [facility] Labs are all normal. Thanks, CORNELIO Walker Amanda, RN 01/05/2024 8:36 AM Signed [facility] called and is notified of providers results. [...] Status:Closed by ALETA SOUSA on 01/05/24 Normal [facility] CBC W Auto Differential pane l (Bld)on 01-04-2024 Basophils (Bld) [#/Vol] 0.04 10*3/uL Normal <0.11 [facility] Comment on above: Order Comment: Speci men Type: BLOOD SPECIMEN Ordering Facility: [facility] Address: ATTN: [place] [address] Performed By: #### 5 7021-8 #### [facility] CLIA [id number] [address] [place] [address] [place] Basophils/100 WBC (Bld) 1.0 % Normal [facility] Comment on above: Order Comment: Speci men Type: BLOOD SPECIMEN Ordering Facility: [facility] Address: ATTN: [place] [address] Performed By: #### 5 7021-8 #### [facility] CLIA [id number] [address] [place] [address] [place] Differential cell count method Nom (Bld) Auto Normal [facility] Comment on above: Order Comment: Speci men Type: BLOOD SPECIMEN Ordering Facility: [facility] Address: ATTN: [place] [address] Performed By: #### 5 7021-8 #### [facility] CLIA [id number] [address] [place] [address] [place] Eosinophils (Bld) [#/Vol] 0.04 10*3/uL Normal <0.46 [facility] Comment on above: Order Comment: Speci men Type: BLOOD SPECIMEN Ordering Facility: [facility] Address: ATTN: [address] [address] Performed By: #### 5 7021-8 #### [facility] CLIA [id number] [address] [place] [address] [place] Eosinophils/100 WBC (Bld) 1.0 % Normal [facility] Comment on above: Order Comment: Speci men Type: BLOOD SPECIMEN Ordering Facility: [facility] Address: ATTN: [address] [address] Performed By: #### 5 7021-8 #### [facility] CLIA [id number] [address] [place] [address] [place] Erythrocyte distribution width (RBC) [Ratio] 12.6 % Normal 11.5-15.0 [facility] Comment on above: Order Comment: Speci men Type: BLOOD SPECIMEN Ordering Facility: [facility] Address: ATTN: [place] [address] Performed By: #### 5 7021-8 #### [facility] CLIA [id number] [address] [place] [address] [place] Hematocrit (Bld) [Volume fraction] 44.2 % Normal 36.0-46.0 [facility] Comment on above: Order Comment: Speci men Type: BLOOD SPECIMEN Ordering Facility: [facility] Address: ATTN: [place] [address] Performed By: #### 5 7021-8 #### [facility] CLIA [id number] [address] [place] [address] [place] Hemoglobin (Bld) [Mass/Vol] 14.2 g/dL Normal 11.5-15.5 [facility] Comment on above: Order Comment: Speci men Type: BLOOD SPECIMEN Ordering Facility: [facility] Address: ATTN: CARLYNery [place] [address] Performed By: #### 5 7021-8 #### [facility] CLIA [id number] [address] [place] [address] [place] Immature granulocytes (Bld) [#/Vol] 10*3/uL Normal <0.10 [facility] Comment on above: Order Comment: Speci men Type: BLOOD SPECIMEN Ordering Facility: [facility] Address: ATTN: [address] [place] [address] Performed By: #### 5 7021-8 #### [facility] CLIA [id number] [address] [place] [address] [place] Immature granulocytes/100 WBC (Bld) 0.2 % Normal [facility] Comment on above: Order Comment: Speci men Type: BLOOD SPECIMEN Ordering Facility: [facility] Address: ATTN: [place] [address] Performed By: #### 5 7021-8 #### [facility] CLIA [id number] [address] [place] [address] [place] Lymphocytes (Bld) [#/Vol] 1.13 10*3/uL Normal 1.00-4.00 [facility] Comment on above: Order Comment: Speci men Type: BLOOD SPECIMEN Ordering Facility: [facility] Address: ATTN: [place] [address] Performed By: #### 5 7021-8 #### [facility] CLIA [id number] [address] [place] [address] [place] Lymphocytes/100 WBC (Bld) 27.0 % Normal [facility] Comment on above: Order Comment: Speci men Type: BLOOD SPECIMEN Ordering Facility: [facility] Address: ATTN: [place] [address] Performed By: #### 5 7021-8 #### [facility] CLIA [id number] [address] [place] [address] [place] MCH (RBC) [Entitic mass] 27.4 pg Normal 26.0-34.0 [facility] Comment on above: Order Comment: Speci men Type: BLOOD SPECIMEN Ordering Facility: [facility] Address: ATTN: [place] [address] Performed By: #### 5 7021-8 #### [facility] CLIA [id number] [address] [place] [address] [place] MCHC (RBC) [Mass/Vol] 32.1 g/dL Normal 30.5-36.0 [facility] Comment on above: Order Comment: Speci men Type: BLOOD SPECIMEN Ordering Facility: [facility] Address: ATTN: [place] [address] Performed By: #### 5 7021-8 #### [facility] CLIA [id number] [address] [place] [address] [place] MCV (RBC) [Entitic vol] 85.3 fL Normal 80.0-100.0 [facility] Comment on above: Order Comment: Speci men Type: BLOOD SPECIMEN Ordering Facility: [facility] Address: ATTN: [place] [address] Performed By: #### 5 7021-8 #### [facility] CLIA [id number] [address] [place] [address] [place] Monocytes (Bld) [#/Vol] 0.25 10*3/uL Normal <0.87 [facility] Comment on above: Order Comment: Speci men Type: BLOOD SPECIMEN Ordering Facility: [facility] Address: ATTN: [place] [address] Performed By: #### 5 7021-8 #### [facility] CLIA [id number] [address] [place] [address] [place] Monocytes/100 WBC (Bld) 6.0 % Normal [facility] Comment on above: Order Comment: Speci men Type: BLOOD SPECIMEN Ordering Facility: [facility] Address: ATTN: [place] [address] Performed By: #### 5 7021-8 #### [facility] CLIA [id number] [address] [place] [address] [place] Neutrophils (Bld) [#/Vol] 2.72 10*3/uL Normal 1.45-7.50 [facility] Comment on above: Order Comment: Speci men Type: BLOOD SPECIMEN Ordering Facility: [facility] Address: ATTN: [place] [address] Performed By: #### 5 7021-8 #### [facility] CLIA [id number] [address] [place] [address] [place] Neutrophils/100 WBC (Bld) 64.8 % Normal [facility] Comment on above: Order Comment: Speci men Type: BLOOD SPECIMEN Ordering Facility: [facility] Address: ATTN: [place] [address] Performed By: #### 5 7021-8 #### [facility] CLIA [id number] [address] [place] [address] [place] Nucleated RBC (Bld) [#/Vol] 10*3/uL Normal <0.01 [facility] Comment on above: Order Comment: Speci men Type: BLOOD SPECIMEN Ordering Facility: [facility] Address: ATTN: [place] [address] Performed By: #### 5 7021-8 #### [facility] CLIA [id number] [address] [place] [address] [place] Nucleated RBC/100 WBC (Bld) [Ratio] 0.0 /100 WBC Normal [facility] Comment on above: Order Comment: Speci men Type: BLOOD SPECIMEN Ordering Facility: [facility] Address: ATTN: [place] [address] Performed By: #### 5 7021-8 #### [facility] CLIA [id number] [address] [place] [address] [place] Platelet mean volume (Bld) [Entitic vol] 11.1 fL Normal 9.0-12.7 [facility] Comment on above: Order Comment: Speci men Type: BLOOD SPECIMEN Ordering Facility: [facility] Address: ATTN: [place] [address] Performed By: #### 5 7021-8 #### [facility] CLIA [id number] [address] [place] [address] [place] Platelets (Bld) [#/Vol] 280 10*3/uL Normal 150-400 [facility] Comment on above: Order Comment: Speci men Type: BLOOD SPECIMEN Ordering Facility: [facility] Address: ATTN: [place] [address] Performed By: #### 5 7021-8 #### [facility] CLIA [id number] [address] [address] [place] RBC (Bld) [#/Vol] 5.18 10*6/uL Normal 3.90-5.20 [facility] Comment on above: Order Comment: Speci men Type: BLOOD SPECIMEN Ordering Facility: [facility] Address: ATTN: [place] [address] Performed By: #### 5 7021-8 #### [facility] CLIA [id number] [address] [address] [place] WBC (Bld) [#/Vol] 4.19 10*3/uL Normal 3.70-11.00 [facility] Comment on above: Order Comment: Speci men Type: BLOOD SPECIMEN Ordering Facility: [facility] Address: ATTN: [place] [address] Performed By: #### 5 7021-8 #### [facility] CLIA [id number] [address] [place] [id number] [place] Comprehensive metabolic 2000 panelon 01-04-2024 Albumin [Mass/Vol] 4.9 g/dL Normal 3.9-4.9 [facility] Comment on above: Order Comment: Speci men Type: BLOOD SPECIMENOrdering Facility: [facility] Address: ATTN: [place] [address] Performed By: #### 3 016-3, 90896-7, 55163-8 ####[facility] [id number] [address] [address] [place] ALP [Catalytic activity/Vol] 65 U/L Normal 34-123 [facility] Comment on above: Order Comment: Speci men Type: BLOOD SPECIMENOrdering Facility: [facility] Address: ATTN: [place] [address] Performed By: #### 3 016-3, 04265-1, ####[facility] [id number] [address] [address] [place] ALT [Catalytic activity/Vol] 11 U/L Normal 7-38 [facility] Comment on above: Order Comment: Speci men Type: BLOOD SPECIMENOrdering Facility: [facility] Address: ATTN: [place] [address] Performed By: #### 3 016-3, 96736-4, ####[facility] [id number] [address] [address] [place] Anion gap [Moles/Vol] 12 mmol/L Normal 8-15 [facility] Comment on above: Order Comment: Speci men Type: BLOOD SPECIMENOrdering Facility: [facility] Address: ATTN: [place] [address] Performed By: #### 3 016-3, , ####[facility] [id number] [address] [address] [place] AST [Catalytic activity/Vol] 18 U/L Normal 13-35 [facility] Comment on above: Order Comment: Speci men Type: BLOOD SPECIMENOrdering Facility: [facility] Address: ATTN: [place] [address] Performed By: #### 3 016-3, 60610-3, ####[facility] [id number] [address] [address] [place] Bilirubin [Mass/Vol] 0.5 mg/dL Normal 0.2-1.3 [facility] Comment on above: Order Comment: Speci men Type: BLOOD SPECIMENOrdering Facility: [facility] Address: ATTN: [place] [address] Performed By: #### 3 016-3, 36974-8, ####[facility] [id number] [address] [address] [place] Calcium [Mass/Vol] 9.7 mg/dL Normal 8.5-10.2 [facility] Comment on above: Order Comment: Speci men Type: BLOOD SPECIMENOrdering Facility: [facility] Address: ATTN: [place] [address] Performed By: #### 3 016-3, 62640-8, ####[facility] [id number] [address] [address] [place] Chloride [Moles/Vol] 104 mmol/L Normal 98-107 [facility] Comment on above: Order Comment: Speci men Type: BLOOD SPECIMENOrdering Facility: [facility] Address: ATTN: [place] [address] Performed By: #### 3 016-3, 56536-9, ####[facility] [id number] [place] [address] [place] CO2 [Moles/Vol] 25 mmol/L Normal 22-30 [facility] Comment on above: Order Comment: Speci men Type: BLOOD SPECIMENOrdering Facility: [facility] Address: ATTN: [place] [address] Performed By: #### 3 016-3, 88273-6, ####[facility] [id number] [place] [id number] [place] Creatinine [Mass/Vol] 0.64 mg/dL Normal 0.58-0.96 [facility] Comment on above: Order Comment: Speci men Type: BLOOD SPECIMENOrdering Facility: [facility] Address: ATTN: [place] [address] Performed By: #### 3 016-3, 17819-4, ####[facility] [id number] [address] [address] [place] Creatinine and Glomerular filtration rate.predicted panel (S/P/Bld) 130 mL/min/1.73m??? Normal >=60 [facility] Comment on above: Order Comment: Raeann rucker Type: BLOOD SPECIMENOrdering Facility: [facility] Address: ATTN: [place] [address] Result Comment: Tyesha mated Glomerular Filtration Rate [...] actual GFR. Performed By: #### 3 016-3, 09369-7, ####[facility] [id number] [address] [address] [place] Glucose [Mass/Vol] 93 mg/dL Normal 74-99 [facility] Comment on above: Order Comment: Raeann rucker Type: BLOOD SPECIMENOrdering Facility: [facility] Address: ATTN: [place] [address] Result Comment: The [place] [employer] (ADA) provides guidance for cutoff [...] Standards of Medical Care in Diabetes 2016, [place] [employer]. Diabetes Care. 2016.39(Suppl 1). Performed By: #### 3 016-3, 51647-6, ####[facility] [id number] [address] [address] [place] Potassium [Moles/Vol] 4.6 mmol/L Normal 3.7-5.1 [facility] Comment on above: Order Comment: Speci men Type: BLOOD SPECIMENOrdering Facility: [facility] Address: ATTN: [place] [address] Performed By: #### 3 016-3, 59160-5, ####[facility] [id number] [address] [address] [place] Protein [Mass/Vol] 7.3 g/dL Normal 6.3-8.0 [facility] Comment on above: Order Comment: Speci men Type: BLOOD SPECIMENOrdering Facility: [facility] Address: ATTN: CARLY RIVERARU[place] [address] Performed By: #### 3 016-3, 64225-0, ####[facility] LABCLIA [id number] [place] [address] [place] Sodium [Moles/Vol] 141 mmol/L Normal 136-144 [facility] Comment on above: Order Comment: Speci men Type: BLOOD SPECIMENOrdering Facility: [facility] Address: ATTN: [place] [address] Performed By: #### 3 016-3, , ####[facility] LABCLIA [id number] [place] [id number] [place] Urea nitrogen [Mass/Vol] 13 mg/dL Normal 7-21 [facility] Comment on above: Order Comment: Speci men Type: BLOOD SPECIMENOrdering Facility: [facility] Address: ATTN: [place] [address] Performed By: #### 3 016-3, 42054-1, ####[facility] LABCLIA [id number] [address] [address] [place] Magnesium SerPl-mCncon 01-03 Magnesium [Mass/Vol] 2.2 mg/dL Normal 1.7-2.3 [facility] Comment on above: Order Comment: Raeann rucker Type: BLOOD SPECIMENOrdering Facility: [facility] Address: ATTN: [place] [address] Performed By: #### 3 016-3, 56430-6, ####[facility] LABCLIA [id number] [place] [address] [place] TSH SerPl-aCncon 01-04-2024 TSH Qn 2.420 m[IU]/L Normal 0.510-4.300 [facility] Comment on above: Order Comment: Raeann rucker Type: BLOOD SPECIMENOrdering Facility: [facility] Address: ATTN: [place] [address] Result Comment: If t he patient is [...] Resendiz, et al. 2017 Guidelines of the [place] [employer] Association for the Diagnosis and Management of Thyroid Disease during and the . Thyroid, 2017:27:3:315-389. Performed By: #### 3 016-3, 36591-4, ####[facility] LABCLIA [id number] [place] [id number] [place] CNOVon 08-15-2023 CNOV Office Visit (EDC) BETTY [id number]) 1 F Date Time Provider Department 08/15/23 11:00 AM HERMINIO WOODS [facility] During your visit today, we recorded the following information about you: Temperature Pulse Blood pressure Weight 97.3 degrees 81/minute 116/79 56.1 kg Herminio Woods, GUMARO.CHRIS 08/15/2023 11:47 AM Signed This note was created using Insider Pagesriter. Subjective Betty Quintanilla is a 18 year [...] time patient states that she is [place] but [place] get in [...] in [place] where she lives. Herminio Woods APRN.[facility] Allergies As of Date: 08/15/2023 (No Known Allergies) Date Reviewed: 08/15/2023 Reviewed by: Herminio Woods APRN.[facility] - Fully Assessed Reason for Visit: Mass [64] Cmt: Patient is complaining of a lump on right side of neck X 1 year. States there is no pain but it feels "rubbery" when she pushes on it. Primary Visit Diagnosis:Neck mass [R22.1] Other Visit Diagnosis:Fatigue, unspecified type [R53.83] Order(s):US HEAD/NECK SOFT TISSUE OTHER [4520841] Order #: [id number] FUTURE amoxicillin-clavulanat e potassium (AUGMENTIN) 875-125 mg per tabletTake 1 tablet by mouth every 12 hours for 10 days.Disp: 20 tabletRfl: 0 CONSULT TO ENT [9008] Order #: [id number]: 1 FUTURE Prescriptions as of 08/15/2023 - [...] encounter Disp (more content not included)... Normal [facility] Office Visiton 02-24-2023 Follow-up visit [id number] Ny Quintanilla 2005 F Date Provider Department Center 02/24/2023 [id number] [facility]OU [facility] PA [facility] OB Offi No family history on file Level of Service:69671 [place] OFFICE/OUTPATIENT ESTABLISHED [facility] 10-19 MIN Reason for Visit and Comments: other [Other] - Pt can't feel her IUD strings Normal [facility] Progress Noteon 02-24-2023 Progress Note Betty Quintanilla 02/24/2025 17 y.o. Chief Complaint Patient presents with other Pt can't feel her IUD strings No LMP recorded. Primary CarePhysician: [facility] HPI: Betty Quintanilla is a [...] if worsens plan for pelvic US Normal [facility] Progress Note A pourer crane ladle was offered to be present during her exam. The patient: declined Normal [facility] Progress Noteon 02-21-2023 Electrical Engineering Designer Authentication Interface Message Text Patient ID: Betty [...] air entry. Neurological: She is alert. Normal [facility] Strep A (Throat Rapid KISHAN)on 01-21-2023 S. pyogenes Ag IA Ql (Unsp spec) A Disk (Conf. Cult) Negative for Strep Group A Rapid Strep A Screen NEGATIVE Normal [facility] Comment on above: Performed By: #### M [id number] #### [facility] Laboratory [address] [place], [address] Progress Noteon 01-11-2023 Electrical Engineering Designer Authentication Interface Message Text Patient ID: Betty [...] speech is normal. Cognition are normal. Normal [facility] HCG ( test) Ql (U)o n 10-06-2022 Beta HCG ( test) Ql (U) [id number] [employer] Interpretation and review of laboratory results Normal [facility] NEGATIVE QC Pass [facility] POSITIVE QC Pass [facility] Preg Test, Ur Negative Negative [facility] Progress Noteon 10-06-2022 Progress Note IUD Insertion: [...] in 4 weeks for string check. Normal [facility] Progress Note A pourer crane ladle was offered to be present during her exam. The patient: declined [facility] 36on 10-04-2022 36 [place], Do you have her device? [facility] 36on 09-30-2022 36 Message released to patient as written. 09/30/22 Pt called back needing the correct number to [facility] gave pt phone # pt will be calling to confirm shipment to office pls advise Patient's further questions if applicable: Were all questions from office addressed or relayed to the patient from encounter: Yes [facility] 36 Patient called [facility] speciality for IUD and they advised there was nothing there for her. I checked chart and patient needs to call [facility] to activate the IUD and then it will be delivered. Advised Patient of the [facility] number. Normal [facility] 36 Per patient, I ribeiro d [facility] to schedule delivery. Micky stated they still need to talk to patient to confirm order. [facility] set up 'pro-active' Delivery, which will be activated once patient has called them to confirmed order. I called patient and gave her the phone number for the Specialty Pharmacy which she agreed to call. [facility] Progress Noteon 09-23-2022 Electrical Engineering Designer Authentication Interface Message Text Patient ID: Betty [...] temperature source Temporal, weight 52 kg. Normal [facility] 36on 09-16-2022 36 For [place] office, fax ed completed Kyleena IUD Prior Auth form with Demographics/Insurance card to [facility] . . MUST be on period for insertion. Pt will need a sameday Urine Test in-office. Normal [facility] Office Visiton 09-16-2022 Follow-up visit [id number] Ny Quintanilla shahnaz Manzano 2005 F Date Provider Department Center 09/16/2022 [id number] [facility] PA [facility] OB Offi No family history on file Level of Service:43444 [place] INITIAL PREVENTIVE MEDICINE NEW PT AGE 18-39YRS Reason for Visit and Comments: New Patient [542] - Establish care and STI testing Normal [facility] Progress Noteon 09-16-2022 Progress Note A pourer crane ladle was offered to be present during her exam. The patient: declined Normal [facility] Progress Note Betty Quintanilla 09/16/2024 17 y.o. Chief Complaint Patient presents with New Patient Establish care and STI testing Primary Care Physician: [facility] HPI: Betty Quintanilla is a 17 y.o. female here today for annual exam. Previously did OCPs but started to have side effects. Interested in IUD. Denies pelvic pain. Going to [employer] Patient's last menstrual period was 08/17/2022. Past [...] Trichomonas vaginalis RNA, Qualitative, TMA, Female Normal [facility] US HEAD NECK SOFT TISSUEon 0 09-03-2022 [...] Dr. John Ochoa at 09/03/2022 14:34 Normal [facility] US Head and neck soft tissue on [...] tissue swelling is present to suggest lymphadenitis. [facility] John Weaver MD - 09/03/2022 CLINICAL HISTORY: [...] has been created using voice recognition software [facility] Radiology Study observation (narrative) [facility] US Head and neck soft tissue Ordered By: John Ochoa on 09-03-2022 [facility] Work Phone: Progress Noteon 08-19-2022 Electrical Engineering Designer Authentication Interface Message Text Patient ID: Betty [...] this week because of upcoming apt with [employer] [place] like cramps and flow is actually worse Wants to discuss other options with [employer] Has reading glasses Followed by psychology for PTSD She is unaccompanied. No interpreter translator was used. 17 YEAR WELL CHILD Home: Betty eats meals with family, has an adult to turn to for help and is permitted and able to make independent decisions. Education: Betty is doing well. 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 Eating: Betty eats regular meals including fruits [...] declined. (wants to get it done at [employer]). Suicidality: Betty has ways to cope with [...] patient's hearing. Patient is being seen by automobile upholsterer or microsoft windows engineer. Primary Care Review of Systems Objective Vital [...] Abdominal: Soft. (more content not included)... Normal [facility] Complete Blood Count without Differential (Hemogram)on 07-02-2022 Erythrocyte distribution width (RBC) [Ratio] 13.9 % 0.0 - 14.4 % [facility] Hematocrit (Bld) [Volume fraction] 38.5 % 37.0 - 46.0 % [facility] Hemoglobin (Bld) [Mass/Vol] 12.2 g/dL 12.0 - 15.0 g/dl [facility] Interpretation and review of laboratory results Abnormal [facility] MCH (RBC) [Entitic mass] 25.1 pg 25.0 - 35.0 pg [facility] MCHC 31.7 % 31.0 - 37.0 % [facility] MCV (RBC) [Entitic vol] 79.1 fL 78.0 - 96.0 fl [facility] Nucleated RBC/100 WBC (Bld) [Ratio] 0 % -1.0 - 0.0 % [facility] Platelet mean volume (Bld) [Entitic vol] 10.0 fL [facility] Comment on above: MPV is platelet range and age dependent Platelets (Bld) [#/Vol] 278 10*3/uL [facility] RBC (Bld) [#/Vol] 4.87 10*6/uL High [facility] WBC (Bld) [#/Vol] 7.5 10*3/uL [facility] Release to patient->Automatic [facility] Hemogramon 07-02-2022 Erythrocyte distribution width (RBC) [Ratio] 13.9 % Normal 0.0-14.4 [facility] Comment on above: Order Comment: Relea se to patient->Automatic 00103&Blood Performed By: #### H EGRM #### [place] [address] Hematocrit (Bld) [Volume fraction] 38.5 % Normal 37.0-46.0 [facility] Comment on above: Order Comment: Relea se to patient->Automatic 56412&Blood Performed By: #### H EGRM #### [place] [address] Hemoglobin (Bld) [Mass/Vol] 12.2 g/dL Normal 12.0-15.0 [facility] Comment on above: Order Comment: Relea se to patient->Automatic 58004&Blood Performed By: #### H EGRM #### [place] [address] MCH (RBC) [Entitic mass] 25.1 pg Normal 25.0-35.0 [facility] Comment on above: Order Comment: Relea se to patient->Automatic 37833&Blood Performed By: #### H EGRM #### [address] [address] MCHC 31.7 % Normal 31.0-37.0 [facility] Comment on above: Order Comment: Relea se to patient->Automatic 16198&Blood Performed By: #### H EGRM #### [address] [address] MCV (RBC) [Entitic vol] 79.1 fL Normal 78.0-96.0 [facility] Comment on above: Order Comment: Relea se to patient->Automatic 15826&Blood Performed By: #### H EGRM #### [address] [address] Nucleated RBC/100 WBC (Bld) [Ratio] 0.0 % Normal -1.0-0.0 [facility] Comment on above: Order Comment: Relea se to patient->Automatic 03162&Blood Performed By: #### H EGRM #### [address] [address] Platelet mean volume (Bld) [Entitic vol] 10.0 fL Normal [facility] Comment on above: Order Comment: Relea se to patient->Automatic 78228&Blood Result Comment: MPV is platelet range and age dependent Performed By: #### H EGRM #### [address] [address] Platelets (Bld) [#/Vol] 278 10*3/uL Normal 150-450 [facility] Comment on above: Order Comment: Relea se to patient->Automatic 65967&Blood Performed By: #### H EGRM #### [address] [id number] RBC 4.87 10E12/L High 4.10-4.80 [facility] Comment on above: Order Comment: Relea se to patient->Automatic 31093&Blood Performed By: #### H EGRM #### [facility] [address] [place], [place] [id number] WBC (Bld) [#/Vol] 7.5 10*3/uL Normal 4.5-13.0 [facility] Comment on above: Order Comment: Relea se to patient->Automatic 69452&Blood Performed By: #### H EGRM #### [facility] [address] [place], [place] [id number] Progress Noteon 07-01-2022 Electrical Engineering Designer Authentication Interface Message Text Patient ID: Betty [...] virtual visit. Neurological: She is alert. Normal [facility] Brain/Head without Contrasto n 05-04-2022 Brain/Head without Contrast [facility] [address] [place] [address] Brain/Head without Contrast MR#: [id number] Acct: [id number] Name: BETTY QUINTANILLA Rep #: [id number] : 2005 F 16 From: Ten Huntley MD PCP: Dr. Kat Santos MD Status: REG ER Study: Brain/Head without Contrast Date of Exam: 04/15 04/05 Exam# [id number] Ordering Dr: Marco Antonio Dunbar DO STUDY: [...] CC: Dr. Marco Antonio Dunbar DO; Dr. Kta Santos MD Workday Consultant: Signed Normal [facility] Emergency Department Summary on 05-04-2022 Emergency Department Summary [facility] Medical Records Department [address] [place] [address] Emergency Department Summary 05/04/22 MR#: [id number] Acct: [id number] Name: BETTY QUINTANILLA Rep #: [id number] : 2005 16 From: Marco Antonio Dunbar [...] or weakness. Patient denies any other injuries. [facility] Medical History ADHD Medical History no medical [...] motor deficits and no sensory deficits noted [place] Coma Scale: document GCS findings Spontaneous Obeys [...] 20:46 EST Reading Location ID and State: [facility] / [place] , Service support , CT scan of [...] Head Injury (more content not included)... Normal [facility] Progress Noteon 03-22-2022 Electrical Engineering Designer Authentication Interface Message Text This is a [...] out of the home. Currently at college ([employer]) in the dorms and has a roommate. [...] difficult at times with a roommate at [employer]. Changes implemented since last visit: No significant [...] drip. Card (more content not included)... Normal [facility] Progress Noteon 03-04-2022 Electrical Engineering Designer Authentication Interface Message Text Betty Quintanilla is [...] Meningococcal B (BEXSERO) - COVID-19 MRNA VACCINE [employer] BIVALENT BOOSTER 30MCG/0.3ML IM SUSP 12+ YEARS Weight loss Anxiety - PHQ9 Assessment With Score Gave notes for room and board exemptions. Subjective HPI Comments: Roommate situation is poor. Loves classes and teachers. 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 Mental health is pretty good. Still in counseling. Can't sleep because of roommate. Was working with [employer]. She is accompanied by her [...] adenopathy present. Neurological: She is alert. Normal [facility] ED NOTEon 11-09-2021 ED NOTE HNO ID: [id number] Author: Sara Ron RN Service: Emergency Medicine Author Type: Registered Nurse Type: ED Notes Filed: 11/09/2021 8:27 PM Note Text: Patient informed: the name of medication, why we are giving it, possible side effects, what they may expect to feel, and was offered a chance to ask questions, prior to the administration of rabies vaccine and immune globulin Normal [facility] ED NOTE HNO ID: [id number] Author: Sara Ron RN Service: Emergency Medicine Author Type: Registered Nurse Type: ED Notes Filed: 11/09/2021 7:59 PM Note Text: Pt to ED with c/o "I go to [facility] [employer], and our dorm building has bats, and I think I got bit by one on Tuesday when I was sleeping, I found the elise on my left lower leg this morning. I went to [facility] and they said they didn't any rabies vaccine, so I went to [facility] [place] and the wait was 6-7 hours so we didn't want to wait so we were told to come here" pt indicates bite is to left lower leg on lateral side, no redness or swelling noted. Denies any pain. Normal [facility] ED PROV NOTEon 11-09-2021 ED PROV NOTE HNO ID: [id number] Author: Viktoriya Orourke DO Service: Emergency Medicine [...] she woke up Tuesday with a red leise on her left leg. She states that [...] leg laterally that is marked with a [place]olla around it that patient reports is a [...] to chaim (more content not included)... Normal [facility] TSHon 06-29-2021 TSH Qn 1.910 m[IU]/L [facility] Vital Signs Date Time Vital Sign Value Performing Clinician Facility 09-07-2024 13:30-0400 Body height 154.9 cm Saulo Camarillo MD Work Phone: [facility] 09-07-2024 13:30-0400 Body mass index (BMI) [Ratio] 21.83 kg/m2 Saulo Camarillo MD Work Phone: [facility] 09-07-2024 13:30-0400 Body temperature 97.7 [degF] Saulo Camarillo MD Work Phone: [facility] 09-07-2024 13:30-0400 Body weight 52.4 kg Saulo Camarillo MD Work Phone: [facility] 09-07-2024 13:30-0400 Diastolic blood pressure 58 mm[Hg] Saulo Camarillo MD Work Phone: [facility] 09-07-2024 13:30-0400 Heart rate 76 /min Saulo Camarillo MD Work Phone: [facility] 09-07-2024 13:30-0400 Systolic blood pressure 102 mm[Hg] Saulo Camarillo MD Work Phone: [facility] 06-07-2024 16:48-0400 Body height 154.9 cm Saulo Camarillo MD Work Phone: [facility] 06-07-2024 16:48-0400 Body mass index (BMI) [Ratio] 21.87 kg/m2 Saulo Camarillo MD Work Phone: [facility] 06-07-2024 16:48-0400 Body temperature 97.5 [degF] Saulo Camarillo MD Work Phone: [facility] 06-07-2024 16:48-0400 Body weight 52.5 kg Saulo Camarillo MD Work Phone: [facility] 06-07-2024 16:48-0400 Diastolic blood pressure 70 mm[Hg] Saulo Camarillo MD Work Phone: [facility] 06-07-2024 16:48-0400 Heart rate 70 /min Saulo Camarillo MD Work Phone: [facility] 06-07-2024 16:48-0400 SaO2% (BldA) [Mass fraction] 99 % Saulo Camarillo MD Work Phone: [facility] 06-07-2024 16:48-0400 Systolic blood pressure 110 mm[Hg] Saulo Camarillo MD Work Phone: [facility] 02-20-2024 10:30-0500 Body height 154.9 cm Saulo Camarillo MD Work Phone: [facility] 02-20-2024 10:30-0500 Body mass index (BMI) [Ratio] 22.16 kg/m2 Saulo Camarillo MD Work Phone: [facility] 02-20-2024 10:30-0500 Body temperature 97.11 [degF] Saulo Camarillo MD Work Phone: [facility] 02-20-2024 10:30-0500 Body weight 53.2 kg Saulo Camarillo MD Work Phone: [facility] 02-20-2024 10:30-0500 Diastolic blood pressure 70 mm[Hg] Saulo Camarillo MD Work Phone: [facility] 02-20-2024 10:30-0500 Heart rate 68 /min Saulo Camarillo MD Work Phone: [facility] 02-20-2024 10:30-0500 Systolic blood pressure 100 mm[Hg] Saulo Camarillo MD Work Phone: [facility] 11-22-2023 08:49-0400 Body height 154.9 cm Saulo Camarillo MD Work Phone: [facility] 11-22-2023 08:49-0400 Body mass index (BMI) [Ratio] 23.33 kg/m2 Saulo Camarillo MD Work Phone: [facility] 11-22-2023 08:49-0400 Body temperature 98.1 [degF] Saulo Camarillo MD Work Phone: [facility] 11-22-2023 08:49-0400 Body weight 56 kg Saulo Camarillo MD Work Phone: [facility] 11-22-2023 08:49-0400 Diastolic blood pressure 78 mm[Hg] Saulo Camarillo MD Work Phone: [facility] 11-22-2023 08:49-0400 Heart rate 64 /min Saulo Camarillo MD Work Phone: [facility] 11-22-2023 08:49-0400 Systolic blood pressure 122 mm[Hg] Saulo Camarillo MD Work Phone: [facility] 08-15-2023 11:12-0400 Body temperature 97.3 [degF] Herminio [place] METER INSTALLER.HOLISTIC SPECIALIST Work Phone: [facility] 08-15-2023 11:12-0400 Body weight 56.06 kg Herminio Chuck METER INSTALLER.HOLISTIC SPECIALIST Work Phone: [facility] 08-15-2023 11:12-0400 Diastolic blood pressure 79 mm[Hg] Herminio Chuck METER INSTALLER.HOLISTIC SPECIALIST Work Phone: [facility] 08-15-2023 11:12-0400 Heart rate 81 /min Herminio Chuck METER INSTALLER.HOLISTIC SPECIALIST Work Phone: [facility] 08-15-2023 11:12-0400 SaO2% (BldA) [Mass fraction] 98 % Herminio Chuck METER INSTALLER.HOLISTIC SPECIALIST Work Phone: [facility] 08-15-2023 11:12-0400 Systolic blood pressure 116 mm[Hg] Herminio [place] METER INSTALLER.HOLISTIC SPECIALIST Work Phone: [facility] 02-24-2023 11:42-0500 Body mass index (BMI) [Ratio] 21.95 kg/m2 Keri Lou MD Work Phone: [facility] [employer] 02-24-2023 11:42-0500 Body weight 54.43 kg Keri Lou MD Work Phone: [facility] 02-24-2023 11:42-0500 Diastolic blood pressure 77 mm[Hg] Keri Lou MD Work Phone: [facility] [employer] 02-24-2023 11:42-0500 Heart rate 109 /min Keri Lou MD Work Phone: [facility] 02-24-2023 11:42-0500 Systolic blood pressure 120 mm[Hg] Keri Lou MD Work Phone: [facility] 01-19-2023 17:35-0500 Body height 157.48 cm [facility] 01-19-2023 17:35-0500 Body mass index (BMI) [Percentile] Per age and sex 50.7 % [facility] 01-19-2023 17:35-0500 Body mass index (BMI) [Ratio] 21.7 kg/m2 [facility] 01-19-2023 17:35-0500 Body temperature 97.6 [degF] [facility] 01-19-2023 17:35-0500 Body weight 53.97 kg [facility] 01-19-2023 17:35-0500 Diastolic blood pressure 78 mm[Hg] [facility] 01-19-2023 17:35-0500 Heart rate 90 /min [facility] 01-19-2023 17:35-0500 Respiratory rate 18 /min [facility] 01-19-2023 17:35-0500 SaO2% (BldA) [Mass fraction] 97 % [facility] 01-19-2023 17:35-0500 Systolic blood pressure 118 mm[Hg] [facility] 10-06-2022 16:43-0400 Diastolic blood pressure 79 mm[Hg] Jacquelyn Trevino MD Work Phone: [facility] 10-06-2022 16:43-0400 Heart rate 84 /min Jacquelyn Trevino MD Work Phone: [facility] 10-06-2022 16:43-0400 Systolic blood pressure 128 mm[Hg] Jacquelyn Trevino MD Work Phone: [facility] 09-16-2022 12:08-0400 Body height 157.5 cm Keri Lou MD Work Phone: [facility] 09-16-2022 12:08-0400 Body mass index (BMI) [Ratio] 21.22 kg/m2 Keri Lou MD Work Phone: [facility] 09-16-2022 12:08-0400 Body weight 52.62 kg Keri Lou MD Work Phone: [facility] 09-16-2022 12:08-0400 Diastolic blood pressure 80 mm[Hg] Keri Lou MD Work Phone: [facility] 09-16-2022 12:08-0400 Heart rate 82 /min Keri Lou MD Work Phone: [facility] 09-16-2022 12:08-0400 Systolic blood pressure 120 mm[Hg] Keri Lou MD Work Phone: [facility] 05-04-2022 19:37-0500 Body height 154.94 cm [facility] 05-04-2022 19:37-0500 Body mass index (BMI) [Percentile] Per age and sex 64.5 % [facility] 05-04-2022 19:37-0500 Body mass index (BMI) [Ratio] 22.8 kg/m2 [facility] 05-04-2022 19:37-0500 Body temperature 97.6 [degF] [facility] 05-04-2022 19:37-0500 Body weight 54.7 kg [facility] 05-04-2022 19:37-0500 Diastolic blood pressure 73 mm[Hg] [facility] 05-04-2022 19:37-0500 Heart rate 84 /min [facility] 05-04-2022 19:37-0500 Respiratory rate 15 /min [facility] 05-04-2022 19:37-0500 SaO2% (BldA) [Mass fraction] 99 % [facility] 05-04-2022 19:37-0500 Systolic blood pressure 119 mm[Hg] [facility] 11-24-2021 21:02-0400 Body height 154.94 cm [facility] Work Phone: 11-24-2021 21:02-0400 Body mass index (BMI) [Percentile] Per age and sex 54 % [facility] Work Phone: 11-24-2021 21:02-0400 Body mass index (BMI) [Ratio] 21.7 kg/m2 [facility] Work Phone: 11-24-2021 21:02-0400 Body temperature 97.4 [degF] [facility] Work Phone: 11-24-2021 21:02-0400 Body weight 52.16 kg [facility] Work Phone: 11-24-2021 21:02-0400 Diastolic blood pressure 96 mm[Hg] [facility] Work Phone: 11-24-2021 21:02-0400 Heart rate 101 /min [facility] Work Phone: 11-24-2021 21:02-0400 Respiratory rate 16 /min [facility] Work Phone: 11-24-2021 21:02-0400 SaO2% (BldA) [Mass fraction] 100 % [facility] Work Phone: 11-24-2021 21:02-0400 Systolic blood pressure 134 mm[Hg] [facility] Work Phone: 11-17-2021 20:35-0400 Body height 154.94 cm [facility] Work Phone: 11-17-2021 20:35-0400 Body mass index (BMI) [Percentile] Per age and sex 54.1 % [facility] Work Phone: 11-17-2021 20:35-0400 Body mass index (BMI) [Ratio] 21.7 kg/m2 [facility] Work Phone: 11-17-2021 20:35-0400 Body temperature 97.9 [degF] [facility] Work Phone: 11-17-2021 20:35-0400 Body weight 52.16 kg [facility] Work Phone: 11-17-2021 20:35-0400 Diastolic blood pressure 78 mm[Hg] [facility] Work Phone: 11-17-2021 20:35-0400 Heart rate 90 /min [facility] Work Phone: 11-17-2021 20:35-0400 Respiratory rate 16 /min [facility] Work Phone: 11-17-2021 20:35-0400 SaO2% (BldA) [Mass fraction] 98 % [facility] Work Phone: 11-17-2021 20:35-0400 Systolic blood pressure 114 mm[Hg] [facility] Work Phone: 11-13-2021 10:27-0400 Body height 154.94 cm [facility] Work Phone: 11-13-2021 10:27-0400 Body mass index (BMI) [Percentile] Per age and sex 54.1 % [facility] Work Phone: 11-13-2021 10:27-0400 Body mass index (BMI) [Ratio] 21.7 kg/m2 [facility] Work Phone: 11-13-2021 10:27-0400 Body temperature 97.3 [degF] [facility] Work Phone: 11-13-2021 10:27-0400 Body weight 52.16 kg [facility] Work Phone: 11-13-2021 10:27-0400 Heart rate 76 /min [facility] Work Phone: 11-13-2021 10:27-0400 Respiratory rate 16 /min [facility] Work Phone: 11-13-2021 10:27-0400 SaO2% (BldA) [Mass fraction] 99 % [facility] Work Phone: 08-29-2022 15:10-0400 Body height 154.94 cm [facility] Work Phone: 11-09-2021 15:10-0400 Body mass index (BMI) [Percentile] Per age and sex 56.5 % [facility] Work Phone: 11-09-2021 15:10-0400 Body mass index (BMI) [Ratio] 21.9 kg/m2 [facility] Work Phone: 11-09-2021 15:10-0400 Body temperature 98.9 [degF] [facility] Work Phone: 11-09-2021 15:10-0400 Body weight 52.61 kg [facility] Work Phone: 11-09-2021 15:10-0400 Diastolic blood pressure 90 mm[Hg] [facility] Work Phone: 11-09-2021 15:10-0400 Heart rate 89 /min [facility] Work Phone: 11-09-2021 15:10-0400 Respiratory rate 14 /min [facility] Work Phone: 11-09-2021 15:10-0400 SaO2% (BldA) [Mass fraction] 98 % [facility] Work Phone: 11-09-2021 15:10-0400 Systolic blood pressure 144 mm[Hg] [facility] Work Phone: Encounters Encounter Date Encounter Type Care Provider Facility Start: 12-19-2024 End: 12-19-2024 ambulatory SAULO CAMARILLO Facility:[facility] Start: 12-18-2024 End: 12-18-2024 ambulatory SAULO CAMARILLO Facility:[facility] Start: 12-18-2024 Physical examination SAULO Prieto [facility] Start: 11-24-2024 End: 11-26-2024 ambulatory Saulo Camarillo MD Work Phone: Family Medicine Comment on above: Lexapro Start: 09-20-2024 End: 09-20-2024 ambulatory SAULO CAMARILLO Facility:[facility] Start: 09-07-2024 End: 09-07-2024 Office outpatient visit 25 minutes Saulo Camarillo MD Work Phone: Family Medicine Comment on above: ADHD (attention defi cit hyperactivity disorder), combined type (Primary Dx); Healthcare maintenance; Generalized anxiety disorder Start: 09-07-2024 End: 09-07-2024 Patient encounter status Saulo Camarillo MD Work Phone: [facility] Start: 09-07-2024 End: 09-07-2024 ambulatory SAULO CAMARILLO Facility:[facility] Start: 09-07-2024 Encounter for genera l adult medical examination without abnormal findings SAULO CAMARILLO [facility] Start: 08-28-2024 End: 08-28-2024 ambulatory Saulo Camarillo MD Work Phone: Family Medicine Comment on above: Vyvanse Start: 07-03-2024 End: 07-03-2024 ambulatory Saulo Camarillo MD Work Phone: Family Medicine Comment on above: Stomach issues Start: 06-07-2024 End: 06-07-2024 ambulatory SAULO CAMARILLO Facility:[facility] Start: 06-07-2024 End: 06-07-2024 Office outpatient visit 25 minutes Saulo Camarillo MD Work Phone: Family Medicine Comment on above: ADHD (attention defi cit hyperactivity disorder), combined type (Primary Dx); ADITYA (generalized anxiety disorder); Epigastric pain Start: 05-13-2024 End: 05-14-2024 ambulatory Saulo Camarillo MD Work Phone: Family Medicine Comment on above: Vyvanse prescription Start: 02-29-2024 End: 02-29-2024 ambulatory SAULO CAMARILLO Facility:[facility] Start: 02-29-2024 End: 02-29-2024 Patient encounter procedure Erika Diaz APRN.CNP Work Phone: Otolaryngology Comment on above: Tonsil stone (Primar y Dx); Enlarged lymph node; Sore throat Start: 02-20-2024 End: 02-20-2024 ambulatory SAULO CAMARILLO Facility:[facility] Start: 02-20-2024 End: 02-20-2024 Office outpatient visit 25 minutes Saulo Camarillo MD Work Phone: Family [facility] Comment on above: ADHD (attention defi cit hyperactivity disorder), combined type (Primary Dx); ADITYA (generalized anxiety disorder); Easy bruising Start: 02-16-2024 End: 02-17-2024 Refill Saulo Camarillo MD Work Phone: [facility] Comment on above: Refill Request Start: 01-05-2024 End: 01-05-2024 Telephone encounter Rubi Auguste PA-C Work Phone: [facility] Comment on above: Results Start: 12-24-2023 End: 12-27-2023 ambulatory Saulo Camarillo MD Work Phone: [facility] Start: 12-24-2023 End: 12-27-2023 Patient encounter procedure Saulo Camarillo MD Work Phone: [facility] Comment on above: ENT referral Start: 11-22-2023 End: 11-22-2023 Patient encounter procedure Saulo Camarillo MD Work Phone: [facility] Comment on above: Routine physical exa mination (Primary Dx); ADITYA (generalized anxiety disorder); ADHD (attention deficit hyperactivity disorder), combined type; Chronic insomnia; Cervical adenopathy; Tonsil stone; Screening for depression; Encounter to establish care Start: 11-22-2023 End: 11-22-2023 Physical examination Saulo Camarillo MD Work Phone: [facility] Work Phone: Start: 09-07-2023 ambulatory Herminio Woods METER INSTALLER.HOLISTIC SPECIALIST Work Phone: Internal Med[facility] [place] Comment on above: Neck ultrasound Start: 08-31-2023 End: 08-31-2023 Subsequent hospital visit by physician [facility] Comment on above: Neck mass [R22.1] Start: 08-15-2023 End: 08-15-2023 ambulatory HERMINIO WOODS Facility:[id number] Start: 08-15-2023 End: 06-03-2024 Periodic preventive med est patient 18-39 yrs Herminio Woods METER INSTALLER.HOLISTIC SPECIALIST Work Phone: [facility] [place] Comment on above: Neck mass (Primary D x); Fatigue, unspecified type Start: 02-24-2023 End: 02-24-2023 ambulatory KERI LOU [facility] Start: 02-24-2023 End: 02-24-2023 Office outpatient visit 10 minutes Keri Lou MD Work Phone: [facility] Comment on above: Pelvic pain (Primary Dx); IUD (intrauterine device) in place Start: 02-21-2023 End: 02-21-2023 ambulatory [facility] Start: 01-19-2023 End: 01-19-2023 Emergency department patient visit Wilfred Lozada Facility:[facility] Start: 01-19-2023 End: 01-19-2023 Emergency department patient visit [facility] Work Phone: Start: 01-11-2023 End: 01-11-2023 ambulatory [facility] Start: 12-28-2022 End: 12-28-2022 ambulatory [facility] Start: 12-14-2022 [facility] Start: 11-30-2022 ambulatory [facility] Start: 10-06-2022 End: 10-06-2022 ambulatory [facility] Start: 10-06-2022 End: 10-06-2022 Encounter for preprocedural laboratory examination JACQUELYN TREVINO [facility] Start: 10-06-2022 End: 10-06-2022 Patient encounter procedure Jacquelyn Trevino MD Work Phone: [facility] Comment on above: Encounter for IUD in sertion (Primary Dx); Pre-procedure lab exam Start: 10-06-2022 End: 10-06-2022 Patient encounter status Jacquelyn Trevino MD Work Phone: [facility] Start: 10-04-2022 ambulatory [facility] Start: 09-23-2022 End: 09-23-2022 ambulatory [facility] Start: 09-21-2022 [facility] Start: 09-16-2022 End: 09-16-2022 ambulatory [facility] Start: 09-16-2022 End: 09-16-2022 Encounter for gynecological examination (general) (routine) without abnormal findings [facility] Start: 09-16-2022 Telephone encounter Keri nazario MD Work Phone: [facility] Comment on above: Contraception (For [facility] office, faxed completed Kyleena IUD Prior Auth form with Demographics/Insurance card to [facility] . . MUST be on period for insertion. Pt will need a sameday Urine Test in-office. ) Contraception (09/30 Pt called back needing the correct number to [facility] gave pt phone # pt will be calling to confirm shipment to office pls advise /For [place] office, faxed completed Kyleena IUD Prior Auth form with Demographics/Insurance card to [facility] . . MUST be on period for insertion. Pt will need a sameday Urine Test in-office. ) Start: 09-16-2022 End: 09-16-2022 Initial preventive medicine new pt age 18-39yrs Keri Lou MD Work Phone: [facility] Comment on above: Encounter for gyneco logical examination without abnormal finding (Primary Dx); Screening for STDs (sexually transmitted diseases) Start: 09-16-2022 End: 09-16-2022 Patient encounter status Keri Lou MD Work Phone: [facility] Work Phone: Start: 09-03-2022 End: 09-04-2022 ambulatory [facility] Start: 09-03-2022 End: 09-03-2022 Subsequent hospital visit by physician Magalys Hoskins MD Work Phone: [facility] Comment on above: Lymphadenopathy of r ight cervical region Start: 09-01-2022 ambulatory [facility] Start: 08-19-2022 End: 08-19-2022 ambulatory [facility] Start: 07-13-2022 ambulatory [facility] Start: 07-06-2022 ambulatory [facility] Start: 07-02-2022 End: 07-03-2022 ambulatory [facility] Start: 07-02-2022 End: 07-02-2022 Subsequent hospital visit by physician Kat Santos MD Work Phone: [facility] Comment on above: Menorrhagia with reg ular cycle Start: 07-01-2022 End: 07-01-2022 ambulatory [facility] Start: 06-15-2022 ambulatory [facility] Start: 06-08-2022 [facility] Start: 06-01-2022 End: 06-01-2022 [facility] Start: 05-04-2022 End: 05-05-2022 Emergency department patient visit Marco Antonio Dunbar Facility:[facility] Start: 05-04-2022 End: 05-04-2022 Emergency department patient visit [facility] Start: 03-22-2022 End: 03-22-2022 ambulatory [facility] Start: 03-04-2022 End: 03-04-2022 ambulatory [facility] Start: 11-24-2021 End: 11-24-2021 ambulatory [facility] Work Phone: Start: 11-24-2021 End: 11-24-2021 Patient encounter procedure [facility] Start: 11-17-2021 End: 11-17-2021 ambulatory [facility] Work Phone: Start: 11-17-2021 End: 11-17-2021 Departed Referred [facility] Start: 11-13-2021 End: 11-13-2021 ambulatory [facility] Work Phone: Start: 11-13-2021 End: 11-13-2021 Patient encounter procedure [facility] Start: 11-09-2021 End: 11-09-2021 Emergency department patient visit [facility] Start: 10-22-2021 End: 10-22-2021 Patient encounter procedure [facility] Comment on above: Obstructive sleep ap leesa syndrome Start: 10-14-2021 Transcribe Orders [facility] Work Phone: Neurology Comment on above: Obstructive sleep ap leesa syndrome (Primary Dx) Start: 06-29-2021 End: 06-29-2021 Subsequent hospital visit by physician Rebecca Camejo METER INSTALLER-HOLISTIC SPECIALIST Work Phone: [facility] Comment on [...] of thyroid stimulating hormone tsh Rebecca Camejo METER INSTALLER-HOLISTIC SPECIALIST Work Phone: Start: 03-23-2019 Adult depression scr eening assessment Sleep Main Work Phone: Plan of Treatment Date Care Activity Detail Author Start: 2063 RSV Immunization age d 60 or older (1 - 1-dose 60+ series) RSV Immunization aged 60 or older (1 - 1-dose 60+ series) [facility] Start: 07-15-2053 Zoster Vaccines (1 o f 2) Zoster Vaccines (1 of 2) [facility] Start: 08-31-2030 DTaP/Tdap/Td Vaccine s (8 - Td or Tdap) DTaP/Tdap/Td Vaccines (8 - Td or Tdap) [facility] Start: 08-31-2030 Urine microalbumin profile DTaP,Tdap,Td Vaccine (8 - Td or Tdap) [facility] Start: 03-12-2025 Tetanus Diphtheria a nd Pertussis Vaccines (7 - Td or Tdap) Tetanus Diphtheria and Pertussis Vaccines (7 - Td or Tdap) [facility] Start: 02-19-2025 Covid-19 Vaccine ( season) Covid-19 Vaccine ( season) [facility] Comment on above: Postponed from 11/12 (Declined at this time) Start: 12-18-2024 End: 12-18-2024 Patient encounter procedure 12/18/2024 4:00 PM EDT Office Visit Family Medicine [address] [place] [id number] Saulo Camarillo MD [address] [place] [address] [phone] physical Family Medicine Comment on above: physical Start: 11-21-2024 Depression Screening Depression Scre ening [facility] Start: 11-21-2024 GC (Gonorrhea) Screening (18-24) GC (Gonorrhea) Screening (18-24) [facility] Comment on above: Postponed from 07/15 (Declined at this time) Start: 11-21-2024 HIV screening HIV Screening [facility] Comment on above: Postponed from 07/15 (Declined at this time) Start: 11-21-2024 Screening for Chlamydia trachomatis Chlamydia Screening (18-24) [facility] Comment on above: Postponed from 07/15 (Declined at this time) Start: 11-12-2024 Influenza vaccination [facility] Start: 09-10-2024 Influenza vaccination Influenza Vacc ine (#1) [facility] Comment on above: Postponed from 11/12 (Declined at this time) Start: 09-07-2024 End: 09-07-2024 Patient encounter procedure 09/07/2024 1:40 PM EDT Office Visit Family Medicine [address] [place] [address] [phone] Saulo Camarillo MD [address] [place] [address] [phone] Return in about 3 months (around 09/07/2024) for adhd. Family Medicine Comment on above: Return in about 3 mo nths (around 09/07/2024) for adhd. Start: 08-14-2024 [facility] Comment on above: Postponed from 07/15 (Declined at this time) Start: 07-15-2024 Screening for malignant neoplasm of cervix Cervical Cancer Screening [facility] Start: 06-07-2024 End: 06-07-2024 Patient encounter procedure 06/07/2024 5:00 PM EDT Office Visit [address] [phone] Saulo Camarillo MD [address] [place] [address] [phone] med refill Family Medicine Comment on above: med refill Start: 02-29-2024 End: 02-29-2024 Patient encounter procedure 02/29/2024 10:10 AM EST Office Visit Otolaryngology [address] [place] [address] Erika Diaz, GUMARO.HOLISTIC SPECIALIST [address] [place] [address] Cervical adenopathy [R59.0] Otolaryngology Comment on above: Cervical adenopathy [R59.0] Start: 02-20-2024 End: 02-20-2024 Patient encounter procedure 02/20/2024 10:40 AM EST Office Visit Family Medicine [address] [address] [place] [address] Saulo Camarillo MD [address] [place] [address] [phone] Follow Up; Medications Family Medicine Comment on above: Follow Up; Medicatio ns Start: 11-22-2023 End: 11-22-2023 Patient encounter procedure 11/22/2023 9:00 AM EDT Office Visit Family Medicine [address] [place] [address] [phone] Saulo Camarillo MD [address] [place] [phone] est care Family Medicine Comment on above: est care Start: 11-13-2023 Covid-19 Vaccine ( season) Covid-19 Vaccine () [facility] Start: 10-20-2023 End: 10-20-2023 Patient encounter procedure 10/20/2023 2:45 PM EDT Office Visit Otolaryngology [address] [place] [address] [place] [address] [place] [address] Neck mass [R22.1] Otolaryngology Comment on above: Neck mass [R22.1] Start: 09-29-2023 End: 09-29-2023 Patient encounter procedure 09/29/2023 12:00 PM EDT Office Visit [facility]ne[facility] [address] [place] [address] [address] [place] [phone] Keri Lou MD [address] [facility] [address] [place], [place] [phone] [facility] Start: 08-20-2023 Well Visit Well Visit [facility] Start: 03-14-2023 Behavioral Health Screening Behavioral Health Screening [facility] Start: 01-19-2023 Streptococcus pyogen es antigen assay Group A Streptococcus Rapid Screen [facility] Start: 12-02-2022 CGFS PCL-5 CGFS PCL-5 [facility] Start: 11-12-2022 COVID-19 Vaccine ( season) COVID-19 Vaccine ( season) [facility] Start: 11-12-2022 Influenza vaccination Influenza Vacc ine (#1) [facility] Start: 09-21-2022 End: 09-21-2022 ambulatory 09/21/2022 2:00 PM EDT Telehealth [facility] [address] [place] [address] Aleta Washington, [facility] [address] [place] [id number] [facility] Start: 08-17-2022 Well Visit Well Visit [facility] Start: 11-12-2021 Influenza vaccination INFLUENZA (#1) [facility] Start: 08-17-2021 End: 08-17-2021 Patient encounter procedure 08/17/2021 Office Visit Pediatrics Kat Santos MD [address] [place] [phone] [facility] Start: 07-15-2021 CHLAMYDIA SCREENING (18-24) CHLAMYDIA SCREENING (18-24) [facility] Start: 07-15-2021 GC (GONORRHEA) SCREENING (18-24) GC (GONORRHEA) SCREENING (18-24) [facility] Start: 07-15-2021 Hearing Screening Hearing Screening [facility] Start: 07-15-2021 HEPATITIS C SCREENING HEPATITIS C [facility] Start: 07-15-2021 Hepatitis C screening Hepatitis C [facility] Start: 07-15-2021 HIV SCREENING HIV SCREENING [facility] Start: 07-15-2021 HIV screening HIV Screening [facility] Start: 07-15-2021 Screening for Chlamydia trachomatis Chlamydia Screening (18-24) [facility] Start: 04-16-2021 Well Visit Well Visit [facility] Start: 01-05-2021 COVID-19 VACCINE (3 - Booster for Pfizer series) COVID-19 VACCINE (3 - Booster for Pfizer series) [facility] Start: 09-28-2020 Urine microalbumin profile DTAP,TDAP,TD (2 - Tdap) [facility] Start: 03-23-2020 Adult depression screening assessment DEPRESSION SCREENING [facility] Start: 2019 MenB (1 of 2 - MenB 2-Dose Series) MenB (1 of 2 - MenB 2-Dose Series) [facility] Start: 2019 MENINGOCOCCAL CONJUGATE (1 - 2-dose series) MENINGOCOCCAL CONJUGATE (1 - 2-dose series) [facility] Start: 07-15-2017 PEDS TO ADULT TRANSITION ANNUAL ASSESSMENT PEDS TO ADULT TRANSITION ANNUAL ASSESSMENT [facility] Start: 2015 Depression Screening Depression Scre [facility] Start: 2015 PEDS TO ADULT TRANSITION INITIAL DISCUSSION PEDS TO ADULT TRANSITION INITIAL DISCUSSION [facility] Start: 07-15-2014 HPV VACCINE (1 - 2-dose series) HPV VACCINE (1 - 2-dose series) [facility] Start: 07-15-2013 MENINGOCOCCAL B: Consider based on risk (1 of 2 - Risk Bexsero 2-dose series) MENINGOCOCCAL B: Consider based on risk (1 of 2 - Risk Bexsero 2-dose series) [facility] Start: 03-17-2004 Application of denta l fluoride varnish Fluoride Varnish [facility] Start: 2003 FS Client Outcomes Intake CGFS Client Outcomes Intake [facility] Start: 2003 CGFS Initial ITP CGFS Initial ITP [facility] Start: 2003 CGFS Initial MHA CGFS Initial MHA [facility] Start: 2003 CGFS Initial PTP CGFS Initial PTP [facility] Start: 2003 HEPATITIS B (1 of 3 - 3-dose series) HEPATITIS B (1 of 3 - 3-dose series) [facility] Start: 2003 HIV screening HIV Screening [facility] jamari Neisseria gonorrhoea e DNA [Presence] in Cervical mucus by MARICARMEN with probe detection Chlamydia/Gonorrhea Microbiology Routine Screening for STDs (sexually transmitted diseases) Ordered: 09/16/2022 [facility] Work Phone: Comment on above: Ordered: 09/16/2022 Patient Education ED Head Injury (Adult) [facility] Work Phone: Patient referral [facility] Work Phone: End: 10-14-2022 Polysomnogram POLYSOMNOGRAM (PSG) Procedures Routine Obstructive sleep apnea syndrome 1 Occurrences starting 10/14/2021 until 10/14/2022 [facility] Comment on above: 1 Occurrences starti ng 10/14/2021 until 10/14/2022 TRICOMONAS VAGINALIS RNA, QUALITATIVE TMA, FEMALE Trichomonas vaginalis RNA, Qualitative, TMA, Female Lab Routine Screening for STDs (sexually transmitted diseases) Ordered: 09/16/2022 [facility] Comment on above: Ordered: 09/16/2022 End: 09-13-2024 US Head and neck soft tissue US HEAD/NECK SOFT TISSUE OTHER Radiology Routine Neck mass 1 Occurrences starting 08/15/2023 until 09/13/2024 [facility] Work Phone: Comment on above: 1 Occurrences starti ng 08/15/2023 until 09/13/2024 US Head and neck sof t tissue US HEAD/NECK SOFT TISSUE OTHER Radiology Routine Neck mass 08/31/2023 3:11 PM EDT [facility] Work Phone: End: 03-30-2025 US Head and neck soft tissue US HEAD/NECK SOFT TISSUE OTHER Radiology Routine Enlarged lymph node 1 Occurrences starting 02/29/2024 until 03/30/2025 [facility] Work Phone: Comment on above: 1 Occurrences starti ng 02/29/2024 until 03/30/2025 [facility] Immunizations Immunization Date Immunization Notes Care Provider Tiburcio reyes 01-06-2023 influenza, injectabl e, quadrivalent, contains preservative Herminio Woods APRN.CNP Work Phone: [facility] 01-06-2023 influenza virus vacc ine, unspecified formulation Saulo Camarillo MD Work Phone: [facility] 03-04-2022 meningococcal B vacc ine, recombinant, OMV, adjuvanted Kat Santos MD Work Phone: [facility] 03-04-2022 PFIZER BIONTECH COVID-19, MRNA, BIVALENT BOOSTER, 12Y+, 30MCG/0.3ML DOSE Kat Santos MD Work Phone: [facility] 12-21-2021 influenza, injectabl e, quadrivalent, preservative free Kat Santos MD Work Phone: [facility] 12-21-2021 influenza virus vacc ine, unspecified formulation Keri Lou MD Work Phone: [facility] 11-24-2021 rabies vaccine, for intramuscular injection [facility] 11-17-2021 rabies vaccine, for intramuscular injection [facility] 11-13-2021 rabies vaccine, for intramuscular injection [facility] 11-09-2021 Human Rabies vaccine from human diploid cell culture Kat Santos MD Work Phone: [facility] 11-09-2021 rabies immune globulin Lalita Santos MD Work Phone: [facility] 08-17-2021 meningococcal B vacc ine, recombinant, OMV, adjuvanted Kat Santos MD Work Phone: [facility] 12-17-2020 influenza, live, intranasal, quadrivalent Rebecca Bashir METER INSTALLER-HOLISTIC SPECIALIST Work Phone: [facility] 08-31-2020 tetanus and diphther ia toxoids, adsorbed, preservative free, for adult use (5 Lf of tetanus toxoid and 2 Lf of diphtheria toxoid) Rebecca Camejo APRN-HOLISTIC SPECIALIST Work Phone: [facility] Work Phone: 08-05-2020 PFIZER (purple cap) COVID-19, mRNA, LNP-S, 30mcg/0.3mL dose Rebecca Camejo METER INSTALLER-HOLISTIC SPECIALIST Work Phone: [facility] 07-14-2020 PFIZER (purple cap) COVID-19, mRNA, LNP-S, 30mcg/0.3mL dose Rebecca Bashir METER INSTALLER-HOLISTIC SPECIALIST Work Phone: [facility] 04-16-2020 meningococcal polysaccharide (groups A, C, Y and W-135) diphtheria toxoid conjugate vaccine (MCV4P) Rebecca Bashir METER INSTALLER-HOLISTIC SPECIALIST Work Phone: [facility] 01-01-2020 influenza, injectabl e, quadrivalent, preservative free Rebecca Bashir METER INSTALLER-HOLISTIC SPECIALIST Work Phone: [facility] 04-16-2019 influenza, injectabl e, quadrivalent, preservative free Rebecca Bashir METER INSTALLER-HOLISTIC SPECIALIST Work Phone: [facility] 04-13-2018 influenza, injectabl e, quadrivalent, preservative free Rebecca Bashir METER INSTALLER-HOLISTIC SPECIALIST Work Phone: [facility] 02-10-2017 influenza, injectabl e, quadrivalent, preservative free Rebecca Bashir METER INSTALLER-HOLISTIC SPECIALIST Work Phone: [facility] 03-16-2016 Human Papillomavirus 9-valent vaccine Rbeecca Bashir METER INSTALLER-HOLISTIC SPECIALIST Work Phone: [facility] 03-16-2016 influenza, injectabl e, quadrivalent, preservative free Rebecca Bashir METER INSTALLER-HOLISTIC SPECIALIST Work Phone: [facility] 05-20-2015 Human Papillomavirus 9-valent vaccine Rebecca Bashir METER INSTALLER-HOLISTIC SPECIALIST Work Phone: [facility] 03-12-2015 Human Papillomavirus 9-valent vaccine Rebecca Bashir METER INSTALLER-HOLISTIC SPECIALIST Work Phone: [facility] 03-12-2015 influenza, live, intranasal, quadrivalent Rebecca Bashir METER INSTALLER-HOLISTIC SPECIALIST Work Phone: [facility] 03-12-2015 meningococcal polysaccharide (groups A, C, Y and W-135) diphtheria toxoid conjugate vaccine (MCV4P) [facility] Work Phone: [facility] 03-12-2015 tetanus toxoid, redu sagar diphtheria toxoid, and acellular pertussis vaccine, adsorbed Rebecca [facility] Work Phone: [facility] 11-28-2013 influenza, live, intranasal, quadrivalent [facility] Work Phone: [facility] 01-03-2013 influenza virus vacc ine, whole virus Rebecca [facility] Work Phone: [facility] 11-04-2011 influenza virus vacc ine, whole virus Rebecca [facility] Work Phone: [facility] 12-17-2010 influenza virus vacc ine, whole virus [facility] Work Phone: [facility] 11-27-2009 influenza virus vacc ine, whole virus [facility] Work Phone: [facility] 07-18-2008 diphtheria, tetanus toxoids and acellular pertussis vaccine Rebecca Bashir METER INSTALLER-[facility] Work Phone: [facility] 07-18-2008 diphtheria, tetanus toxoids and acellular pertussis vaccine, unspecified formulation Rebecca [facility] Work Phone: [facility] 07-18-2008 measles, mumps and rubella virus vaccine Rebecca Bashir METER INSTALLER-[facility] Work Phone: [facility] 07-18-2008 poliovirus vaccine, inactivated Rebecca [facility] Work Phone: [facility] 12-20-2007 influenza virus vacc ine, whole virus Rebecca [facility] METER INSTALLER-HOLISTIC SPECIALIST Work Phone: [facility] 07-28-2007 varicella virus vaccine Rebecca Bashir METER INSTALLER-[facility] Work Phone: [facility] 09-01-2006 hepatitis A vaccine, pediatric/adolescent dosage, 2 dose schedule Rebecca Bashir METER INSTALLER-HOLISTIC SPECIALIST Work Phone: [facility] 01-21-2006 Influenza Vaccine 0. 25 mL 6-35 mo Trivalent Rebecca Bashir METER INSTALLER-HOLISTIC SPECIALIST Work Phone: [facility] 01-21-2006 influenza virus vacc ine, whole virus Rebecca Bashir METER INSTALLER-HOLISTIC SPECIALIST Work Phone: [facility] 07-21-2005 hepatitis A vaccine, pediatric/adolescent dosage, 2 dose schedule Rebecca Bashir METER INSTALLER-HOLISTIC SPECIALIST Work Phone: [facility] 07-21-2005 varicella virus vaccine Rebecca Bashir METER INSTALLER-HOLISTIC SPECIALIST Work Phone: [facility] 03-02-2005 Influenza Vaccine 0. 25 mL 6-35 mo Trivalent Rebecca Bashir METER INSTALLER-HOLISTIC SPECIALIST Work Phone: [facility] 03-02-2005 influenza virus vacc ine, whole virus Rebecca Bashir METER INSTALLER-HOLISTIC SPECIALIST Work Phone: [facility] 01-27-2005 Influenza Vaccine 0. 25 mL 6-35 mo Trivalent Rebecca Bashir METER INSTALLER-HOLISTIC SPECIALIST Work Phone: [facility] 01-27-2005 influenza virus vacc ine, whole virus Rebecca Bashir METER INSTALLER-HOLISTIC SPECIALIST Work Phone: [facility] 11-10-2004 diphtheria, tetanus toxoids and acellular pertussis vaccine Rebecca Bashir METER INSTALLER-HOLISTIC SPECIALIST Work Phone: [facility] 11-10-2004 diphtheria, tetanus toxoids and acellular pertussis vaccine, unspecified formulation Rebecca Bashir METER INSTALLER-[facility] Work Phone: [facility] 11-10-2004 pneumococcal conjuga te vaccine, 7 valent Rebecca Bashir METER INSTALLER-[facility] Work Phone: [facility] 11-10-2004 poliovirus vaccine, inactivated Rebecca Bashir METER INSTALLER-[facility] Work Phone: [facility] 07-21-2004 hepatitis B vaccine, pediatric or pediatric/adolescent dosage Rebecca [facility] Work Phone: [facility] 07-21-2004 measles, mumps and rubella virus vaccine Rebecca [facility] Work Phone: [facility] 01-21-2004 diphtheria, tetanus toxoids and acellular pertussis vaccine Rebecca [facility] Work Phone: [facility] 01-21-2004 diphtheria, tetanus toxoids and acellular pertussis vaccine, unspecified formulation [facility] Work Phone: [facility] 01-21-2004 pneumococcal conjuga te vaccine, 7 valent [facility] Work Phone: [facility] 2003 diphtheria, tetanus toxoids and acellular pertussis vaccine Rebecca [facility] Work Phone: [facility] 2003 diphtheria, tetanus toxoids and acellular pertussis vaccine, unspecified formulation [facility] Work Phone: [facility] 2003 haemophilus influenz ae type b vaccine, PRP-T conjugate [facility] Work Phone: [facility] 2003 hepatitis B vaccine, pediatric or pediatric/adolescent dosage Rebecca [facility] Work Phone: [facility] 2003 pneumococcal conjuga te vaccine, 7 valent [facility] Work Phone: [facility] 2003 poliovirus vaccine, inactivated [facility] Work Phone: [facility] 2003 diphtheria, tetanus toxoids and acellular pertussis vaccine Rebecca [facility] Work Phone: [facility] 2003 diphtheria, tetanus toxoids and acellular pertussis vaccine, unspecified formulation Rebecca Bashir METER INSTALLER-[facility] Work Phone: [facility] 2003 haemophilus influenz ae type b vaccine, PRP-T conjugate Rebecca Bashir METER INSTALLER-[facility] Work Phone: [facility] 2003 hepatitis B vaccine, pediatric or pediatric/adolescent dosage Rebecca Bashir METER INSTALLER-[facility] Work Phone: [facility] 2003 pneumococcal conjuga te vaccine, 7 valent Rebecca Bashir METER INSTALLER-[facility] Work Phone: [facility] 2003 poliovirus vaccine, inactivated [facility] Work Phone: [facility] 2003 haemophilus influenz ae type b vaccine, PRP-T conjugate Rebecca [facility] Work Phone: [facility] Payers Date Payer Category Payer Self-pay 2018 Private Health Insurance MMO SU[employer] PPO [id number] 2018 Unknown MMO MMO [employer] [id number] 2018-Present [phone] [address] [place] [address] [facility] [id number] 2018 Unknown [id number] 2016 Unknown [id number] 2003 Unknown [id number] 47 2003 Unknown [id number] 2.16.840.1.895790.3.579.2 2003 Unknown [id number] 2.16.840.1.646597.3.579.2 2003 Unknown [id number] 2.16.840.1.798322.3.579.2 2003 Unknown [id number] 2.16.840.1.586677.3.579.2 2003 Unknown [id number] 2.16.840.1.804005.3.579.2 2003 Unknown [id number] 2.16.840.1.378445.3.579.2 2003 Unknown [id number] 2.16.840.1.943162.3.579.2 2003 Unknown [id number] 2.16.840.1.382383.3.579.2 2003 Unknown [id number] 2.16.840.1.094182.3.579.2 2003 Unknown [id number] 2.16.840.1.985280.3.579.2 2003 Unknown [id number] 2.16.840.1.444265.3.579.2 2003 Unknown [id number] 2.16.840.1.167754.3.579.2. 479 2003 Unknown [id number] 2.16.840.1.609287.3.579.2. 479 2003 Unknown [id number] 2.16.840.1.757899.3.579.2. 479 2003 Unknown [id number] 2.16.840.1.724323.3.579.2. 479 2003 Unknown [id number] 2.16.840.1.550491.3.579.2. 479 2003 Unknown [id number] 2.16.840.1.726138.3.579.2. 479 2003 Unknown [id number] 2.16.840.1.567542.3.579.2. 479 Unknown [id number] 2.16.840.1.371452.3.579.2. 462 Unknown [id number] 2.16.840.1.440422.3.579.2. 462 Social History Date Type Detail Facility Start: 02-10-2017 End: 11-22-2023 Tobacco smoking status NHIS Never smoked tobacco [facility] Start: 02-10-2017 End: 11-22-2023 Tobacco use and exposure Smokeless tobacco non-user [facility] Start: 06-29-2021 End: 08-19-2022 Alcohol intake Not Asked [facility] Start: 06-29-2021 End: 08-15-2023 Alcohol intake [facility] Start: 2003 Sex Assigned At Not on file [facility] Start: 06-19-2021 End: 09-16-2022 Exposure to SARS-CoV-2 (event) Not sure [facility] Start: 08-31-2020 End: 09-07-2024 Alcohol intake Current non-drinker of alcohol (finding) [facility] Start: 2003 Sex Assigned At Female [facility] Start: 05-04-2022 Tobacco smoking stat us NVIS Unknown if ever smoked [facility] Start: 06-13-2022 End: 08-15-2023 Tobacco use panel [facility] Start: 05-19-2015 Adolescent depressio n screening assessment 5 [facility] Start: 09-16-2022 Alcohol intake Lifetime non-d jaden (finding) [facility] Start: 05-31-2022 Gender identity Identifies as female gender (finding) [facility] [employer] Has the [employer], [employer], or [employer] threatened to shut off services in your home in past 12Mo No [facility] Do you belong to any clubs or organizations such as restorationism groups, unions, fraternal or athletic groups, or [...] have money to get more. Never true [facility] NEGATED: Highlighted row [facility] NEGATED: Highlighted rowStart: NINF History of tobacco use Passive smoker [facility] Goals Date Patient Goal Desired Activity /State [...] Type Note Facility 12-18-2024 Note HNO ID: [id number] Author: SAULO CAMARILLO MD Service: ? Author [...] and nursing no (more content not included)... [facility] 11-26-2024 Telephone encounter Note forwarded to . [facility] 11-26-2024 Miscellaneous Notes forwarded to . documented in this encounter [facility] 09-07-2024 History of Presen t illness Narrative Betty Quintanilla is a 19-year-old female presenting for a Vyvanse refill. Betty is currently taking Vyvanse 30 mg, which she reports is working well for her. She notes that the medication has affected her appetite and sleep. She obtains her medication from [facility] in [place] and drives there once a week. Betty is also taking Lexapro and inquires about refills. She reports feeling "pretty good" on the medication. Betty has been sexually active and believes she may have had a Pap smear, but is unsure. 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 [...] 30 mg prescription and sent to [facility] in [place]. - Advised patient to monitor for any significant changes in side effects. 2. Healthcare maintenance (Z00.00) Patient is 19 years old and sexually active; due for initial Pap smear. - Discussed importance of cervical cancer screening and recommended scheduling a Pap smear with her [employer] at [facility]. - Scheduled follow-up for routine physical examination in the first week of December. 3. Generalized anxiety disorder (F41.1) Condition is stable on Lexapro; patient reports feeling well. - Confirmed Lexapro prescription has refills available through next May. Saulo Camarillo MD Recording using [employer] software for draft documentation of the visit was discussed with the patient/authorized circulation sales representative; all questions welcomed and answered. Patient/authorized circulation sales representative agreed to proceed documented in this encounter [facility] 09-07-2024 Note HNO ID: [id number] Author: SAULO CAMARILLO MD Service: ? Author Type: Physician Type: Progress Notes Filed: 09/07/2024 13:42 Note Text: Betty Quintanilla is a 19-year-old female presenting for a Vyvanse refill. Betty is currently taking Vyvanse 30 mg, which she reports is working well for her. She notes that the medication has affected her appetite and sleep. She obtains her medication from [facility] in [place] and drives there once a week. Betty is also taking Lexapro and inquires about refills. She reports feeling "pretty good" on the medication. Betty has been sexually active and believes she may have had a Pap smear, but is unsure. 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 [...] 30 mg prescription and sent to [facility] in [place]. - Advised patient to monitor for any significant changes in side effects. 2. Healthcare maintenance (Z00.00) Patient is 19 years old and sexually active; due for initial Pap smear. - Discussed importance of cervical cancer screening and recommended scheduling a Pap smear with her [employer] at [facility]. - Scheduled follow-up for routine physical examination in the first week of December. 3. Generalized anxiety disorder (F41.1) Condition is stable on Lexapro; patient reports feeling well. - Confirmed Lexapro prescription has refills available through next May. Saulo Camarillo MD Recording using [employer] software for draft documentation of the visit was discussed with the patient/authorized circulation sales representative; all questions welcomed and answered. Patient/authorized circulation sales representative agreed to proceed [facility] 07-03-2024 Telephone encounter Note Yes, appointment [facility] Work Phone: 07-03-2024 Miscellaneous Notes Yes, appointment Appointment? documented in this encounter [facility] 07-03-2024 Telephone encounter Note Appointment? [facility] 06-07-2024 History of Presen t illness [...] Saulo Camarillo MD documented in this encounter [facility] 06-07-2024 Note HNO ID: [id number] Author: SAULO CAMARILLO MD Service: ? Author [...] trying omeprazole Mo (more content not included)... 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 Thanks Augusto conrado [facility] 05-14-2024 Miscellaneous Notes Patient calling in, [...] d/w the pharmacist. documented in this encounter [facility] 05-14-2024 Telephone encounter Note will give [...] so she'll need to d/w the pharmacist. [facility] 02-29-2024 Erika Marks APRN.HOLISTIC SPECIALIST - 02/29/2024 10:37 AM EST General ENT- Dr. Vasquez, Dr. Georges, Dr. Oconnell, Dr. Freeman, Dr. Bragg documented in this encounter [facility] 02-29-2024 Note HNO ID: [id number] Author: ERIKA DIAZ APRN.CHRIS Service: ? Author [...] Reviewed that she does not currently meet [place] criteria for tonsillectomy. She expressed that the tonsil stones are very bothersome and would still like to get her tonsils out. -She is also reports an enlarged lymph node that she has had for many years. Had an ultrasound earlier this year that was normal. On exam today there is a prominent right anterior cervical lymph node, we will repeat ultrasound, follow-up via [facility] with results FOLLOW UP: Return as needed. Call sooner if problems develop. Erika Diaz APRN.HOLISTIC SPECIALIST Referring Provider: I was consulted by Dr. Camarillo for frequent sore throat. Response to consult is via shared electronic medical record for my opinion. Reason for Consult: Betty Quintanilla is a 18 year old female who presents to [facility] Otolaryngology Department. Patient presents with: New [...] without any ksenia (more content not included)... [facility] 02-29-2024 History of Presen t illness [...] Reviewed that she does not currently meet [place] criteria for tonsillectomy. She expressed that the tonsil stones are very bothersome and would still like to get her tonsils out. -She is also reports an enlarged lymph node that she has had for many years. Had an ultrasound earlier this year that was normal. On exam today there is a prominent right anterior cervical lymph node, we will repeat ultrasound, follow-up via [facility] with results FOLLOW UP: Return as needed. Call sooner if problems develop. Erika Diaz APRN.HOLISTIC SPECIALIST Referring Provider: I was consulted by Dr. Camarillo for frequent sore throat. Response to consult is via shared electronic medical record for my opinion. Reason for Consult: Betty Quintanilla is a 18 year old female who presents to [facility] Otolaryngology Department. Patient presents with: New [...] Low This note was partially generated using [employer] voice recognition system. Please note that occasional diesel scoop operator errors may be made. documented in this encounter [facility] 02-20-2024 History of Presen t illness [...] Saulo Camarillo MD [facility] [facility]24 Note HNO ID: [id number] Author: SAULO CAMARILLO MD Service: ? Author [...] try a b12/folate supplement Saulo Camarillo MD [facility] 02-17-2024 Telephone encounter Note Has appt next week Requested Prescriptions Pending Prescriptions Disp Refills escitalopram oxalate (LEXAPRO) 10 mg tablet 90 tablet 0 Sig: Take 1 tablet by mouth once daily. [facility] 02-17-2024 Miscellaneous Notes Has appt next week Requested Prescriptions Pending Prescriptions Disp Refills escitalopram oxalate (LEXAPRO) 10 mg tablet 90 tablet 0 Sig: Take 1 tablet by mouth once daily. documented in this encounter [facility] 01-05-2024 Telephone encounter Note [facility] called and is notified of providers results. She voices understanding and will let Pt know. Aleta Sousa RN [facility] 01-05-2024 Miscellaneous Notes [facility] called and is notified of providers results. She voices understanding and will let Pt know. Aleta Sousa RN Send to [facility] Labs are all normal. Rubi Gibbons PA-C documented in this encounter [facility] 01-05-2024 Telephone encounter Note Send to [facility] Labs are all normal. Rubi Gibbons PA-C [facility] Work Phone: 12-27-2023 Telephone encounter Note Spoke with patient and scheduled her for 02/28 in [place] when she will be home from [facility]. [facility] 12-27-2023 Miscellaneous Notes Spoke with patient and scheduled her for 02/28 in [place] when she will be home from [facility]. Called patient and lvm to call us back documented in this encounter [facility] 12-26-2023 Telephone encounter Note Called patient and lvm to call us back [facility] 11-22-2023 Instructions Saulo Camarillo MD - 11/22/2023 9:18 AM EDT [place] [facility] - Insurance (Tonya, [place], [place]) ADHD [facility] [phone] Accepts commercial, Medicare, and Medicaid insurance TESTING AND PRESCRIBING [facility] - Psychology and Psychiatry [phone] Accepts Medicaid, Medicare, and commercial insurance TESTING AND PRESCRIBING [facility] [place] [phone] TESTING ONLY [facility] [phone] Accepts Medicaid and Medicare only TESTING AND PRESCRIBING [place] [facility] - Insurance ADHD [facility] [address] [place] [address] [facility] [address] [place] [address] [place] [address] [address] [facility] [place] [phone] [facility] [address] [place] [address] documented in this encounter [facility] 11-22-2023 History of Presen t illness [...] Saulo Camarillo MD documented in this encounter [facility] 08-15-2023 Note HNO ID: [id number] Author: HERMINIO WOODS APRN.HOLISTIC SPECIALIST Service: ? Author Type: Nurse Practitioner Type: Progress Notes Filed: 08/15/2023 11:47 Note Text: This note was created using [email or web address]. Subjective Betty Quintanlila is a 18 year old female. Patient [...] time patient states that she is from [place] but cannot get in [...] in November where she lives. Herminio Woods APRN.[facility] 08-15-2023 History of Presen t illness Narrative Images from the original note were not included. This note was created using Insider Pagesriter. Subjective Betty Quintanilla is a 18 year [...] time patient states that she is from [place] is working on getting a provider up [...] Herminio Woods APRN.CHRIS documented in this encounter [facility] 02-24-2023 History of Presen t illness Narrative A pourer crane ladle was offered to be present during her exam. The patient: declined Images from the original note were not included. Betty Quintanilla 02/24/2023 17 y.o. Chief Complaint Patient presents with other Pt can't feel her IUD strings No LMP recorded. Primary CarePhysician: [facility] HPI: Betty Quintanilla is a 17 y.o. [...] for pelvic US documented in this encounter [facility] 10-06-2022 History of Presen t illness Narrative A pourer crane ladle was offered to be present during her [...] for string check. documented in this encounter [facility] 09-30-2022 Telephone encounter Note Message released to patient as written. 09/30/22 Pt called back needing the correct number to [facility] gave pt phone # pt will be calling to confirm shipment to office pls advise Patient's further questions if applicable: Were all questions from office addressed or relayed to the patient from encounter: Yes [facility] 09-30-2022 Miscellaneous Notes Message released to patient as written. 09/30/22 Pt called back needing the correct number to [facility] gave pt phone # pt will be calling to confirm shipment to office pls advise Patient's further questions if applicable: Were all questions from office addressed or relayed to the patient from encounter: Yes Patient called [facility] speciality for IUD and they advised there was nothing there for her. I checked chart and patient needs to call [facility] to activate the IUD and then it will be delivered. Advised Patient of the [facility] number. Per patient, I called [facility] to schedule delivery. [facility] stated they still need to talk to patient to confirm order. [facility] set up 'pro-active' Delivery, which will be activated once patient has called them to confirmed order. I called patient and gave her the phone number for the Specialty Pharmacy which she agreed to call. For [place] office, faxed completed Kyleena IUD Prior Auth form with Demographics/Insurance card to [facility] . . MUST be on period for insertion. Pt will need a sameday Urine Test in-office. documented in this encounter [facility] 09-30-2022 Telephone encounter Note Patient called [facility] speciality for IUD and they advised there was nothing there for her. I checked chart and patient needs to call [facility] to activate the IUD and then it will be delivered. Advised Patient of the [facility] number. [facility] 09-30-2022 Telephone encounter Note Per patient, I called [facility] to schedule delivery. [facility] stated they still need to talk to patient to confirm order. [facility] set up 'pro-active' Delivery, which will be activated once patient has called them to confirmed order. I called patient and gave her the phone number for the Specialty Pharmacy which she agreed to call. [facility] 09-16-2022 Telephone encounter Note For [place] office, faxed completed Kyleena IUD Prior Auth form with Demographics/Insurance card to [facility] . . MUST be on period for insertion. Pt will need a sameday Urine Test in-office. [facility] 09-16-2022 Miscellaneous Notes For [place] office, faxed completed Kyleena IUD Prior Auth form with Demographics/Insurance card to [facility] . . MUST be on period for insertion. Pt will need a sameday Urine Test in-office. documented in this encounter [facility] 09-16-2022 History of Presen t illness Narrative A pourer crane ladle was offered to be present during her exam. The patient: declined Images from the original note were not included. Betty Quintanilla 09/16/2022 17 y.o. Chief Complaint Patient presents with New Patient Establish care and STI testing Primary Care Physician: [facility] HPI: Betty Quintanilla is a 17 y.o. female here today for annual exam. Previously did OCPs but started to have side effects. Interested in IUD. Denies pelvic pain. Going to [employer], studying [employer] Patient's last menstrual period was 08/17/2022. Past [...] Qualitative, TMA, Female documented in this encounter [facility] 10-23-2021 History of Presen t illness Narrative Sleep Study Check-In Documentation Date: October 23, 2021 Name: Betty Quintanilla Patient was accompanied by Self. Location: [place] Latex allergy: No Tape allergy: No Current medications were reviewed with the patient:Yes Sleep aid taken by patient for the sleep study: Quinn of sleep aid: Not Applicable Procedure was explained to the patient and all questions were answered. PAP treatment discussed and shown to patient: No Knowledge Program (KP): KP was not completed in [facility] by patient and accepted Study type: Polysomnogram Adverse Event: No (If yes create a new abstract) SERS Event: No Comments: Patient was advised to follow up with their ordering provider regarding test results. Delicia Perez documented in this encounter [facility] Evaluation note Diagnosis Frequent nocturnal awakening Other sleep disturbances [facility] Diagnosis Obstructive sleep apnea syndrome- Primary Obstructive sleep apnea (adult) (pediatric) documented in this encounter [facility] note* Diagnosis Obstructive sleep apnea syndrome Obstructive sleep apnea (adult) (pediatric) documented in this encounter [facility] noteNo assessment information availableWOhio State [facility] Work Phone: Evaluation note* Diagnosis Menorrhagia with regular cycle Excessive or frequent menstruation documented in this encounter [facility] note* Diagnosis Lymphadenopathy of right cervical region Enlargement of lymph nodes documented in this encounter [facility] note* Diagnosis Encounter for gynecological examination without abnormal finding- Primary Screening for STDs (sexually transmitted diseases) Screening examination for venereal disease documented in this encounter [facility] note* Diagnosis Encounter for IUD insertion- Primary Insertion of intrauterine contraceptive device Pre-procedure lab exam Pre-procedural laboratory examination documented in this encounter [facility] note* Diagnosis Pelvic pain- Primary IUD (intrauterine device) in place Presence of intrauterine contraceptive device documented in this encounter [facility] note* Diagnosis Neck mass- Primary Swelling, mass, or lump in head and neck Fatigue, unspecified type documented in this encounter [facility] note* Diagnosis Neck mass Swelling, mass, or lump in head and neck documented in this encounter [facility] note* Diagnosis Routine physical examination- Primary Routine [...] for seeking consultation [facility]* Diagnosis ADITYA (generalized anxiety disorder) Generalized anxiety disorder documented in this encounter [facility] note* Diagnosis ADHD (attention deficit hyperactivity disorder), combined type- Primary Attention deficit disorder with hyperactivity ADITYA (generalized anxiety disorder) Generalized anxiety disorder Easy bruising Other symptoms involving skin and integumentary tissues documented in this encounter [facility] note* Diagnosis Tonsil stone- Primary Other chronic disease of tonsils and adenoids Enlarged lymph node Enlargement of lymph nodes Sore throat Acute pharyngitis documented in this encounter [facility] note* Diagnosis ADHD (attention deficit hyperactivity disorder), combined type- Primary Attention deficit disorder with hyperactivity ADITYA (generalized anxiety disorder) Generalized anxiety disorder Epigastric pain Abdominal pain, epigastric documented in this encounter [facility] note* Diagnosis ADHD (attention deficit hyperactivity disorder), combined type- Primary Attention deficit disorder with hyperactivity documented in this encounter [facility] note* Diagnosis ADHD (attention deficit hyperactivity disorder), combined type- Primary Attention deficit disorder with hyperactivity Healthcare maintenance Routine general medical examination at a health care facility Generalized anxiety disorder documented in this encounter [facility] note* Diagnosis ADITYA (generalized anxiety disorder)- Primary Generalized anxiety disorder documented in this encounter [facility] for referral (narrative)* Diagnostic Procedure Only (Routine) - New Request Specialty Diagnoses / Procedures Referred By Narayan mitchell Referred To Contact [facility] IMAG[facility] Diagnoses Enlarged lymph node Procedures US HEAD/NECK SOFT TISSUE OTHER US SOFT TISSUE HEAD & NECK REAL TIME IMGE Erika Montiel APRN.HOLISTIC SPECIALIST [address] [place] [address] [place] [address] Referral ID Status Reason Start Date Expiration Date Visits Requested Visits Authorized [id number] New Request Auto-Generat ed Referral 03/30/2025 1 1 [facility] for visit Narrative* Diagnostic Procedure Only (Routine) - Closed Specialty Diagnoses / Procedures Referred By Narayan mitchell Referred To Contact US IMAGING Diagnoses Neck mass Procedures US HEAD/NECK SOFT TISSUE OTHER US SOFT TISSUE HEAD & NECK REAL TIME IMGE Herminio Gomez APRN.HOLISTIC SPECIALIST [address] [place] [address] [place] [address] Referral ID Status Reason Start Date Expiration Date V isits Requested Visits Authorized [id number] Closed Auto-Generate d Referral 08/15/2023 09/13/[address] 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 Power of Superintendent [employer] Advance Directive Response Recorded Date/ Time Living Will No May 04 023 7:57pm Power of Superintendent [employer] No May 04, 2022 7:57pm Summary Purpose [...] Encounter for IUD insertion Jacquelyn Trevino MD [address] [address] Referral ID Status Reason Start Date Expiration Date V isits Requested Visits Authorized [id number] Pending Review 10/06/2022 04/04/2023 1 1 Specialty Diagnoses / Procedures Referred By Contac t Referred To Contact Ent - Otolaryngology Diagnoses Neck mass Procedures CONSULT TO ENT OFFICE/OUTPATIENT [facility] 60 MINUTES Herminio Woods, METER INSTALLER.HOLISTIC SPECIALIST [address] [place] [address] Referral ID Status Reason Start Date Expiration Date Visits Requested Visits Authorized [id number] Authorized PCP Requested Referral 08/15/2023 08/14/2024 1 1 Specialty Diagnoses / Procedures Referred By Contac t Referred To Contact US IMAGING Diagnoses Neck mass Procedures US HEAD/NECK SOFT TISSUE OTHER US SOFT TISSUE HEAD & NECK REAL TIME IMGE DOCM Herminio Woods, METER INSTALLER.HOLISTIC SPECIALIST [address] [place] [address] [place] [address] Referral ID Status Reason Start Date Expiration Date Visits Requested Visits Authorized [id number] Pending Review Auto-Generat ed Referral 08/15/2023 09/13/2024 1 1 Specialty Diagnoses / Procedures Referred By Contac t Referred To Contact Ent - Otolaryngology Diagnoses Cervical adenopathy Tonsil stone Procedures CONSULT TO ENT OFFICE/OUTPATIENT [facility] MDM 60 MINUTES Saulo Camarillo MD [address] [place] [address] Referral ID Status Reason Start Date Expiration Date Visits Requested Visits Authorized [id number] Authorized PCP Requested Referral 11/22/2023 11/21/2024 1 1 Specialty Diagnoses / Procedures Referred By Contac t Referred To Contact Diagnoses ADITYA (generalized anxiety disorder) ADHD (attention deficit hyperactivity disorder), combined type Chronic insomnia Procedures CONSULT TO PSYCHIATRY OFFICE/OUTPATIENT [facility] MDM 60 MINUTES Saulo Camarillo MD [address] [place] [address] Referral ID Status Reason Start Date Expiration Date Visits Requested Visits Authorized [id number] Pending Review PCP Requested Referral 11/22/2023 11/21/2024 1 1 Additional Source Comments Care Teams (unrecognized sec tion and content) Ict Account Manager Relationship Specialty Start Date End Date Kat Santos MD PCP - General Pediatrics 11/28/13 Ict Account Manager Relationship Specialty Start Date End Date Kat Santos MD [address] [phone] PCP - General Pediatrics 12/20/15 Ict Account Manager Relationship Specialty Start Date End Date Kat Santos MD [address] [phone] PCP - General Pediatrics 12/20/15 Team Status: Active Member Role Status Dates Dr. Kat Santos MD Primary Care Provider Acti ve Team Status: Inactive Member Role Status Dates Dr. Kat Santos MD Primary Care Provider Acti ve Dr. Marco Antonio Dunbar DO Emergency Provider Active Ict Account Manager Relationship Specialty Start Date End Date Kat Santos MD PCP - General Pediatrics 11/28/13 Aleta Washington, [facility] [address] [facility] [place] [address] Social work 02/18/22 Ict Account Manager Relationship Specialty Start Date End Date Kat Santos MD PCP - General Pediatrics 11/28/13 Felix Laeta J, [facility] [address] [place] [address] Social work 02/18/22 Ict Account Manager Relationship Specialty Start Date End Date [facility] [address] [place] [address] PCP - General 09/16/22 Ict Account Manager Relationship Specialty Start Date End Date [facility] [address] [place] [address] PCP - General 09/16/22 Ict Account Manager Relationship Specialty Start Date End Date [facility], [facility] [address] [place] [address] PCP - General 09/16/22 Ict Account Manager Relationship Specialty Start Date End Date [facility] [address] [place] [address] PCP - General 09/16/22 Team Status: Inactive Member Role Status Dates Dr. Kat Santos MD Primary Care Provider Acti ve Dr. Wilfred Lozada , DO Emergency Provider Active Ict Account Manager Relationship Specialty Start Date End Date [facility], [facility] [address] [place] [address] PCP - General 09/16/22 Ict Account Manager Relationship Specialty Start Date End Date Herminio Woods, METER INSTALLER.HOLISTIC SPECIALIST [address] [place] [address] PCP - General Pediatrics 08/15/23 Ict Account Manager Relationship Specialty Start Date End Date Herminio Woods, METER INSTALLER.HOLISTIC SPECIALIST [address] [place] [address] PCP - General Pediatrics 08/15/23 Ict Account Manager Relationship Specialty Start Date End Date Herminio Woods, METER INSTALLER.HOLISTIC SPECIALIST [address] [place] [address] PCP - General Pediatrics 08/15/23 Ict Account Manager Relationship Specialty Start Date End Date Saulo Camarillo MD [address] [place] [address] PCP - General Family Medicine 11/22/23 Ict Account Manager Relationship Specialty Start Date End Date Saulo Camarillo MD [address] [place] [address] PCP - General Family Medicine 11/22/23 Ict Account Manager Relationship Specialty Start Date End Date Saulo Camarillo MD [address] [place] [address] [phone] PCP - General Family Medicine 11/22/23 Ict Account Manager Relationship Specialty Start Date End Date Saulo Camarillo MD [address] [place] [address] PCP - General Family Medicine 11/22/23 Ict Account Manager Relationship Specialty Start Date End Date Saulo Camarillo MD [address] [place] [address] PCP - General Family Medicine 11/22/23 Ict Account Manager Relationship Specialty Start Date End Date Saulo Camarillo MD [address] [place] [address] PCP - General Family Medicine 11/22/23 Ict Account Manager Relationship Specialty Start Date End Date Saulo Camarillo MD [address] [place] [address] PCP - General Family Medicine 11/22/23 Radha Kim, METER INSTALLER.HOLISTIC SPECIALIST [address] [place] [phone] Glueline Worker Family Medicine 04/19/24 Ict Account Manager Relationship Specialty Start Date End Date Saulo Camarillo MD [address] [place] [phone] PCP - General Family Medicine 11/22/23 Radha Kim, METER INSTALLER.HOLISTIC SPECIALIST [address] [place] [phone] Glueline Worker Family Medicine 04/19/24 Ict Account Manager Relationship Specialty Start Date End Date Saulo Camarillo MD [address] [place] [address] PCP - General Family Medicine 11/22/23 Radha Kmi, METER INSTALLER.HOLISTIC SPECIALIST [address] [place] [address] Glueline Worker Family Medicine 04/19/24 Ict Account Manager Relationship Specialty Start Date End Date Saulo Camarillo MD [address] [place] [address] PCP - General Family Medicine 11/22/23 Radha Jiménez, METER INSTALLER.HOLISTIC SPECIALIST [address] [place] [phone] Glueline Worker Family Medicine 04/19/24 Ict Account Manager Relationship Specialty Start Date End Date Saulo Camarillo MD [address] [place] [address] PCP - General Family Medicine 11/22/23 Radha Jiménez, METER INSTALLER.HOLISTIC SPECIALIST [address] [place] [phone] Glueline Worker Family Medicine 04/19/24 Ict Account Manager Relationship Specialty Start Date End Date Saulo Camarillo MD [address] [place] [address] PCP - General Family Medicine 11/22/23 Radha Jiménez, GUMARO.HOLISTIC SPECIALIST [address] [place] [phone] Glueline Worker Family Medicine 04/19/24 Source Comments (unrecognize d section and content) In the event this informatio n is protected by the Federal Confidentiality of Alcohol and Drug Abuse Patient Records regulations: The Federal rules restrict any use of the information to criminally investigate or prosecute any alcohol or drug abuse patient.[facility] event this information is protected by the Federal Confidentiality of Alcohol and Drug Abuse Patient Records regulations: The Federal rules restrict any use of the information to criminally investigate or prosecute any alcohol or drug abuse patient.[facility] the event this information is protected by the Federal Confidentiality of Alcohol and Drug Abuse Patient Records regulations: The Federal rules restrict any use of the information to criminally investigate or prosecute any alcohol or drug abuse patient.[facility] the event this information is protected by the Federal Confidentiality of Alcohol and Drug Abuse Patient Records regulations: The Federal rules restrict any use of the information to criminally investigate or prosecute any alcohol or drug abuse patient.[facility] the event this information is protected by the Federal Confidentiality of Alcohol and Drug Abuse Patient Records regulations: The Federal rules restrict any use of the information to criminally investigate or prosecute any alcohol or drug abuse patient.[facility] the event this information is protected by the Federal Confidentiality of Alcohol and Drug Abuse Patient Records regulations: The Federal rules restrict any use of the information to criminally investigate or prosecute any alcohol or drug abuse patient.[facility] the event this information is protected by the Federal Confidentiality of Alcohol and Drug Abuse Patient Records regulations: The Federal rules restrict any use of the information to criminally investigate or prosecute any alcohol or drug abuse patient.[facility] the event this information is protected by the Federal Confidentiality of Alcohol and Drug Abuse Patient Records regulations: The Federal rules restrict any use of the information to criminally investigate or prosecute any alcohol or drug abuse patient.[facility] the event this information is protected by the Federal Confidentiality of Alcohol and Drug Abuse Patient Records regulations: The Federal rules restrict any use of the information to criminally investigate or prosecute any alcohol or drug abuse patient.[facility] HospitalIn the event this information is protected by the Federal Confidentiality of Alcohol and Drug Abuse Patient Records regulations: The Federal rules restrict any use of the information to criminally investigate or prosecute any alcohol or drug abuse patient.[facility] HospitalIn the event this information is protected by the Federal Confidentiality of Alcohol and Drug Abuse Patient Records regulations: The Federal rules restrict any use of the information to criminally investigate or prosecute any alcohol or drug abuse patient.[facility] HospitalIn the event this information is protected by the Federal Confidentiality of Alcohol and Drug Abuse Patient Records regulations: The Federal rules restrict any use of the information to criminally investigate or prosecute any alcohol or drug abuse patient.[facility] HospitalIn the event this information is protected by the Federal Confidentiality of Alcohol and Drug Abuse Patient Records regulations: The Federal rules restrict any use of the information to criminally investigate or prosecute any alcohol or drug abuse patient.[facility] HospitalIn the event this information is protected by the Federal Confidentiality of Alcohol and Drug Abuse Patient Records regulations: The Federal rules restrict any use of the information to criminally investigate or prosecute any alcohol or drug abuse patient.[facility] HospitalIn the event this information is protected by the Federal Confidentiality of Alcohol and Drug Abuse Patient Records regulations: The Federal rules restrict any use of the information to criminally investigate or prosecute any alcohol or drug abuse patient.[facility] HospitalIn the event this information is protected by the Federal Confidentiality of Alcohol and Drug Abuse Patient Records regulations: The Federal rules restrict any use of the information to criminally investigate or prosecute any alcohol or drug abuse patient.[facility] HospitalIn the event this information is protected by the Federal Confidentiality of Alcohol and Drug Abuse Patient Records regulations: The Federal rules restrict any use of the information to criminally investigate or prosecute any alcohol or drug abuse patient.[facility] INFORMATION SOURCE (unrecogn ized section and content) DATE CREATED AUTHOR 11/10/2021 [facility] DATE CREATED AUTHOR AUTHOR'S ORGANIZ ATION 01/26/2023 [facility] DATE CREATED AUTHOR AUTHOR'S ORGANIZ ATION 02/22/2023 [facility] DATE CREATED AUTHOR AUTHOR'S ORGANIZ ATION 02/27/2023 [facility] DATE CREATED AUTHOR AUTHOR'S ORGANIZ ATION 08/16/2023 [facility] DATE CREATED AUTHOR AUTHOR'S ORGANIZ ATION 12/24/2024 [facility] Goals (unrecognized section and content) Goals [...] Reason Onset Date Comments Contraception 09/16/2022 For [place] office, faxed completed Kyleena IUD Prior Auth form with Demographics/Insurance card to [facility] . . MUST be on period for insertion. Pt will need a sameday Urine Test in-office. Reason Onset Date Comments Contraception 09/16/2022 09/30/22 Pt call ed back needing the correct number to [facility] gave pt phone # pt will be calling to confirm shipment to office pls advise /For [place] office, faxed completed Kyleena IUD Prior Auth form with Demographics/Insurance card to [facility] . . MUST be on period for insertion. Pt will need a sameday Urine Test in-office. Reason Comments Procedure Kyleena Insertion Specialty Diagnoses / Procedures Referred By Narayan mitchell Referred To Contact Diagnoses Encounter for IUD insertion Jacquelyn Trevino MD [address] [address] Referral ID Status Reason Start Date Expiration Date V isits Requested Visits Authorized [id number] Pending Review 10/06/2022 04/04/2023 1 1 Reason [...] Procedures CONSULT TO ENT OFFICE/OUTPATIENT [facility] 60 MINUTES Saulo Camarillo MD [address] [place] [address] Referral ID Status Reason Start Date Expiration Date V isits Requested Visits Authorized [id number] Closed PCP Requested Referral 11/22/2023 11/21/2024 1 [...] BE BASED ON THE PRIMARY CLINICAL RECORDS. [facility] [employer] provides no warranty or guarantee of the accuracy or completeness of information in this document.
[2025-01-20] MEDS: 0.9% Normal Saline (1000mL) 1,000 ML 999 ML IV (22:43)
--- NOTE | 2025-01-20 22:45 | EX.ED.DYSGE1 ---
HPI History of Present Illness Chief Complaint: Abd Pain Narrative Narrative: Chief complaint and HPI: 19-year-old female with past medical history of chronic gastric issues presents for evaluation of nausea and vomiting. Patient states for several months she has been having intermittent nausea, vomiting, epigastric abdominal pain, and diarrhea. She followed up with her primary care physician in which she is on a PPI and sucralfate. States she is scheduled to see GI in February. Patient states that the past couple days her nausea and vomiting has worsened. Associated symptom is little p.o. intake. She denies any abdominal pain, fever, chills, diarrhea, constipation, dysuria. Does not believe herself to be . Review of systems: See HPI Medications: As listed on the chart Allergies: As listed on the chart PFSH: Per chart Vital signs: As listed on the chart. Reviewed. Physical exam: Gen: A&O x3, NAD Head: Normocephalic, atraumatic Eyes: No sclera icterus, conjunctiva clear ENT: Moist mucous membranes CV: RRR, no murmurs Resp: Lungs CTA BL, no w/r/c GI: Abd soft, non-distended, non-tender, no r/r/g Musc: Full ROM, no deformity Skin: Warm, dry Psych: Cooperative, appropriate mood and affect PFSH PFSH Medical History ADHD Medical History no medical history Home Medications Medication Instructions Recorded Last Taken Type escitalopram oxalate 20 mg tablet 20 mg PO DAILY 01/20/25 Unknown History lisdexamfetamine 30 mg capsule 30 mg PO DAILY 01/20/25 Unknown History ondansetron 4 mg disintegrating 4 mg PO Q8H PRN PRN Nausea #10 tabs 01/20/25 Unknown Rx tablet pantoprazole 40 mg tablet,delayed 40 mg PO BID 01/20/25 Unknown History release sucralfate 100 mg/mL oral 10 ml PO 4X/DAY 01/20/25 Unknown History suspension Allergy/AdvReac Type Severity Reaction Status Date / Time No Known Allergies Allergy Verified 01/20/25 21:56 Social History Smoking Status: Never smoker EXAM Physical Exam Const Vital Signs: 01/20/25 21:54 Temperature 96.3 F L Temperature Source Temporal Pulse Rate 62 Respiratory Rate 14 Blood Pressure 124/76 H Blood Pressure Mean 92 Pulse Ox 98 Oxygen Delivery Method Room Air MDM MDM MDM Narrative Medical decision making narrative: 19-year-old female with past medical history of chronic gastric issues presents for evaluation of nausea and vomiting. Patient states for several months she has been having intermittent nausea, vomiting, epigastric abdominal pain, and diarrhea. She followed up with her primary care physician in which she is on a PPI and sucralfate. States she is scheduled to see GI in February. Patient states that the past couple days her nausea and vomiting has worsened. Associated symptom is little p.o. intake. She denies any abdominal pain, fever, chills, diarrhea, constipation, dysuria. On presentation, patient no acute distress. Vitals are stable. Differential diagnosis includes but is not limited to viral gastroenteritis, GERD, gastritis, IBS, UTI, electrolyte abnormality, dehydration, . Patient's abdominal exam is benign therefore do not think any imaging is needed. Will give NS bolus, Zofran, Protonix. Abdominal labs ordered with urine . CBC unremarkable without leukocytosis or anemia. CMP unremarkable without significant electrolyte abnormality, BONITA, transaminitis. Lipase unremarkable. UA positive for ketones which is consistent with mild dehydration. No UTI. Urine negative. On reevaluation, patient has had no nausea and vomiting here in the emergency department. Patient was updated of all her results. Plan is for discharge home. No clear etiology for her nausea and vomiting at this time. May be chronic given her chronic symptoms versus viral gastroenteritis. Recommended bland diet. Increase fluid intake. Follow-up with primary care physician. Keep GI appointment. Return precautions explained. She confirmed understand the plan. Zofran given for nausea and vomiting at home. Impression: 1. Nausea and vomiting 2. Chronic GI issues 3. Mild dehydration Lab Data Labs: Laboratory Results - last 24 hr 01/20/25 01/20/25 22:20 23:28 WBC 5.2 RBC 5.19 Hgb 14.2 Hct 43.2 MCV 83.2 MCH 27.4 MCHC 32.9 RDW Std Deviation 37.8 RDW Coeff of [place] 12.4 Plt Count 321 MPV 10.1 Immature Gran % (Auto) 0.200 Neut % (Auto) 57.8 Lymph % (Auto) 34.7 [place] % (Auto) 5.0 Eos % (Auto) 1.3 Baso % (Auto) 1.0 Absolute Neuts (auto) 3.0 Absolute Lymphs (auto) 1.81 Nucleated RBC % 0 Sodium 138 Potassium 3.7 Chloride 103 Carbon Dioxide 22.7 Anion Gap 12 BUN 11 Creatinine 0.59 L Estim Creat Clear Calc 119.29 Est GFR (MDRD) Non-Af 131 BUN/Creatinine Ratio 17.9 Glucose 91 Calcium 9.8 Total Bilirubin 0.54 AST 25 ALT 11 Alkaline Phosphatase 50 Total Protein 7.7 Albumin 4.8 Globulin 2.9 Albumin/Globulin Ratio 1.7 Lipase 33 Urine Color Yellow Urine Clarity Sl. Cloudy Urine pH 6.5 Ur Specific [place] 1.015 Urine Protein 15 H Urine Glucose (UA) Normal Urine Ketones 15 H Urine Occult Blood 10 H Urine Nitrite Negative Urine Bilirubin Negative Urine Urobilinogen Normal Ur Leukocyte Esterase Negative Urine RBC 0-5 SEEN Urine WBC 0 SEEN Ur Squamous Epith Cells 10-25 SEEN Amorphous Sediment 1+ Urine Bacteria 3+ Urine Mucus 2+ Urine Test Negative Discharge Plan Triage Chief Complaint: Abd Pain ED Provider: Nikos Coombs Dx/Rx/DC Orders Clinical Impression: Nausea & vomiting Instructions: ED Diet Vomiting Diarrhea Prescriptions: New ondansetron 4 mg tablet,disintegrating 4 mg PO Q8H PRN PRN (Reason: Nausea) Qty: 10 0RF No Action sucralfate 100 mg/mL suspension 10 ml PO 4X/DAY pantoprazole 40 mg tablet,delayed release (DR/EC) 40 mg PO BID escitalopram oxalate 20 mg tablet 20 mg PO DAILY lisdexamfetamine 30 mg capsule 30 mg PO DAILY Primary Care Provider: LLOYD CAMARILLO Referrals: LLOYD CAMARILLO [Other] - 3-5 Days Keep your GI appointment [Other] Activity Restrictions/Additional Instructions: No clear etiology for your nausea and vomiting. Follow-up with primary care physician and your GI physician. Return back to ED symptoms change or worsen. Zofran as needed for nausea and vomiting. Keep up with fluid hydration. Print Language: Jordanian Disposition Disposition: Home, Self Care
[2025-01-20] MEDS: Famotidine 200 MG/20 ML MDV 20 MG in 0.9% Normal Saline (Pres. free 8 ML 300 MG IV (22:54)
[2025-01-20 22:55] LABS: AST(SGOT) 25 U/L (<=31); Alanine Aminotransfer ALT/SGPT 11 U/L (<=34); Albumin, Serum 4.8 g/dL (3.5-5.0); Alkaline Phosphatase 50 U/L (35-104); Anion Gap 12 (5-15); BUN 11 mg/dL (4-19); BUN/Creat Ratio 17.9 RATIO (10-20); Calcium,Total 9.8 mg/dL (7.6-11.0); Carbon Dioxide 22.7 mmol/L (21.0-32.0); Chloride 103 mmol/L (98-108); Estimated Creatinine Clearance 119.29 ml/min (50-250); Globulin 2.9 g/dL (2.2-4.2); Glucose 91 mg/dL (70-99); Lipase 33 U/L (13-75); Potassium 3.7 mmol/L (3.3-5.1)
[2025-01-20 23:32] LABS: Color, Urine Yellow (Yellow); Glucose, Dipstick Normal (Normal); Ketone-Dipstick 15 mg/dl (Negative); Leukocyte Esterase-Dipstick Negative /ul (Negative); Nitrite-Dipstick Negative (Negative); Occult Blood-Urine 10 /ul (Negative); Protein-Dipstick 15 mg/dl (Negative); Specific Gravity, Urine 1.015 (1.002-1.030); Urine Bilirubin Dipstick Negative (Negative)
[2025-01-20 23:35] LABS: Internal QC Validated? YES +Cl - CLEAR BKGD; Pregnancy, Urine Negative Negative; Record Kit Lot#,Urine Preg 0000980607
[2025-01-20 23:38] LABS: Mucous, Urine 2+ /hpf (<or=2+); Red Blood Cells-Urine 0-5 SEEN /hpf (0-5); Squamous Epithelial Cells - UA 10-25 SEEN /hpf (5-10)
[2025-01-20 23:54] VITALS: BP 109/73; PULSE 71; RESP 18; TEMP 36.6; O2SAT 100
== END 2025-01-21 00:13 | disposition home or self-care (01) ==
PROVIDERS: Emergency Provider Surgery; Visit Provider Surgery
DX: R11.2 Nausea with vomiting, unspecified (principal); F90.9 Attention-deficit hyperactivity disorder, unspecified type; Z79.899 Other long term (current) drug therapy
CPT/HCPCS: 80053; 81001; 81025; 83690; 85025; 96361; 96374; 96376; 99283; A4216; J2405

== ENCOUNTER 2025-01-22 11:10 | Emergency (ER) | payer OTHER, SELFPAY ==
[2025-01-22 11:10] VITALS: BP 112/93; PULSE 83; RESP 16; TEMP 36.5; O2SAT 97; BMI 21.6
--- NOTE | 2025-01-22 12:00 | CT_ITS ---
PROCEDURE: ABDOMEN/PELVIS W IV CONT ONLY 01/22/2025 REASON FOR EXAM: LLQ PAIN TECHNIQUE: Procedure Code: [id number] Modality: CT Procedure: ABDOMEN/PELVIS W IV CONT ONLY Coronal and Sagittal reconstruction series were provided. CONTRAST: Isovue-300 VOLUME: 100 mL One or more dose reduction techniques were used (e.g., Automated exposure control, adjustment of the mA and/or kV according to patient size, use of iterative reconstruction technique. RADIATION DOSE SUMMARY: CTDlvol: 8.1 mGy DLP: 283.03 mGycm COMPARISON: None FINDINGS: Lung bases: The lung bases are clear. Liver: Normal size. No mass. Gallbladder: Unremarkable Spleen: Normal size. Pancreas: Normal size without evidence of mass surrounding inflammation or ductal dilation. Adrenals: Unremarkable Kidneys: Normal renal sizes. No hydronephrosis. Bladder: Unremarkable Reproductive Organs: IUD is seen within the uterus. Follicles are seen in both ovaries. There is a 1.5 cm follicle in the left ovary. Tiny amount of free fluid in the cul-de-sac most likely related to the patient's menstrual cycle. Bowel: Unremarkable Appendix: Unremarkable Lymph nodes: Unremarkable. Vasculature: The abdominal aorta and IVC are normal. Peritoneum / Retroperitoneum: Unremarkable Bones: Unremarkable CT/Abdomen/Pelvis W IV Cont ONLY IMPRESSION: Follicles are seen in both ovaries slightly larger on the left side. Tiny amount of free fluid in the cul-de-sac most likely related to the patient' s menstrual cycle. IUD is seen within the endometrium. Reading Location: [facility]
--- NOTE | 2025-01-22 12:05 | EX.ED.DYSGE1 ---
HPI History of Present Illness Chief Complaint: Abd Pain Narrative Narrative: Patient is a 19-year-old female with past medical history of ADHD, anxiety, depression who presents to the emergency department the chief complaint of nausea, vomiting, diarrhea, lightheadedness. She states that she was seen here January 20 for similar symptoms and notes that these have continued and she states that she has barely been able to eat anything therefore she came back for further evaluation management. Patient denies any sick contacts. Denies any history of drug use, alcohol use, tobacco use. Patient denies any previous abdominal surgeries. States that she has an IUD in and denies possibility of [facility] Medical History ADHD Home Medications Medication Instructions Recorded Last Taken Type escitalopram oxalate 20 mg tablet 20 mg PO DAILY 01/20/25 Unknown History lisdexamfetamine 30 mg capsule 30 mg PO DAILY 01/20/25 Unknown History ondansetron 4 mg disintegrating 4 mg PO Q8H PRN PRN Nausea #10 tabs 01/20/25 Unknown Rx tablet pantoprazole 40 mg tablet,delayed 40 mg PO BID 01/20/25 Unknown History release sucralfate 100 mg/mL oral 10 ml PO 4X/DAY 01/20/25 Unknown History suspension metoclopramide HCl 10 mg tablet 10 mg PO Q6H PRN nausea and 01/22/25 Unknown Rx vomiting #20 tabs Allergy/AdvReac Type Severity Reaction Status Date / Time No Known Allergies Allergy Verified 01/22/25 11:12 Social History Smoking Status: Never smoker ROS ROS ED ROS Narrative Constitutional: Denies any fevers, chills Abdomen: Complains of nausea vomiting diarrhea as noted above : Denies any urinary symptoms Neurological: Denies any numbness, weakness, tingling Musculoskeletal: Denies back pain Skin: Denies any rashes or lesions EXAM Physical Exam Narrative Exam Narrative: General: Patient was lying in bed rest comfortably did not appear to be in acute distress Head: Atraumatic, normocephalic Eyes: PERRL bilaterally, EOMI bilaterally, no conjunctival injection noted Neck: Soft, supple, trachea midline Cardiovascular:-Regular rate and rhythm Respiratory: Clear to auscultation bilaterally Abdomen: Soft, nondistended, mild tenderness to palpation in the left lower quadrant no rebound or guarding on exam Extremities: +5/5 strength noted in the bilateral lower extremities Neurological: Patient following commands knew that she was at [facility] the year is 2024 Skin: Warm, dry, intact no rashes or lesions noted Const Vital Signs: 01/22/25 11:10 01/22/25 13:10 Temperature 97.7 F L Temperature Source Oral Pulse Rate 83 86 Respiratory Rate 16 18 Blood Pressure 112/93 H 107/59 L Blood Pressure Mean 99 75 Pulse Ox 97 96 MDM MDM MDM Narrative Medical decision making narrative: Patient is a 19-year-old female who presented to the emergency department chief complaint of abdominal pain nausea vomiting diarrhea. On the differential diagnosis includes but not limited to diverticulitis, colitis, viral gastroenteritis, ectopic , UTI, pyelonephritis. Once workup is obtained reviewed she will be reevaluated. Patient be given IV fluids and Reglan. Patient CBC reviewed showed a white blood count 3.8, he was 13.8, plate count normal at 271. Patient sodium was 130, potassium normal 4, creatinine 0.59. Patient AST and ALT are 21 and 10 respectively lipase normal at 29 test was negative. Patient urinalysis reviewed showed no evidence of infection. Patient CT on pelvis with IV contrast showed follicles seen in both ovaries slightly larger on the left side tiny amount of free fluid in the cul-de-sac most likely related to the patient's menstrual cycle IUD seen within the endometrium. Discussed results with the patient she would like to go home at this point time. Advised her that she is likely on the tail end of her viral illness and needs to continue supportive care she will be given a prescription for Reglan. She is vies follow-up with her doctor in the outpatient setting return with worsening symptoms or any concerns she is agreeable with this plan all question concerns answered she was discharged home in stable condition Lab Data Labs: Laboratory Results - last 24 hr 01/22/25 01/22/25 12:10 12:40 WBC 3.8 L RBC 5.04 Hgb 13.8 Hct 41.9 MCV 83.1 MCH 27.4 MCHC 32.9 RDW Std Deviation 37.6 RDW Coeff of [place] 12.4 Plt Count 271 MPV 9.6 Immature Gran % (Auto) 0.000 Neut % (Auto) 60.8 Lymph % (Auto) 31.9 [place] % (Auto) 5.5 Eos % (Auto) 1.0 Baso % (Auto) 0.8 Absolute Neuts (auto) 2.3 Absolute Lymphs (auto) 1.22 Nucleated RBC % 0 Sodium 138 Potassium 4.0 Chloride 105 Carbon Dioxide 23.2 Anion Gap 10 BUN 8 Creatinine 0.59 L Estim Creat Clear Calc 119.29 Est GFR (MDRD) Non-Af 131 BUN/Creatinine Ratio 13.7 Glucose 88 Calcium 9.6 Total Bilirubin 0.58 AST 21 ALT 10 Alkaline Phosphatase 49 Total Protein 7.2 Albumin 4.6 Globulin 2.6 Albumin/Globulin Ratio 1.7 Lipase 29 Serum , Qual NEGATIVE Urine Color Yellow Urine Clarity Clear Urine pH 7.0 Ur Specific [place] 1.010 Urine Protein Negative Urine Glucose (UA) Normal Urine Ketones Negative Urine Occult Blood Negative Urine Nitrite Negative Urine Bilirubin Negative Urine Urobilinogen Normal Ur Leukocyte Esterase Negative Urine RBC 0 SEEN Urine WBC 0-5 SEEN Ur Squamous Epith Cells 0-5 SEEN Urine Bacteria 1+ Urine Mucus 0 SEEN Radiography Diagnostic Testing: Clinical Impression(s) from Imaging Studies Abdomen/Pelvis CT 01/22/25 12:00 IMPRESSION: Follicles are seen in both ovaries slightly larger on the left side. Tiny amount of free fluid in the cul-de-sac most likely related to the patient's menstrual cycle. IUD is seen within the endometrium. Reading Location: [facility] Discharge Plan Triage Chief Complaint: Abd Pain ED Provider: Jake Guo Dx/Rx/DC Orders Clinical Impression: Nausea & vomiting, History of ADHD, History of anxiety Prescriptions: New metoclopramide HCl 10 mg tablet 10 mg PO Q6H PRN (Reason: nausea and vomiting) Qty: 20 0RF No Action sucralfate 100 mg/mL suspension 10 ml PO 4X/DAY pantoprazole 40 mg tablet,delayed release (DR/EC) 40 mg PO BID escitalopram oxalate 20 mg tablet 20 mg PO DAILY lisdexamfetamine 30 mg capsule 30 mg PO DAILY ondansetron 4 mg tablet,disintegrating 4 mg PO Q8H PRN PRN (Reason: Nausea) Qty: 10 0RF Primary Care Provider: LLOYD CAMARILLO Referrals: NOT,DEFINED [Non-Staff, None] Activity Restrictions/Additional Instructions: Follow-up your doctor in the outpatient setting. Return with worsening symptoms or any concerns your blood work did not show any acute findings your CT did not show any acute findings. Use the Reglan as prescribed do not use this and Zofran is the same type of medication Print Language: Sammarinese Disposition Disposition: Home, Self Care D/C Safety Score for UGIB Assessment [place] Bleeding Score (GBS): Stratifies upper GI bleeding patients who are "low-risk" and candidates for outpatient management. Hemoglobin, BUN, Recent Vital Signs: Hgb 13.8 g/dL (12.0-15.0) 01/22/25 12:10 BUN 8 mg/dL (4-19) 01/22/25 12:10 Pulse Rate 86 Blood Pressure 107/59 Total Risk Score: 0 Score Interpretation: Score of 0: A GBS of 0 is a “Low Risk” GI bleed, and is highly sensitive (99.6% in a 2007 retrospective study) for predicting which patients did not require any “medical intervention”: blood transfusion, endoscopy, or surgery. This was confirmed in a 2009 Lanc study where patients with a score of 0 were actually discharged and had no GI bleeding mortality at 6 month followup Score above 0: A GBS greater than zero suggests a “High Risk” GI bleed that is likely to require “medical intervention”: transfusion, endoscopy, or surgery. A higher GBS also correlated with a higher likelihood of needing intervention Scores >/= 6 are associated with >50% risk of needing intervention D/C Safety Score for LGIB Assessment Assessment Tool: Readmission and adverse event risk in patients with acute lower GI bleeding. Age, in years: <40 Hemoglobin and Recent Vital Signs: Hgb 13.8 g/dL (12.0-15.0) 01/22/25 12:10 Pulse Rate 86 01/22/25 13:10 Blood Pressure 107/59 01/22/25 13:10 Probability of safe discharge: 99% Total Risk Score: 0 Score Interpretation: Probability Percentage of safe discharge (absence of rebleeding, blood transfusion, therapeutic intervention, 28 day readmission, or ) Score of 8 or below: Consider discharge, with appropriate precautions. Score of 9 or above: Discharge NOT recommended. Consider admission with further workup and resuscitation as necessary.
[2025-01-22] MEDS: 0.9% Normal Saline (1000mL) 1,000 ML 999 ML IV (12:14)
[2025-01-22 12:30] LABS: Hematocrit 41.9 % (37-47); Hemoglobin 13.8 g/dL (12.0-15.0); Immature Granulocytes Count 0.000 X10^3/uL (0.0-0.0); Mean Corp Hgb Conc 32.9 g/dL (32-36); Mean Corpuscular Volume 83.1 fL (81-99); Mean Platelet Vol. 9.6 fl (6.2-12.0); NRBC Flagged by Analyzer 0 % (0-5); Platelet Count 271 K/mm3 (150-450); RBC Distribution Width CV 12.4 % (11.6-14.6); RBC Distribution Width SD 37.6 fl (35.1-43.9); Red Blood Count 5.04 M/mm3 (4.2-5.4); White Blood Count 3.8 K/mm3 (4.4-11.0)
[2025-01-22 12:46] LABS: Internal QC Validated? YES +Cl - CLEAR BKGD; Pregnancy, Serum, hCG Quali. NEGATIVE Negative; Record Kit Lot#, Serum Preg. 980607
[2025-01-22 12:47] LABS: Mucous, Urine 0 SEEN /hpf (<or=2+); Red Blood Cells-Urine 0 SEEN /hpf (0-5)
[2025-01-22 12:49] LABS: Color, Urine Yellow (Yellow); Glucose, Dipstick Normal (Normal); Ketone-Dipstick Negative (Negative); Leukocyte Esterase-Dipstick Negative /ul (Negative); Nitrite-Dipstick Negative (Negative); Occult Blood-Urine Negative /ul (Negative); Protein-Dipstick Negative (Negative); Specific Gravity, Urine 1.010 (1.002-1.030); Urine Bilirubin Dipstick Negative (Negative)
[2025-01-22 12:56] LABS: Squamous Epithelial Cells - UA 0-5 SEEN /hpf (5-10)
[2025-01-22 13:10] VITALS: BP 107/59; PULSE 86; RESP 18; O2SAT 96
[2025-01-22 13:18] LABS: AST(SGOT) 21 U/L (<=31); Alanine Aminotransfer ALT/SGPT 10 U/L (<=34); Albumin, Serum 4.6 g/dL (3.5-5.0); Alkaline Phosphatase 49 U/L (35-104); Anion Gap 10 (5-15); BUN 8 mg/dL (4-19); BUN/Creat Ratio 13.7 RATIO (10-20); Calcium,Total 9.6 mg/dL (7.6-11.0); Carbon Dioxide 23.2 mmol/L (21.0-32.0); Chloride 105 mmol/L (98-108); Estimated Creatinine Clearance 119.29 ml/min (50-250); Globulin 2.6 g/dL (2.2-4.2); Glucose 88 mg/dL (70-99); Lipase 29 U/L (13-75); Potassium 4.0 mmol/L (3.3-5.1)
[2025-01-22 14:40] VITALS: BP 110/71; PULSE 84; RESP 18; TEMP 36.6; O2SAT 97
== END 2025-01-22 14:42 | disposition home or self-care (01) ==
PROVIDERS: Emergency Provider Emergency Medicine; Visit Provider Emergency Medicine
DX: R11.2 Nausea with vomiting, unspecified (principal); F41.9 Anxiety disorder, unspecified; F90.9 Attention-deficit hyperactivity disorder, unspecified type; F32.A Depression, unspecified; Z79.899 Other long term (current) drug therapy
CPT/HCPCS: 74177; 80053; 81001; 83690; 84703; 85025; 96361; 96374; 96376; 99283; Q9967; A4216